=== PATIENT | male | born 1950 | race Caucasian/White ===

== ENCOUNTER 2021-01-13 20:50 | Inpatient (IN) | payer MEDICARE, SELFPAY ==
[2021-01-13 20:52] VITALS: BP 153/100; PULSE 78; RESP 20; TEMP 36.5; O2SAT 86; BMI 19.6
[2021-01-13 21:00] VITALS: O2SAT 94
--- NOTE | 2021-01-13 21:01 | EKG12_ITS ---
Test Reason : DYSRHYTHMIA Blood Pressure : / mmHG Vent. Rate : 080 BPM Atrial Rate : 080 BPM P-R Int : 116 ms QRS Dur : 080 ms QT Int : 376 ms P-R-T Axes : 054 062 048 degrees QTc Int : 433 ms Normal sinus rhythm Normal ECG Confirmed by RIYA GRAF, MARCELO ([id number]), video tape editor PATO LAMA ([id number]) on 01/16/2021 11:00:09 AM Referred By: ORLANDO Confirmed By:MARCELO RITTER MD
[2021-01-13 21:05] VITALS: O2SAT 99
[2021-01-13] MEDS: 0.9% Normal Saline 1,000 ML 999 ML IV (21:08)
--- NOTE | 2021-01-13 21:18 | ED.VIS.GEN ---
History of Present Illness Chief Complaint: Shortness of Breath Informant: Patient Onset: Days Context: Gradual Onset Timing: Continuous Narrative: Patient is a 70-year-old male with unclear past medical history presenting via EMS for worsening shortness of breath and weakness. Patient states he is visiting his son from [place]. He is helping his son recover from a back surgery. Patient states he has had increased weakness over the past week. He notes he has not been able to walk has been relying on a wheelchair for the past few days. He also states he has been having urinary incontinence we does not realize he is even pain and when he does try to urinate he cannot go. He thinks his kidneys are shutting down. Patient notes he has had some worsening shortness of breath and a mild nonproductive cough over the past 2 days. Any phlegm production. He states he has chronic back pain but is been worse. He also states he has had total reconstruction of his neck. He states because that he has residual left-sided deficits and weakness. Patient has any fever but states has been cold. He denies any GI symptoms. Denies any associated abdominal pain. Past Medical History - Allergies and Home Meds Allergies/Adverse Reactions: Allergies No Known Allergies Allergy (Verified 01/13/21 20:58) Primary Care Physician: NOT,DEFINED [NON-STAFF] - Past Medical History: None Surgical History: - - Neck surgery, back surgery Smoking Status: Current every day smoker Review of Systems General: Reports: Malaise. Denies: Chills, Fever, Sweats Eyes: Denies: Visual changes - bilaterally, Diplopia ENT: Denies: Rhinorrhea, Sore throat Cardiovascular: Denies: Chest pain, Palpitations Respiratory: Reports: Dyspnea, Cough. Denies: Dyspnea on exertion Gastrointestinal: Denies: Abdominal pain, Nausea, Vomiting, Diarrhea, Melena, Hematochezia Genitourinary: Reports: - - Urinary incontinence. Denies: Dysuria, Hematuria, Frequency Musculoskeletal: Reports: Back pain. Denies: Extremity Pain Skin: Denies: Rash, Wounds Neurological: Reports: Weakness - Generalized, Numbness - Lower extremities, diffuse and chronic. Denies: Headache Physical Exam Vital Signs/Narrative: Vital Signs Temp Pulse Resp BP Pulse Ox 01/13/21 21:05 99 01/13/21 21:00 94 01/13/21 20:52 97.7 F L 78 20 H 153/100 H 86 Inital Vital Signs reviewed: Yes General: Well nourished, Well developed, No Acute Distress Head: Normocephalic, Atraumatic Eyes: Perrl, EOMI ENT: Moist mucous membranes, No rhinorrhea Neck: Supple, Nontender Cardiovascular: Regular rate, Regular rhythm, No murmurs Respiratory: No distress, CTA bilaterally, Chest nontender Abdomen: Soft, Nontender, Nondistended, Normal bowel sounds. Negative for: Guarding, Rebound tenderness Rectal: Nontender, - - Normal rectal tone Back: Normal Inspection, - - Diffuse lumbar tenderness to palpation, difficult to discern any pinpoint area of pain. Negative for: CVA tenderness Extremities: Nontender, No edema Skin: Normal color, - - Pressure ulcers noted on the hips Neurological: Alert, Oriented x3, Cranial nerves II-XII grossly intact, Normal Sensation, Parasthesia - Lower extremities diffusely-states this is chronic, - - Decreased strength of the lower extremities however patient states that secondary to pain Psychological: Normal affect, Normal Mood Diagnostic/Tx/Re-eval Chest X-Ray - ED: 1 View, Read by ED Physician, Read by Radiologist, No Acute Disease Clinical Impression(s) from Imaging Studies Chest X-Ray 01/13/21 21:46 IMPRESSION: Left basilar atelectasis. Electronically Signed: Hilario Oliver DO at 22:07 EST Tel [phone], Service support , Abdomen/Pelvis CT 01/13/21 22:21 IMPRESSION: Diffuse wall thickening of the urinary bladder is suspected. Bilateral renal cysts. Nonobstructive left renal stone. Possible left renal complex cystic nodule. Correlate with ultrasound if needed. Mild dilatation of the infrarenal abdominal aorta. Electronically Signed: Hilario Oliver DO at 23:58 EST Tel [phone], Service support , Laboratory Data 01/13/21 01/13/21 01/13/21 21:10 21:10 21:10 WBC 8.3 RBC 4.48 L Hgb 13.0 Hct 39.1 L MCV 87.3 MCH 29.0 MCHC 33.2 RDW Std Deviation 45.2 H RDW Coeff of Bravo 14.2 Plt Count 279 MPV 10.5 Immature Gran % (Auto) 0.400 Neut % (Auto) 57.1 Lymph % (Auto) 25.1 [place] % (Auto) 12.6 H Eos % (Auto) 4.3 Baso % (Auto) 0.5 Absolute Neuts (auto) 4.8 Absolute Lymphs (auto) 2.09 Nucleated RBC % 0 PT INR APTT Sodium 134 L Potassium 4.2 Chloride 100 Carbon Dioxide 33.0 H Anion Gap 1 L BUN 18 Creatinine 0.96 Estim Creat Clear Calc 62.92 Est GFR (MDRD) Af Amer 101 Est GFR (MDRD) Non-Af 83 BUN/Creatinine Ratio 18.8 Glucose 253 H Lactic Acid 1.4 Calcium 8.5 Total Bilirubin 0.40 AST 36 ALT 41 Alkaline Phosphatase 128 H Total Creatine Kinase 81 Troponin I < 0.015 Total Protein 7.6 Albumin 2.7 L Globulin 4.9 H Albumin/Globulin Ratio 0.6 L Urine Color Urine Clarity Urine pH Ur Specific [place] Urine Protein Urine Glucose (UA) Urine Ketones Urine Occult Blood Urine Nitrite Urine Bilirubin Urine Urobilinogen Ur Leukocyte Esterase Urine RBC Urine WBC Ur Squamous Epith Cells Urine Bacteria Urine Mucus 01/13/21 01/13/21 21:28 21:30 WBC RBC Hgb Hct MCV MCH MCHC RDW Std Deviation RDW Coeff of Bravo Plt Count MPV Immature Gran % (Auto) Neut % (Auto) Lymph % (Auto) [place] % (Auto) Eos % (Auto) Baso % (Auto) Absolute Neuts (auto) Absolute Lymphs (auto) Nucleated RBC % PT 12.1 INR 0.9 APTT 28.2 Sodium Potassium Chloride Carbon Dioxide Anion Gap BUN Creatinine Estim Creat Clear Calc Est GFR (MDRD) Af Amer Est GFR (MDRD) Non-Af BUN/Creatinine Ratio Glucose Lactic Acid Calcium Total Bilirubin AST ALT Alkaline Phosphatase Total Creatine Kinase Troponin I Total Protein Albumin Globulin Albumin/Globulin Ratio Urine Color Yellow Urine Clarity Cloudy Urine pH 6.5 Ur Specific [place] 1.010 Urine Protein 30 H Urine Glucose (UA) 250 H Urine Ketones Negative Urine Occult Blood 25 H Urine Nitrite Negative Urine Bilirubin Negative Urine Urobilinogen 1 H Ur Leukocyte Esterase 500 H Urine RBC 0 SEEN Urine WBC >100 SEEN Ur Squamous Epith Cells 0 SEEN Urine Bacteria 0 SEEN Urine Mucus 0 SEEN - Rhythm Strip Rhythm Strip: Sinus Rhythm Rate: 80 Ectopy: None - EKG Initial EKG Interpretation: Sinus Rhythm, - - Sinus rhythm at a rate of 80 Normal axis Normal intervals Normal ST segments. Interpreted by emergency medicine physician - Medical Decision Making Evaluated for increased weakness, difficulty walking and urinary incontinence. In addition he feels that he has been short of breath. Patient symptoms really been progressing over the past 3 to 4 days. He does have some chronic neurologic symptoms especially of his lower extremities from prior surgeries. Bladder scan obtained as my concern is for acute urinary retention. Bladder scan initially read for 700 cc. Hua catheter is placed however patient has 400- 500 cc out initially. Urine is very turbid and purulent appearing. Patient is given fentanyl for pain control. Initially patient was hypoxic however I suspect hypoxia was more from vasoconstriction his fingers were very cold. Once he is warmed up his oxygen is now 100% on room air. Chest x-ray is clear. Patient is hemodynamically stable in the emergency room. Analysis is consistent with inflammation/UTI. Urine culture sent as well as blood cultures. Patient's lactate is normal. He is started on Rocephin for concern of UTI as a cause of his symptoms and weakness. Patient is given IV fluids in the emergency room. Cauda equina syndrome is considered in the differential however patient has good rectal tone. It seems most of his neurologic symptoms of his extremities are chronic. In addition I suspect his pain is more associated with his bladder infection patient does not appear to have true overflow incontinence as he does not seem to have an over distended bladder. CT of the abdomen with IV contrast is obtained given his pain and purulent urine for concern of a possible associated kidney stone or other acute pathology. Patient be admitted for further evaluation. CT shows mild dilation of the infrarenal abdominal aorta as well as diffusely thickened bladder wall. Kidneys appear normal kidney show possible complex left renal cystic nodule and a 3 mm nonobstructing left renal stone. I do not think either of these kidney findings are contributing to his presentation today. Patient is agreeable with plan of care. He is stable for the general medical floor at time of disposition. ED Disposition - Plan for ED Patient: Disposition: Acute Care Hospital [facility] Diagnosis: UTI (urinary tract infection), Generalized weakness, Difficulty in walking Referrals: NOT,DEFINED [NON-STAFF] -
[2021-01-13] MEDS: fentaNYL 100 MCG/2 ML Ampul 50 MCG IV ×2 (21:30→23:04)
[2021-01-13 21:35] LABS: Bacteria 0 SEEN /hpf (None Seen); Mucous, Urine 0 SEEN /hpf (<or=2+); Red Blood Cells-Urine 0 SEEN /hpf (0-5); Squamous Epithelial Cells - UA 0 SEEN /hpf (0-5)
[2021-01-13 21:41] LABS: ALB/GLOB Ratio 0.6 RATIO (0.9-2.4); AST(SGOT) 36 U/L (15-37); Absolute Lymphocyte Count 2.09 X10^3/uL (0.83-4.51); Absolute Neutrophil Count 4.8 X10^3/uL (2.0-7.7); Alanine Aminotransfer ALT/SGPT 41 U/L (16-61); Albumin, Serum 2.7 g/dL (3.2-5.0); Alkaline Phosphatase 128 U/L (45-117); Anion Gap 1 (5-15); BUN 18 mg/dL (7-18); BUN/Creat Ratio 18.8 RATIO (10-20); Basophil# 0.04 X10^3/uL; Basophil% 0.5 % (0-1); CPK Total, Creatine Kinase 81 U/L (39-308); Calcium,Total 8.5 mg/dL (8.5-10.1); Chloride 100 mmol/L (98-107); Creatinine, Serum 0.96 mg/dL (0.70-1.30); EST Glomerular Filtration Rate 83 mL/min (>60); Eosinophil# 0.36 X10^3/uL; Eosinophils% 4.3 % (0-5); Est Glom Filt Rate - Afr Amer 101 mL/min (>60); Estimated Creatinine Clearance 62.92 ml/min; Globulin 4.9 g/dL (2.2-4.2); Glucose 253 mg/dL (74-106); Hematocrit 39.1 % (40-54); Lymphocyte # 2.09 X10^3/ul (4.0); Lymphocyte % 25.1 % (19-41); Mean Corp Hgb Conc 33.2 g/dL (32-36); Mean Corpuscular Volume 87.3 fL (80-94); Mean Platelet Vol. 10.5 fl (6.2-12.0); Monocyte# 1.05 X10^3/uL; Monocyte% 12.6 % (0-10); NRBC Flagged by Analyzer 0 % (0-5); Neutrophil # 4.76 X10^3/uL (2.7-7.7); Neutrophil % 57.1 % (47-70); Platelet Count 279 K/mm3 (150-450); Potassium 4.2 mmol/L (3.5-5.1); Protein, Total 7.6 g/dL (6.4-8.2); RBC Distribution Width CV 14.2 % (11.6-14.6); RBC Distribution Width SD 45.2 fl (35.1-43.9); Red Blood Count 4.48 M/mm3 (4.6-6.2); Sodium Level 134 mmol/L (136-145); White Blood Count 8.3 K/mm3 (4.4-11.0)
--- NOTE | 2021-01-13 21:46 | RAD_ITS ---
STUDY: X-RAY CHEST REASON FOR EXAM: Male, 70 years old. urinary retention and incontinence, discharge. abd pain. -- increased weakness, SOB. TECHNIQUE: Frontal view COMPARISON: None. FINDINGS: The lungs are expanded. Left basilar atelectasis. Normal size heart. Normal mediastinum and murphy. Normal visualized pulmonary arteries. Normal visualized aortic arch and descending thoracic aorta. Degenerative changes of the thoracic spine. Surgical fusion of the lower cervical levels. Normal visualized ribs, clavicles, and shoulders. There is no demonstrated abnormality of the visualized soft tissue structures of the upper abdomen. RAD/Chest 1 View (Portable) IMPRESSION: Left basilar atelectasis. Electronically Signed: Hilario Oliver DO at 22:07 EST Tel [phone], Service support ,
[2021-01-13 21:48] LABS: Color, Urine Yellow (Yellow); Glucose, Dipstick 250 mg/dl (Normal); Ketone-Dipstick Negative (Negative); Leukocyte Esterase-Dipstick 500 /ul (Negative); Nitrite-Dipstick Negative (Negative); Occult Blood-Urine 25 /ul (Negative); Protein-Dipstick 30 mg/dl (Negative); Urine Bilirubin Dipstick Negative (Negative); Urine Clarity Cloudy (Clear); Urine Urobilinogen 1 mg/dl (Normal); Urine pH 6.5 (5.0 - 8.0)
[2021-01-13 21:53] LABS: White Blood Cells >100 SEEN /hpf (0-5)
[2021-01-13 22:03] LABS: International Normalized Ratio 0.9; Prothrombin Time (Protime)PT. 12.1 SECONDS (11.7-14.9)
[2021-01-13 22:04] LABS: Partial Thromboplast Time 28.2 Seconds (24.1-36.2)
[2021-01-13 22:16] LABS: Lactic Acid 1.4 mmol/L (0.4-1.9)
--- NOTE | 2021-01-13 22:21 | CT_ITS ---
STUDY: CT ABDOMEN AND PELVIS WITH CONTRAST REASON FOR EXAM: Male, 70 years old. URINARY RETENTION AND INCONTINENCE,LOW ABDOMEN AND BACK PAIN,WEAKNESS RADIATION DOSAGE (If Supplied By Facility): CTDIvol = ( 6.92 ) mGy, DLP = ( 394.44 ) mGycm TECHNIQUE: Transaxial images were obtained from the dome of the diaphragm to the symphysis pubis without oral contrast. IV 100mL Isovue-300 was administered. Sagittal and coronal images were reconstructed. Individualized dose optimization techniques were used for this CT. COMPARISON: None. FINDINGS: The visualized lung bases are unremarkable. The visualized portions of the heart are within normal limits. Normal liver. Normal gallbladder and extrahepatic biliary system. Normal spleen. Normal pancreas. Normal bilateral adrenal glands. Bilateral renal cysts. 3 mm nonobstructing left renal stone. Possible complex left renal 1.5 cm cystic nodule. Normal visualized stomach. Normal small intestine. Normal colon. The appendix is visualized and appears normal. Calcified abdominal aorta. Mild dilatation of the infrarenal abdominal aorta with a maximum diameter of 2.7 cm. Normal inferior vena cava. Normal retroperitoneum. GUERRA catheter in a decompressed urinary bladder with diffuse wall thickening. Cystitis cannot be excluded. Diffusely calcified prostate. Normal abdominal wall. Degenerative vertebral changes. CT/Abdomen/Pelvis W IV Cont ONLY IMPRESSION: Diffuse wall thickening of the urinary bladder is suspected. Bilateral renal cysts. Nonobstructive left renal stone. Possible left renal complex cystic nodule. Correlate with ultrasound if needed. Mild dilatation of the infrarenal abdominal aorta. Electronically Signed: Hilario Oliver DO at 23:58 EST Tel [phone], Service support ,
[2021-01-13 22:22] VITALS: BP 159/87; PULSE 82; RESP 17; TEMP 36.4; O2SAT 98
[2021-01-13] MEDS: Morphine 4 MG/ML Syringe IV (22:31)
[2021-01-13 22:33] VITALS: BP 129/77
[2021-01-13] MEDS: Ceftriaxone 1 GM/50 ML BAG IV (22:37)
[2021-01-13 23:54] VITALS: BP 127/67; PULSE 71; RESP 12; TEMP 36.3; O2SAT 100
[2021-01-14] VITALS (7 sets, daily range): BP systolic 114–142; BP diastolic 59–82; PULSE 76–90; RESP 18–22; TEMP 36.3–36.8; O2SAT 97–100; BMI 18.6; BMI 18.7
--- NOTE | 2021-01-14 00:29 | HP.PCM_ITS ---
Problem List (1) Difficulty in walking Status: Acute (2) Generalized weakness Status: Acute (3) UTI (urinary tract infection) Status: Acute History of Present Illness Date of Admission: 01/14/21 Chief Complaint: Dysuria The patient is a 70 year old M with a significant history of cervical myelopathy and right leg paresis who is visiting from [facility] presenting with dysuria x1 week. Patient came from [place] to help his son who have had surgery. Patient with his dysuria also reports incontinence of urine and penile discharge. He described his penile discharge as yellowish-green in color. Last time he had sexual intercourse was over 5 years ago. Last sexual intercourse was with his who 5 years ago. Further, patient reports nausea and vomiting. He also has weakness. Because of weakness he has been confined to a chair. He reports a temperature of about 100 Fahrenheit and chills. He has a chronic back pain which he thinks has worsened with his dysuria. Emergency department doctor reports normal rectal tone on physical examination. Reportedly urine showed gross sediments. Past Medical History Medical History: Medical History (Last Reviewed 01/14/21 @ 01:[address] Sunny Osuna MD) Cervical myelopathy G95.9 Allergies No Known Allergies Allergy (Verified 01/13/21 20:58) Home Medications: Ambulatory Orders Medication Instructions Recorded Aspirin [Aspirin, Baby] 81 mg PO DAILY@0800 01/13/21 Multivit-Mins/Iron/Folic/Lycop 1 ea PO DAILY 01/13/21 [Centrum Men's Tablet] Surgical History: - - Neck surgery, back surgery Smoking Status: Current every day smoker Tobacco Use: Cigarettes - *Family History Maternal History Items: - - Denies maternal medical history and states that old age runs in family. Paternal History Items: - - Denies paternal medical history and states that old age runs in family. Review of Systems Constitutional: Denies: Chills, Fever, Weight Change HEENT: Denies: Head Aches, Sinus Congestion, Sinus Drainage Cardiovascular: Denies: Chest Pain, Palpitations Respiratory: Reports: Shortness of Breath. Denies: Cough, Sputum production Gastrointestinal: Reports: Abdominal Pain, Nausea, Vomiting Genitourinary: Reports: Dysuria, Incontinence Musculoskeletal: Reports: Back Pain, Muscle pain. Denies: Joint Pain, Joint Tenderness Skin: Denies: Rash, Wounds Neurological: Denies: Numbness, Tingling, Focal weakness Psychiatric: Denies: Anxiety, Depression, Homicidal Ideations, Suicidal Ideations Hematologic/ Lymphatic: Denies: Easy Bruising, Easy Bleeding VTE Information - Inpt Only VTE Present on Admission: No VTE Mechan Device Prophylaxis: None VTE Pharm Prophylaxis ordered?: Yes Patient Problems: Active and Suspected Problems (Last Updated 01/14/21 @ 01:[address] Sunny Osuna MD) UTI (urinary tract infection) (Acute) Generalized weakness (Acute) Difficulty in walking (Acute) - Physical Exam Vitals/I&O's: Vital Signs Temp Pulse Resp BP Pulse Ox 97.4 F L 71 12 127/67 H 100 01/13/21 23:54 01/13/21 23:54 01/13/21 23:54 01/13/21 23:54 01/13/21 23:54 Oxygen Flow Rate (L/min) 2 Oxygen Delivery Method Room Air Weight: 60.4 kg Body Mass Index (BMI) 19.6 Intake and Output for Last 24 Hours 01/12/21 01/13/21 01/14/21 23:59 23:59 23:59 Intake Total 1050 / 1050 Balance 1050 / 1050 General: Alert, Oriented x3, Cooperative HEENT: Atraumatic, PERRLA, EOMI, Normocephalic Neck: Supple, No JVD, Negative Carotid Bruits Lungs: Clear to auscultation, Normal air movement Cardiovascular: Regular rate, Normal S1, Normal S2, No murmurs Abdomen: Bowel Sounds Present, Soft, Non Tender, - - Hua cath in place; urine is not clear. (placed at the ED) Extremities: No edema, Capillary Refill Less than 3 Seconds Skin: - - Erythema bilateral legs that he attributes to kumar. Erythema of left groin that he attributes to wheelchair use. Musculoskeletal: No Tenderness to Palpation of Joints or Extremities Neurological: Cranial nerves II-XII grossly intact, - - Restricted range of motion of bilateral lower extremity dietary to paralysis of right leg and muscle cramps. Psych/Mental Status: Normal Affect, Appropriate Microbiology Past 72 Hours 01/13/21 21:10 Mucosa - Nose SARS-CoV-2 Antigen (Rapid) - Final Laboratory Results 01/13/21 21:10: WBC 8.3, RBC 4.48 L, Hgb 13.0, Hct 39.1 L, MCV 87.3, MCH 29.0, MCHC 33.2, RDW Std Deviation 45.2 H, RDW Coeff of Bravo 14.2, Plt Count 279, MPV 10.5, Immature Gran % (Auto) 0.400, Neut % (Auto) 57.1, Lymph % (Auto) 25.1, [place] % (Auto) 12.6 H, Eos % (Auto) 4.3, Baso % (Auto) 0.5, Absolute Neuts (auto) 4.8, Absolute Lymphs (auto) 2.09, Nucleated RBC % 0 01/13/21 21:10: Sodium 134 L, Potassium 4.2, Chloride 100, Carbon Dioxide 33.0 H , Anion Gap 1 L, BUN 18, Creatinine 0.96, Estim Creat Clear Calc 62.92, Est GFR (MDRD) Af Amer 101, Est GFR (MDRD) Non-Af 83, BUN/Creatinine Ratio 18.8, Glucose 253 H, Calcium 8.5, Total Bilirubin 0.40, AST 36, ALT 41, Alkaline Phosphatase 128 H, Total Creatine Kinase 81, Troponin I < 0.015, Total Protein 7.6, Albumin 2.7 L, Globulin 4.9 H, Albumin/Globulin Ratio 0.6 L 01/13/21 21:10: Lactic Acid 1.4 01/13/21 21:28: Urine Color Yellow, Urine Clarity Cloudy, Urine pH 6.5, Ur Specific [place] 1.010, Urine Protein 30 H, Urine Glucose (UA) 250 H, Urine Ketones Negative, Urine Occult Blood 25 H, Urine Nitrite Negative, Urine Bilirubin Negative, Urine Urobilinogen 1 H, Ur Leukocyte Esterase 500 H, Urine RBC 0 SEEN, Urine WBC >100 SEEN, Ur Squamous Epith Cells 0 SEEN, Urine Bacteria 0 SEEN, Urine Mucus 0 SEEN 01/13/21 21:30: PT 12.1, INR 0.9, APTT 28.2 Assessment/Plan All Active Problems (Last Updated 01/14/21 @ 01:[address] Sunny Osuna MD) UTI (urinary tract infection) (Acute) Generalized weakness (Acute) Difficulty in walking (Acute) The patient is a 70 year old M with a significant history of cervical myelopathy and right leg paresis who is visiting from [facility] presenting with dysuria x1 week; penile discharge; nausea and vomiting; and with worsening back pain as well as weakness. Acute cystitis Abdomen and pelvis CT with diffuse wall thickening of the urinary bladder. Received ceftriaxone emergency department. Ceftriaxone continued. Antiemetics as needed Oxycodone prn pain. Bowel protocol in place. Generalized weakness/difficulty walking Treatment for UTI as above PT and OT to work with patient. Left basilar atelectasis Incentive spirometer ordered Moderate protein calorie malnutrition BMI of 19.7. Ensure Enlive ordered. Left renal complex cyst nodule Patient to follow-up longitudinally. DVT prophylaxis Subcutaneous Lovenox. Inpatient E&M: 50479 Init Hosp L3
--- NOTE | 2021-01-14 00:54 | ED.RN ---
attempted to call son for update on admission- did not answer.
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
[2021-01-14] MEDS: oxyCODONE 5 MG Tablet PO ×3 (02:33→17:47)
[2021-01-14 07:30] LABS: Absolute Lymphocyte Count 1.88 X10^3/uL (0.83-4.51); Absolute Neutrophil Count 3.9 X10^3/uL (2.0-7.7); Basophil# 0.03 X10^3/uL; Basophil% 0.4 % (0-1); Eosinophil# 0.28 X10^3/uL; Eosinophils% 4.1 % (0-5); Hematocrit 34.4 % (40-54); Hemoglobin 10.9 g/dL (13.0-16.5); Lymphocyte # 1.88 X10^3/ul (4.0); Lymphocyte % 27.2 % (19-41); Mean Corp Hgb Conc 31.7 g/dL (32-36); Mean Corpuscular Hgb 28.2 pg (27.0-32.0); Mean Corpuscular Volume 88.9 fL (80-94); Mean Platelet Vol. 10.3 fl (6.2-12.0); Monocyte# 0.84 X10^3/uL; Monocyte% 12.2 % (0-10); NRBC Flagged by Analyzer 0 % (0-5); Neutrophil # 3.85 X10^3/uL (2.7-7.7); Neutrophil % 55.8 % (47-70); Platelet Count 221 K/mm3 (150-450); RBC Distribution Width CV 14.3 % (11.6-14.6); RBC Distribution Width SD 46.1 fl (35.1-43.9); Red Blood Count 3.87 M/mm3 (4.6-6.2); White Blood Count 6.9 K/mm3 (4.4-11.0)
[2021-01-14 07:34] LABS: Anion Gap 3 (5-15); BUN 15 mg/dL (7-18); BUN/Creat Ratio 21.2 RATIO (10-20); Calcium,Total 8.2 mg/dL (8.5-10.1); Chloride 101 mmol/L (98-107); Creatinine, Serum 0.71 mg/dL (0.70-1.30); EST Glomerular Filtration Rate 118 mL/min (>60); Est Glom Filt Rate - Afr Amer 143 mL/min (>60); Glucose 278 mg/dL (74-106); Sodium Level 135 mmol/L (136-145)
[2021-01-14] MEDS: Aspirin 81 MG TAB.CHEW PO (08:16)
[2021-01-14] MEDS: Multivitamins,Ther W-Minerals Tablet 1 TABLET PO (08:16)
[2021-01-14] MEDS: 0.9% Normal Saline 1,000 ML 75 ML IV ×2 (08:50→21:34)
[2021-01-14] MEDS: Menthol/Lanolin/Calamine/Znox 113 GM Tube 1 APPLIC TOPICAL ×2 (10:07→21:38)
[2021-01-14] MEDS: Enoxaparin 40 MG/0.4 ML Syringe SC (10:08)
[2021-01-14] MEDS: Nystatin Powder 15gm Bottle 1 APPLIC TOPICAL ×2 (10:08→21:39)
[2021-01-14 10:20] LABS: Hemoglobin A1c 5.9 % (3.8-5.6)
[2021-01-14 11:35] LABS: Bedside Glucose 270 mg/dL (70-110)
[2021-01-14] MEDS: Insulin Lispro 100 UNIT/ML INSULN.PEN SC ×3 (11:37→23:56)
[2021-01-14] MEDS: Glucerna Shake 120 ML LIQUID PO ×3 (13:40→21:38)
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
--- NOTE | 2021-01-14 15:02 | NT.THERAPY_ITS ---
Nutrition Therapy Report - History Current diet / nutrition support order:: Regular; Ensure Enlive 120 ml 4x/day medpass. - Anthropometric Measurements Height:: 5 ft 9 in Weight:: 57.4 kg Body Mass Index (BMI):: 18.6 - Relevant Labs Relevant Labs:: RBC 3.87 M/mm3 (4.6-6.2) L 01/14/21 06:54 Hgb 10.9 g/dL (13.0-16.5) L 01/14/21 06:54 Hct 34.4 % (40-54) L 01/14/21 06:54 MCHC 31.7 g/dL (32-36) L 01/14/21 06:54 RDW Std Deviation 46.1 fl (35.1-43.9) H 01/14/21 06:54 [place] % (Auto) 12.2 % (0-10) H 01/14/21 06:54 Sodium 135 mmol/L (136-145) L 01/14/21 06:54 Carbon Dioxide 33.0 mmol/L (21.0-32.0) H 01/13/21 21:10 Anion Gap 3 (5-15) L 01/14/21 06:54 BUN/Creatinine Ratio 21.2 RATIO (10-20) H 01/14/21 06:54 Glucose 278 mg/dL (74-106) H 01/14/21 06:54 Hemoglobin A1c 5.9 % (3.8-5.6) H 01/14/21 06:54 Calcium 8.2 mg/dL (8.5-10.1) L 01/14/21 06:54 Alkaline Phosphatase 128 U/L (45-117) H 01/13/21 21:10 Albumin 2.7 g/dL (3.2-5.0) L 01/13/21 21:10 Globulin 4.9 g/dL (2.2-4.2) H 01/13/21 21:10 Albumin/Globulin Ratio 0.6 RATIO (0.9-2.4) L 01/13/21 21:10 - Assessment Food / Nutrition-Related History:: 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 Per COLBY Don pt w/ good intake at meals consuming >/=75% of meals & tolerating ONS- observed lunch tray pt consumed >75% of meal. Pt notes unintentional wt loss over the past 5 years since passing of ; states UBW 138#, reports weighed this 6 months ago-- noted wt loss 8% x 6 months (not significant for malnutrition). Notes drop in pant size from 32 waist to 28-30 waist over the past 6 mo. Reports experiencing constipation- typically resolves w/ coffee at home. BG elevated 270-278mg/dl- A1C 5.9%- no hx of DM; BG monitored every 6 hours, humalog on emar. Pt endentulous-does not wear dentures--reports no chew/swallowing difficulty. Pt agreeable to NFPE: severe temporal scooping/depression, moderate orbital bone depression/hollow look, moderate clavicle bone protrusion, mild dorsal hand interosseous muscle depression. Pt with one indicator of malnutrition at this time of moderate to severe muscle/fat wasting. - Nutrition Diagnosis Problem / Etiology / Signs & Symptoms (PES):: Inadequate protein-energy intake RT increased protein/calorie needs d/t wounds AEB bilateral hips pressure injuries. Evidence of Malnutrition Exists:: No - Nutrition Intervention Nutrition Prescription:: [id number] calories, 70-80g protein - Food / Nutrient Delivery Interventions Summary of nutrition intervention:: Rec pt consume 5 to 6 small meals at home for increased calories/protein- rec ONS Equate/Boost/Ensure/CIB- pt questions if ONS covered by insurance will refer to CM and/or SW to determine coverage. Pt notes increased weakness suspects d/t cystitis over the past couple weeks & trouble preparing self meals. Interested in Meals on Wheels. Nutrition support ordered as / adjusted to:: Will continue regular diet & provide fortified foods at pt meals. Will provide Glucerna shake 120 ml 4x/day medpass & El 1 pkt BID. Nutrition education provided?: Yes - MNT Monitoring Further MNT monitoring and evaluation required?: Yes MNT Follow-up in:: 3-5 days
[2021-01-14] MEDS: Tamsulosin HCl 0.4 MG Capsule PO (17:48)
[2021-01-14 17:56] LABS: Bedside Glucose 239 mg/dL (70-110)
[2021-01-14] MEDS: Ceftriaxone 1 GM/50 ML BAG IV (21:34)
[2021-01-14] MEDS: cycloBENZAPRine HCl 10 MG Tablet PO (21:38)
[2021-01-15] VITALS (9 sets, daily range): BP systolic 72–117; BP diastolic 40–64; PULSE 64–97; RESP 16–21; TEMP 36.3–36.7; O2SAT 96–100
[2021-01-15 00:06] LABS: Bedside Glucose 175 mg/dL (70-110)
[2021-01-15 06:01] LABS: Bedside Glucose 135 mg/dL (70-110)
[2021-01-15] MEDS: cycloBENZAPRine HCl 10 MG Tablet PO (06:20)
--- NOTE | 2021-01-15 08:54 | PN_ITS ---
Patient Problems: Active and Suspected Problems (Last Reviewed 01/14/21 @ 01:[address] Sunny Osuna MD) UTI (urinary tract infection) (Acute) Subjective: Chief complaint: Follow-up after admission for acute cystitis, prediabetes, hypoxia, physical debility and difficulty ambulating. Patient seen and examined. No acute events overnight. Patient has multiple complaints. He complained of lower abdominal pain but improved compared to yesterday. He is strange patient. He looks chronically ill patient. He denied smoking to me but he told the nurse that he has been smoking cigars. He mentioned that he never diagnosed with asthma or COPD. He is afebrile, blood pressure and heart rate are stable, pulse ox is 97% on 2 L. - Physical Exam Vitals/I&O's: Vital Signs Temp Pulse Resp BP Pulse Ox 97.4 F L 64 18 117/64 97 01/15/21 08:51 01/15/21 08:51 01/15/21 08:51 01/15/21 08:51 01/15/21 08:51 Oxygen Flow Rate (L/min) 2 Oxygen Delivery Method Nasal Cannula Weight: 126 lb 8.725 oz Body Mass Index (BMI) 18.6 Intake and Output for Last 24 Hours 01/13/21 01/14/21 01/15/21 23:59 23:59 23:59 Intake Total 1050 / 1050 1405 / 1505 300 / 300 Output Total 1500 / 2900 2775 / 2775 Balance 1050 / 1050 -95 / -1395 -2475 / -2475 General: Alert, Oriented x3, Cooperative, No apparent distress, - HEENT: Atraumatic, PERRLA, EOMI, Normocephalic Oral: Moist Mucosa, No Gingival or Mucosal Lesions/ Ulcerations Neck: Supple, No JVD, Negative Carotid Bruits, Trachea Midline, Thyroid Normal Size and Texture Lungs: Clear to auscultation, No rhonchi, No wheeze, No rales, Diminished Cardiovascular: Regular rate, Regular Rhythm, Normal S1, Normal S2, PMI Normal Abdomen: Bowel Sounds Present, Soft, Non Tender, Non-Distended, No Hepato- splenomegaly Extremities: No clubbing, No cyanosis, No edema Skin: No rashes, No breakdown Lymphatic: No Cervical, Supraclavicular, or Inguinal Adenopathy Neurological: Cranial nerves II-XII grossly intact, Motor Exam 5/5 strength throughout Psych/Mental Status: Anxious, Flat Affect Microbiology Past 72 Hours 01/13/21 21:28 Urine, Clean Catch Urine Culture - Preliminary GPC Poss Enterococcus sp 01/13/21 21:10 Mucosa - Nose SARS-CoV-2 Antigen (Rapid) - Final Laboratory Results 01/14/21 06:54: Hemoglobin A1c 5.9 H 01/14/21 11:28: POC Glucose 270 H 01/14/21 17:43: POC Glucose 239 H 01/14/21 23:55: POC Glucose 175 H 01/15/21 05:56: POC Glucose 135 H Clinical Impression(s) from Imaging Studies Chest X-Ray 01/13/21 21:46 IMPRESSION: Left basilar atelectasis. Electronically Signed: Hilario Oliver DO at 22:07 EST Tel [phone], Service support , Abdomen/Pelvis CT 01/13/21 22:21 IMPRESSION: Diffuse wall thickening of the urinary bladder is suspected. Bilateral renal cysts. Nonobstructive left renal stone. Possible left renal complex cystic nodule. Correlate with ultrasound if needed. Mild dilatation of the infrarenal abdominal aorta. Electronically Signed: Hilario Oliver DO at 23:58 EST Tel [phone], Service support , Current Medications Acetaminophen (Acetaminophen 325 Mg Tablet) 650 mg PO Q6H PRN PRN PRN Reason: Pain Score 1-10/Temp > 100.7 F Aspirin (Aspirin 81 Mg Tab.Chew) 81 mg PO DAILY@0800 [facility] Last Admin: 01/14/21 08:16 Dose: 81 mg Documented by: Calamine/Phenol (Menthol/Lanolin/Calamine/Znox 113 Gm Tube) 1 applic TOPICAL BID [facility]; Protocol Last Admin: 01/14/21 21:38 Dose: 1 applicatio Documented by: Cyclobenzaprine HCl (Cyclobenzaprine Hcl 10 Mg Tablet) 10 mg PO TID PRN PRN PRN Reason: Leg spasms Last Admin: 01/15/21 06:20 Dose: 10 mg Documented by: Enoxaparin Sodium (Enoxaparin 40 Mg/0.4 Ml Syringe) 40 mg SC DAILY [facility] Last Admin: 01/14/21 10:08 Dose: 40 mg Documented by: Sodium Chloride () 250 mls @ 15 mls/hr IV .[id number] PRN PRN Reason: Saline Flush Ceftriaxone Sodium (Rocephin) 1 gm in 50 mls @ 100 mls/hr IV Q24@2200 [facility] Last Infusion: 01/14/21 22:04 Dose: Infused Documented by: Sodium Chloride () 1,000 mls @ 75 mls/hr IV .[id number] [facility] Last Admin: 01/14/21 21:34 Dose: 75 mls/hr Documented by: Insulin Human Lispro (Insulin Lispro 100 Unit/Ml Insuln.Pen) 0 unit SC Q6 [facility]; Protocol Last Admin: 01/15/21 05:57 Dose: Not Given Documented by: Multivitamins/Minerals (Multivitamins,Ther W-Minerals Tablet) [facility] Last Admin: 01/14/21 08:16 Dose: 1 tablet Documented by: Nutritional Formula (Lactose Free) (Glucerna Shake 120 Ml Liquid) 120 ml PO 4X/DAY [facility] Last Admin: 01/14/21 21:38 Dose: 120 ml Documented by: Nystatin (Nystatin Powder 15gm Bottle) 1 applic TOPICAL BID [facility]; Protocol Last Admin: 01/14/21 21:39 Dose: 1 applicatio Documented by: Ondansetron HCl (Ondansetron 4 Mg/2 Ml Vial) 4 mg IV Q8H PRN PRN PRN Reason: NAUSEA/VOMITING Oxycodone HCl (Oxycodone 5 Mg Tablet) 5 mg PO Q4H PRN PRN PRN Reason: Pain Score 4-10/10 Last Admin: 01/14/21 17:47 Dose: 5 mg Documented by: Senna/Docusate Sodium (Senna/Docusate Sodium 1 Tablet) 2 tablet PO BID PRN PRN PRN Reason: Constipation Sodium Chloride (0.9% Saline Lock 10 Ml Syringe) 10 - 40 ml IV UD PRN PRN Reason: SALINE FLUSH Tamsulosin HCl (Tamsulosin Hcl 0.4 Mg Capsule) 0.4 mg PO DAILY@1730 [facility] Last Admin: 01/14/21 17:48 Dose: 0.4 mg Documented by: Medical Necessity - Tobacco Use Smoking Status: Current every day smoker Tobacco Use: Cigars Assessment/Plan All Active Problems (Last Reviewed 01/14/21 @ 01:[address] Sunny Osuna MD) Prediabetes (Acute) Physical debility (Acute) UTI (urinary tract infection) (Acute) This is a 70 years old male patient presented to the emergency room because of shortness of breath and weakness, found to have acute cystitis, admitted to the floor and he developed hypoxia and also found to have prediabetes. #1 acute cystitis/urinary retention: Patient is on IV Rocephin. Started on Flomax and he is on Hua catheter. Blood culture is pending. Urine culture revealed Enterococcus species, final is pending. COVID-19 was negative. CBC and BMP from today reviewed, was unremarkable apart from hyperglycemia. Plan: DC Hua catheter, continue same treatment, follow cultures, repeat CBC and BMP tomorrow morning. #2 prediabetes: Blood sugar has been up to 270s. Hemoglobin A1c is 5.9%. He has been on sliding scale and Accu-Cheks. Plan: Start Metformin 500 g p.o. twice daily. #3 suspected COPD/hypoxia: Patient denies smoking cigarettes but he does smoke cigars. Chest x-ray showed no acute findings apart from atelectasis. He has been on oxygen at 2 L. Plan: Albuterol every 6 hours, incentive spirometer, wean off oxygen as tolerated. #4 moderate protein calorie malnutrition: Nutrition consulted. #5 physical debility/functional decline: Patient is visiting his son from [place]. Plan for PT OT evaluation and treatment. #6 DVT prophylaxis: Subcu Lovenox. This note was generated with [employer] dictation software. It may contain incorrect words, spelling, and punctuation that were not noted in checking the note before signing. Inpatient E&M: 82791 Subs Hosp L2
[2021-01-15] MEDS: oxyCODONE 5 MG Tablet PO (08:59)
[2021-01-15] MEDS: Multivitamins,Ther W-Minerals Tablet 1 TABLET PO (09:00)
[2021-01-15] MEDS: Menthol/Lanolin/Calamine/Znox 113 GM Tube 1 APPLIC TOPICAL ×2 (09:00→22:22)
[2021-01-15] MEDS: Aspirin 81 MG TAB.CHEW PO (09:00)
[2021-01-15] MEDS: Nystatin Powder 15gm Bottle 1 APPLIC TOPICAL ×2 (09:00→22:22)
[2021-01-15] MEDS: Enoxaparin 40 MG/0.4 ML Syringe SC (09:00)
[2021-01-15] MEDS: Insulin Lispro 100 UNIT/ML INSULN.PEN SC ×2 (12:53→22:23)
[2021-01-15 13:00] LABS: Bedside Glucose 285 mg/dL (70-110)
[2021-01-15] MEDS: Albuterol 2.5 MG/3 ML VIAL.NEB. INHALATION ×2 (13:41→19:52)
[2021-01-15] MEDS: Glucerna Shake 120 ML LIQUID PO ×2 (17:21→22:22)
[2021-01-15] MEDS: Tamsulosin HCl 0.4 MG Capsule PO (17:21)
[2021-01-15] MEDS: metFORMIN HCl 500 MG Tablet PO (17:23)
[2021-01-15 17:25] LABS: Bedside Glucose 144 mg/dL (70-110)
[2021-01-15] MEDS: Ceftriaxone 1 GM/50 ML BAG IV (22:21)
[2021-01-15] MEDS: 0.9% Saline Lock 10 ML Syringe IV (22:23)
[2021-01-15 23:05] LABS: Bedside Glucose 212 mg/dL (70-110)
[2021-01-16 04:45] VITALS: BP 95/68; PULSE 90; RESP 18; TEMP 36.4; O2SAT 96
[2021-01-16 06:30] LABS: Absolute Lymphocyte Count 2.29 X10^3/uL (0.83-4.51); Absolute Neutrophil Count 4.8 X10^3/uL (2.0-7.7); Basophil# 0.07 X10^3/uL; Basophil% 0.9 % (0-1); Eosinophil# 0.25 X10^3/uL; Eosinophils% 3.1 % (0-5); Hematocrit 37.3 % (40-54); Hemoglobin 12.1 g/dL (13.0-16.5); Lymphocyte # 2.29 X10^3/ul (4.0); Mean Corp Hgb Conc 32.4 g/dL (32-36); Mean Corpuscular Hgb 28.9 pg (27.0-32.0); Mean Corpuscular Volume 89.2 fL (80-94); Mean Platelet Vol. 10.5 fl (6.2-12.0); Monocyte# 0.68 X10^3/uL; Monocyte% 8.3 % (0-10); NRBC Flagged by Analyzer 0 % (0-5); Neutrophil # 4.81 X10^3/uL (2.7-7.7); Neutrophil % 58.8 % (47-70); Platelet Count 207 K/mm3 (150-450); RBC Distribution Width CV 14.1 % (11.6-14.6); RBC Distribution Width SD 45.6 fl (35.1-43.9); Red Blood Count 4.18 M/mm3 (4.6-6.2); White Blood Count 8.2 K/mm3 (4.4-11.0)
[2021-01-16] MEDS: Insulin Lispro 100 UNIT/ML INSULN.PEN SC ×4 (06:40→21:30)
[2021-01-16 06:46] LABS: Bedside Glucose 158 mg/dL (70-110)
[2021-01-16 07:05] LABS: Anion Gap 5 (5-15); BUN 26 mg/dL (7-18); BUN/Creat Ratio 39.5 RATIO (10-20); Calcium,Total 8.7 mg/dL (8.5-10.1); Chloride 98 mmol/L (98-107); Creatinine, Serum 0.66 mg/dL (0.70-1.30); EST Glomerular Filtration Rate 128 mL/min (>60); Est Glom Filt Rate - Afr Amer 155 mL/min (>60); Glucose 161 mg/dL (74-106); Potassium 4.2 mmol/L (3.5-5.1); Sodium Level 134 mmol/L (136-145)
[2021-01-16] MEDS: Albuterol 2.5 MG/3 ML VIAL.NEB. INHALATION ×3 (07:05→19:27)
[2021-01-16] MEDS: Glucerna Shake 120 ML LIQUID PO ×4 (09:47→21:29)
[2021-01-16] MEDS: metFORMIN HCl 500 MG Tablet PO ×2 (09:47→17:35)
[2021-01-16] MEDS: Multivitamins,Ther W-Minerals Tablet 1 TABLET PO (09:47)
[2021-01-16] MEDS: Aspirin 81 MG TAB.CHEW PO (09:47)
[2021-01-16] MEDS: Menthol/Lanolin/Calamine/Znox 113 GM Tube 1 APPLIC TOPICAL ×2 (09:48→21:29)
[2021-01-16] MEDS: Nystatin Powder 15gm Bottle 1 APPLIC TOPICAL ×2 (09:48→21:29)
[2021-01-16] MEDS: Enoxaparin 40 MG/0.4 ML Syringe SC (09:48)
[2021-01-16] MEDS: oxyCODONE 5 MG Tablet PO ×2 (09:51→17:42)
[2021-01-16 10:00] VITALS: BP 95/57; PULSE 75; RESP 14; TEMP 36.7; O2SAT 98
--- NOTE | 2021-01-16 10:07 | NURSING ---
wound photo: left hip
--- NOTE | 2021-01-16 10:08 | NURSING ---
wound photo: right hip
--- NOTE | 2021-01-16 12:04 | PCM.PN.HOSP ---
Patient Problems: Active and Suspected Problems (Last Reviewed 01/14/21 @ 01:[address] Sunny Osuna MD) UTI (urinary tract infection) (Acute) Subjective: Patient seen and examined. Complaint of feeling generally weak and lethargic. He says he has a thick discharge coming from his urethral meatus. He denies any history of STDs and states he has not had any sexual activity for the past 5 years since his . Review of systems otherwise negative. He has remained hemodynamically stable. Vitals/I&O's: Vital Signs Temp Pulse Resp BP Pulse Ox 98.1 F 75 14 95/57 L 98 01/16/21 10:00 01/16/21 10:00 01/16/21 10:00 01/16/21 10:00 01/16/21 10:00 Oxygen Flow Rate (L/min) 2 Oxygen Delivery Method Nasal Cannula Weight: 126 lb 8.725 oz Body Mass Index (BMI) 18.6 Intake and Output for Last 24 Hours 01/14/21 01/15/21 01/16/21 23:59 23:59 23:59 Intake Total 1405 / 1505 2560 / 2860 400 / 400 Output Total 1500 / 2900 3625 / 3900 275 / 275 Balance -95 / -1395 -1065 / -1040 125 / 125 General: Alert, Oriented x3, Cooperative, - - restless HEENT: Atraumatic, PERRLA, EOMI, Normocephalic Oral: Dry Mucosa Neck: Supple, No JVD, Negative Carotid Bruits Lungs: Clear to auscultation, Normal air movement Cardiovascular: Regular rate, Regular Rhythm, Normal S1, Normal S2, No murmurs Abdomen: Bowel Sounds Present, Soft, Non Tender Extremities: No edema, Capillary Refill Less than 3 Seconds Skin: No rashes, No breakdown Musculoskeletal: No Tenderness to Palpation of Joints or Extremities Lymphatic: No Cervical, Supraclavicular, or Inguinal Adenopathy Neurological: Cranial nerves II-XII grossly intact, Neuro grossly intact, Motor Exam 5/5 strength throughout Psych/Mental Status: Agitated, Alert and oriented to time, place, person, mood and affect Microbiology Past 72 Hours 01/13/21 21:28 Urine, Clean Catch Urine Culture - Final Enterococcus faecalis 01/13/21 21:10 Blood Culture (Wb) - Right Forearm Blood Culture - Preliminary No growth in 48 hours. 01/13/21 21:30 Blood Culture (Wb) - Left Forearm Blood Culture - Preliminary No growth in 48 hours. 01/13/21 21:10 Mucosa - Nose SARS-CoV-2 Antigen (Rapid) - Final Laboratory Results 01/15/21 12:50: POC Glucose 285 H 01/15/21 17:20: POC Glucose 144 H 01/15/21 22:21: POC Glucose 212 H 01/16/21 05:15: WBC 8.2, RBC 4.18 L, Hgb 12.1 L, Hct 37.3 L, MCV 89.2, MCH 28.9, MCHC 32.4, RDW Std Deviation 45.6 H, RDW Coeff of Bravo 14.1, Plt Count 207, MPV 10.5, Immature Gran % (Auto) 0.900, Neut % (Auto) 58.8, Lymph % (Auto) 28.0, Knott % (Auto) 8.3, Eos % (Auto) 3.1, Baso % (Auto) 0.9, Absolute Neuts (auto) 4.8, Absolute Lymphs (auto) 2.29, Nucleated RBC % 0 01/16/21 05:15: Sodium 134 L, Potassium 4.2, Chloride 98, Carbon Dioxide 31.0, Anion Gap 5, BUN 26 H, Creatinine 0.66 L, Estim Creat Clear Calc 57.40, Est GFR (MDRD) Af Amer 155, Est GFR (MDRD) Non-Af 128, BUN/Creatinine Ratio 39.5 H, Glucose 161 H, Calcium 8.7 01/16/21 06:38: POC Glucose 158 H Diagnostic Data Chest X-Ray 01/13/21 21:46 IMPRESSION: Left basilar atelectasis. Electronically Signed: Hilario Oliver DO at 22:07 EST Tel [phone], Service support , Abdomen/Pelvis CT 01/13/21 22:21 IMPRESSION: Diffuse wall thickening of the urinary bladder is suspected. Bilateral renal cysts. Nonobstructive left renal stone. Possible left renal complex cystic nodule. Correlate with ultrasound if needed. Mild dilatation of the infrarenal abdominal aorta. Electronically Signed: Hilario Oliver DO at 23:58 EST Tel [phone], Service support , Current Medications Acetaminophen (Acetaminophen 325 Mg Tablet) 650 mg PO Q6H PRN PRN PRN Reason: Pain Score 1-10/Temp > 100.7 F Albuterol Sulfate (Albuterol 2.5 Mg/3 Ml Vial.Neb.) 2.5 mg INHALATION Q6H.RT [facility] Last Admin: 01/16/21 07:05 Dose: 2.5 mg Documented by: Aspirin (Aspirin 81 Mg Tab.Chew) 81 mg PO DAILY@0800 [facility] Last Admin: 01/16/21 09:47 Dose: 81 mg Documented by: Calamine/Phenol (Menthol/Lanolin/Calamine/Znox 113 Gm Tube) 1 applic TOPICAL BID [facility]; Protocol Last Admin: 01/16/21 09:48 Dose: 1 applicatio Documented by: Cyclobenzaprine HCl (Cyclobenzaprine Hcl 10 Mg Tablet) 10 mg PO TID PRN PRN PRN Reason: Leg spasms Last Admin: 01/15/21 06:20 Dose: 10 mg Documented by: Enoxaparin Sodium (Enoxaparin 40 Mg/0.4 Ml Syringe) 40 mg SC DAILY [facility] Last Admin: 01/16/21 09:48 Dose: 40 mg Documented by: Sodium Chloride () 250 mls @ 15 mls/hr IV .[id number] PRN PRN Reason: Saline Flush Ceftriaxone Sodium (Rocephin) 1 gm in 50 mls @ 100 mls/hr IV Q24@2200 [facility] Last Infusion: 01/15/21 22:51 Dose: Infused Documented by: Insulin Human Lispro (Insulin Lispro 100 Unit/Ml Insuln.Pen) 0 unit SC ACHS [facility]; Protocol Last Admin: 01/16/21 06:40 Dose: 1 unit Documented by: Metformin HCl (Metformin Hcl 500 Mg Tablet) [facility] Last Admin: 01/16/21 09:47 Dose: 500 mg Documented by: Multivitamins/Minerals (Multivitamins,Ther W-Minerals Tablet) 1 [facility] Last Admin: 01/16/21 09:47 Dose: 1 tablet Documented by: Nutritional Formula (Lactose Free) (Glucerna Shake 120 Ml Liquid) 120 ml PO 4X/DAY [facility] Last Admin: 01/16/21 09:47 Dose: 120 ml Documented by: Nystatin (Nystatin Powder 15gm Bottle) 1 applic TOPICAL BID [facility]; Protocol Last Admin: 01/16/21 09:48 Dose: 1 applicatio Documented by: Ondansetron HCl (Ondansetron 4 Mg/2 Ml Vial) 4 mg IV Q8H PRN PRN PRN Reason: NAUSEA/VOMITING Oxycodone HCl (Oxycodone 5 Mg Tablet) 5 mg PO Q4H PRN PRN PRN Reason: Pain Score 4-10/10 Last Admin: 01/16/21 09:51 Dose: 5 mg Documented by: Senna/Docusate Sodium (Senna/Docusate Sodium 1 Tablet) 2 tablet PO BID PRN PRN PRN Reason: Constipation Sodium Chloride (0.9% Saline Lock 10 Ml Syringe) 10 - 40 ml IV UD PRN PRN Reason: SALINE FLUSH Last Admin: 01/15/21 22:23 Dose: 10 ml Documented by: Tamsulosin HCl (Tamsulosin Hcl 0.4 Mg Capsule) 0.4 mg PO DAILY@1730 [facility] Last Admin: 01/15/21 17:21 Dose: 0.4 mg Documented by: STROKE Vital Signs/Narrative: Vital Signs Temp Pulse Resp BP Pulse Ox 01/16/21 10:00 98.1 F 75 14 95/57 L 98 Medical Necessity - Tobacco Use Smoking Status: Current every day smoker Tobacco Use: Cigars Assessment/Plan All Active Problems (Last Reviewed 01/14/21 @ 01:[address] Sunny Osuna MD) Prediabetes (Acute) Physical debility (Acute) UTI (urinary tract infection) (Acute) #Acute cystitis patient still complains of discharge from urethral meatus on IV rocephin blood cultures negative urine culture growing Enterococcus fecalis. will witch antibiotics to PO ciprofloxacin based on sensitivities # Impaired glucose tolerance A1c was 5.9 and blood sugars have been elevated. Started on Metformin 500 mg twice daily. #Probable COPD: Patient has a history of smoking cigars though he denies smoking cigarettes. Chest x-ray showed no acute findings. He has been on oxygen 2 L since admission. Breathing treatments with bronchodilators. Titrate oxygen to maintain saturation above 90%. to follow up with a risk control representative on outpatient basis once he goes back to [place] #Moderate protein calorie malnutrition: nutrition on board #Debility and functional decline: PT/OT on board. Fall precautions DVT prophylaxis: lovenox Inpatient E&M: 66903 Subs Hosp L2
[2021-01-16 12:45] LABS: Bedside Glucose 188 mg/dL (70-110)
[2021-01-16] MEDS: Ciprofloxacin 500 MG Tablet PO ×2 (12:47→21:31)
[2021-01-16] MEDS: Acetaminophen 325 MG Tablet 650 MG PO ×2 (12:50→21:33)
[2021-01-16] MEDS: cycloBENZAPRine HCl 10 MG Tablet PO ×2 (12:51→17:42)
[2021-01-16 13:07] VITALS: PULSE 76; RESP 16; O2SAT 97
--- NOTE | 2021-01-16 15:17 | CASEMGMT ---
RN DEVONTE updated by therapy that patient may benefit from SNF at discharge. RN CM in to discuss discharge plans and progress with therapy. Patient is agreeable to SNF at discharge. Patient was provided a list of SNF providers including quality and resource use data and consistent with the patient?s preferred geographic region, medical needs, and insurance network. Patient's first choice for preferred provided for SNF is TCU. RN CM requested that patient come up with second choice if TCU does not have bed available. Patient voiced understanding. RN CM updated LISHA Alicea regarding preference for TCU.
--- NOTE | 2021-01-16 15:25 | CASEMGMT ---
Social Work Note SW received referral for SNF. Pt's preference for SNF is [facility]. SW placed a call to [facility] with TCU and left message regarding bed availability. SW waiting for call back. Plan: SNF pending acceptance and pre-cert Thais Alicea MSW, CAR OILER
[2021-01-16 16:00] VITALS: BP 101/64; PULSE 86; RESP 16; TEMP 36.8; O2SAT 94
[2021-01-16] MEDS: Tamsulosin HCl 0.4 MG Capsule PO (17:35)
--- NOTE | 2021-01-16 18:26 | NURSING ---
PT DOES NOT KNOW SONS PHONE NUMBER. HE SAID THE NUMBER IN THE CHART IS THE ONE EVERYONE HAS BEEN CALLING. THIS NURSE RECHECKED THE NUMBER CALLED W/THE NUMBER IN THE CHART, SAME NUMBER
[2021-01-16 18:51] LABS: Bedside Glucose 165 mg/dL (70-110)
[2021-01-16 19:27] VITALS: PULSE 89; RESP 18; O2SAT 98
[2021-01-16 21:17] VITALS: BP 141/58; PULSE 79; RESP 18; TEMP 36.5; O2SAT 96
[2021-01-16 21:40] LABS: Bedside Glucose 208 mg/dL (70-110)
[2021-01-17] VITALS (7 sets, daily range): BP systolic 101–131; BP diastolic 58–65; PULSE 74–94; RESP 16–20; TEMP 36.6–37.1; O2SAT 95–98
[2021-01-17] MEDS: Insulin Lispro 100 UNIT/ML INSULN.PEN SC ×3 (06:46→18:27)
[2021-01-17] MEDS: Albuterol 2.5 MG/3 ML VIAL.NEB. INHALATION ×3 (07:05→19:42)
[2021-01-17] MEDS: metFORMIN HCl 500 MG Tablet PO ×2 (09:39→18:26)
[2021-01-17] MEDS: Ciprofloxacin 500 MG Tablet PO (09:39)
[2021-01-17] MEDS: Aspirin 81 MG TAB.CHEW PO (09:39)
[2021-01-17] MEDS: Multivitamins,Ther W-Minerals Tablet 1 TABLET PO (09:40)
[2021-01-17] MEDS: Menthol/Lanolin/Calamine/Znox 113 GM Tube 1 APPLIC TOPICAL (09:40)
[2021-01-17] MEDS: Gabapentin 100 MG Capsule PO ×3 (09:40→18:27)
[2021-01-17] MEDS: Enoxaparin 40 MG/0.4 ML Syringe SC (09:40)
[2021-01-17] MEDS: Nystatin Powder 15gm Bottle 1 APPLIC TOPICAL (09:41)
[2021-01-17] MEDS: oxyCODONE 5 MG Tablet PO ×2 (09:44→16:25)
[2021-01-17] MEDS: Acetaminophen 325 MG Tablet 650 MG PO ×2 (09:44→16:25)
--- NOTE | 2021-01-17 10:10 | CASEMGMT ---
Addendum entered by Thais Alicea 01/17/21 12:28: SW hasn't heard yet from [facility]. LISHA placed a call to Nadia at [facility] to inquire about acceptance. Nadia states she hasn't heard back yet from [facility], will call them again. LISHA updated Nadia that pt is medically ready once facility can accept and pre-cert has been obtained. SW waiting for call back from [facility]. Original Note: Social Work Note SW received message from [facility] with TCU stating TCU has no beds available. SW in to speak with pt. SW introduced self and role at [facility]. Pt is alert and orientated. SW updated pt that TCU has no beds available, pt will need to pick a different SNF. Pt states he prefers to stay in [place]. SW went over list with pt. Pt's preferred provider is [facility]. LISHA placed a call to Nadia at [facility] and provided referral. SW faxed referral. Plan: SNF pending acceptance and pre-cert Thais Alicea FULL STACK NET DEVELOPER, CRYPTOLOGIC SUPERVISOR
[2021-01-17 11:30] LABS: Bedside Glucose 161 mg/dL (70-110)
--- NOTE | 2021-01-17 11:38 | PN_ITS ---
Patient Problems: Active and Suspected Problems (Last Reviewed 01/14/21 @ 01:[address] Sunny Osuna MD) UTI (urinary tract infection) (Acute) Subjective: Patient seen and examined. He and of his chronic back and generalized pain. He states he is to take Neurontin 800 mg 3 times daily which he used to be given to him by his old PCP for his pain. Review of symptoms otherwise negative. Vitals/I&O's: Vital Signs Temp Pulse Resp BP Pulse Ox 98.0 F 80 18 131/65 H 95 01/17/21 09:52 01/17/21 09:52 01/17/21 09:52 01/17/21 09:52 01/17/21 09:52 Oxygen Flow Rate (L/min) 2 Oxygen Delivery Method Nasal Cannula Weight: 126 lb 8.725 oz Body Mass Index (BMI) 18.6 Intake and Output for Last 24 Hours 01/15/21 01/16/21 01/17/21 23:59 23:59 23:59 Intake Total 2560 / 2860 1340 / 1340 380 / 380 Output Total 3625 / 3900 395 / 395 Balance -1065 / -1040 945 / 945 380 / 380 General: Alert, Oriented x3, Cooperative, HEENT: Atraumatic, PERRLA, EOMI, Normocephalic Oral: Dry Mucosa Neck: Supple, No JVD, Negative Carotid Bruits Lungs: Clear to auscultation, Normal air movement Cardiovascular: Regular rate, Regular Rhythm, Normal S1, Normal S2, No murmurs Abdomen: Bowel Sounds Present, Soft, Non Tender Extremities: No edema, Capillary Refill Less than 3 Seconds Skin: No rashes, No breakdown Musculoskeletal: No Tenderness to Palpation of Joints or Extremities Lymphatic: No Cervical, Supraclavicular, or Inguinal Adenopathy Neurological: Cranial nerves II-XII grossly intact, Neuro grossly intact, Motor Exam 5/5 strength throughout Psych/Mental Status: Agitated, Alert and oriented to time, place, person, mood and affect Microbiology Past 72 Hours 01/13/21 21:28 Urine, Clean Catch Urine Culture - Final Enterococcus faecalis 01/13/21 21:10 Blood Culture (Wb) - Right Forearm Blood Culture - Preliminary No growth in 48 hours. 01/13/21 21:30 Blood Culture (Wb) - Left Forearm Blood Culture - Preliminary No growth in 48 hours. Laboratory Results 01/16/21 12:33: POC Glucose 188 H 01/16/21 17:33: POC Glucose 165 H 01/16/21 21:28: POC Glucose 208 H 01/17/21 06:45: POC Glucose 161 H Current Medications Acetaminophen (Acetaminophen 325 Mg Tablet) 650 mg PO Q6H PRN PRN PRN Reason: Pain Score 1-10/Temp > 100.7 F Last Admin: 01/17/21 09:44 Dose: 650 mg Documented by: Albuterol Sulfate (Albuterol 2.5 Mg/3 Ml Vial.Neb.) 2.5 mg INHALATION Q6H.RT [facility] Last Admin: 01/17/21 07:05 Dose: 2.5 mg Documented by: Aspirin (Aspirin 81 Mg Tab.Chew) 81 mg PO DAILY@0800 [facility] Last Admin: 01/17/21 09:39 Dose: 81 mg Documented by: Calamine/Phenol (Menthol/Lanolin/Calamine/Znox 113 Gm Tube) 1 applic TOPICAL BID [facility]; Protocol Last Admin: 01/17/21 09:40 Dose: 1 applicatio Documented by: Ciprofloxacin HCl (Ciprofloxacin 500 Mg Tablet) 500 mg PO BID [facility] Last Admin: 01/17/21 09:39 Dose: 500 mg Documented by: Enoxaparin Sodium (Enoxaparin 40 Mg/0.4 Ml Syringe) 40 mg SC DAILY [facility] Last Admin: 01/17/21 09:40 Dose: 40 mg Documented by: Gabapentin (Gabapentin 100 Mg Capsule) 100 mg PO TIDCM [facility] Last Admin: 01/17/21 09:40 Dose: 100 mg Documented by: Sodium Chloride () 250 mls @ 15 mls/hr IV .[id number] PRN PRN Reason: Saline Flush Insulin Human Lispro (Insulin Lispro 100 Unit/Ml Insuln.Pen) 0 unit SC [facility]; Protocol Last Admin: 01/17/21 06:46 Dose: 1 unit Documented by: Metformin HCl (Metformin Hcl 500 Mg Tablet) [facility] Last Admin: 01/17/21 09:39 Dose: 500 mg Documented by: Multivitamins/Minerals (Multivitamins,Ther W-Minerals Tablet) [facility] Last Admin: 01/17/21 09:40 Dose: 1 tablet Documented by: Nutritional Formula (Lactose Free) (Glucerna Shake 120 Ml Liquid) 120 ml PO 4X/DAY [facility] Last Admin: 01/16/21 21:29 Dose: 120 ml Documented by: Nystatin (Nystatin Powder 15gm Bottle) 1 applic TOPICAL BID [facility]; Protocol Last Admin: 01/17/21 09:41 Dose: 1 applicatio Documented by: Ondansetron HCl (Ondansetron 4 Mg/2 Ml Vial) 4 mg IV Q8H PRN PRN PRN Reason: NAUSEA/VOMITING Oxycodone HCl (Oxycodone 5 Mg Tablet) 5 mg PO Q4H PRN PRN PRN Reason: Pain Score 4-10/10 Last Admin: 01/17/21 09:44 Dose: 5 mg Documented by: Senna/Docusate Sodium (Senna/Docusate Sodium 1 Tablet) 2 tablet PO BID PRN PRN PRN Reason: Constipation Sodium Chloride (0.9% Saline Lock 10 Ml Syringe) 10 - 40 ml IV UD PRN PRN Reason: SALINE FLUSH Last Admin: 01/15/21 22:23 Dose: 10 ml Documented by: Tamsulosin HCl (Tamsulosin Hcl 0.4 Mg Capsule) 0.4 mg PO DAILY@1730 [facility] Last Admin: 01/16/21 17:35 Dose: 0.4 mg Documented by: STROKE Vital Signs/Narrative: Vital Signs Temp Pulse Resp BP Pulse Ox 01/17/21 09:52 98.0 F 80 18 131/65 H 95 Medical Necessity - Tobacco Use Smoking Status: Current every day smoker Tobacco Use: Cigars Assessment/Plan All Active Problems (Last Reviewed 01/14/21 @ 01:[address] Sunny Osuna MD) Prediabetes (Acute) Physical debility (Acute) UTI (urinary tract infection) (Acute) #Acute cystitis * blood cultures negative * urine culture growing Enterococcus fecalis. * now on PO ciprofloxacin based on sensitivities * # Impaired glucose tolerance * A1c was 5.9 and blood sugars have been elevated. Started on Metformin 500 mg twice daily. #Probable COPD: * Patient has a history of smoking cigars though he denies smoking cigarettes. * Chest x-ray showed no acute findings. He has been on oxygen 2 L since admission. * Breathing treatments with bronchodilators. * Titrate oxygen to maintain saturation above 90%. * to follow up with a patient services rep on outpatient basis once he goes back to [place] * #Moderate protein calorie malnutrition: nutrition on board #Debility and functional decline: PT/OT on board. Fall precautions DVT prophylaxis: lovenox Disposition: awaiting placement Inpatient E&M: 30812 [facility] Hosp L2
[2021-01-17 12:15] LABS: Bedside Glucose 229 mg/dL (70-110)
[2021-01-17] MEDS: Glucerna Shake 120 ML LIQUID PO ×2 (12:44→18:27)
--- NOTE | 2021-01-17 15:34 | CASEMGMT ---
Social Work Note LISHA received message from Nadia at [facility] stating they are still waiving prior authorizations for SNF and pt is able to admit to SNF that is in network with pt's insurance. Nadia states SNF would just need to submit for pre-cert within 24 hours of admission. LISHA placed a call to Nadia at [facility] and updated her on this information. [facility] is able to accept pt today. LISHA updated physician, physician states pt is medically ready for discharge today. SW to fax discharge paperwork once completed. Thais Alicea COMMUNICABLE DISEASE SPECIALIST, PROGRAMMER NUMERICAL CONTROL
--- NOTE | 2021-01-17 15:46 | PCM.TXEXTCAR ---
- Diet 01/14/21 01:47 Diet: Regular - General Food consistency:: Regular Liquid Consistency:: Regular/Thin Type of Dietary Supplement:: El Diet Comments: 1 pkt BID w/ L&D; Fortified foods at all pt meals. - Routine Orders/Code Status Enema Type: Fleetz Enema Frequency: Daily PRN Suppository Type: Dulcolax 10mg Suppository Frequency: Daily PRN O2 Frequency: PRN - Wound(s) bilat hips Wound Type: Pressure Injury rt hip Wound Type: Pressure Injury Dressing Change: Mepilex left hip Wound Type: Pressure Injury Dressing Change: Mepilex left elbow Wound Type: Abrasion - Therapies Weight Bearing: Weight bearing as tolerated Physical Therapy: Eval and Treat Occupational Therapy: Eval and Treat - Allergies/Procedures Done in Hospital Allergies/Adverse Reactions: Allergies No Known Allergies Allergy (Verified 01/13/21 20:58) Procedures: None - Type of Care/Length of Stay Estimated LOS: Convalescent Care Less Than 30 days Type of Care Needed: Skilled Rehab Potential: Fair Prognosis: Fair - Additional Orders/Day of Discharge Day of Discharge: 01/17/21 - Dietary and Speech Recommendations Dietitian Recommendations/Changes: Will continue regular diet & provide fortified foods at pt meals- will adjust diet order as needed if BG do not improve--carb-controlled diet as needed. Will provide Glucerna shake 120 ml 4x/day medpass & El 1 pkt BID for additional garett/pro if consumed. - Follow Up Care Primary Care Physician: NOT,DEFINED [NON-STAFF] -
--- NOTE | 2021-01-17 16:04 | PHA.DC.MR ---
Pharmacy Service has performed discharge medication reconciliation for this patient. The patient's discharge medication list was reviewed for discrepancies and discrepancies were resolved. Home Medications Aspirin [Aspirin, Baby] 81 mg PO DAILY@0800 01/13/21 Multivit-Mins/Iron/Folic/Lycop [Centrum Men's Tablet] 1 ea PO DAILY 01/13/21 Ciprofloxacin [Cipro] 500 mg PO BID #14 tab 01/17/21 Gabapentin [Neurontin] 100 mg PO TIDCM #90 cap 01/17/21 metFORMIN HCl [Glucophage] 500 mg PO BIDCM #60 tab 01/17/21
--- NOTE | 2021-01-17 17:14 | CASEMGMT ---
Addendum entered by Thais Alicea 01/17/21 17:52: SW also attempted to call pt's son Benny just to update on transportation time. No answer. SW left message, with no identifying information on voicemail, and informed Benny to call [facility] with any additional questions. Original Note: Social Work Note LISHA faxed completed discharge paperwork to [facility] including transfer to extended care facility, signed medication list, any scripts, COVID screening tool and convalescent [id number]. Original in SNF folder and copy on pt's chart. LISHA spoke with RN, pt can transport via cot. SW accessed trip assist and arranged transportation via cot for 8:00pm as this is the earliest physician's can transport pt. Transportation form completed and placed on SNF folder and copy on pt's chart. RN spoke with pt's son Benny and already updated Benny that pt will be discharged to [facility] today. RN and pt updated on transportation time. LISHA placed a call to Nadia at [facility] and updated her on transportation time. Plan: [facility] transporting pt via cot at 8:00pm Thais Alicea JAILKEEPER, SUPERVISOR [employer]OVING
[2021-01-17 17:46] LABS: Bedside Glucose 154 mg/dL (70-110)
[2021-01-17] MEDS: Tamsulosin HCl 0.4 MG Capsule PO (18:26)
--- NOTE | 2021-01-17 18:44 | NURSING ---
report called to karly
--- NOTE | 2021-01-17 20:53 | PCM.DC.SUM ---
Discharge Date and Diagnosis - Problem List Patient Problems: Active and Suspected Problems (Last Reviewed 01/14/21 @ 01:[address] Sunny Osuna MD) UTI (urinary tract infection) (Acute) Date of Admission: 01/14/21 Date of Discharge: 01/17/21 - Primary Discharge Diagnosis Acute Problems: Active Problems (Last Reviewed 01/14/21 @ 01:[address] Sunny Osuna MD) UTI (urinary tract infection) (Acute) debility Hospital Course and Treatment Consultations 01/14/21 02:03 Consult: Onc/Wound/merchandise buyer Routine Comment: Operations: None Procedures: None Summary of Care Provided: The patient is a 70 year old M with a past medical history significant for cervical myelopathy and right leg paralysis who was admitted with a complaint of dysuria for 1 week. Patient had, from [facility] to help her son who was having surgery. Patient also had urethral discharge which he described as yellowish-green. He said his last incidence of sexual intercourse was 5 years ago before his . He had a stent nausea and vomiting and weakness. He also has had fever and chills and chronic back pain. He was admitted and managed for UTI as urinalysis showed evidence of UTI. He was also managed for debility. Started on IV ceftriaxone. Urine culture grew Enterococcus faecalis which was sensitive to ciprofloxacin. Blood cultures were negative. Patient was subsequently transitioned to p.o. ciprofloxacin. A1c was 5.9 and this was checked on account of elevated glucose. He was therefore diagnosed with impaired glucose tolerance and started on Metformin 500 mg twice daily. Patient was noted to be quite emaciated with a BMI of 18 and was also managed for moderate protein calorie malnutrition with consult to nutrition. Physical therapy evaluated patient and deemed him as needing skilled therapy because of his debility. Patient remained stable and his symptoms improved. [facility]. He was discharged a prescription for p.o. ciprofloxacin for 5 days. He is follow-up with his primary care doctor in 1 to 2 weeks. Patient seen and examined prior to discharge. He complained of generalized pain and said he had previously been on gabapentin. Review of systems otherwise negative. Labs and vitals reviewed. Home medication reviewed and reconciled. Patient stated that his PCP put him on gabapentin 800 mg 3 times daily. I explained to patient that I was not comfortable with putting him on that high dose and will start him at 100 mg 3 times daily and he was agreeable. OARRS score was checked and no red flags were seen. O/E: Vital Signs Temp Pulse Resp BP Pulse Ox 98.7 F 94 18 129/65 H 97 01/17/21 21:17 01/17/21 21:17 01/17/21 21:17 01/17/21 21:17 01/17/21 21:17 [] General: Alert, Oriented x3, Cooperative HEENT: Atraumatic, PERRLA, EOMI, Normocephalic Oral: Dry Mucosa Neck: Supple, No JVD, Negative Carotid Bruits Lungs: Clear to auscultation, Normal air movement Cardiovascular: Regular rate, Regular Rhythm, Normal S1, Normal S2, No murmurs Abdomen: Bowel Sounds Present, Soft, Non Tender Extremities: No edema, Capillary Refill Less than 3 Seconds Skin: No rashes, No breakdown Musculoskeletal: No Tenderness to Palpation of Joints or Extremities Lymphatic: No Cervical, Supraclavicular, or Inguinal Adenopathy Neurological: Cranial nerves II-XII grossly intact, Neuro grossly intact, Motor Exam 5/5 strength throughout Psych/Mental Status: Agitated, Alert and oriented to time, place, person, mood and affect Plan is to DC to SNF. Patient Problems: Active and Suspected Problems (Last Reviewed 01/14/21 @ 01:[address] Sunny Osuna MD) UTI (urinary tract infection) (Acute) - Physical Exam Vitals/I&O's: Vital Signs Temp Pulse Resp BP Pulse Ox 97.9 F 86 16 101/59 L 97 01/17/21 15:26 01/17/21 19:43 01/17/21 19:43 01/17/21 15:26 01/17/21 15:26 Oxygen Flow Rate (L/min) 2 Oxygen Delivery Method Room Air Weight: 126 lb 8.725 oz Body Mass Index (BMI) 18.6 Intake and Output for Last 24 Hours 01/15/21 01/16/21 01/17/21 23:59 23:59 23:59 Intake Total 2560 / 2860 1340 / 1340 380 / 380 Output Total 3625 / 3900 395 / 395 Balance -1065 / -1040 945 / 945 380 / 380 Microbiology Past 72 Hours 01/13/21 21:28 Urine, Clean Catch Urine Culture - Final Enterococcus faecalis 01/13/21 21:10 Blood Culture (Wb) - Right Forearm Blood Culture - Preliminary No growth in 48 hours. 01/13/21 21:30 Blood Culture (Wb) - Left Forearm Blood Culture - Preliminary No growth in 48 hours. Laboratory Results 01/16/21 21:28: POC Glucose 208 H 01/17/21 06:45: POC Glucose 161 H 01/17/21 12:10: POC Glucose 229 H 01/17/21 17:42: POC Glucose 154 H Current Medications Acetaminophen (Acetaminophen 325 Mg Tablet) 650 mg PO Q6H PRN PRN PRN Reason: Pain Score 1-10/Temp > 100.7 F Last Admin: 01/17/21 16:25 Dose: 650 mg Documented by: Albuterol Sulfate (Albuterol 2.5 Mg/3 Ml Vial.Neb.) 2.5 mg INHALATION Q6H.RT [facility] Last Admin: 01/17/21 19:42 Dose: 2.5 mg Documented by: Aspirin (Aspirin 81 Mg Tab.Chew) 81 mg PO DAILY@0800 [facility] Last Admin: 01/17/21 09:39 Dose: 81 mg Documented by: Calamine/Phenol (Menthol/Lanolin/Calamine/Znox 113 Gm Tube) 1 applic TOPICAL BID [facility]; Protocol Last Admin: 01/17/21 09:40 Dose: 1 applicatio Documented by: Ciprofloxacin HCl (Ciprofloxacin 500 Mg Tablet) 500 mg PO BID [facility] Last Admin: 01/17/21 09:39 Dose: 500 mg Documented by: Enoxaparin Sodium (Enoxaparin 40 Mg/0.4 Ml Syringe) 40 mg SC DAILY [facility] Last Admin: 01/17/21 09:40 Dose: 40 mg Documented by: Gabapentin (Gabapentin 100 Mg Capsule) 100 mg PO TIDCM [facility] Last Admin: 01/17/21 18:27 Dose: 100 mg Documented by: Sodium Chloride () 250 mls @ 15 mls/hr IV .[id number] PRN PRN Reason: Saline Flush Insulin Human Lispro (Insulin Lispro 100 Unit/Ml Insuln.Pen) 0 unit SC [facility]; Protocol Last Admin: 01/17/21 18:27 Dose: 1 unit Documented by: Metformin HCl (Metformin Hcl 500 Mg Tablet) [facility] Last Admin: 01/17/21 18:26 Dose: 500 mg Documented by: Multivitamins/Minerals (Multivitamins,Ther W-Minerals Tablet) [facility] Last Admin: 01/17/21 09:40 Dose: 1 tablet Documented by: Nutritional Formula (Lactose Free) (Glucerna Shake 120 Ml Liquid) 120 ml PO 4X/DAY [facility] Last Admin: 01/17/21 18:27 Dose: 120 ml Documented by: Nystatin (Nystatin Powder 15gm Bottle) 1 applic TOPICAL BID [facility]; Protocol Last Admin: 01/17/21 09:41 Dose: 1 applicatio Documented by: Ondansetron HCl (Ondansetron 4 Mg/2 Ml Vial) 4 mg IV Q8H PRN PRN PRN Reason: NAUSEA/VOMITING Oxycodone HCl (Oxycodone 5 Mg Tablet) 5 mg PO Q4H PRN PRN PRN Reason: Pain Score 4-10/10 Last Admin: 01/17/21 16:25 Dose: 5 mg Documented by: Senna/Docusate Sodium (Senna/Docusate Sodium 1 Tablet) 2 tablet PO BID PRN PRN PRN Reason: Constipation Sodium Chloride (0.9% Saline Lock 10 Ml Syringe) 10 - 40 ml IV UD PRN PRN Reason: SALINE FLUSH Last Admin: 01/15/21 22:23 Dose: 10 ml Documented by: Tamsulosin HCl (Tamsulosin Hcl 0.4 Mg Capsule) 0.4 mg PO DAILY@1730 [facility] Last Admin: 01/17/21 18:26 Dose: 0.4 mg Documented by: Discharge Diet: Low fat/ Low Cholesterol Discharge Activity: Return to Normal Activity Weight Bearing Status: Weight bearing as tolerated Call your doctor if you observe: Fever of 101 or Higher, Shortness of breath, Uncontrolled pain Home Medications: Medications to take at Discharge Aspirin [Aspirin, Baby] 81 mg PO DAILY@0800 01/13/21 Multivit-Mins/Iron/Folic/Lycop [Centrum Men's Tablet] 1 ea PO DAILY 01/13/21 Ciprofloxacin [Cipro] 500 mg PO BID #14 tab 01/17/21 Gabapentin [Neurontin] 100 mg PO TIDCM #90 cap 01/17/21 metFORMIN HCl [Glucophage] 500 mg PO BIDCM #60 tab 01/17/21 Following Prescriptions Were Given to Patient: Ciprofloxacin [Cipro] 500 mg PO BID #14 tab Prescription Printed metFORMIN HCl [Glucophage] 500 mg PO BIDCM #60 tab Prescription Printed Gabapentin [Neurontin] 100 mg PO TIDCM #90 cap Prescription Printed Primary Care Physician: NOT,DEFINED [NON-STAFF] - Disposition: Detention facility Minutes spent on discharge:: 45 Patient Condition:: Fair Medical Necessity - Tobacco Use Smoking Status: Current every day smoker Tobacco Use: Cigars Meaningful Use Info Meaningful Use Diagnoses (Choose all that apply): None applicable Inpatient E&M: 62470 Disch Hosp
--- NOTE | 2021-01-19 20:34 | ED.RN ---
family called in requesting where patient was discharged too. family advised patient was discharged to [facility]
== END 2021-01-17 21:25 | DRG 690 ==
LOC: ED 01-14 00:45 → MS3 01-14 00:57
PROVIDERS: Hospitalist; Admitting Provider Hospitalist; Emergency Provider Emergency Medicine; Visit Provider Student in an Organized Health Care Education/Training Program
DX: N39.0 Urinary tract infection, site not specified (principal); E44.0 Moderate protein-calorie malnutrition; J98.11 Atelectasis; G95.9 Disease of spinal cord, unspecified; Z68.1 Body mass index [BMI] 19.9 or less, adult; B95.2 Enterococcus as the cause of diseases classified elsewhere; F17.210 Nicotine dependence, cigarettes, uncomplicated; F17.290 Nicotine dependence, other tobacco product, uncomplicated; R73.03 Prediabetes; R09.02 Hypoxemia; Z79.84 Long term (current) use of oral hypoglycemic drugs; Z79.899 Other long term (current) drug therapy; R73.02 Impaired glucose tolerance (oral); J44.9 Chronic obstructive pulmonary disease, unspecified
CPT/HCPCS: 36415; 51702; 71045; 74177; 80048; 80053; 81001; 82550; 82962; 83036; 83605; 84484; 85025; 85610; 85730; 87040; 87077; 87086; 87088; 87186; 87426; 93005; 94640; 94762; 97166; 97530; 97535; 97802; 99251; 99285; J7030; J7040; Q9967; A4216; G0463

== ENCOUNTER 2021-03-02 05:53 | Inpatient (IN) | payer MEDICARE, SELFPAY ==
[2021-01-14 15:06] VITALS: BMI 18.6
[2021-03-02] VITALS (11 sets, daily range): BP systolic 91–158; BP diastolic 58–89; PULSE 78–89; RESP 10–18; TEMP 35.6–36.6; O2SAT 88–100; BMI 21.5; BMI 19.9; BMI 18.6
--- NOTE | 2021-03-02 05:54 | RAD_ITS ---
STUDY: X-RAY CHEST REASON FOR EXAM: Male, 70 years old. Tachypnea TECHNIQUE: Single AP portable view of the chest. COMPARISON: 01/13/2021 FINDINGS: Left lower lung linear atelectasis versus scarring is noted. There is no demonstrated pleural abnormality. Normal size heart. Normal mediastinum and murphy. Normal visualized pulmonary arteries. There is atherosclerotic tortuosity of the aortic arch and descending thoracic aorta. Normal visualized thoracic spine. Normal visualized ribs, clavicles, and shoulders. There is no demonstrated abnormality of the visualized soft tissue structures of the upper abdomen. RAD/Chest 1 View (Portable) IMPRESSION: Left lower lobe atelectasis versus scarring with no distinct focal airspace disease. Electronically Signed: Everardo Gonzalez DO at 7:47 EDT , Service support ,
--- NOTE | 2021-03-02 05:54 | EKG12_ITS ---
Test Reason : STROKE TEAM Blood Pressure : / mmHG Vent. Rate : 086 BPM Atrial Rate : 086 BPM P-R Int : 108 ms QRS Dur : 080 ms QT Int : 368 ms P-R-T Axes : 033 007 038 degrees QTc Int : 440 ms Sinus rhythm with short CO ST & T wave abnormality, consider inferior ischemia Abnormal ECG Confirmed by RIYA GRAF, MARCELO ([id number]), publication editor MORENO MCKEON ([id number]) on 03/06/2021 2:09:27 PM Referred By: MOODY Confirmed By:MARCELO RITTER MD
--- NOTE | 2021-03-02 05:54 | CT_ITS ---
We are attempting to reach an attending provider to discuss findings. An addendum with communication details will be sent when the communication is complete. HISTORY: Neuro deficit, acute, stroke suspected Technique:CT Head Stroke Protocol W/O Contrast Injection. Sagittal and coronal 2-D reformats Number of Images including paperwork:258 Comparison: None available. Findings: Periventricular deep and subcortical white matter disease is present. Paranasal sinuses are clear but for some mucoperiosteal thickening within the ethmoid air cells.. The brain is atrophic. Calcific ASCVD involves intracranial arteries. No acute intracranial edema or hemorrhage. No acute abnormality of orbits. Middle ear cavities and mastoid air cells are well aerated. Skull is normal. CT/STROKE Brain/Head without Cont IMPRESSION: No acute intracranial abnormality. Chronic changes as above. ASPECT 10. Individualized dose optimization techniques were used for this CT. at 0608 Reported and signed by: Parth Richard MD Electronically Signed: Parth Richard MD at 6:07 EDT Tel , Service support ,
--- NOTE | 2021-03-02 05:56 | ED.VIS.STROK ---
History of Present Illness Chief Complaint: Neuro S/Sx Informant: Hospice Bereavement Coordinator Limited: Stupor Onset: Today - Last known well 0145, 4 hours prior to presentation Context: Sudden Onset Timing: Continuous Quality and Location: - - GCS 3 Onset: 0145 Current Severity: Severe Maximum Severity: Severe Worsened by: Unknown Relieved by: Unknown Associated Symptoms: - - Unable to obtain Narrative: Patient is an elderly male who lives with the son. He is on no meds per paramedics. They report history of A. fib. Patient arrived with a GCS of 3. He has disconjugate gaze. He does smell of urine. Blood pressure per paramedics is low. EKG that was transmitted prior to arrival reveals a sinus rhythm with a rate of 82. There is J-point elevation in lead V2 and V3. There is also artifact. No other history can be obtained. Once son arrived he informed me that his father has poor circulation to his lower extremity. He was recently treated for urinary tract infection with IV antibiotics. He did not complete the course of antibiotics. Son also states he has had strokes in the past. This would explain the bilateral Babinski sign. Prior similar symptoms: No Recent Illness/Hospitalization: No - Past Medical History (1) Physical debility Status: Acute (2) Prediabetes Status: Acute (3) COPD (chronic obstructive pulmonary disease) Status: Suspected Past Medical History - Allergies and Home Meds Allergies/Adverse Reactions: Allergies No Known Allergies Allergy (Verified 01/13/21 20:58) Primary Care Physician: Care Physician,No Primary [Primary Care Provider] - Prior records reviewed: Yes Surgical History: - - Neck surgery, back surgery Lives: With Family Smoking Status: Current every day smoker Alcohol: None Drugs: None - Family History Maternal Family History: Reports: - - Denies maternal medical history and states that old age runs in family. Paternal Family History: Reports: - - Denies paternal medical history and states that old age runs in family. Review of Systems ROS: Unable to Obtain STROKE Inital Vital Signs reviewed: Yes - NIHSS Initial 1a Level of Consciousness: 3 1b LOC Questions (Score 2 if aphasic/stupor): 2 1c LOC Commands (Only score 1st attempt): 2 4 Facial Palsy: 0 5 Motor Arm Right (UN = amputation/fusion): UN - No movement to noxious stimuli 5 Motor Arm Left: UN - After returning from radiology suite patient moved his left arm to noxious stimuli 6 Motor Leg Right: UN - Moved right leg to noxious stimuli 6 Motor Leg Left: UN - Moved left leg to noxious stimuli 7 Limb ataxia (Only + if out of proportion): UN 9 Best Language: 3 Total Score: 10 General: Well developed, Cachectic, Unkempt Head: Normocephalic, Atraumatic. Negative for: Trauma, Tenderness Eyes: Perrl - Pupils are pinpoint. He has disconjugate gaze.. Negative for: Pale conjunctiva, Scleral icterus ENT: No rhinorrhea Neck: Supple, Nontender, No lymphadenopathy, No JVD, - - Is midline. There is no carotid bruit. Cardiovascular: Regular rate, Regular rhythm, No murmurs, Normal S1, Normal S2 Respiratory: No distress, CTA bilaterally, Chest nontender, Diminished Abdomen: Soft, Nontender, Nondistended, Normal bowel sounds, No masses. Negative for: Hepatomegaly, Splenomegaly, Mass, Pulsatile mass Rectal: Deferred Extremities: Nontender, Edema - Pitting edema bilaterally. The right lower extremity and foot are cold. The left leg is cold. Capillary refill is delayed., - - There is biphasic flow DP and PT right and biphasic flow DP and monophasic flow PT left Skin: Cyanosis - Cyanosis of all toes right foot and cyanosis left great toe Neurological: Normal DTR, - - Bilateral Babinski sign.. Negative for: Alert, Oriented x3, Normal Gait Psychological: - - To determine Diagnostic/Tx/Re-eval Impressions Brain CT 03/02/21 05:54 IMPRESSION: No acute intracranial abnormality. Chronic changes as above. ASPECT 10. Individualized dose optimization techniques were used for this CT. at 0608 Reported and signed by: Parth Richard MD Electronically Signed: Parth Richard MD at 6:07 EDT Tel , Service support , ADDENDUM: 03/02/21 0617 IMPRESSION: No acute intracranial abnormality. Chronic changes as above. ASPECT 10. Individualized dose optimization techniques were used for this CT. at 0608 Reported and signed by: Parth Richard MD N.B. : The above information has been verbally conveyed by Parth Richard MD to Chinedu Rodriguez MD, , on 03/02/2021 06:10:53 (ET). Electronically Signed: Parth Richard MD at 6:07 EDT Tel , Service support , 03/02/21 05:54 Chest 1 View (Portable) [RAD] Stat STROKE Brain/Head without Cont [CT] Stat Laboratory Results 03/02/21 03/02/21 03/02/21 06:08 06:08 06:08 WBC 9.3 RBC 4.13 L Hgb 12.1 L Hct 37.0 L MCV 89.6 MCH 29.3 MCHC 32.7 RDW Std Deviation 45.6 H RDW Coeff of Bravo 13.9 Plt Count 224 MPV 10.3 Immature Gran % (Auto) 0.300 Neut % (Auto) 56.8 Lymph % (Auto) 29.7 [place] % (Auto) 9.9 Eos % (Auto) 3.0 Baso % (Auto) 0.3 Absolute Neuts (auto) 5.3 Absolute Lymphs (auto) 2.77 Nucleated RBC % 0 PT 12.3 INR 1.0 APTT 32.2 Sodium 136 Potassium 4.3 Chloride 99 Carbon Dioxide 35.0 H Anion Gap 2 L BUN 19 H Creatinine 0.61 L Estim Creat Clear Calc 63.10 Est GFR (MDRD) Af Amer 169 Est GFR (MDRD) Non-Af 139 BUN/Creatinine Ratio 31.1 H Glucose 117 H Lactic Acid Calcium 8.3 L Total Bilirubin 0.30 AST 24 ALT 21 Alkaline Phosphatase 113 Troponin I < 0.015 Total Protein 6.7 Albumin 2.7 L Globulin 4.0 Albumin/Globulin Ratio 0.7 L Urine Color Urine Clarity Urine pH Ur Specific [place] Urine Protein Urine Glucose (UA) Urine Ketones Urine Occult Blood Urine Nitrite Urine Bilirubin Urine Urobilinogen Ur Leukocyte Esterase Urine RBC Urine WBC Ur Squamous Epith Cells Urine Bacteria Urine Mucus 03/02/21 03/02/21 06:08 06:25 WBC RBC Hgb Hct MCV MCH MCHC RDW Std Deviation RDW Coeff of Bravo Plt Count MPV Immature Gran % (Auto) Neut % (Auto) Lymph % (Auto) [place] % (Auto) Eos % (Auto) Baso % (Auto) Absolute Neuts (auto) Absolute Lymphs (auto) Nucleated RBC % PT INR APTT Sodium Potassium Chloride Carbon Dioxide Anion Gap BUN Creatinine Estim Creat Clear Calc Est GFR (MDRD) Af Amer Est GFR (MDRD) Non-Af BUN/Creatinine Ratio Glucose Lactic Acid 1.2 Calcium Total Bilirubin AST ALT Alkaline Phosphatase Troponin I Total Protein Albumin Globulin Albumin/Globulin Ratio Urine Color Yellow Urine Clarity Sl. Cloudy Urine pH 7.0 Ur Specific [place] 1.010 Urine Protein 15 H Urine Glucose (UA) Normal Urine Ketones Negative Urine Occult Blood 50 H Urine Nitrite Negative Urine Bilirubin Negative Urine Urobilinogen 1 H Ur Leukocyte Esterase 100 H Urine RBC 10-25 SEEN Urine WBC 25-50 SEEN Ur Squamous Epith Cells 0 SEEN Urine Bacteria 2+ Urine Mucus 0 SEEN Cup indicates patient has a urinary tract infection. Change in mental status is due to infectious encephalopathy. Since he was recently treated with IV antibiotics less than 1 month ago he was treated with cefepime for hospital-acquired urinary tract infection. Chest X-Ray - ED: 1 View, Read by ED Physician - There is difference in penetration compared to x-ray obtained January 13, 2021. There is no significant interval change.. Cardiac size and silhouette are normal. The discoid atelectasis left lower lobe is more prominent. This film is rotated. - EKG Initial EKG Interpretation: Sinus Rhythm - Sinus rhythm ventricular rate 86. MS interval 108 ms. QRS duration 80 ms. QT duration 368 ms. [place] is normal. T waves are prominent especially in V3. This EKG is unchanged from January 13, 2021. The EKG is normal. There is artifact in the inferior leads. - Medical Decision Making Stroke Team Activated: Yes Reviewed Inclusion/Exclusion criteria: Yes IV Alteplase (t-PA) Administered: No - Patient is outside window and uncertain whether this represents a stroke or Goodman arrives with GCS initially of 3. His GCS is now 6. He is mouth breathing. There is no drooling. He is not hypoxic. He is not hypotensive. With smell of urine suspect infectious encephalopathy. There is evidence of trauma to the extremities. Will review CT for traumatic injury i.e. subdural, epidural, traumatic subarachnoid hemorrhage and intraparenchymal contusion. Patient CT of the head revealed no acute pathology. Son informed bedside nurse that changes were noted at 2100 on March 01. Son evaluated/check on him every 30 minutes. He did not call squad until 5:30 in the morning. ED Disposition - Plan for ED Patient: Disposition: Acute Care [facility] Diagnosis: Urinary tract infection, acute, Infectious encephalopathy Referrals: Care Physician,No Primary [Primary Care Provider] -
[2021-03-02 06:17] LABS: Absolute Lymphocyte Count 2.77 X10^3/uL (0.83-4.51); Absolute Neutrophil Count 5.3 X10^3/uL (2.0-7.7); Basophil# 0.03 X10^3/uL; Basophil% 0.3 % (0-1); Eosinophil# 0.28 X10^3/uL; Hemoglobin 12.1 g/dL (13.0-16.5); Lymphocyte # 2.77 X10^3/ul (4.0); Lymphocyte % 29.7 % (19-41); Mean Corp Hgb Conc 32.7 g/dL (32-36); Mean Corpuscular Hgb 29.3 pg (27.0-32.0); Mean Corpuscular Volume 89.6 fL (80-94); Mean Platelet Vol. 10.3 fl (6.2-12.0); Monocyte# 0.92 X10^3/uL; Monocyte% 9.9 % (0-10); NRBC Flagged by Analyzer 0 % (0-5); Neutrophil # 5.29 X10^3/uL (2.7-7.7); Neutrophil % 56.8 % (47-70); Platelet Count 224 K/mm3 (150-450); RBC Distribution Width CV 13.9 % (11.6-14.6); RBC Distribution Width SD 45.6 fl (35.1-43.9); Red Blood Count 4.13 M/mm3 (4.6-6.2); White Blood Count 9.3 K/mm3 (4.4-11.0)
[2021-03-02 06:26] LABS: Partial Thromboplast Time 32.2 Seconds (24.1-36.2); Prothrombin Time (Protime)PT. 12.3 SECONDS (11.7-14.9)
[2021-03-02 06:28] LABS: Color, Urine Yellow (Yellow); Glucose, Dipstick Normal (Normal); Ketone-Dipstick Negative (Negative); Leukocyte Esterase-Dipstick 100 /ul (Negative); Mucous, Urine 0 SEEN /hpf (<or=2+); Nitrite-Dipstick Negative (Negative); Occult Blood-Urine 50 /ul (Negative); Protein-Dipstick 15 mg/dl (Negative); Squamous Epithelial Cells - UA 0 SEEN /hpf (0-5); Urine Bilirubin Dipstick Negative (Negative); Urine Clarity Sl. Cloudy (Clear); Urine Urobilinogen 1 mg/dl (Normal)
[2021-03-02 06:34] LABS: Red Blood Cells-Urine 10-25 SEEN /hpf (0-5); White Blood Cells 25-50 SEEN /hpf (0-5)
[2021-03-02 06:36] LABS: Bacteria 2+ /hpf (None Seen)
[2021-03-02 06:38] LABS: ALB/GLOB Ratio 0.7 RATIO (0.9-2.4); AST(SGOT) 24 U/L (15-37); Alanine Aminotransfer ALT/SGPT 21 U/L (16-61); Albumin, Serum 2.7 g/dL (3.2-5.0); Alkaline Phosphatase 113 U/L (45-117); Anion Gap 2 (5-15); BUN 19 mg/dL (7-18); BUN/Creat Ratio 31.1 RATIO (10-20); Calcium,Total 8.3 mg/dL (8.5-10.1); Chloride 99 mmol/L (98-107); Creatinine, Serum 0.61 mg/dL (0.70-1.30); EST Glomerular Filtration Rate 139 mL/min (>60); Est Glom Filt Rate - Afr Amer 169 mL/min (>60); Glucose 117 mg/dL (74-106); Potassium 4.3 mmol/L (3.5-5.1); Protein, Total 6.7 g/dL (6.4-8.2); Sodium Level 136 mmol/L (136-145)
[2021-03-02 06:40] LABS: Lactic Acid 1.2 mmol/L (0.4-1.9)
--- NOTE | 2021-03-02 06:41 | ED.RN ---
FAMILY ARRIVES AND HISTORY OBTAINED OF EVENT, PATIENT LAST SEEN NORMAL AT 2100 PER SON FOUND FACE DOWN FROM A FALL NOT LONG AFTER WITH ALERTED MENTAL STATUS. SON CHECK ON PATIENT ON AND OFF THRU OUT THE NIGHT. SON THEN DECIDED TO CALL 911 AT [phone] THIS MORNING. PATIENT RECENTLY SIGNED OUT AMA FROM [facility] WHERE HE HAD A KIDNEY INFECTION PATIENT DID NOT FINISH ATX TREATMENT AT THIS TIME.
--- NOTE | 2021-03-02 06:47 | ED.RN ---
PATIENTS FAMILY AT THIS TIME ADVISED THEY WANT PATIENT TRANSFERRED TO ANOTHER HOSPITAL BECAUSE NURSING STAFF IS NOT TAKING CARE OF PATIENT. NURSE HAS NOT LEFT THE PATIENTS BESIDE AT THIS TIME SINCE ARRIVAL TO THE HOSPITAL. DR. GAONA IN THE ROOM TO TALK WITH THE PATIENT AT THIS TIME.
--- NOTE | 2021-03-02 06:56 | ED.RN ---
DISCUSSED WITH PATIENTS SON AT THIS TIME ADVANCED DIRECTIVES. SON WANTS EVERY THING DONE TO KEEP PATIENT ALIVE. DISCUSSED INTUBATED AND CPR SON WOULD LIKE EVERY THING DONE
--- NOTE | 2021-03-02 07:08 | ED.RN ---
PER DR GAONA [facility] CAN STOP PATIENT IS SEPSIS NOT STROKE
--- NOTE | 2021-03-02 07:13 | ED.RN ---
[facility] NEVER CALLED PATIENT WAS TOO UNRESPONSIVE TO DO NEURO EXAM UPON ARRIVAL
--- NOTE | 2021-03-02 07:20 | ED.RN ---
Bedside report with Florentin BOWMAN. Pt does awake. Son currently not at bedside. [facility]
--- NOTE | 2021-03-02 09:19 | NURSING ---
wound photo: left 2nd and 3rd toes
[2021-03-02] MEDS: 0.9% Normal Saline 1,000 ML 125 ML IV ×2 (09:20→17:02)
--- NOTE | 2021-03-02 09:21 | NURSING ---
wound photo: right hip
--- NOTE | 2021-03-02 09:23 | NURSING ---
wound photo: right ischium
[2021-03-02] MEDS: Heparin Injection (Vial) 5,000 UNIT/ML VIAL 5000 UNIT SC ×2 (09:40→22:03)
--- NOTE | 2021-03-02 10:16 | CASEMGMT ---
Addendum entered by Thais Alicea 03/02/21 14:24: SW walked past pt's room, pt's son not at [facility]. LISHA then received call from pt's son Benny. Benny asked if this worker reviewed pt's HCPOA documents yet. LISHA informed Benny that this worker would need to witness pt completing paperwork and witness pt sign paperwork in order for this worker to sign documents. LISHA informed Benny that as of this morning, pt was not with it enough per reports and this worker hasn't had the chance to return to pt's room to speak with pt. LISHA informed Benny that this worker can stop in pt's room either later today or tomorrow and discuss POA with pt. SW explained hierarchy of POA in the event pt doesn't have POA paperwork. Benny states pt's spouse is , Benny has two siblings but his sister has a traumatic brain injury and his other brother would want nothing to do with pt. LISHA spoke with RN, pt is more alert now and with it. SW in to speak with pt. SW introduced self and role at [facility]. Pt is alert and able to hold conversation with this worker. SW spoke with pt about HCPOA and explained HCPOA to pt. Pt states I am my own decision maker. SW reiterated that HCPOA is only need if pt becomes unable to make own decisions. Pt states that if he becomes unable to make his own decision, he would want his son Benny to make decisions for him. Pt confirms that he has two other children (three total). SW asked pt if he wanted to complete HCPOA paperwork and pt denied. SW will continue discussion with pt tomorrow. Original Note: Social Work Note SW updated that pt's son is requesting to speak to this worker. Pt is new admit today. SW walked past pt's room, pt's son is no longer here. LISHA spoke with RN, pt's son will likely be back tomorrow. SW will attempt to call pt's son later today as time allows or will follow up with pt's son tomorrow. Thais lAicea RETAIL SERVICE REPRESENTATIVE, TECHNICAL PRODUCER
--- NOTE | 2021-03-02 16:07 | HP.PCM_ITS ---
Problem List (1) Altered mental status Status: Acute Qualifiers: Altered mental status type: stupor Qualified Code(s): R40.1 - Stupor History of Present Illness Date of Admission: 03/02/21 Chief Complaint: Altered mental status The patient is a 70 year old M was seen in the emergency room at [facility] after being brought in at the direction of his son whom he lives with due to altered mental status. According to the son, he noticed that his father was not very alert last night approximately 11 PM, he went to sleep and then when he woke up this morning he rechecked on his dad to find him unresponsive. According to the patient's son, patient had checked himself out AGAINST MEDICAL ADVICE from a longterm where he was undergoing inpatient rehab services recently and is now living with his son. Work-up in the emergency room included a CBC which showed a normal white blood cell count, hemoglobin was 12.1, BUN was elevated at 19, creatinine was 0.61, glucose was 117. Patient's urinalysis showed a white blood cell count of 25-50 WBCs, RBCs were 10-25, and bacteria was +2. Brain CT showed white matter disease present, brain was atrophic, no acute intracranial edema or hemorrhage was noted. Review of systems was unable to be obtained from the patient due to extreme somnolence and lethargy. Patient did respond to painful stimulation. It was felt that the patient had metabolic encephalopathy secondary to UTI, the emergency room physician did not feel this was a stroke. Patient will be admitted to [place] [address], he was given IV antibiotics and will be administered IV fluids. Past Medical History Medical History: Medical History (Last Reviewed 01/14/21 @ 01:[address] Sunny Osuna MD) Cervical myelopathy G95.9 Allergies No Known Allergies Allergy (Verified 01/13/21 20:58) Home Medications: Ambulatory Orders Medication Instructions Recorded NK 03/02/21 Surgical History: - - Neck surgery, back surgery Lives: With Family Smoking Status: Current every day smoker Tobacco Use: Cigarettes Alcohol: None Drugs: None - *Family History Maternal History Items: - - Denies maternal medical history and states that old age runs in family. Paternal History Items: - - Denies paternal medical history and states that old age runs in family. Review of Systems Comment: Review of systems was unobtainable from the patient due to lethargy and encephalopathy VTE Information - Inpt Only VTE Present on Admission: No VTE Mechan Device Prophylaxis: None VTE Pharm Prophylaxis ordered?: Yes Patient Problems: Active and Suspected Problems (Last Reviewed 01/14/21 @ 01:[address] Sunny Osuna MD) Urinary tract infection, acute (Acute) Infectious encephalopathy (Acute) Altered mental status (Acute) Prediabetes (Acute) COPD (chronic obstructive pulmonary disease) (Suspected) Physical debility (Acute) - Physical Exam Vitals/I&O's: Vital Signs Temp Pulse Resp BP Pulse Ox 97.1 F L 78 16 151/86 H 100 03/02/21 14:17 03/02/21 14:17 03/02/21 14:17 03/02/21 14:17 03/02/21 14:17 Oxygen Flow Rate (L/min) 2 Oxygen Delivery Method Room Air Weight: 59 kg Body Mass Index (BMI) 18.6 Finger Stick Blood Glucose 128 Intake and Output for Last 24 Hours 02/28/21 03/01/21 03/02/21 23:59 23:59 23:59 Intake Total 600 / 600 Output Total 1850 / 1850 Balance -1250 / -1250 General: Well developed, Lethargic, - - Patient appears older than his stated age and appears cachectic HEENT: Atraumatic, PERRLA, Normocephalic Oral: Dry Mucosa Neck: Supple, No JVD, Negative Carotid Bruits, Trachea Midline, Thyroid Normal Size and Texture Lungs: Clear to auscultation, Normal air movement, No rhonchi, No wheeze, No rales Cardiovascular: Regular rate, Regular Rhythm, Normal S1, Normal S2, No murmurs, PMI Normal, No rub noted, No Gallop Abdomen: Bowel Sounds Present, Soft, Non Tender, Non-Distended Extremities: No clubbing, No cyanosis, No edema, Capillary Refill Less than 3 Seconds Skin: No rashes, No breakdown Neurological: Cranial nerves II-XII grossly intact, Neuro grossly intact Psych/Mental Status: - - Patient is lethargic and only responds to painful stimuli, he does not respond to verbal stimulation Laboratory Results 03/02/21 06:08: WBC 9.3, RBC 4.13 L, Hgb 12.1 L, Hct 37.0 L, MCV 89.6, MCH 29.3, MCHC 32.7, RDW Std Deviation 45.6 H, RDW Coeff of Bravo 13.9, Plt Count 224, MPV 10.3, Immature Gran % (Auto) 0.300, Neut % (Auto) 56.8, Lymph % (Auto) 29.7, Collier % (Auto) 9.9, Eos % (Auto) 3.0, Baso % (Auto) 0.3, Absolute Neuts (auto) 5.3, Absolute Lymphs (auto) 2.77, Nucleated RBC % 0 03/02/21 06:08: PT 12.3, INR 1.0, APTT 32.2 03/02/21 06:08: Sodium 136, Potassium 4.3, Chloride 99, Carbon Dioxide 35.0 H, Anion Gap 2 L, BUN 19 H, Creatinine 0.61 L, Estim Creat Clear Calc 63.10, Est GFR (MDRD) Af Amer 169, Est GFR (MDRD) Non-Af 139, BUN/Creatinine Ratio 31.1 H, Glucose 117 H, Calcium 8.3 L, Total Bilirubin 0.30, AST 24, ALT 21, Alkaline Phosphatase 113, Troponin I < 0.015, Total Protein 6.7, Albumin 2.7 L, Globulin 4.0, Albumin/Globulin Ratio 0.7 L 03/02/21 06:08: Lactic Acid 1.2 03/02/21 06:25: Urine Color Yellow, Urine Clarity Sl. Cloudy, Urine pH 7.0, Ur Specific [place] 1.010, Urine Protein 15 H, Urine Glucose (UA) Normal, Urine Ketones Negative, Urine Occult Blood 50 H, Urine Nitrite Negative, Urine Bilirubin Negative, Urine Urobilinogen 1 H, Ur Leukocyte Esterase 100 H, Urine RBC 10-25 SEEN, Urine WBC 25-50 SEEN, Ur Squamous Epith Cells 0 SEEN, Urine Bacteria 2+, Urine Mucus 0 SEEN Current Medications Heparin Sodium (Porcine) (Heparin Injection (Vial) 5,000 Unit/Ml Vial) 5,000 unit SC Q12 [facility] Last Admin: 03/02/21 09:40 Dose: 5,000 unit Documented by: Sodium Chloride () 1,000 mls @ 125 mls/hr IV .Q8H [facility] Last Admin: 03/02/21 09:20 Dose: 125 mls/hr Documented by: Piperacillin Sod/Tazobactam (Sod 3.375 gm/ Sodium Chloride) 50 mls @ 12.5 mls/hr IV Q8 [facility] Last Admin: 03/02/21 14:19 Dose: 12.5 mls/hr Documented by: Methocarbamol (Methocarbamol 500 Mg Tablet) 1,000 mg PO Q6H PRN PRN Reason: MUSCLE SPASM Sodium Chloride (0.9% Saline Lock 10 Ml Syringe) 10 - 40 ml IV UD PRN PRN Reason: SALINE FLUSH Assessment/Plan All Active Problems (Last Reviewed 01/14/21 @ 01:[address] Sunny Osuna MD) Urinary tract infection, acute (Acute) Infectious encephalopathy (Acute) Altered mental status (Acute) Prediabetes (Acute) Physical debility (Acute) UTI (urinary tract infection) (Acute) #1 acute encephalopathy-etiology unclear-possibly secondary to acute UTI, patient will be [facility] to [facility], IV fluids will be administered, supportive care will be given, patient will be reevaluated tomorrow #2 acute urinary tract infection-patient was placed on Zosyn for UTI, during his last hospital stay in December 2020, he had Enterococcus in the urine. #3 chronic obstructive pulmonary disease #4 severe protein and caloric malnutrition-nutritional services will see patient #5 degenerative disc disease of cervical spine I contacted the nursing facility at which the patient briefly underwent inpatient rehab services (from 01/17/2021 to 01/24/2021) and they stated that the p atient had very poor ADLs while at the facility and finally requested to be discharged to home because he was angry about not being able to smoke in his room. I will attempt to contact the patient's son to verify what his activity level is at home. Inpatient E&M: [id number] Init Hosp L3
--- NOTE | 2021-03-02 16:36 | CHAPLAIN ---
Type of Pastoral Visit ___ Initial Visit ___ Follow-up Visit ___ On-call Visit ___ General Patient Visit ___ Spiritual Assessment ___ Family Conference ___ Bereavement ___ Rapid Response ___ Code Blue ___ Other (describe below) Pastoral Care Referral From ___ Patient ___ Family ___ Nurse ___ Physician ___ Boat Laborer ___ Pasta Maker ___ Other (describe below) Sacrament/Intervention ___ Active listening ___ Anointing ___ Latter-Day ___ Bereavement ___ Communion ___ Imain exploration ___ ___ Life review ___ Prayer ___ Reconciliation ___ Sacrament of Sick ___ Supportive presence ___ Wedding ___ Other (describe below) Pastoral Comments patient was sleeping and did not awaken at entrance into room; left a calling card
[2021-03-02] MEDS: Methocarbamol 500 MG Tablet 1000 MG PO ×2 (17:00→23:08)
[2021-03-02] MEDS: Acetaminophen 325 MG Tablet 650 MG PO (23:37)
[2021-03-03] MEDS: 0.9% Normal Saline 1,000 ML 125 ML IV ×2 (00:46→08:43)
[2021-03-03 03:04] VITALS: BP 135/82; PULSE 86; RESP 18; TEMP 37.1; O2SAT 97
[2021-03-03] MEDS: Acetaminophen 325 MG Tablet 650 MG PO ×2 (05:47→20:00)
[2021-03-03] MEDS: Methocarbamol 500 MG Tablet 1000 MG PO ×3 (05:47→19:57)
[2021-03-03 07:31] VITALS: O2SAT 98
[2021-03-03 07:35] VITALS: O2SAT 87
[2021-03-03 07:44] VITALS: BP 123/71; PULSE 64; RESP 24; TEMP 36.6; O2SAT 99
[2021-03-03] MEDS: Heparin Injection (Vial) 5,000 UNIT/ML VIAL 5000 UNIT SC ×2 (08:44→22:02)
[2021-03-03] MEDS: traMADol 50 MG Tablet 100 MG PO ×2 (09:24→16:25)
[2021-03-03] MEDS: Ketorolac 30 MG/ML Syringe IV ×2 (11:21→17:24)
--- NOTE | 2021-03-03 11:45 | RAD_ITS ---
STUDY: X-RAY - LUMBAR SPINE REASON FOR EXAM: Male, 70 years old. pain TECHNIQUE: 3 view(s) of the lumbar spine were obtained. COMPARISON: CT abdomen and pelvis 01/13/2021 FINDINGS: Normal lumbar lordosis. There is a dextroscoliosis of the lumbar spine. Grade 1 anterolisthesis of L4 on L5. Normal vertebral bodies and endplates. There is multi-level degenerative disc disease with multi-level disc space narrowing. The bones are osteopenic. The soft tissue structures are unremarkable. RAD/Lumbar Spine 2 or 3 Views IMPRESSION: No acute fracture. Multilevel degenerative disc disease is most prominent at L4-L5. Electronically Signed: Luh Marley MD at 13:20 EDT Tel , Service support ,
--- NOTE | 2021-03-03 11:52 | CASEMGMT ---
Addendum entered by Thais Alicea 03/03/21 12:34: SW back in to speak with pt. Pt is alert and orientated x3. Pt asked this worker if this worker had spoken to his son Benny regarding POA. SW informed pt that this worker did speak with Benny yesterday as Benny had requested pt complete HCPOA documents. Pt states he doesn't want to complete them at this time as he needs his glasses to see. Pt states if his son Benny arrives to [facility] he would feel comfortable completing documents when he arrives to [facility]. SW informed pt that if his son arrives to [facility] and this worker has the time, this worker could stop back in for POA paperwork. Pt states understanding. SW provided pt with advanced directives documents. SW then asked pt about discharge plans. Pt states he lives with his son in a two story home. Pt states he has first floor set up. Pt states he is able to ambulate when his pain is controlled. Pt states at this time, he is having some pain. Pt states he currently doesn't have a PCP as his PCP retired. SW provided pt with PCP list. Pt confirms that he was at [facility] and was there for a few weeks. Pt states he has a wheelchair at home. Pt states at this time he prefers to return home with his son. Pt agreeable to [facility]. Pt denied any Substance Abuse Hx and denied any Mental Health Hx. Pt does state his son has OCD. SW updated physician. Pt will likely discharge home tomorrow. LISHA did call Meredith at [facility] and made an [facility] report due to pt arriving to [facility] smelling like Urine and per H+P According to the son, he noticed that his father was not very alert last night approximately 11 PM, he went to sleep and then when he woke up this morning he rechecked on his dad to find him unresponsive. Pt also recently left [facility]. LISHA updated RN CM. Plan: Home Original Note: Social Work Note SW attempted to meet with pt to continue discussion of POA, pt currently off floor. SW will follow up with pt as time allows. Thais Alicea SHINE WORKER, PROFESSOR OF NURSING
--- NOTE | 2021-03-03 13:55 | CASEMGMT ---
Addendum entered by Erum Lam 03/03/21 15:10: PT/OT evals have been completed. Pt requiring assist of 2 [address] SN[address] recommended. Dr Roberto made aware. Dr Roberto states he did try to contact pt's son, Benny, but he did not answer the phone. Original Note: COLBY WHITNEY NOTE: COLBY WHITNEY to room to talk with pt--introduced self and role at [facility]. Pt resting in bed in no distress at this time. Pt is A/O at this time and answers all questions appropriately. Care providers, pharmacy, and demographics verified/updated at this time. PCP: Pt states his PCP retired and he does not have a PCP. He states he would like to get established with a PCP and would be interested in going to the PCP that his son goes to, but he does not remember who his son goes to. He states would like COLBY WHITNEY to contact his son to inquire who he sees. Preferred pharmacy: [facility] Insurance: [facility] Living arrangements: Pt lives w/his son. Pt states he is able to bath/dress himself and son buys groceries, cooks meals, and manages most home tasks. Transportation: Son DME: Pt states he uses a plastic chair as a shower chair and would like a shower chair. He was made aware his insurance does not cover for a shower chair. Pt states he would also like a BSC, a walker, and a W/C. HHC/SNF: Pt was just recently @ [facility], but left AMA. Pt states he is interested in HHC. He states he would like someone to help with cooking and housekeeping. Pt made aware insurance does not cover for an aide to provide these services, but, if he has HHC for a skilled service such as SN or PT, that an aide could come to assist with bathing/dressing. Pt states does not need any assistance w/bathing/dressing, but that he would like SN and therapy. Explained to pt that he would need to get established with a PCP to receive HHC. He was made aware, once he gets established with a PCP, they can help with setting up HHC at that time. He voices understanding. Call placed to pt's son to inquire about what PCP he goes to, as his father would like to get established with the same PCP. Also, COLBY WHITNEY wanted to discuss that pt is interested in HHC and any DME needs. Son stated, Well he needs to finish his treatment there @ the hospital before he comes home. COLBY WHITNEY inquired what treatment he was referring to. He stated his antibiotics. COLBY WHITNEY explained that he has been receiving IV atb's but anticipate he will discharge home on PO atb's once the doctor determines he is medically ready. Son inquired when that would be. COLBY WHITNEY informed pt that Dr Roberto stated he anticipates he will be medically ready to discharge tomorrow. Son immediately began swearing and yelling at this RN CM, stating, I'm f'in pissed. He's in no proper shape to be discharged. What are you going to do, discharge him so he can come home and ? I'm the one with all the stress. I can't take care of him at home. Son made aware that COLBY WHITNEY can have the doctor call him if he would like to discuss with him his concerns. Son stated he would like to talk to the doctor and continued to yell/swear at COLBY WHITNEY and stated, What do you mean by f'in concerns, lady. This is more than concerns. COLBY WHITNEY informed him the doctor would be made aware he would like to talk with him. Dr Roberto made aware of above conversation with pt and son and that son, Benny, would like to talk with him. COLBY WHITNEY unable to discuss any discharge planning needs w/son, such as PCP, HHC, or DME, as son was belligerent and verbally aggressive during phone conversation. D/C plan: TBD. PT/OT evals pending. If pt goes home @ discharge, follow for DME needs. Windy SLOAN RN, CM
[2021-03-03 14:18] VITALS: BP 160/93; PULSE 94; RESP 16; TEMP 36.3; O2SAT 93
--- NOTE | 2021-03-03 15:11 | CASEMGMT ---
Social Work Note PT/OT recommended SNF as pt was two assist. SW in to speak with pt. SW discussed SNF with pt. Pt agreeable to reviewing list. Patient was provided a list of SNF providers including quality and resource use data and consistent with the patient?s preferred geographic region, medical needs, and insurance network. Pt states will I get therapy everyday, even if I go back to where I was at. SW informed pt that he will get PT/OT daily at SNF. Pt agreeable, states he would like to review list, unable to give choices for SNF at this time. Pt asked to think about it. SW informed pt that he can think about SNF tonight and then SW can follow up with pt tomorrow. Pt states understanding. SW updated RN CM. Physician also updated. Plan: SNF, pt reviewing list. SW to follow up with pt tomorrow. Thais Alicea DIETETIC TECHNICIAN REGISTERED, ANALYTICAL STATISTICIAN
[2021-03-03] MEDS: 0.9% Saline Lock 10 ML Syringe IV ×2 (17:25→22:02)
--- NOTE | 2021-03-03 17:33 | PN_ITS ---
Patient Problems: Active and Suspected Problems (Last Reviewed 01/14/21 @ 01:[address] Sunny Osuna MD) Urinary tract infection, acute (Acute) Infectious encephalopathy (Acute) Altered mental status (Acute) Prediabetes (Acute) COPD (chronic obstructive pulmonary disease) (Suspected) Physical debility (Acute) Subjective: Patient was seen and examined today, he is alert today, he is oriented and appropriate. He states that he had not slept for several days prior to coming into the hospital, he complained of lower back pain. I wrote for some Toradol IV for him and a muscle relaxant. X-rays were obtained of the lumbar spine which showed degenerative joint changes of the lumbar spine. Physical therapy work with the patient today and recommended brief inpatient skilled therapy, patient was given a list of facilities to choose from. Patient's son was belligerent on the phone to nursing staff according to the rfid manager that he talked with today, evidently also the patient's son was belligerent on the phone with the drill press operator for metal and the police were notified. I tried to call the son yesterday and today and it only went to voicemail. - Physical Exam Vitals/I&O's: Vital Signs Temp Pulse Resp BP Pulse Ox 97.3 F L 94 16 160/93 H 93 03/03/21 14:18 03/03/21 14:18 03/03/21 14:18 03/03/21 14:18 03/03/21 14:18 Oxygen Flow Rate (L/min) 2 Oxygen Delivery Method Room Air Weight: 59 kg Body Mass Index (BMI) 18.6 Finger Stick Blood Glucose 128 Intake and Output for Last 24 Hours 03/01/21 03/02/21 03/03/21 23:59 23:59 23:59 Intake Total 1650 / 1890 3527.92 / 3527.92 Output Total 2750 / 3550 3800 / 3800 Balance -1100 / -1660 -272.08 / -272.08 General: Alert, Oriented x3, Cooperative, No apparent distress, Well developed HEENT: Atraumatic, PERRLA, EOMI, Normocephalic Oral: Moist Mucosa Neck: Supple, No JVD, Trachea Midline, Thyroid Normal Size and Texture Lungs: Clear to auscultation, Normal air movement, No rhonchi, No wheeze, No rales Cardiovascular: Regular rate, Regular Rhythm, Normal S1, Normal S2, No murmurs, PMI Normal, No rub noted, No Gallop Abdomen: Bowel Sounds Present, Soft, Non Tender, Non-Distended Extremities: No clubbing, No cyanosis, No edema, Capillary Refill Less than 3 Seconds Skin: No rashes, No breakdown Musculoskeletal: No Tenderness to Palpation of Joints or Extremities Neurological: Cranial nerves II-XII grossly intact, Neuro grossly intact, Sensory exam intact to light touch and pain Psych/Mental Status: Normal Affect, Appropriate, Alert and oriented to time, place, person, mood and affect Microbiology Past 72 Hours 03/02/21 06:25 Urine, Catheterized Urine Culture - Preliminary GPC Poss Enterococcus sp Current Medications Acetaminophen (Acetaminophen 325 Mg Tablet) 650 mg PO Q6H PRN PRN PRN Reason: Pain 1-10 or Fever Last Admin: 03/03/21 05:47 Dose: 650 mg Documented by: Amoxicillin/Clavulanate Potassium (Amox/Clavulanate 875 Mg Tablet) 875 mg PO BID [facility] Heparin Sodium (Porcine) (Heparin Injection (Vial) 5,000 Unit/Ml Vial) 5,000 unit SC Q12 [facility] Last Admin: 03/03/21 08:44 Dose: 5,000 unit Documented by: Ketorolac Tromethamine (Ketorolac 30 Mg/Ml Syringe) 30 mg IV Q6H PRN PRN PRN Reason: Pain 1-10 or Fever Stop: 03/08/21 11:13 Last Admin: 03/03/21 11:21 Dose: 30 mg Documented by: Methocarbamol (Methocarbamol 500 Mg Tablet) 1,000 mg PO Q6H PRN PRN Reason: MUSCLE SPASM Last Admin: 03/03/21 10:52 Dose: 1,000 mg Documented by: Sodium Chloride (0.9% Saline Lock 10 Ml Syringe) 10 - 40 ml IV UD PRN PRN Reason: SALINE FLUSH Tramadol HCl (Tramadol 50 Mg Tablet) 100 mg PO Q6H PRN PRN PRN Reason: Pain Score 1-10 Last Admin: 03/03/21 16:25 Dose: 100 mg Documented by: Medical Necessity - Tobacco Use Smoking Status: Current every day smoker Tobacco Use: Cigarettes Assessment/Plan All Active Problems (Last Reviewed 01/14/21 @ 01:[address] Sunny Osuna MD) Urinary tract infection, acute (Acute) Infectious encephalopathy (Acute) Altered mental status (Acute) Prediabetes (Acute) Physical debility (Acute) UTI (urinary tract infection) (Acute) #1 acute encephalopathy-etiology unclear-this appears to have cleared at this time #2 acute urinary tract infection-I changed the patient to Augmentin, Enterococcus is growing in the urine but there are low numbers. #3 chronic obstructive pulmonary disease #4 severe protein and caloric malnutrition-nutritional services are seeing patient #5 degenerative disc disease of cervical spine #6 acute debility-patient will need short-term inpatient halfway services. At this time, since the patient is alert and oriented x3, I have no plans to talk with the patient's son who according to many sources is argumentative and belligerent. Patient told me today that his son is on disability due to severe OCD. Inpatient E&M: [id number] Subs Hosp L2
[2021-03-03 20:09] VITALS: BP 149/83; PULSE 83; RESP 16; TEMP 37.1; O2SAT 97
[2021-03-03] MEDS: Amox/Clavulanate 875 MG Tablet PO (22:02)
[2021-03-04] VITALS (7 sets, daily range): BP systolic 113–155; BP diastolic 72–94; PULSE 70–91; RESP 16–18; TEMP 36.2–36.9; O2SAT 91–96
[2021-03-04] MEDS: Ketorolac 30 MG/ML Syringe IV ×3 (00:43→15:02)
[2021-03-04] MEDS: 0.9% Saline Lock 10 ML Syringe IV ×3 (00:43→15:03)
[2021-03-04] MEDS: Methocarbamol 500 MG Tablet 1000 MG PO ×2 (01:50→09:56)
[2021-03-04] MEDS: traMADol 50 MG Tablet 100 MG PO ×3 (06:08→18:23)
[2021-03-04] MEDS: Amox/Clavulanate 875 MG Tablet PO ×2 (09:38→21:57)
[2021-03-04] MEDS: Heparin Injection (Vial) 5,000 UNIT/ML VIAL 5000 UNIT SC ×2 (09:38→21:57)
--- NOTE | 2021-03-04 11:18 | CASEMGMT ---
SW spoke w/pt in regard to penitentiary choices. Pt states is in so much pain, did not sleep all night. He wonders about when he is due for the next pain injection. SW explained to pt will ask the nurse to come see him. SW also asked if he's had the chance to look at the list of nursing homes given to him yesterday, and if he's made a choice. Pt states he is in too much pain and has not looked at it. SW asked pt to look at the list and SW will be in Saturday morning. Pt states understanding. SW will continue to follow. MURALI Calderon
[2021-03-04] MEDS: Gabapentin 400 MG Capsule PO ×2 (12:22→20:08)
--- NOTE | 2021-03-04 16:50 | PN_ITS ---
Patient Problems: Active and Suspected Problems (Last Reviewed 01/14/21 @ 01:[address] Sunny Osuna MD) Urinary tract infection, acute (Acute) Infectious encephalopathy (Acute) Altered mental status (Acute) Prediabetes (Acute) COPD (chronic obstructive pulmonary disease) (Suspected) Physical debility (Acute) Subjective: Patient was seen and examined today, he continues to complain of lower back discomfort radiating into his right leg. Patient's lumbar spine x-ray yesterday showed no sign of a compression fracture, it was noted that he had degenerative disc disease of his lumbar spine. I have decided to add Neurontin to the patient's medication for back discomfort, he is yet to pick out an extended care facility regarding short-term rehab services. According to nursing, patient's son talked with nursing yesterday and stated that she he was unable to take care of the patient at home. - Physical Exam Vitals/I&O's: Vital Signs Temp Pulse Resp BP Pulse Ox 97.8 F 70 16 155/82 H 94 03/04/21 14:56 03/04/21 14:57 03/04/21 14:56 03/04/21 14:56 03/04/21 14:56 Oxygen Flow Rate (L/min) 2 Oxygen Delivery Method Room Air Weight: 59 kg Body Mass Index (BMI) 18.6 Finger Stick Blood Glucose 128 Intake and Output for Last 24 Hours 03/02/21 03/03/21 03/04/21 23:59 23:59 23:59 Intake Total 1650 / 1890 4177.92 / 4177.92 Output Total 2750 / 3550 4700 / 5800 2800 / 2800 Balance -1100 / -1660 -522.08 / -1622.08 -2800 / -2800 General: Alert, Oriented x3, Cooperative, No apparent distress, - - Patient appears cachectic and unwell, he appears older than his stated age HEENT: Atraumatic, PERRLA, EOMI, Normocephalic Oral: Moist Mucosa Neck: Supple, No JVD, Negative Carotid Bruits, Trachea Midline, Thyroid Normal Size and Texture Lungs: Clear to auscultation, Normal air movement, No rhonchi, No wheeze Cardiovascular: Regular rate, Regular Rhythm, Normal S1, Normal S2, No murmurs, PMI Normal, No rub noted, No Gallop Abdomen: Bowel Sounds Present, Soft, Non Tender, Non-Distended Extremities: No clubbing, No cyanosis, No edema, Capillary Refill Less than 3 Seconds Skin: No rashes, No breakdown Musculoskeletal: No Tenderness to Palpation of Joints or Extremities Neurological: Cranial nerves II-XII grossly intact, Neuro grossly intact Psych/Mental Status: Normal Affect, Appropriate, Alert and oriented to time, place, person, mood and affect Microbiology Past 72 Hours 03/02/21 06:25 Urine, Catheterized Urine Culture - Final Enterococcus faecalis 03/02/21 06:10 Blood Culture (Wb) - Anticubital Right Blood Culture - Preliminary No growth in 48 hours. 03/02/21 06:08 Blood Culture (Wb) - Anticubital Left Blood Culture - Preliminary No growth in 48 hours. Current Medications Acetaminophen (Acetaminophen 325 Mg Tablet) 650 mg PO Q6H PRN PRN PRN Reason: Pain 1-10 or Fever Last Admin: 03/03/21 20:00 Dose: 650 mg Documented by: Amoxicillin/Clavulanate Potassium (Amox/Clavulanate 875 Mg Tablet) 875 mg PO BID [facility] Last Admin: 03/04/21 09:38 Dose: 875 mg Documented by: Gabapentin (Gabapentin 400 Mg Capsule) 400 mg PO Q6H PRN PRN PRN Reason: Pain Score 1-10 Last Admin: 03/04/21 12:22 Dose: 400 mg Documented by: Heparin Sodium (Porcine) (Heparin Injection (Vial) 5,000 Unit/Ml Vial) 5,000 unit SC Q12 [facility] Last Admin: 03/04/21 09:38 Dose: 5,000 unit Documented by: Ketorolac Tromethamine (Ketorolac 30 Mg/Ml Syringe) 30 mg IV Q6H PRN PRN PRN Reason: Pain 1-10 or Fever Stop: 03/08/21 11:13 Last Admin: 03/04/21 15:02 Dose: 30 mg Documented by: Methocarbamol (Methocarbamol 500 Mg Tablet) 1,000 mg PO Q6H PRN PRN Reason: MUSCLE SPASM Last Admin: 03/04/21 09:56 Dose: 1,000 mg Documented by: Sodium Chloride (0.9% Saline Lock 10 Ml Syringe) 10 - 40 ml IV UD PRN PRN Reason: SALINE FLUSH Last Admin: 03/04/21 15:03 Dose: 10 ml Documented by: Tramadol HCl (Tramadol 50 Mg Tablet) 100 mg PO Q6H PRN PRN PRN Reason: Pain Score 1-10 Last Admin: 03/04/21 12:22 Dose: 100 mg Documented by: Medical Necessity - Tobacco Use Smoking Status: Current every day smoker Tobacco Use: Cigarettes Assessment/Plan All Active Problems (Last Reviewed 01/14/21 @ 01:[address] Sunny Osuna MD) Urinary tract infection, acute (Acute) Infectious encephalopathy (Acute) Altered mental status (Acute) Prediabetes (Acute) Physical debility (Acute) UTI (urinary tract infection) (Acute) #1 acute encephalopathy-etiology unclear-this appears to have cleared at this time, continue PT and OT #2 acute urinary tract infection-patient is on Augmentin, Enterococcus is growing in the urine but there are low numbers of bacteria #3 chronic obstructive pulmonary disease #4 severe protein and caloric malnutrition-nutritional services are seeing patient #5 degenerative disc disease of cervical spine #6 acute debility-patient will need short-term inpatient detention ser vices. #7 lower back and right leg pain, possibly secondary to spinal stenosis with DJD, I will continue patient's medications and add Neurontin for pain management. Inpatient E&M: 39175 Subs Hosp L2
[2021-03-05] VITALS (8 sets, daily range): BP systolic 119–161; BP diastolic 62–95; PULSE 78–92; RESP 16–20; TEMP 36.3–36.9; O2SAT 89–99
[2021-03-05] MEDS: Ketorolac 30 MG/ML Syringe IV ×2 (04:06→13:42)
[2021-03-05] MEDS: 0.9% Saline Lock 10 ML Syringe IV ×2 (04:06→13:43)
[2021-03-05] MEDS: Heparin Injection (Vial) 5,000 UNIT/ML VIAL 5000 UNIT SC ×2 (08:58→21:15)
[2021-03-05] MEDS: Methocarbamol 500 MG Tablet 1000 MG PO ×2 (08:59→15:59)
[2021-03-05] MEDS: Amox/Clavulanate 875 MG Tablet PO ×2 (08:59→21:14)
[2021-03-05] MEDS: Acetaminophen 325 MG Tablet 650 MG PO (08:59)
[2021-03-05] MEDS: traMADol 50 MG Tablet 100 MG PO (10:58)
[2021-03-05] MEDS: Gabapentin 400 MG Capsule PO (10:58)
--- NOTE | 2021-03-05 15:54 | PCM.PROGNOTE ---
Patient Problems: Active and Suspected Problems (Last Reviewed 01/14/21 @ 01:[address] Sunny Osuna MD) Urinary tract infection, acute (Acute) Infectious encephalopathy (Acute) Altered mental status (Acute) Prediabetes (Acute) COPD (chronic obstructive pulmonary disease) (Suspected) Physical debility (Acute) Subjective: Patient was seen and examined today, I asked him to look at his list of possible prison facility so we could ask for approval from one of the facilities he says he has not done it yet and I urged him to do it this afternoon and talk to social service assistant tomorrow. Patient did not request an increase in pain medication today, he is laying in bed quietly. Objective: General: Alert, Oriented x3, Cooperative, No apparent distress, - - Patient appears cachectic and unwell, he appears older than his stated age HEENT: Atraumatic, PERRLA, EOMI, Normocephalic Oral: Moist Mucosa Neck: Supple, No JVD, Negative Carotid Bruits, Trachea Midline, Thyroid Normal Size and Texture Lungs: Clear to auscultation, Normal air movement, No rhonchi, No wheeze Cardiovascular: Regular rate, Regular Rhythm, Normal S1, Normal S2, No murmurs, PMI Normal, No rub noted, No Gallop Abdomen: Bowel Sounds Present, Soft, Non Tender, Non-Distended Extremities: No clubbing, No cyanosis, No edema, Capillary Refill Less than 3 Seconds Skin: No rashes, No breakdown Musculoskeletal: No Tenderness to Palpation of Joints or Extremities Neurological: Cranial nerves II-XII grossly intact, Neuro grossly intact Psych/Mental Status: Normal Affect, Appropriate, Alert and oriented to time, place, person, mood and affect - Physical Exam Vitals/I&O's: Vital Signs Temp Pulse Resp BP Pulse Ox 97.6 F L 80 20 H 119/64 98 03/05/21 13:38 03/05/21 15:12 03/05/21 13:38 03/05/21 13:38 03/05/21 13:38 Oxygen Flow Rate (L/min) 1 Oxygen Delivery Method Nasal Cannula Weight: 59 kg Body Mass Index (BMI) 18.6 Finger Stick Blood Glucose 128 Intake and Output for Last 24 Hours 03/03/21 03/04/21 03/05/21 23:59 23:59 23:59 Intake Total 4177.92 / 4177.92 Output Total 4700 / 5800 3200 / 3525 975 / 975 Balance -522.08 / -1622.08 -3200 / -3525 -975 / -975 Microbiology Past 72 Hours 03/02/21 06:25 Urine, Catheterized Urine Culture - Final Enterococcus faecalis 03/02/21 06:10 Blood Culture (Wb) - Anticubital Right Blood Culture - Preliminary No growth in 48 hours. 03/02/21 06:08 Blood Culture (Wb) - Anticubital Left Blood Culture - Preliminary No growth in 48 hours. Current Medications Acetaminophen (Acetaminophen 325 Mg Tablet) 650 mg PO Q6H PRN PRN PRN Reason: Pain 1-10 or Fever Last Admin: 03/05/21 08:59 Dose: 650 mg Documented by: Amoxicillin/Clavulanate Potassium (Amox/Clavulanate 875 Mg Tablet) 875 mg PO BID [facility] Last Admin: 03/05/21 08:59 Dose: 875 mg Documented by: Gabapentin (Gabapentin 400 Mg Capsule) 400 mg PO Q6H PRN PRN PRN Reason: Pain Score 1-10 Last Admin: 03/05/21 10:58 Dose: 400 mg Documented by: Heparin Sodium (Porcine) (Heparin Injection (Vial) 5,000 Unit/Ml Vial) 5,000 unit SC Q12 [facility] Last Admin: 03/05/21 08:58 Dose: 5,000 unit Documented by: Ketorolac Tromethamine (Ketorolac 30 Mg/Ml Syringe) 30 mg IV Q6H PRN PRN PRN Reason: Pain 1-10 or Fever Stop: 03/08/21 11:13 Last Admin: 03/05/21 13:42 Dose: 30 mg Documented by: Methocarbamol (Methocarbamol 500 Mg Tablet) 1,000 mg PO Q6H PRN PRN Reason: MUSCLE SPASM Last Admin: 03/05/21 08:59 Dose: 1,000 mg Documented by: Sodium Chloride (0.9% Saline Lock 10 Ml Syringe) 10 - 40 ml IV UD PRN PRN Reason: SALINE FLUSH Last Admin: 03/05/21 13:43 Dose: 10 ml Documented by: Tramadol HCl (Tramadol 50 Mg Tablet) 100 mg PO Q6H PRN PRN PRN Reason: Pain Score 1-10 Last Admin: 03/05/21 10:58 Dose: 100 mg Documented by: Medical Necessity - Tobacco Use Smoking Status: Current every day smoker Tobacco Use: Cigarettes Assessment/Plan All Active Problems (Last Reviewed 01/14/21 @ 01:[address] Sunny Osuna MD) Urinary tract infection, acute (Acute) Infectious encephalopathy (Acute) Altered mental status (Acute) Prediabetes (Acute) Physical debility (Acute) UTI (urinary tract infection) (Acute) #1 acute encephalopathy-etiology unclear-this appears to have cleared at this time, continue PT and OT, patient appears to have a degree of chronic debility, will need at least temporary placement in a prison facility. #2 acute urinary tract infection-patient is on Augmentin, Enterococcus is growing in the urine but there are low numbers of the bacteria #3 chronic obstructive pulmonary disease #4 severe protein and caloric malnutrition-nutritional services are seeing patient #5 degenerative disc disease of cervical spine #6 acute debility-patient will need short-term inpatient prison services. 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 Inpatient E&M: 01034 Subs Hosp L2
[2021-03-06 02:52] VITALS: BP 86/58; PULSE 88; RESP 18; TEMP 36.7; O2SAT 93
[2021-03-06 03:48] VITALS: BP 138/83; PULSE 76; RESP 18; TEMP 37.1; O2SAT 93
[2021-03-06] MEDS: Ketorolac 30 MG/ML Syringe IV ×2 (03:55→21:45)
[2021-03-06] MEDS: 0.9% Saline Lock 10 ML Syringe IV (03:55)
[2021-03-06] MEDS: Methocarbamol 750 MG Tablet PO ×2 (06:35→21:40)
[2021-03-06 07:01] VITALS: O2SAT 96
[2021-03-06 09:32] VITALS: BP 92/56; PULSE 80; RESP 16; TEMP 37.2; O2SAT 93
[2021-03-06] MEDS: Gabapentin 400 MG Capsule PO (09:59)
[2021-03-06] MEDS: Amox/Clavulanate 875 MG Tablet PO ×2 (09:59→21:41)
[2021-03-06] MEDS: Heparin Injection (Vial) 5,000 UNIT/ML VIAL 5000 UNIT SC ×2 (09:59→21:41)
--- NOTE | 2021-03-06 11:20 | CASEMGMT ---
Addendum entered by Thais Alicea 03/06/21 11:59: SW faxed referral to [facility]. SW placed a call to [facility] and left message regarding referral. Addendum entered by Thais Alicea 03/06/21 11:33: SW received call from Ofelia with TCU, TCU will review referral. Ofelia wants this worker to go ahead and submit for initial approval with [facility] and she will run referral past TCU physician. SW also placed a call to Nadia at [facility], at this time [facility] lost contract with [facility], are not in network with [facility]. SW to fax referral to [facility]. Original Note: Social Work Note SW updated that pt mentioned going to [facility]. SW reviewed [facility] Website, [facility] didn't come up as available SNF. SW in to speak with pt. Pt states he hasn't had a chance to review list. SW explained that medically pt is ready for discharge, pt needs to decide SNF as insurance will not pay for pt to remain at [facility] if there is no medical reason to keep pt. Pt then mentioned that his son needs to bring in his personal items. SW informed pt that RN had mentioned calling pt's son regarding personal items so this worker will check with RN. Pt states his son was not at [facility] at all over the weekend. SW again brought up SNF and how pt needs to make a decision. SW asked pt about COVID vaccination. Pt states he hasn't received vaccinations. SW explained that regardless of SNF, pt will need to be in isolation for 14 days since he hasn't had COVID vaccination, so pt will not be allowed to smoke for 14 days regardless of the SNF he chooses. SW updated pt that [facility] was not on SNF list that was provided to pt that accept pt's insurance. SW explained that there are two SNF in [place] ([facility] TCU and [facility]) and then additional SNF in [place]. Pt states he would like to stay in [place]. Pt gave this worker permission to try [facility] TCU first and then [facility]. SW placed a call to referral line and provided referral for [facility] TCU. SW waiting for call back. Plan: SNF pending acceptance and pre-cert Thais Alicea PATROL COMMANDER, INNER LAYER SCRUBBER TENDER
--- NOTE | 2021-03-06 11:38 | NURSING ---
attempted to contact son for 2nd time this morning with no success.
--- NOTE | 2021-03-06 12:43 | CASEMGMT ---
Pt screened using [facility] Palliative Care Tool. Pt did not meet criteria.
--- NOTE | 2021-03-06 12:56 | PCM.PN.HOSP ---
Patient Problems: Active and Suspected Problems (Last Reviewed 01/14/21 @ 01:[address] Sunny Osuna MD) Urinary tract infection, acute (Acute) Infectious encephalopathy (Acute) Altered mental status (Acute) Prediabetes (Acute) COPD (chronic obstructive pulmonary disease) (Suspected) Physical debility (Acute) Subjective: States he still does not feel great. Is perseverating on the fact that his son has not brought his personal items and yet including his dentures, glasses, and close. The patient cannot state specifically how he is not feeling well. He is also not yet decided on a facility. Vitals/I&O's: Vital Signs Temp Pulse Resp BP Pulse Ox 98.9 F 80 16 92/56 L 93 03/06/21 09:32 03/06/21 09:32 03/06/21 09:32 03/06/21 09:32 03/06/21 09:32 Oxygen Flow Rate (L/min) 1 Oxygen Delivery Method Room Air Weight: 59 kg Body Mass Index (BMI) 18.6 Finger Stick Blood Glucose 128 Intake and Output for Last 24 Hours 03/04/21 03/05/21 03/06/21 23:59 23:59 23:59 Intake Total 200 / 200 300 / 300 Output Total 3200 / 3525 975 / 975 100 / 100 Balance -3200 / -3525 -775 / -775 200 / 200 General: Alert, Oriented x3, Cooperative, - - Thin, disheveled older white male, appears older than stated age, sitting up in a chair at bedside, nursing is in the room, patient appears nontoxic HEENT: Atraumatic, Normocephalic Oral: Moist Mucosa Neck: Supple, Trachea Midline Lungs: No rhonchi, No wheeze, No rales, Diminished Cardiovascular: Regular rate, Regular Rhythm, Normal S1, Normal S2, No murmurs, No Ectopic Activity, No rub noted, No Gallop Abdomen: Bowel Sounds Present, Soft, Non Tender, Non-Distended Extremities: No clubbing, No cyanosis, No edema, Capillary Refill Less than 3 Seconds, Peripheral Pulses Normal Musculoskeletal: Cachexia, Muscle Wasting Psych/Mental Status: Flat Affect, - - Tangential thought process Microbiology Past 72 Hours 03/02/21 06:25 Urine, Catheterized Urine Culture - Final Enterococcus faecalis 03/02/21 06:10 Blood Culture (Wb) - Anticubital Right Blood Culture - Preliminary No growth in 48 hours. 03/02/21 06:08 Blood Culture (Wb) - Anticubital Left Blood Culture - Preliminary No growth in 48 hours. Current Medications Acetaminophen (Acetaminophen 325 Mg Tablet) 650 mg PO Q6H PRN PRN PRN Reason: Pain 1-10 or Fever Last Admin: 03/05/21 08:59 Dose: 650 mg Documented by: Amoxicillin/Clavulanate Potassium (Amox/Clavulanate 875 Mg Tablet) 875 mg PO BID [facility] Last Admin: 03/06/21 09:59 Dose: 875 mg Documented by: Gabapentin (Gabapentin 400 Mg Capsule) 400 mg PO Q6H PRN PRN PRN Reason: Pain Score 1-10 Last Admin: 03/06/21 09:59 Dose: 400 mg Documented by: Heparin Sodium (Porcine) (Heparin Injection (Vial) 5,000 Unit/Ml Vial) 5,000 unit SC Q12 [facility] Last Admin: 03/06/21 09:59 Dose: 5,000 unit Documented by: Ketorolac Tromethamine (Ketorolac 30 Mg/Ml Syringe) 30 mg IV Q6H PRN PRN PRN Reason: Pain 1-10 or Fever Stop: 03/08/21 11:13 Last Admin: 03/06/21 03:55 Dose: 30 mg Documented by: Methocarbamol (Methocarbamol 750 Mg Tablet) 750 mg PO Q6H PRN PRN Reason: MUSCLE SPASM Last Admin: 03/06/21 06:35 Dose: 750 mg Documented by: Sodium Chloride (0.9% Saline Lock 10 Ml Syringe) 10 - 40 ml IV UD PRN PRN Reason: SALINE FLUSH Last Admin: 03/06/21 03:55 Dose: 10 ml Documented by: Tramadol HCl (Tramadol 50 Mg Tablet) 100 mg PO Q6H PRN PRN PRN Reason: Pain Score 1-10 Last Admin: 03/05/21 10:58 Dose: 100 mg Documented by: STROKE Vital Signs/Narrative: Vital Signs Temp Pulse Resp BP Pulse Ox 03/06/21 09:32 98.9 F 80 16 92/56 L 93 Medical Necessity - Tobacco Use Smoking Status: Current every day smoker Tobacco Use: Cigarettes Assessment/Plan All Active Problems (Last Reviewed 01/14/21 @ 01:[address] Sunny Osuna MD) Urinary tract infection, acute (Acute) Infectious encephalopathy (Acute) Altered mental status (Acute) Prediabetes (Acute) Physical debility (Acute) UTI (urinary tract infection) (Acute) Acute complicated UTI secondary to Enterococcus -Patient is on Augmentin day 3 of 10 -Cultures are negative at 48 hours Metabolic encephalopathy -Resolved -Unclear the exact etiology is this was likely not related to his UTI given the fact that the severity of his infection was not that great Severe debility -Continue PT/OT -custodial at discharge -Patient is currently deciding which facility -Patient has signed out AGAINST MEDICAL ADVICE from nursing facilities in the past with the most recently being last week Severe malnutrition -Continue liberal diet and supplements Degenerative disc disease/chronic pain -Continue current medications (gabapentin as needed, Ultram as needed, methocarbamol as needed) -Discontinue Toradol -Overall stable Mild anemia -Repeat CBC in a.m. Chronic hypercapnic respiratory failure/COPD -Patient with markedly elevated CO2 on admission and this appears to be baseline -Oxygen saturation is 93% on room air -Continue aerosols as needed Tobacco abuse -Patient is an ongoing smoker -Wants to go to a facility where he can continue to smoke -Recommend cessation DVT prophylaxis -Continue heparin subcu 5000 units twice daily Inpatient E&M: 68629 Subs Hosp L2
[2021-03-06 14:08] VITALS: BP 97/61; PULSE 78; RESP 16; TEMP 36.8; O2SAT 96
--- NOTE | 2021-03-06 14:16 | CHAPLAIN ---
Type of Pastoral Visit _x__ Initial Visit ___ Follow-up Visit ___ On-call Visit ___ General Patient Visit ___ Spiritual Assessment ___ Family Conference ___ Bereavement ___ Rapid Response ___ Code Blue ___ Other (describe below) Pastoral Care Referral From _x__ Patient ___ Family ___ Nurse ___ Physician ___ Head Of Stock ___ Lease Administration Supervisor ___ Other (describe below) Sacrament/Intervention _x__ Active listening ___ Anointing ___ Scientology ___ Bereavement ___ Communion ___ Imani exploration ___ _x__ Life review ___ Prayer ___ Reconciliation ___ Sacrament of Sick _x__ Supportive presence ___ Wedding ___ Other (describe below) Pastoral Comments patient sitting up in chair and stating that he has been in pain and has trouble walking; pt states that he came to live with son who needed his help but now it is in reverse; pt has little support and another son lives in [place] and is too busy; pt wants he personal belongings brought to him from home and wants son to be called although son doesn't answer the phone and his voicemail is full; pt wants corpsman to call his son; call to son made but there was no answer and voicemail is full; returned to room to notify pt that son was not available; notified CM of requests by pt;
--- NOTE | 2021-03-06 14:24 | NURSING ---
Dressings to the right hip and the right ischium due to be changed today. patient has refused to get back into bed so far. dressings can be changed later today. Pt has been shifting weight in the chair. will continue to monitor.
--- NOTE | 2021-03-06 14:53 | CASEMGMT ---
Addendum entered by Thais Alicea 03/06/21 16:06: LISHA updated pt on acceptance to TCU pending pre-cert. LISHA received message from Ofelia with TCU asking if pt is medically ready for discharge today if pre-cert is obtained. LISHA placed a call back to [facility] and left message that pt is medically ready for discharge today if pre-cert is obtained. Pt will also need COVID test - direct marketing coordinator updated. LISHA placed Green sheet on chart in the event pre-cert is obtained. PT CANNOT DISCHARGE TO TCU UNTIL PRE-CERT IS OBTAINED. TCU to call with pre-cert if it is obtained. Plan: TCU pending pre-cert Original Note: Social Work Note SW received message from Ofelia with TCU stating TCU is able to accept pt pending pre-cert. LISHA then received message from Nadia at [facility] stating she agrees to SNF level of care for pt. LISHA placed a call to [facility] with TCU and updated her that [facility] has given the approval for pre-cert to be submitted. Plan: TCU pending pre-cert Thais Alicea CRUSHER LOADER EQUIPMENT OPERATOR, RADIOLOGY SUPERVISOR
[2021-03-06 20:15] VITALS: BP 93/62; PULSE 84; RESP 18; TEMP 36.9; O2SAT 95
[2021-03-06] MEDS: MELATONIN 3 MG TABLET PO (21:41)
[2021-03-07 03:00] VITALS: BP 128/80; PULSE 79; RESP 18; TEMP 37.1; O2SAT 95
[2021-03-07] MEDS: Ketorolac 30 MG/ML Syringe IV (04:52)
[2021-03-07] MEDS: 0.9% Saline Lock 10 ML Syringe IV (04:53)
[2021-03-07 06:09] LABS: Absolute Lymphocyte Count 2.93 X10^3/uL (0.83-4.51); Absolute Neutrophil Count 3.6 X10^3/uL (2.0-7.7); Basophil# 0.03 X10^3/uL; Basophil% 0.4 % (0-1); Eosinophil# 0.28 X10^3/uL; Eosinophils% 3.7 % (0-5); Hemoglobin 14.1 g/dL (13.0-16.5); Lymphocyte # 2.93 X10^3/ul (4.0); Lymphocyte % 38.5 % (19-41); Mean Corpuscular Hgb 28.1 pg (27.0-32.0); Mean Corpuscular Volume 87.6 fL (80-94); Mean Platelet Vol. 10.3 fl (6.2-12.0); Monocyte# 0.76 X10^3/uL; NRBC Flagged by Analyzer 0 % (0-5); Neutrophil % 47.1 % (47-70); Platelet Count 269 K/mm3 (150-450); RBC Distribution Width CV 13.7 % (11.6-14.6); RBC Distribution Width SD 43.9 fl (35.1-43.9); Red Blood Count 5.02 M/mm3 (4.6-6.2); White Blood Count 7.6 K/mm3 (4.4-11.0)
[2021-03-07 06:29] LABS: Anion Gap 2 (5-15); BUN 28 mg/dL (7-18); BUN/Creat Ratio 43.8 RATIO (10-20); Calcium,Total 8.8 mg/dL (8.5-10.1); Chloride 100 mmol/L (98-107); Creatinine, Serum 0.64 mg/dL (0.70-1.30); EST Glomerular Filtration Rate 132 mL/min (>60); Est Glom Filt Rate - Afr Amer 160 mL/min (>60); Glucose 133 mg/dL (74-106); Potassium 4.2 mmol/L (3.5-5.1); Sodium Level 135 mmol/L (136-145)
[2021-03-07 07:10] VITALS: O2SAT 93
[2021-03-07 08:20] VITALS: BP 105/69; PULSE 81; RESP 16; TEMP 36.7; O2SAT 94
--- NOTE | 2021-03-07 08:58 | CASEMGMT ---
Addendum entered by Thais Alicea 03/07/21 11:53: SW in to speak with pt. SW updated pt that pt has been approved for TCU and pt will discharge to TCU today. SW informed pt that this worker will call his son to update and pt gave this worker permission to call his son, states he needs clothes. SW attempted to call pt's son Benny, no answer, voicemail is full, SW unable to leave message. Plan: TCU today Thais FLOR, TONYA Original Note: Social Work Note SW received message from Ofelia with TCU stating pt was approved, can admit to TCU today. Plan: TCU today Thais FLOR, HOSPITAL WARD CLERK
[2021-03-07] MEDS: Heparin Injection (Vial) 5,000 UNIT/ML VIAL 5000 UNIT SC (09:26)
[2021-03-07] MEDS: Amox/Clavulanate 875 MG Tablet PO (09:26)
--- NOTE | 2021-03-07 09:41 | NURSING ---
Dressings to the right hip and ischium were changed by medical coding auditor RN last pm. pt is currently sitting up in the chair eating breakfast. pt denies further needs at this time.
--- NOTE | 2021-03-07 10:08 | TREXTCAR_ITS ---
- Diet 03/05/21 10:30 Diet: Regular - General Food consistency:: Easy to Chew Liquid Consistency:: Regular/Thin Type of Dietary Supplement:: Ensure Enlive Is pt able to select menu?: No Diet Comments: Distant supervision, frequent oral care; 8 oz ensure enlive w/ meals tid - Routine Orders/Code Status Suppository Type: Dulcolax 10mg Suppository Frequency: Daily PRN Keep PO Greater than or Equal to (%): 92 Routine Lab Work: CBC - In 1 week, BMP - In 1 week Code Status: Full Code - Wound(s) right ischium Wound Type: Pressure Injury Dressing Change: Mepilex right hip Wound Type: Pressure Injury Dressing Change: Mepilex left 2nd & 3rd toes Wound Type: Abrasion right 2nd and 3rd fingers Wound Type: Burn - Therapies Weight Bearing: Full weight bearing Physical Therapy: Eval and Treat Occupational Therapy: Eval and Treat - Allergies/Procedures Done in Hospital Allergies/Adverse Reactions: Allergies No Known Allergies Allergy (Verified 01/13/21 20:58) Procedures: - - CT head, chest x-ray, lumbar spine x-rays - Type of Care/Length of Stay Estimated LOS: Convalescent Care Less Than 30 days Type of Care Needed: Skilled Rehab Potential: Fair Prognosis: Fair - Additional Orders/Day of Discharge Day of Discharge: 03/07/21 - Dietary and Speech Recommendations Dietitian Recommendations/Changes: Continue regular diet- consistency/textures per DIRECTIONAL BORE OPERATOR. Provide 8 oz ensure enlive w/ meals, per pt preference, for increased nutrition if consumed. - Follow Up Care Primary Care Physician: Jazz Fuchs [NON-STAFF] - Care Physician,No Primary [Primary Care Provider] - Please follow up with your Primary Care Physician in: 1-2 weeks after d/c from TCU
--- NOTE | 2021-03-07 10:12 | DS.PCM_ITS ---
Discharge Date and Diagnosis - Problem List Patient Problems: Active and Suspected Problems (Last Reviewed 01/14/21 @ 01:[address] Sunny Osuna MD) Urinary tract infection, acute (Acute) Infectious encephalopathy (Acute) Altered mental status (Acute) Prediabetes (Acute) COPD (chronic obstructive pulmonary disease) (Suspected) Physical debility (Acute) Date of Admission: 03/02/21 Date of Discharge: 03/07/21 - Primary Discharge Diagnosis Acute Problems: Active Problems (Last Reviewed 01/14/21 @ 01:[address] Sunny Osuna MD) Urinary tract infection, acute (Acute) Infectious encephalopathy (Acute) Altered mental status (Acute) Prediabetes (Acute) Physical debility (Acute) Suspected Problems: Suspected Problems (Last Reviewed 01/14/21 @ 01:[address] Sunny Osuna MD) COPD (chronic obstructive pulmonary disease) (Suspected) Hospital Course and Treatment Imaging Results: ADDENDUM by Dr. Parth Richard MD on 03/02/21 at 0607 HISTORY: Neuro deficit, acute, stroke suspected Technique:CT Head Stroke Protocol W/O Contrast Injection. Sagittal and coronal 2-D reformats Number of Images including paperwork:258 Comparison: None available. Findings: Periventricular deep and subcortical white matter disease is present. Paranasal sinuses are clear but for some mucoperiosteal thickening within the ethmoid air cells.. The brain is atrophic. Calcific ASCVD involves intracranial arteries. No acute intracranial edema or hemorrhage. No acute abnormality of orbits. Middle ear cavities and mastoid air cells are well aerated. Skull is normal. 03/02/21 0607 Date cc: No Primary Care Physician; Dr. Chinedu Rodriguez MD ~* Signed ADDENDUM by Dr. Parth Richard MD on 03/02/[address]/STROKE Brain/Head without Cont IMPRESSION: No acute intracranial abnormality. Chronic changes as above. ASPECT 10. Individualized dose optimization techniques were used for this CT. at 0608 Reported and signed by: Parth Richard MD N.B. : The above information has been verbally conveyed by Parth Richard MD to Chinedu Rodriguez MD, MD, on 03/02/2021 06:10:53 (ET). Electronically Signed: Parth Richard MD at 6:07 EDT Tel , Service support , 03/02/21 06 Date cc: No Primary Care Physician; Dr. Chinedu Rodriguez MD ~* Signed We are attempting to reach an attending provider to discuss findings. An addendum with communication details will be sent when the communication is complete. HISTORY: Neuro deficit, acute, stroke suspected Technique:CT Head Stroke Protocol W/O Contrast Injection. Sagittal and coronal 2-D reformats Number of Images including paperwork:258 Comparison: None available. Findings: Periventricular deep and subcortical white matter disease is present. Paranasal sinuses are clear but for some mucoperiosteal thickening within the ethmoid air cells.. The brain is atrophic. Calcific ASCVD involves intracranial arteries. No acute intracranial edema or hemorrhage. No acute abnormality of orbits. Middle ear cavities and mastoid air cells are well aerated. Skull is normal. CT/STROKE Brain/Head without Cont IMPRESSION: No acute intracranial abnormality. Chronic changes as above. ASPECT 10. Individualized dose optimization techniques were used for this CT. STUDY: X-RAY CHEST REASON FOR EXAM: Male, 70 years old. Tachypnea TECHNIQUE: Single AP portable view of the chest. COMPARISON: 01/13/2021 FINDINGS: Left lower lung linear atelectasis versus scarring is noted. There is no demonstrated pleural abnormality. Normal size heart. Normal mediastinum and murphy. Normal visualized pulmonary arteries. There is atherosclerotic tortuosity of the aortic arch and descending thoracic aorta. Normal visualized thoracic spine. Normal visualized ribs, clavicles, and shoulders. There is no demonstrated abnormality of the visualized soft tissue structures of the upper abdomen. RAD/Chest 1 View (Portable) IMPRESSION: Left lower lobe atelectasis versus scarring with no distinct focal airspace disease. STUDY: X-RAY - LUMBAR SPINE REASON FOR EXAM: Male, 70 years old. pain TECHNIQUE: 3 view(s) of the lumbar spine were obtained. COMPARISON: CT abdomen and pelvis 01/13/2021 FINDINGS: Normal lumbar lordosis. There is a dextroscoliosis of the lumbar spine. Grade 1 anterolisthesis of L4 on L5. Normal vertebral bodies and endplates. There is multi-level degenerative disc disease with multi-level disc space narrowing. The bones are osteopenic. The soft tissue structures are unremarkable. RAD/Lumbar Spine 2 or 3 Views IMPRESSION: No acute fracture. Multilevel degenerative disc disease is most prominent at L4-L5. Operations: None Procedures: None Summary of Care Provided: Mr. Gusman is a 70 year old WM the past medical history of anemia, chronic hypercapnic respiratory failure, COPD, ongoing tobacco abuse and debility who presented to the emergency department at [facility] on 03/02/2021 for altered mental status. He was brought into the hospital by his son with whom he lives due to altered mental status. According to the son he noticed that his father was not very alert the evening prior to admission and when he awoke this morning he found his father to be unresponsive. According to the son on admission the patient had checked himself out of a nursing facility ([place]) AGAINST MEDICAL ADVICE where he had been undergoing inpatient rehab services. His vital signs in the emergency department were unremarkable. His work-up in the ED showed a fairly unremarkable CBC and BMP. His urinalysis was suspicious for infection and he was started on antibiotics and given IV fluids. His urine cultures grew out Enterococcus and he was which to Augmentin of which she will complete 10 days for complicated UTI. For his chronic low back pain x- rays were done and showed multilevel degenerative disc disease that was most prominent at L4-L5. He was treated with as needed gabapentin, Ultram, and methocarbamol. He was also given Toradol but this was discontinued with his age and increased risk of GI bleeding with an NSAIDs. He was noted to have mild anemia on admission but this had resolved by discharge. His oxygen saturation remained stable on room air. We discussed his ongoing tobacco abuse with the patient is not interested in quitting at this time. He continued to show signs of fairly severe debility and worked with physical therapy and Occupational Therapy and they recommended further inpatient rehab. He was agreeable to admission to TCU and was discharged to the transitional care unit on 03/07/2021 in stable condition. He does not currently have an established primary care physician and have asked him to follow-up with the [facility] 1-2 weeks after d/c from TCU. Discharge diagnoses Acute complicated urinary tract infection secondary to Enterococcus Metabolic encephalopathy-resolved Severe debility Severe protein calorie malnutrition Degenerative disc disease-lumbar spine Chronic pain Mild chronic anemia Chronic hypercapnic respiratory failure COPD Tobacco abuse Discharge time greater than 35 minutes Patient Problems: Active and Suspected Problems (Last Reviewed 01/14/21 @ 01:[address] Sunny Osuna MD) Urinary tract infection, acute (Acute) Infectious encephalopathy (Acute) Altered mental status (Acute) Prediabetes (Acute) COPD (chronic obstructive pulmonary disease) (Suspected) Physical debility (Acute) Subjective: Patient states he feels horrible. When I asked him how he is feeling horrible he states he is just really fatigued and has no specific complaints other than his ongoing back pain which is chronic. He continues to perseverate on his son bring in his close in his wallet. - Physical Exam Vitals/I&O's: Vital Signs Temp Pulse Resp BP Pulse Ox 98.0 F 81 16 105/69 94 03/07/21 08:20 03/07/21 08:20 03/07/21 08:20 03/07/21 08:20 03/07/21 08:20 Oxygen Flow Rate (L/min) 1 Oxygen Delivery Method Room Air Weight: 59 kg Body Mass Index (BMI) 18.6 Finger Stick Blood Glucose 128 Intake and Output for Last 24 Hours 03/05/21 03/06/21 03/07/21 23:59 23:59 23:59 Intake Total 200 / 200 300 / 300 Output Total 975 / 975 100 / 100 Balance -775 / -775 200 / 200 General: Alert, Oriented x3, Cooperative, No apparent distress, Well developed, Well nourished, - - Thin cachectic white male who appears much older than stated age, lying in bed in right side-lying sleeping but awakens easily for exam HEENT: Atraumatic, PERRLA, EOMI, Normocephalic, EAC Clear Oral: Moist Mucosa, No Gingival or Mucosal Lesions/ Ulcerations, - - Edentulous, no thrush, Mallampati 1 Neck: Supple, Trachea Midline, Thyroid Normal Size and Texture Lungs: Clear to auscultation, No rhonchi, No wheeze, No rales, Diminished - Diffusely Cardiovascular: Regular rate, Regular Rhythm, Normal S1, Normal S2, No murmurs, No Ectopic Activity, No rub noted, No Gallop Abdomen: Bowel Sounds Present, Soft, Non Tender, Non-Distended, No hernias noted Extremities: No clubbing, No cyanosis, No edema, Capillary Refill Less than 3 Seconds, Peripheral Pulses Normal Skin: No rashes, No breakdown Musculoskeletal: No Tenderness to Palpation of Joints or Extremities, Arthritic Changes, Cachexia, Muscle Wasting Lymphatic: No Cervical, Supraclavicular, or Inguinal Adenopathy Neurological: Cranial nerves II-XII grossly intact, Neuro grossly intact, Muscle tone normal, Coordination normal Psych/Mental Status: Appropriate, Flat Affect Microbiology Past 72 Hours 03/02/21 06:08 Blood Culture (Wb) - Anticubital Left Blood Culture - Final No growth in 5 days. 03/02/21 06:10 Blood Culture (Wb) - Anticubital Right Blood Culture - Final No growth in 5 days. 03/06/21 18:20 Mucosa - Nose SARS-CoV-2 Antigen (Rapid) - Final 03/02/21 06:25 Urine, Catheterized Urine Culture - Final Enterococcus faecalis Laboratory Results 03/07/21 05:36: WBC 7.6, RBC 5.02, Hgb 14.1, Hct 44.0, MCV 87.6, MCH 28.1, MCHC 32.0, RDW Std Deviation 43.9, RDW Coeff of Bravo 13.7, Plt Count 269, MPV 10.3, Immature Gran % (Auto) 0.300, Neut % (Auto) 47.1, Lymph % (Auto) 38.5, Calloway % (Auto) 10.0, Eos % (Auto) 3.7, Baso % (Auto) 0.4, Absolute Neuts (auto) 3.6, Absolute Lymphs (auto) 2.93, Nucleated RBC % 0 03/07/21 05:36: Sodium 135 L, Potassium 4.2, Chloride 100, Carbon Dioxide 33.0 H , Anion Gap 2 L, BUN 28 H, Creatinine 0.64 L, Estim Creat Clear Calc 59.00, Est GFR (MDRD) Af Amer 160, Est GFR (MDRD) Non-Af 132, BUN/Creatinine Ratio 43.8 H, Glucose 133 H, Calcium 8.8 Current Medications Acetaminophen (Acetaminophen 325 Mg Tablet) 650 mg PO Q6H PRN PRN PRN Reason: Pain 1-10 or Fever Last Admin: 03/05/21 08:59 Dose: 650 mg Documented by: Amoxicillin/Clavulanate Potassium (Amox/Clavulanate 875 Mg Tablet) 875 mg PO BID HODA Last Admin: 03/07/21 09:26 Dose: 875 mg Documented by: Gabapentin (Gabapentin 400 Mg Capsule) 400 mg PO Q6H PRN PRN PRN Reason: Pain Score 1-10 Last Admin: 03/06/21 09:59 Dose: 400 mg Documented by: Heparin Sodium (Porcine) (Heparin Injection (Vial) 5,000 Unit/Ml Vial) 5,000 unit SC Q12 HODA Last Admin: 03/07/21 09:26 Dose: 5,000 unit Documented by: Ketorolac Tromethamine (Ketorolac 30 Mg/Ml Syringe) 30 mg IV Q6H PRN PRN PRN Reason: Pain 1-10 or Fever Stop: 03/08/21 11:13 Last Admin: 03/07/21 04:52 Dose: 30 mg Documented by: Melatonin (Melatonin 3 Mg Tablet) 3 mg PO QHS HODA Last Admin: 03/06/21 21:41 Dose: 3 mg Documented by: Methocarbamol (Methocarbamol 750 Mg Tablet) 750 mg PO Q6H PRN PRN Reason: MUSCLE SPASM Last Admin: 03/06/21 21:40 Dose: 750 mg Documented by: Sodium Chloride (0.9% Saline Lock 10 Ml Syringe) 10 - 40 ml IV UD PRN PRN Reason: SALINE FLUSH Last Admin: 03/07/21 04:53 Dose: 10 ml Documented by: Tramadol HCl (Tramadol 50 Mg Tablet) 100 mg PO Q6H PRN PRN PRN Reason: Pain Score 1-10 Last Admin: 03/05/21 10:58 Dose: 100 mg Documented by: Home Medications: Medications to take at Discharge Acetaminophen [Tylenol Tablet] 650 mg PO Q6H PRN PRN tablet 03/06/21 Amox/Clavulanate Tablet [Augmentin Tablet] 875 mg PO BID 7 Days tablet 03/06/21 Gabapentin [Neurontin] 400 mg PO Q6H PRN PRN capsule 03/06/21 Heparin Injection (Vial) [Heparin Na] 5,000 unit SC Q12 vial 03/06/21 Methocarbamol 750 mg PO Q6H PRN tablet 03/06/21 traMADol [Ultram] 100 mg PO Q6H PRN PRN tablet 03/06/21 Primary Care Physician: [facility] [NON-STAFF] - Care Physician,No Primary [Primary Care Provider] - Please follow up with your Primary Care Physician in: 1-2 weeks after d/c from TCU Medical Necessity - Tobacco Use Smoking Status: Current every day smoker Tobacco Use: Cigarettes Meaningful Use Info Meaningful Use Diagnoses (Choose all that apply): None applicable Inpatient E&M: 12791 [facility]
== END 2021-03-07 13:14 | disposition skilled nursing facility (03) | DRG 689 ==
LOC: ED 07:14 → MS3 07:50
PROVIDERS: Admitting Provider Internal Medicine; Emergency Provider Emergency Medicine; Visit Provider Internal Medicine
DX: N39.0 Urinary tract infection, site not specified (principal); E43 Unspecified severe protein-calorie malnutrition; G93.41 Metabolic encephalopathy; J96.12 Chronic respiratory failure with hypercapnia; B95.2 Enterococcus as the cause of diseases classified elsewhere; J44.9 Chronic obstructive pulmonary disease, unspecified; M50.30 Other cervical disc degeneration, unspecified cervical region; F17.210 Nicotine dependence, cigarettes, uncomplicated; D64.9 Anemia, unspecified; M51.36 Other intervertebral disc degeneration, lumbar region; G89.29 Other chronic pain; R53.81 Other malaise; R73.03 Prediabetes
CPT/HCPCS: 51702; 70450; 71045; 72100; 80048; 80053; 81001; 83605; 84484; 85025; 85610; 85730; 87040; 87077; 87086; 87088; 87186; 87426; 92526; 92610; 93005; 97110; 97162; 97166; 97530; 97535; 99285; 99406; J7030; A4216

== ENCOUNTER 2021-03-07 13:20 | Inpatient (IN) | payer MEDICARE, SELFPAY ==
[2021-03-02 08:49] VITALS: BMI 18.6
[2021-03-07 13:35] VITALS: BP 174/86; PULSE 87; RESP 18; TEMP 36.9; O2SAT 96
[2021-03-07 15:04] VITALS: BMI 19.2
[2021-03-07 15:09] VITALS: BMI 19.2
[2021-03-07] MEDS: traMADol 50 MG Tablet 100 MG PO (15:16)
--- NOTE | 2021-03-07 16:20 | NURSING ---
THIS NURSE TRIED CALLING PT SON. CELL PHONE SAID MAILBOX WAS FULL COULD NOT LEAVE MESSAGE.
[2021-03-07] MEDS: Amox/Clavulanate 875 MG Tablet PO (18:15)
[2021-03-07] MEDS: Heparin Injection (Vial) 5,000 UNIT/ML VIAL 5000 UNIT SC (18:23)
[2021-03-07] MEDS: Gabapentin 400 MG Capsule PO (20:18)
[2021-03-07 21:55] LABS: Bedside Glucose 135 mg/dL (70-110)
[2021-03-08 05:00] VITALS: BP 112/69; PULSE 85; RESP 16; TEMP 36.7; O2SAT 99
[2021-03-08] MEDS: Heparin Injection (Vial) 5,000 UNIT/ML VIAL 5000 UNIT SC ×2 (05:11→17:24)
[2021-03-08 05:20] LABS: Absolute Lymphocyte Count 2.69 X10^3/uL (0.83-4.51); Absolute Neutrophil Count 3.2 X10^3/uL (2.0-7.7); Basophil# 0.03 X10^3/uL; Basophil% 0.4 % (0-1); Eosinophils% 4.3 % (0-5); Hematocrit 42.4 % (40-54); Hemoglobin 13.7 g/dL (13.0-16.5); Lymphocyte # 2.69 X10^3/ul (4.0); Lymphocyte % 38.7 % (19-41); Mean Corp Hgb Conc 32.3 g/dL (32-36); Mean Corpuscular Hgb 28.8 pg (27.0-32.0); Mean Corpuscular Volume 89.1 fL (80-94); Mean Platelet Vol. 9.9 fl (6.2-12.0); Monocyte# 0.75 X10^3/uL; Monocyte% 10.8 % (0-10); NRBC Flagged by Analyzer 0 % (0-5); Neutrophil # 3.17 X10^3/uL (2.7-7.7); Neutrophil % 45.7 % (47-70); Platelet Count 238 K/mm3 (150-450); RBC Distribution Width CV 13.9 % (11.6-14.6); RBC Distribution Width SD 45.1 fl (35.1-43.9); Red Blood Count 4.76 M/mm3 (4.6-6.2)
[2021-03-08 05:34] LABS: Anion Gap 1 (5-15); BUN 24 mg/dL (7-18); BUN/Creat Ratio 40.6 RATIO (10-20); Calcium,Total 8.8 mg/dL (8.5-10.1); Chloride 98 mmol/L (98-107); Creatinine, Serum 0.59 mg/dL (0.70-1.30); EST Glomerular Filtration Rate 145 mL/min (>60); Est Glom Filt Rate - Afr Amer 175 mL/min (>60); Glucose 137 mg/dL (74-106); Potassium 4.3 mmol/L (3.5-5.1); Sodium Level 134 mmol/L (136-145)
[2021-03-08 06:21] LABS: Bedside Glucose 131 mg/dL (70-110)
[2021-03-08] MEDS: metFORMIN HCl 500 MG Tablet PO ×2 (08:08→17:23)
[2021-03-08] MEDS: Amox/Clavulanate 875 MG Tablet PO ×2 (08:08→17:23)
[2021-03-08] MEDS: traMADol 50 MG Tablet 100 MG PO (09:13)
[2021-03-08] MEDS: Tuberculin,Purif.prot.deriv. 50 TU/ML Vial 5 ML ID (10:16)
[2021-03-08 10:35] LABS: Bedside Glucose 137 mg/dL (70-110)
--- NOTE | 2021-03-08 11:39 | NURSING ---
wound photo: right hip
--- NOTE | 2021-03-08 11:40 | NURSING ---
wound photo: right ischium
--- NOTE | 2021-03-08 11:41 | NURSING ---
wound photo: left hip
[2021-03-08 14:01] VITALS: BP 120/76; PULSE 80; RESP 14; TEMP 36.4; O2SAT 94
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
--- NOTE | 2021-03-08 14:54 | CASEMGMT ---
Social Work SW met with pt and discussed end of life wishes. SW assisted pt in completing MOLST form. Pt would want to be Full Code with intubation and trial feeding tube if needed. Nursing and physician updated on pt wishes and MOLST form placed on chart. TONYA Kevin
[2021-03-08 16:41] LABS: Bedside Glucose 109 mg/dL (70-110)
[2021-03-08] MEDS: oxyCODONE 5 MG Tablet 10 MG PO (18:25)
[2021-03-08] MEDS: Tamsulosin HCl 0.4 MG Capsule PO (18:26)
[2021-03-08] MEDS: predniSONE 20 MG Tablet 60 MG PO (18:31)
[2021-03-08] MEDS: Methocarbamol 750 MG Tablet PO (20:42)
[2021-03-08] MEDS: Gabapentin 600 MG Tablet PO (20:42)
[2021-03-08 21:46] LABS: Bedside Glucose 236 mg/dL (70-110)
--- NOTE | 2021-03-08 22:01 | NURSING ---
Went into patient's room to administer insulin. Patient asked can I just have a pill? Educated patient on the need for insulin and with his blood sugar high we needed to do the insulin. Patient refused. You're not going to keep sticking me with that stuff. RN aware.
[2021-03-09] MEDS: oxyCODONE 5 MG Tablet 10 MG PO ×3 (00:32→22:28)
[2021-03-09 05:00] VITALS: BP 153/76; PULSE 92; RESP 16; TEMP 36.4; O2SAT 98
[2021-03-09] MEDS: Methocarbamol 750 MG Tablet PO ×3 (05:28→22:29)
[2021-03-09] MEDS: Heparin Injection (Vial) 5,000 UNIT/ML VIAL 5000 UNIT SC ×2 (05:30→17:56)
[2021-03-09 06:36] LABS: Bedside Glucose 162 mg/dL (70-110)
--- NOTE | 2021-03-09 06:48 | NURSING ---
[address] per order. 10 mL saline inserted into balloon. Patient tolerated well.
[2021-03-09] MEDS: metFORMIN HCl 500 MG Tablet PO ×2 (08:44→17:49)
[2021-03-09] MEDS: Amox/Clavulanate 875 MG Tablet PO ×2 (08:44→17:49)
[2021-03-09] MEDS: Gabapentin 400 MG Capsule PO ×2 (08:45→17:56)
[2021-03-09] MEDS: predniSONE 20 MG Tablet 60 MG PO (08:46)
[2021-03-09 11:06] LABS: Bedside Glucose 192 mg/dL (70-110)
--- NOTE | 2021-03-09 11:47 | CASEMGMT ---
Social Work Spoke with pt about participating in therapy. Explained insurance coverage. Pt expressed this is like a revolving door. I just need a few hours to myself in the morning. Validated feelings and requested. Offered for therapy to work with patient primarily in the afternoon. Pt agreeable and appreciative. Inquired about POA paperwork. Pt denied having any completed. Offered to assist in completing. Pt denied and stated he does not want anyone to have POA. Removed the invalid POA paperwork from pt's chart and updated IDT. SW to continue to follow. Diane Garrett, MATCHING MACHINE OPERATOR OPERATIONS PROFESSIONAL
[2021-03-09 14:28] VITALS: BP 144/65; PULSE 95; RESP 17; TEMP 36.8; O2SAT 94
--- NOTE | 2021-03-09 15:59 | PHA.CONS_ITS ---
Progress Note - Pharmacy Subjective: TCU Admission Objective: Allergies No Known Allergies Allergy (Verified 01/13/21 20:58) Current Medications Generic Name Dose Route Start Last Admin Trade Name Freq PRN Reason Stop Dose Admin Acetaminophen 650 mg 03/07/21 13:37 Acetaminophen 325 Mg Tablet PO Q6H PRN PRN Pain 1-10 or Fever Amoxicillin/Clavulanate Potassium 875 mg 03/07/21 17:00 03/09/21 08:44 Amox/Clavulanate 875 Mg Tablet PO 03/13/21 23:59 875 mg BIDCM [facility] Administration Gabapentin 400 mg 03/09/21 08:00 03/09/21 08:45 Gabapentin 400 Mg Capsule PO 400 mg BIDCM [facility] Administration Gabapentin 600 mg 03/08/21 21:00 03/08/21 20:42 Gabapentin 600 Mg Tablet PO 600 mg 2100 [facility] Administration Heparin Sodium (Porcine) 5,000 unit 03/07/21 18:00 03/09/21 05:30 Heparin Injection (Vial) 5,000 Unit/Ml Vial SC 5,000 unit Q12 [facility] Administration Insulin Human Lispro 0 unit 03/08/21 22:00 03/09/21 11:14 Insulin Lispro 100 Unit/Ml Insuln.Pen SC Not Given ACHS [facility] Protocol Metformin HCl 500 mg 03/08/21 08:00 03/09/21 08:44 Metformin Hcl 500 Mg [facility] Administration Methocarbamol 750 mg 03/08/21 22:00 03/09/21 13:22 Methocarbamol 750 Mg Tablet PO 750 mg Q8 [facility] Administration Oxycodone HCl 10 mg 03/08/21 18:05 03/09/21 13:25 Oxycodone 5 Mg Tablet PO 10 mg Q6H PRN PRN Administration Pain Score 6-10 Prednisone 60 mg 03/09/21 08:00 03/09/21 08:46 Prednisone 20 Mg Tablet PO 60 mg DAILY@0800 [facility] Administration Sodium Chloride 10 - 40 ml 03/07/21 15:12 0.9% Saline Lock 10 Ml Syringe IV UD PRN SALINE FLUSH Tamsulosin HCl 0.4 mg 03/08/21 18:00 03/08/21 18:26 Tamsulosin Hcl 0.4 Mg Capsule PO 0.4 mg DAILY@1730 [facility] Administration Tuberculin PPD 5 tu 03/15/21 10:00 Tuberculin,Purif.Prot.Deriv. 50 Tu/Ml Vial ID 03/15/21 10:01 X1 ONE Problem List (Last Reviewed 01/14/21 @ 01:[address] Sunny Osuna MD) Urinary tract infection, acute (Acute) Tobacco dependence in remission (Chronic) Unexplained weight loss (Acute) Decubitus ulcers (Acute) Myelopathy (Acute) Cervical spinal cord compression (Suspected) Low back pain (Chronic) Urine retention (Acute) Prediabetes (Acute) COPD (chronic obstructive pulmonary disease) (Suspected) Physical debility (Acute) Vital Signs Temp Pulse Resp BP Pulse Ox 98.3 F 95 17 144/65 H 94 03/09/21 14:28 03/09/21 14:28 03/09/21 14:28 03/09/21 14:28 03/09/21 14:28 Oxygen Delivery Method Room Air Weight: 59 kg Body Mass Index (BMI) 19.2 Finger Stick Blood Glucose 128 Sodium 134 mmol/L (136-145) L 03/08/21 05:15 Potassium 4.3 mmol/L (3.5-5.1) 03/08/21 05:15 Chloride 98 mmol/L (98-107) 03/08/21 05:15 Carbon Dioxide 35.0 mmol/L (21.0-32.0) H 03/08/21 05:15 Anion Gap 1 (5-15) L 03/08/21 05:15 BUN 24 mg/dL (7-18) H 03/08/21 05:15 Creatinine 0.59 mg/dL (0.70-1.30) L 03/08/21 05:15 Est GFR (MDRD) Af Amer 175 mL/min (>60) 03/08/21 05:15 Est GFR (MDRD) Non-Af 145 mL/min (>60) 03/08/21 05:15 BUN/Creatinine Ratio 40.6 RATIO (10-20) H 03/08/21 05:15 Glucose 137 mg/dL (74-106) H 03/08/21 05:15 Assessment/Plan: 1. Pain: acetaminophen 650mg PO Q6H PRN pain 1-10 and oxycodone 10mg PO Q6H PRN pain 6-10. Please continue to monitor for S/S of pain, PRN usage, constipation and respiratory depression. 2. DVT prophylaxis: heparin 5000units SC Q12H. Please continue to monitor for S/S of bleeding/DVT, hemoglobin (last 13.7g/dL) and platelets (last 238,000). 3. Enterococcus UTI: amoxicillin/clavulanate 875mg PO BIDCM thru 03/13/21. Please continue to monitor renal function, S/S of infection, and diarrhea. 4. Multilevel degenerative disc disease: prednisone 60mg PO DAILYCM, methocarbamol 750mg PO Q8, gabapentin 400mg PO BIDCM and 600mg PO @ 2100. Please continue to monitor glucose (last 192mg/dL), bloody stool, S/S of infection, agitation, renal function, and confusion. 5. Prediabetes/glucose intolerance/steroid use: metformin 500mg PO BIDCM and insulin lispro sliding scale SC ACHS. Please continue to monitor glucose (last 192mg/dL), hemoglobin A1c (last 5.9%), renal function, and S/S of hypoglycemia. 6. Urinary retention: tamsulosin 0.4mg PO DAILY@1730. Please continue to monitor for hypotension and improved bladder emptying. Psychotropic Medications: None Unnecessary Medications: None Bowel Regimen: None Date of Note:: 03/09/21 - Provider Comments Provider responsibility: Provider responsible to enter orders to implement recommendations
[2021-03-09 16:30] LABS: Bedside Glucose 209 mg/dL (70-110)
--- NOTE | 2021-03-09 17:00 | CHAPLAIN ---
Type of Pastoral Visit ___ Initial Visit _x__ Follow-up Visit ___ On-call Visit ___ General Patient Visit ___ Spiritual Assessment ___ Family Conference ___ Bereavement ___ Rapid Response ___ Code Blue ___ Other (describe below) Pastoral Care Referral From _x__ Patient ___ Family ___ Nurse ___ Physician ___ Lidar Scientist ___ Cook Italian Style Food ___ Other (describe below) Sacrament/Intervention _x__ Active listening ___ Anointing ___ Shinto ___ Bereavement ___ Communion _x__ Imani exploration ___ ___ Life review _x__ Prayer ___ Reconciliation ___ Sacrament of Sick _x__ Supportive presence ___ Wedding ___ Other (describe below) Pastoral Comments patient is only wearing diapers and a hospital sheet; knew from previous conversation that pt was waiting for son to bring him clothes and belongings; when asked if son has brought items pt states he has his own troubles; offered to give pt some clothes and he is agreeable; pt was given socks, underwear, and a shirt from extra supplies from correctional supervising cook office; gave time and presence to listen to patient
[2021-03-09] MEDS: Tamsulosin HCl 0.4 MG Capsule PO (17:50)
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
[2021-03-09 21:45] LABS: Bedside Glucose 199 mg/dL (70-110)
[2021-03-09] MEDS: Gabapentin 600 MG Tablet PO (22:30)
--- NOTE | 2021-03-10 01:06 | NURSING ---
pt blood sugar at HS was 199, pt still refused HS Humalog. education provided on importance of taking insulin, pt still refuses. RN notified.
[2021-03-10 05:00] VITALS: BP 127/72; PULSE 83; RESP 18; TEMP 36.6
[2021-03-10] MEDS: Methocarbamol 750 MG Tablet PO ×3 (06:19→23:10)
[2021-03-10] MEDS: Heparin Injection (Vial) 5,000 UNIT/ML VIAL 5000 UNIT SC ×2 (06:20→17:22)
[2021-03-10] MEDS: oxyCODONE 5 MG Tablet 10 MG PO ×3 (06:28→23:13)
[2021-03-10 07:00] LABS: Bedside Glucose 91 mg/dL (70-110)
[2021-03-10] MEDS: Amox/Clavulanate 875 MG Tablet PO ×2 (08:19→17:16)
[2021-03-10] MEDS: predniSONE 20 MG Tablet 60 MG PO (08:20)
[2021-03-10] MEDS: Gabapentin 400 MG Capsule PO ×2 (08:22→17:21)
[2021-03-10] MEDS: metFORMIN HCl 500 MG Tablet PO ×2 (09:12→17:16)
[2021-03-10 11:01] LABS: Bedside Glucose 143 mg/dL (70-110)
[2021-03-10 14:18] VITALS: BP 128/75; PULSE 68; RESP 15; TEMP 36.6; O2SAT 96
[2021-03-10 16:55] LABS: Bedside Glucose 238 mg/dL (70-110)
--- NOTE | 2021-03-10 17:03 | PCA ---
Confirmed with patient his date of 11/27/1951. Family brought in drivers license and i made a copy. Spoke with Jaja in central registration and also sent a copy of patients drivers license down to her so she could update the date of 11/27/1951 into the computer system. Nursing updated
[2021-03-10] MEDS: Tamsulosin HCl 0.4 MG Capsule PO (17:17)
[2021-03-10] MEDS: Insulin Lispro 100 UNIT/ML INSULN.PEN SC ×2 (17:23→23:10)
--- NOTE | 2021-03-10 18:08 | PCA ---
Addendum entered by Raquel Neal 03/15/21 09:47: Called [facility] Today 03/15/21 9:45am to check status of prior auth for MRI. Currently still under review. RN/[employer]BER updated Addendum entered by Raquel Neal 03/12/21 10:13: Called Joyce Saturday03/12/21 10am to check status of Prior Auth for MRI. Currently under review. RN/[employer] MEMBER updated Original Note: faxed requested clinical information to [facility] for an prior auth of an MRI. Case # [id number] . Fax went thru successful. Nursing updated
--- NOTE | 2021-03-10 19:15 | PCM.PN.BLA ---
Progress Note Continues to complain of severe 8-10/10 pain. He also continues to complain of paresthesias in his fingertips. MRI of the cervical spine was ordered on 03/08/2021 and we still have not received prior authorization from [facility] [place]. Pupils are contracted due to the Oxycodone......he is taking 3 a day. He feels spacey. I told me we are not dragging our feet but the insurance company has not given prior authorization to get the MRI He has radicular pain in the UE's and the LE's and paresthesias in both hands and both feet. He has muscle atrophy. Will increase the Gabapentin Continue the Prednisone 60 mg daily for 2 more days and then taper Continue the Oxycodone and the Methocarbamol PSA was WNL Await the insurance company to make a determination on the MRI I suspect he has cervical canal stenosis as the etiology of the radiculopathy and myelopathy of the extremities. He will also need a W/U for the etiology of the unexplained wt loss after we get pain controlled. Can be done as an OP. Inpatient E&M: 10655 Subs Hosp L1
[2021-03-10 21:41] LABS: Bedside Glucose 192 mg/dL (70-110)
[2021-03-11 05:00] VITALS: BP 117/73; PULSE 87; RESP 18; TEMP 36.2; O2SAT 93
[2021-03-11] MEDS: Heparin Injection (Vial) 5,000 UNIT/ML VIAL 5000 UNIT SC ×2 (05:08→17:56)
[2021-03-11] MEDS: Methocarbamol 750 MG Tablet PO ×3 (05:08→21:57)
[2021-03-11 06:40] LABS: Bedside Glucose 123 mg/dL (70-110)
[2021-03-11] MEDS: predniSONE 20 MG Tablet 60 MG PO (08:18)
[2021-03-11] MEDS: Amox/Clavulanate 875 MG Tablet PO ×2 (08:19→17:50)
[2021-03-11] MEDS: metFORMIN HCl 500 MG Tablet PO ×2 (08:19→17:51)
[2021-03-11] MEDS: Gabapentin 600 MG Tablet PO ×3 (08:19→17:51)
[2021-03-11] MEDS: oxyCODONE 5 MG Tablet 10 MG PO (08:21)
--- NOTE | 2021-03-11 08:24 | NURSING ---
PT IN BAD MOOD. GIVING PT HIS MORNING MEDS AND PT STATED I COULD JUST THROW THESE PILLS UP AGAINST THE WALL AND I THINK YOU NEED TO GET OUT OF HERE CAUSE WENDIE HAVING A MOMENT. RN AWARE
[2021-03-11 11:16] LABS: Bedside Glucose 164 mg/dL (70-110)
--- NOTE | 2021-03-11 13:50 | NURSING ---
PT VERY AGITATED AND STATING HE HAS PAIN. THIS NURSE EXPLAINED TO PT HE STILL HAS TYLENOL AVAILABLE AND NOT DO FOR OXY YET. PT STATED HE DONT WANT THE TYLENOL AND IT DONT HELP,YOU TELL THAT DOCTOR I WANT MORE PAIN MEDS. REPORTED TO COLBY AGRAWAL
[2021-03-11 15:50] VITALS: BP 96/66; PULSE 84; RESP 20; TEMP 37.3; O2SAT 94
[2021-03-11] MEDS: oxyCODONE 5 MG Tablet 20 MG PO ×2 (16:07→21:56)
[2021-03-11 17:00] LABS: Bedside Glucose 185 mg/dL (70-110)
[2021-03-11] MEDS: Tamsulosin HCl 0.4 MG Capsule PO (17:51)
[2021-03-11] MEDS: Senna/Docusate Sodium 1 Tablet 2 TABLET PO (17:52)
--- NOTE | 2021-03-11 18:06 | NURSING ---
CALLED PT SON,NO ANSWER,LEFT MESSAGE.
[2021-03-11 22:40] LABS: Bedside Glucose 189 mg/dL (70-110)
--- NOTE | 2021-03-11 23:42 | PCA ---
This TECHNOLOGY COACH asked if pt wanted to wash up, change gown or brush teeth for the evening, pt declined stating he already did earlier today. em
[2021-03-12] MEDS: oxyCODONE 5 MG Tablet 20 MG PO ×4 (02:12→20:15)
[2021-03-12 05:00] VITALS: BP 152/57; PULSE 83; RESP 18; TEMP 36.6
[2021-03-12] MEDS: Heparin Injection (Vial) 5,000 UNIT/ML VIAL 5000 UNIT SC ×2 (06:27→17:37)
[2021-03-12] MEDS: Senna/Docusate Sodium 1 Tablet 2 TABLET PO ×2 (06:27→17:27)
[2021-03-12] MEDS: Polyethylene Glycol 3350 17 GM PACKET PO (06:27)
[2021-03-12] MEDS: Methocarbamol 750 MG Tablet PO ×3 (06:27→20:17)
[2021-03-12 06:46] LABS: Bedside Glucose 122 mg/dL (70-110)
[2021-03-12] MEDS: predniSONE 20 MG Tablet 40 MG PO (08:04)
[2021-03-12] MEDS: Amox/Clavulanate 875 MG Tablet PO ×2 (08:04→17:26)
[2021-03-12] MEDS: metFORMIN HCl 500 MG Tablet PO ×2 (08:04→17:26)
[2021-03-12] MEDS: Gabapentin 600 MG Tablet PO ×3 (08:05→17:27)
--- NOTE | 2021-03-12 09:08 | NURSING ---
pt requesting ensure between meals. he gets Ensure with meals as well.
[2021-03-12 09:40] VITALS: PULSE 88; RESP 18; O2SAT 93
--- NOTE | 2021-03-12 10:33 | NURSING ---
THIS NURSE SET PT UP FOR MOUTH CARE,WASHED FACE AND HANDS,BOTTOM WASHED AND ATTENDS CHANGED. PT REFUSED TO CHANGE PJ BOTTOMS. LOTION GIVEN TO PT PER HIS REQUEST. PT SEEMS SHORT OF BREATH,OXYGEN 90% RA. PT ASKED FOR SOME OXYGEN. APPLIED 1L, PT OXYGEN NOW 92% FAN IN ROOM AND HEAT TURNED DOWN.PT STATED HE FELT BETTER AND ASKED FOR SOME HOT TEA,WAS GIVEN. WILL CONTINUE TO MONITOR. REPORTED TO RN
[2021-03-12 11:16] LABS: Bedside Glucose 157 mg/dL (70-110)
[2021-03-12 15:38] VITALS: BP 120/71; PULSE 87; RESP 16; TEMP 36.2; O2SAT 95
[2021-03-12 16:40] LABS: Bedside Glucose 231 mg/dL (70-110)
[2021-03-12] MEDS: Insulin Lispro 100 UNIT/ML INSULN.PEN SC ×2 (17:24→22:34)
[2021-03-12] MEDS: Tamsulosin HCl 0.4 MG Capsule PO (17:26)
[2021-03-12 21:20] LABS: Bedside Glucose 235 mg/dL (70-110)
--- NOTE | 2021-03-12 23:14 | PCA ---
This OPERATIONS PROFESSIONAL asked pt on on 2 separate times if he wanted to wash up, change gown or brush his teeth, pt declined both times stating he did not want to. em
[2021-03-13] MEDS: oxyCODONE 5 MG Tablet 20 MG PO ×3 (03:10→17:25)
[2021-03-13 05:00] VITALS: BP 116/56; PULSE 85; RESP 18; TEMP 36.6; O2SAT 90
[2021-03-13 06:21] LABS: Bedside Glucose 124 mg/dL (70-110)
[2021-03-13] MEDS: Methocarbamol 750 MG Tablet PO ×3 (06:30→20:49)
[2021-03-13] MEDS: Heparin Injection (Vial) 5,000 UNIT/ML VIAL 5000 UNIT SC ×2 (06:30→17:18)
[2021-03-13] MEDS: Senna/Docusate Sodium 1 Tablet 2 TABLET PO ×2 (06:30→17:19)
[2021-03-13] MEDS: Polyethylene Glycol 3350 17 GM PACKET PO (06:30)
[2021-03-13] MEDS: Amox/Clavulanate 875 MG Tablet PO ×2 (08:01→17:17)
[2021-03-13] MEDS: Gabapentin 600 MG Tablet PO ×3 (08:01→17:18)
[2021-03-13] MEDS: predniSONE 20 MG Tablet 40 MG PO (08:02)
[2021-03-13] MEDS: metFORMIN HCl 500 MG Tablet PO ×2 (08:02→17:18)
--- NOTE | 2021-03-13 09:31 | NURSING ---
Radha called to check status of prior auth for MRI, still under review at this time
[2021-03-13 10:50] LABS: Bedside Glucose 166 mg/dL (70-110)
[2021-03-13] MEDS: Insulin Lispro 100 UNIT/ML INSULN.PEN SC ×3 (11:03→22:09)
--- NOTE | 2021-03-13 11:58 | NURSING ---
Pt's son Benny Guajardo called in with his also on the line and spoke with this nurse asking for an update on pt. This nurse began to update son on precert for MRI being obtained d/t pain, son cut this nurse off and said I don't give a shit about that how about you tell me about the infection, you know the whole reason he is there. This nurse complied and began speaking about the ATB the patient was on to treat his UTI. Son began asking questions if pt was going to , and if we even fixed anything, this nurse again explained how the ATB is used to treat his UTI. Son asked this nurse if pt is going to continue to piss and shit all over my house because he can't control his bowel and bladder. This nurse explained that pt has a tay catheter at this time d/t urinary retention which could have also contributed to his development of his UTI. Son and his continued to simultaneously shout questions and use profanity towards this nurse expressing how they want to come in today to see pt and was told that they could come in and see him even if he is under quarantine, this nurse educated on current guidelines in place regarding visits, son requested to talk to pt, son was transferred to pt's room.
[2021-03-13 13:58] VITALS: BP 114/72; PULSE 69; RESP 18; TEMP 36.1; O2SAT 96
--- NOTE | 2021-03-13 14:38 | NURSING ---
wound photo: right hip/ischium
--- NOTE | 2021-03-13 14:39 | NURSING ---
wound photo: left hip
[2021-03-13] MEDS: Tamsulosin HCl 0.4 MG Capsule PO (17:18)
[2021-03-13 18:01] LABS: Bedside Glucose 160 mg/dL (70-110)
--- NOTE | 2021-03-13 20:51 | NURSING ---
Patient upset and yelling You need to call the doctor NOW, I have blood coming out of my tube. Explained to patient I was told in report that his catheter was possibly pulled when he was up using restroom and that could cause the hematuria. There was no need to call the doctor after hours. Patient starts yelling again, well if you had blood coming out of you, you would call your doctor right away! Patient advised that I would monitor it and update Dr. Corona in the morning.
[2021-03-13 22:00] LABS: Bedside Glucose 199 mg/dL (70-110)
[2021-03-14] MEDS: oxyCODONE 5 MG Tablet 20 MG PO ×4 (01:21→20:33)
[2021-03-14 05:00] VITALS: BP 116/69; PULSE 83; RESP 16; TEMP 36.9; O2SAT 92
[2021-03-14] MEDS: Methocarbamol 750 MG Tablet PO ×3 (05:40→20:35)
[2021-03-14] MEDS: Polyethylene Glycol 3350 17 GM PACKET PO (05:40)
[2021-03-14] MEDS: Senna/Docusate Sodium 1 Tablet 2 TABLET PO ×2 (05:41→17:26)
--- NOTE | 2021-03-14 05:46 | NURSING ---
Patient refused heparin. Patient states, My stomach hurts and is bruised up. Told patient I could give it to him in his thigh. Patient refused. RN aware. Will update Dr. Corona.
[2021-03-14 06:16] LABS: Bedside Glucose 137 mg/dL (70-110)
[2021-03-14] MEDS: Gabapentin 600 MG Tablet PO ×3 (08:10→17:23)
[2021-03-14] MEDS: predniSONE 20 MG Tablet 40 MG PO (08:11)
[2021-03-14] MEDS: metFORMIN HCl 500 MG Tablet PO ×2 (08:11→17:26)
[2021-03-14 10:00] VITALS: PULSE 72; RESP 20; O2SAT 96
[2021-03-14] MEDS: Acetaminophen 325 MG Tablet 650 MG PO (10:04)
[2021-03-14 11:11] LABS: Bedside Glucose 186 mg/dL (70-110)
[2021-03-14 13:24] VITALS: BP 121/79; PULSE 77; RESP 20; TEMP 35.8; O2SAT 96
[2021-03-14 16:16] LABS: Bedside Glucose 254 mg/dL (70-110)
[2021-03-14] MEDS: Insulin Lispro 100 UNIT/ML INSULN.PEN SC (17:23)
[2021-03-14] MEDS: Tamsulosin HCl 0.4 MG Capsule PO (17:26)
[2021-03-14 21:41] LABS: Bedside Glucose 150 mg/dL (70-110)
[2021-03-15] MEDS: oxyCODONE 5 MG Tablet 20 MG PO ×5 (00:38→21:45)
[2021-03-15 05:00] VITALS: BP 117/65; PULSE 76; RESP 18; TEMP 36.2; O2SAT 91
[2021-03-15] MEDS: Methocarbamol 750 MG Tablet PO ×3 (05:59→21:39)
[2021-03-15 06:03] LABS: Absolute Neutrophil Count 7.4 X10^3/uL (2.0-7.7); Basophil# 0.05 X10^3/uL; Basophil% 0.4 % (0-1); Eosinophil# 0.32 X10^3/uL; Eosinophils% 2.4 % (0-5); Hematocrit 41.4 % (40-54); Hemoglobin 13.4 g/dL (13.0-16.5); Lymphocyte % 30.5 % (19-41); Mean Corp Hgb Conc 32.4 g/dL (32-36); Mean Corpuscular Hgb 29.6 pg (27.0-32.0); Mean Corpuscular Volume 91.4 fL (80-94); Monocyte# 1.19 X10^3/uL; Monocyte% 9.1 % (0-10); NRBC Flagged by Analyzer 0 % (0-5); Neutrophil # 7.41 X10^3/uL (2.7-7.7); Neutrophil % 56.5 % (47-70); Platelet Count 258 K/mm3 (150-450); RBC Distribution Width CV 13.9 % (11.6-14.6); RBC Distribution Width SD 46.5 fl (35.1-43.9); Red Blood Count 4.53 M/mm3 (4.6-6.2); White Blood Count 13.1 K/mm3 (4.4-11.0)
[2021-03-15 06:31] LABS: Anion Gap 2 (5-15); BUN 28 mg/dL (7-18); Calcium,Total 8.8 mg/dL (8.5-10.1); Chloride 94 mmol/L (98-107); Creatinine, Serum 0.62 mg/dL (0.70-1.30); EST Glomerular Filtration Rate 137 mL/min (>60); Est Glom Filt Rate - Afr Amer 166 mL/min (>60); Estimated Creatinine Clearance 59.97 ml/min; Glucose 95 mg/dL (74-106); Potassium 4.5 mmol/L (3.5-5.1); Sodium Level 133 mmol/L (136-145)
[2021-03-15 06:31] LABS: Bedside Glucose 103 mg/dL (70-110)
[2021-03-15] MEDS: Gabapentin 600 MG Tablet PO ×3 (07:50→17:15)
[2021-03-15] MEDS: metFORMIN HCl 500 MG Tablet PO ×2 (07:50→17:15)
[2021-03-15] MEDS: predniSONE 20 MG Tablet PO (07:51)
[2021-03-15 10:56] LABS: Bedside Glucose 221 mg/dL (70-110)
[2021-03-15] MEDS: Insulin Lispro 100 UNIT/ML INSULN.PEN SC ×3 (11:01→21:38)
[2021-03-15] MEDS: Tuberculin,Purif.prot.deriv. 50 TU/ML Vial 5 ML ID (11:12)
--- NOTE | 2021-03-15 12:25 | CASEMGMT ---
Social Work IDT met with patient for care plan meeting. Attempted to call son twice but no answer. Voicemail left. Discussed patient's progress in therapy and nursing. Pt is impulsive at times, therapy practicing bed mobility, and pt has new cath. Pt is out isolation 03/21. Explained visitation. Pt having limiting pain and has new O2 1L as needed. Explained [facility] insurance with [employer] 03/20 and continued stay is not guaranteed. Recommending supervision at DC. Pt stated his son is in a w/c but nephew can supervise. Encouraged to contact nephew to ensure assistance at DC. Pt agreeable. SW to continue to follow to assist with DC plans. Diane Garrett, SERVICE CENTER COORDINATOR MARINE METEOROLOGIST
[2021-03-15 14:53] VITALS: BP 103/52; PULSE 82; RESP 22; TEMP 35.6; O2SAT 95
[2021-03-15 16:36] LABS: Bedside Glucose 253 mg/dL (70-110)
[2021-03-15] MEDS: Senna/Docusate Sodium 1 Tablet 2 TABLET PO (17:15)
[2021-03-15] MEDS: Tamsulosin HCl 0.4 MG Capsule PO (17:15)
[2021-03-15 21:30] LABS: Bedside Glucose 360 mg/dL (70-110)
[2021-03-15 22:34] VITALS: O2SAT 93
[2021-03-16] MEDS: Senna/Docusate Sodium 1 Tablet 2 TABLET PO (04:57)
[2021-03-16] MEDS: oxyCODONE 5 MG Tablet 20 MG PO ×4 (04:57→22:34)
[2021-03-16] MEDS: Methocarbamol 750 MG Tablet PO ×3 (04:57→21:42)
[2021-03-16 05:00] VITALS: BP 126/74; PULSE 86; RESP 18; TEMP 36.8; O2SAT 93
[2021-03-16 06:03] LABS: Absolute Lymphocyte Count 3.58 X10^3/uL (0.83-4.51); Absolute Neutrophil Count 8.3 X10^3/uL (2.0-7.7); Basophil# 0.03 X10^3/uL; Basophil% 0.2 % (0-1); Eosinophil# 0.36 X10^3/uL; Eosinophils% 2.6 % (0-5); Hematocrit 42.7 % (40-54); Hemoglobin 13.2 g/dL (13.0-16.5); Lymphocyte # 3.58 X10^3/ul (0.83-4.51); Lymphocyte % 26.1 % (19-41); Mean Corp Hgb Conc 30.9 g/dL (32-36); Mean Corpuscular Hgb 28.8 pg (27.0-32.0); Mean Corpuscular Volume 93.2 fL (80-94); Mean Platelet Vol. 11.4 fl (6.2-12.0); Monocyte# 1.31 X10^3/uL; Monocyte% 9.5 % (0-10); NRBC Flagged by Analyzer 0 % (0-5); Neutrophil # 8.34 X10^3/uL (2.7-7.7); Neutrophil % 60.9 % (47-70); Platelet Count 249 K/mm3 (150-450); RBC Distribution Width CV 14.2 % (11.6-14.6); RBC Distribution Width SD 48.6 fl (35.1-43.9); Red Blood Count 4.58 M/mm3 (4.6-6.2); White Blood Count 13.7 K/mm3 (4.4-11.0)
[2021-03-16 06:29] LABS: Anion Gap 1 (5-15); BUN 25 mg/dL (7-18); BUN/Creat Ratio 37.4 RATIO (10-20); Calcium,Total 8.7 mg/dL (8.5-10.1); Chloride 91 mmol/L (98-107); Creatinine, Serum 0.67 mg/dL (0.70-1.30); EST Glomerular Filtration Rate 126 mL/min (>60); Est Glom Filt Rate - Afr Amer 153 mL/min (>60); Estimated Creatinine Clearance 59.97 ml/min; Glucose 107 mg/dL (74-106); Potassium 4.2 mmol/L (3.5-5.1); Sodium Level 132 mmol/L (136-145)
[2021-03-16 06:30] LABS: Bedside Glucose 184 mg/dL (70-110)
[2021-03-16] MEDS: metFORMIN HCl 500 MG Tablet PO ×2 (08:09→17:38)
[2021-03-16] MEDS: predniSONE 20 MG Tablet PO (08:09)
[2021-03-16] MEDS: Insulin Lispro 100 UNIT/ML INSULN.PEN SC ×3 (08:09→17:38)
[2021-03-16] MEDS: Gabapentin 600 MG Tablet PO ×3 (08:09→17:40)
[2021-03-16 11:16] LABS: Bedside Glucose 191 mg/dL (70-110)
[2021-03-16 13:23] VITALS: BP 147/95; PULSE 86; RESP 16; TEMP 36.5; O2SAT 94
--- NOTE | 2021-03-16 13:25 | NURSING ---
Contacted insurance spoke with Kathleen Antonio, insurance stated they need more detailed information. Requested that they fax the list of information they are requesting.
--- NOTE | 2021-03-16 13:50 | NURSING ---
Received approval from insurance for MRI. Auth # [id number]
[2021-03-16 16:10] LABS: Bedside Glucose 212 mg/dL (70-110)
[2021-03-16] MEDS: Tamsulosin HCl 0.4 MG Capsule PO (17:39)
[2021-03-16 20:04] VITALS: PULSE 82; O2SAT 91
[2021-03-16 22:06] LABS: Bedside Glucose 119 mg/dL (70-110)
[2021-03-17 05:00] VITALS: BP 137/64; PULSE 87; RESP 16; TEMP 36.2; O2SAT 92
[2021-03-17 05:41] LABS: Absolute Lymphocyte Count 3.09 X10^3/uL (0.83-4.51); Absolute Neutrophil Count 8.8 X10^3/uL (2.0-7.7); Basophil# 0.04 X10^3/uL; Basophil% 0.3 % (0-1); Eosinophil# 0.33 X10^3/uL; Eosinophils% 2.4 % (0-5); Hematocrit 41.3 % (40-54); Hemoglobin 13.3 g/dL (13.0-16.5); Lymphocyte # 3.09 X10^3/ul (0.83-4.51); Lymphocyte % 22.3 % (19-41); Mean Corp Hgb Conc 32.2 g/dL (32-36); Mean Corpuscular Hgb 29.6 pg (27.0-32.0); Mean Corpuscular Volume 91.8 fL (80-94); Mean Platelet Vol. 11.1 fl (6.2-12.0); Monocyte# 1.53 X10^3/uL; Monocyte% 11.1 % (0-10); NRBC Flagged by Analyzer 0 % (0-5); Neutrophil # 8.75 X10^3/uL (2.7-7.7); Neutrophil % 63.2 % (47-70); POSITIVE DIFFERENTIAL YES; Platelet Count 238 K/mm3 (150-450); RBC Distribution Width SD 47.4 fl (35.1-43.9); White Blood Count 13.8 K/mm3 (4.4-11.0)
[2021-03-17 05:42] LABS: Differential Indicated SCAN CRITERIA MET
[2021-03-17 05:58] LABS: Anion Gap 2 (5-15); BUN 24 mg/dL (7-18); BUN/Creat Ratio 45.2 RATIO (10-20); Calcium,Total 8.7 mg/dL (8.5-10.1); Chloride 93 mmol/L (98-107); Creatinine, Serum 0.53 mg/dL (0.70-1.30); EST Glomerular Filtration Rate 164 mL/min (>60); Est Glom Filt Rate - Afr Amer 199 mL/min (>60); Estimated Creatinine Clearance 59.97 ml/min; Glucose 112 mg/dL (74-106); Potassium 4.1 mmol/L (3.5-5.1); Sodium Level 132 mmol/L (136-145)
[2021-03-17] MEDS: Methocarbamol 750 MG Tablet PO ×3 (06:12→20:44)
[2021-03-17] MEDS: oxyCODONE 5 MG Tablet 20 MG PO ×4 (06:16→22:29)
[2021-03-17 06:21] LABS: Bedside Glucose 114 mg/dL (70-110)
[2021-03-17] MEDS: metFORMIN HCl 500 MG Tablet PO ×2 (08:44→18:04)
[2021-03-17] MEDS: Gabapentin 600 MG Tablet PO ×3 (08:44→18:03)
[2021-03-17] MEDS: predniSONE 20 MG Tablet PO (08:46)
[2021-03-17 10:50] VITALS: PULSE 71; RESP 18; O2SAT 94
--- NOTE | 2021-03-17 11:07 | NURSING ---
Addendum entered by Ca Van 03/17/21 15:22: NEGATIVE FOR DVT PER TRIPE WASHER. Addendum entered by Ca Van 03/17/21 14:49: dr matta updated, new order for medrol dose ashlee and doppler RT LE. Original Note: PT COMPLAINING OF RIGHT HIP PAIN WITH PAIN BEHIND CALF AND FOOT ALSO HURTING,RED AND SWOLLEN. RN AWARE,NOTE LEFT FOR .PRN PAIN MEDS GIVEN.
[2021-03-17 11:30] LABS: Bedside Glucose 129 mg/dL (70-110)
--- NOTE | 2021-03-17 12:12 | NURSING ---
pt will have cervical spine MRI at 1500 today. pt states he will not need anything for anxiety related to enclosed machine. Declined medication. MRI updated and faxed questionairre.
[2021-03-17 12:43] LABS: Pathologist Review Reviewed
--- NOTE | 2021-03-17 14:49 | NURSING ---
pt went down to MRI but was unable to lay flat. so back to floor resting in bed.
[2021-03-17 16:21] LABS: Bedside Glucose 189 mg/dL (70-110)
[2021-03-17] MEDS: MethylPREDNISolone DosePak 4 MG BOX PO ×2 (18:03→20:44)
[2021-03-17] MEDS: Tamsulosin HCl 0.4 MG Capsule PO (18:04)
[2021-03-17] MEDS: Senna/Docusate Sodium 1 Tablet 2 TABLET PO (18:05)
[2021-03-17 21:35] LABS: Bedside Glucose 216 mg/dL (70-110)
[2021-03-17] MEDS: Insulin Lispro 100 UNIT/ML INSULN.PEN SC (22:33)
--- NOTE | 2021-03-18 00:50 | NURSING ---
Hua tubing kept coming apart, this nurse in to remove and replace with new catheter. Pt c/o of pain and would like to try voiding without it. Will start voiding trials with bladder scans, and let pt attempt to void into urinal. RN aware.
[2021-03-18] MEDS: oxyCODONE 5 MG Tablet 20 MG PO ×2 (03:23→09:35)
[2021-03-18] MEDS: Methocarbamol 750 MG Tablet PO ×3 (04:23→20:34)
[2021-03-18 06:16] LABS: Bedside Glucose 205 mg/dL (70-110)
[2021-03-18 08:22] LABS: Absolute Lymphocyte Count 2.84 X10^3/uL (0.83-4.51); Absolute Neutrophil Count 8.4 X10^3/uL (2.0-7.7); Basophil# 0.03 X10^3/uL; Basophil% 0.2 % (0-1); Eosinophil# 0.03 X10^3/uL; Eosinophils% 0.2 % (0-5); Hematocrit 41.7 % (40-54); Hemoglobin 13.3 g/dL (13.0-16.5); Lymphocyte # 2.84 X10^3/ul (0.83-4.51); Lymphocyte % 22.8 % (19-41); Mean Corp Hgb Conc 31.9 g/dL (32-36); Mean Corpuscular Hgb 29.2 pg (27.0-32.0); Mean Corpuscular Volume 91.4 fL (80-94); Mean Platelet Vol. 11.3 fl (6.2-12.0); Monocyte# 1.13 X10^3/uL; Monocyte% 9.1 % (0-10); NRBC Flagged by Analyzer 0 % (0-5); Neutrophil # 8.35 X10^3/uL (2.7-7.7); Platelet Count 261 K/mm3 (150-450); RBC Distribution Width CV 13.8 % (11.6-14.6); RBC Distribution Width SD 46.3 fl (35.1-43.9); Red Blood Count 4.56 M/mm3 (4.6-6.2); White Blood Count 12.5 K/mm3 (4.4-11.0)
[2021-03-18 08:43] LABS: Anion Gap 4 (5-15); BUN 24 mg/dL (7-18); BUN/Creat Ratio 44.6 RATIO (10-20); Calcium,Total 9.1 mg/dL (8.5-10.1); Chloride 94 mmol/L (98-107); Creatinine, Serum 0.54 mg/dL (0.70-1.30); EST Glomerular Filtration Rate 162 mL/min (>60); Est Glom Filt Rate - Afr Amer 196 mL/min (>60); Estimated Creatinine Clearance 59.97 ml/min; Glucose 136 mg/dL (74-106); Potassium 4.5 mmol/L (3.5-5.1); Sodium Level 131 mmol/L (136-145)
[2021-03-18] MEDS: MethylPREDNISolone DosePak 4 MG BOX PO ×4 (09:33→20:34)
[2021-03-18] MEDS: metFORMIN HCl 500 MG Tablet PO ×2 (09:33→17:48)
[2021-03-18] MEDS: Gabapentin 600 MG Tablet PO ×3 (09:34→17:48)
[2021-03-18 10:51] LABS: Bedside Glucose 121 mg/dL (70-110)
[2021-03-18 14:02] VITALS: BP 144/79; PULSE 91; RESP 18; TEMP 36.6; O2SAT 95
[2021-03-18 15:01] LABS: Mucous, Urine 0 SEEN /hpf (<or=2+); Squamous Epithelial Cells - UA 0 SEEN /hpf (0-5)
[2021-03-18 15:21] LABS: Color, Urine Yellow (Yellow); Glucose, Dipstick Normal (Normal); Ketone-Dipstick Negative (Negative); Leukocyte Esterase-Dipstick 500 /ul (Negative); Nitrite-Dipstick Positive (Negative); Occult Blood-Urine 25 /ul (Negative); Protein-Dipstick Negative (Negative); Urine Bilirubin Dipstick Negative (Negative); Urine Clarity Cloudy (Clear); Urine Urobilinogen Normal (Normal)
[2021-03-18 15:30] LABS: Bacteria 4+ /hpf (None Seen); Red Blood Cells-Urine 0-5 SEEN /hpf (0-5); White Blood Cells 25-50 SEEN /hpf (0-5)
--- NOTE | 2021-03-18 15:44 | NURSING ---
Urine foul smelliing, cloudy and pt excessively tired it was reported that tay catheter became disconnected multiple times. This nurse suspects UTI reported to RN, N.O. from Dr. Corona for u/a C&S
[2021-03-18 16:46] LABS: Bedside Glucose 160 mg/dL (70-110)
[2021-03-18] MEDS: Ciprofloxacin 500 MG Tablet PO (17:47)
[2021-03-18] MEDS: Senna/Docusate Sodium 1 Tablet 2 TABLET PO (17:49)
[2021-03-18] MEDS: Tamsulosin HCl 0.4 MG Capsule PO (17:49)
[2021-03-18 22:36] LABS: Bedside Glucose 160 mg/dL (70-110)
[2021-03-19 05:00] VITALS: BP 118/70; PULSE 80; RESP 16; TEMP 36.3; O2SAT 95
[2021-03-19] MEDS: oxyCODONE 5 MG Tablet 20 MG PO ×3 (05:25→20:22)
[2021-03-19] MEDS: Senna/Docusate Sodium 1 Tablet 2 TABLET PO ×2 (05:26→17:03)
[2021-03-19] MEDS: Methocarbamol 750 MG Tablet PO ×3 (05:26→20:22)
[2021-03-19] MEDS: Ciprofloxacin 500 MG Tablet PO ×2 (05:26→17:03)
[2021-03-19 06:00] LABS: Absolute Lymphocyte Count 3.67 X10^3/uL (0.83-4.51); Absolute Neutrophil Count 8.6 X10^3/uL (2.0-7.7); Basophil# 0.05 X10^3/uL; Basophil% 0.4 % (0-1); Eosinophil# 0.05 X10^3/uL; Eosinophils% 0.4 % (0-5); Hematocrit 48.4 % (40-54); Lymphocyte # 3.67 X10^3/ul (0.83-4.51); Lymphocyte % 27.2 % (19-41); Mean Corpuscular Hgb 29.1 pg (27.0-32.0); Mean Platelet Vol. 10.8 fl (6.2-12.0); Monocyte# 1.04 X10^3/uL; Monocyte% 7.7 % (0-10); NRBC Flagged by Analyzer 0 % (0-5); Neutrophil # 8.57 X10^3/uL (2.7-7.7); Neutrophil % 63.6 % (47-70); Platelet Count 289 K/mm3 (150-450); RBC Distribution Width CV 13.7 % (11.6-14.6); RBC Distribution Width SD 47.6 fl (35.1-43.9); Red Blood Count 5.15 M/mm3 (4.6-6.2); White Blood Count 13.5 K/mm3 (4.4-11.0)
[2021-03-19 06:21] LABS: Bedside Glucose 208 mg/dL (70-110)
[2021-03-19 06:26] LABS: Anion Gap 4 (5-15); BUN 23 mg/dL (7-18); BUN/Creat Ratio 30.6 RATIO (10-20); Calcium,Total 9.3 mg/dL (8.5-10.1); Chloride 94 mmol/L (98-107); Creatinine, Serum 0.75 mg/dL (0.70-1.30); EST Glomerular Filtration Rate 110 mL/min (>60); Est Glom Filt Rate - Afr Amer 133 mL/min (>60); Estimated Creatinine Clearance 59.15 ml/min; Glucose 137 mg/dL (74-106); Potassium 4.6 mmol/L (3.5-5.1); Sodium Level 135 mmol/L (136-145)
[2021-03-19] MEDS: Insulin Lispro 100 UNIT/ML INSULN.PEN SC ×3 (07:55→21:48)
[2021-03-19] MEDS: Gabapentin 600 MG Tablet PO ×3 (07:57→17:01)
[2021-03-19] MEDS: MethylPREDNISolone DosePak 4 MG BOX PO ×4 (07:58→20:21)
[2021-03-19] MEDS: metFORMIN HCl 500 MG Tablet PO ×2 (07:58→17:02)
[2021-03-19 10:46] LABS: Bedside Glucose 140 mg/dL (70-110)
[2021-03-19 14:24] VITALS: BP 88/56; PULSE 81; RESP 20; TEMP 36.8; O2SAT 95
[2021-03-19 16:51] LABS: Bedside Glucose 170 mg/dL (70-110)
[2021-03-19] MEDS: Tamsulosin HCl 0.4 MG Capsule PO (17:01)
[2021-03-19 21:31] LABS: Bedside Glucose 217 mg/dL (70-110)
--- NOTE | 2021-03-19 23:14 | PCA ---
this field contact technician want in to ask if pt wanted to get washed up and change he's dirty clothes for bed and he refused, reported to nurse
[2021-03-19] MEDS: Acetaminophen 325 MG Tablet 650 MG PO (23:40)
[2021-03-20 03:15] VITALS: BP 126/99; PULSE 96; RESP 16; TEMP 37.6; O2SAT 93
[2021-03-20] MEDS: Ciprofloxacin 500 MG Tablet PO (05:47)
[2021-03-20] MEDS: Methocarbamol 750 MG Tablet PO ×3 (05:47→20:37)
[2021-03-20] MEDS: oxyCODONE 5 MG Tablet 20 MG PO ×4 (05:47→21:51)
[2021-03-20] MEDS: Senna/Docusate Sodium 1 Tablet 2 TABLET PO ×2 (05:47→17:40)
[2021-03-20 06:36] LABS: Bedside Glucose 131 mg/dL (70-110)
[2021-03-20] MEDS: Gabapentin 600 MG Tablet PO ×3 (07:53→17:40)
[2021-03-20] MEDS: metFORMIN HCl 500 MG Tablet PO ×2 (07:53→17:39)
[2021-03-20] MEDS: MethylPREDNISolone DosePak 4 MG BOX PO ×3 (07:53→20:36)
--- NOTE | 2021-03-20 10:22 | MDS.RN ---
Information for the mds was obtained from review of the clinical record, interview of resident, staff, and direct observation of resident's care.
[2021-03-20 11:16] LABS: Bedside Glucose 135 mg/dL (70-110)
[2021-03-20] MEDS: LORazepam 2 MG/ML Syringe IV (11:31)
--- NOTE | 2021-03-20 11:41 | NURSING ---
new order for Ativan 2mg x1 in IV given by RN to help pt get threw MRI. IV in right forearm.
[2021-03-20] MEDS: 0.9% Saline Lock 10 ML Syringe IV ×3 (11:44→16:57)
[2021-03-20 15:01] VITALS: BP 149/74; PULSE 95; RESP 16; TEMP 36.2; O2SAT 92
--- NOTE | 2021-03-20 15:18 | NURSING ---
wound photo: left hip
--- NOTE | 2021-03-20 15:19 | NURSING ---
wound photo: right hip
--- NOTE | 2021-03-20 15:20 | NURSING ---
wound photo: right ischium
[2021-03-20] MEDS: Insulin Lispro 100 UNIT/ML INSULN.PEN SC ×2 (17:38→21:07)
[2021-03-20] MEDS: Tamsulosin HCl 0.4 MG Capsule PO (17:39)
[2021-03-20 21:21] LABS: Bedside Glucose 178 mg/dL (70-110)
[2021-03-21] MEDS: oxyCODONE 5 MG Tablet 20 MG PO ×3 (02:15→11:25)
[2021-03-21] MEDS: Senna/Docusate Sodium 1 Tablet 2 TABLET PO (06:00)
[2021-03-21] MEDS: Methocarbamol 750 MG Tablet PO (06:00)
[2021-03-21 06:41] LABS: Bedside Glucose 197 mg/dL (70-110)
[2021-03-21] MEDS: metFORMIN HCl 500 MG Tablet PO (08:00)
[2021-03-21] MEDS: MethylPREDNISolone DosePak 4 MG BOX PO (08:00)
--- NOTE | 2021-03-21 08:44 | NURSING ---
pt placed on contact isolation precautions for ESBL and Ecoli in urine.
[2021-03-21] MEDS: 0.9% Saline Lock 10 ML Syringe IV (08:45)
--- NOTE | 2021-03-21 09:01 | NURSING ---
Addendum entered by Ca Van 03/21/21 12:36: dr matta notified of pt not being able to use arms to feed self, pt noted to be using accesory muscles to breath. sat 99% on 1 liter NC. new order to send pt to ER for evaluation. pt did have MRI yesterday showing severe cervical spinal stenosis w/radiculopathy. Original Note: PT COMPLAINING OF PAIN AND NOT BEING ABLE TO MOVE HANDS,ARMS AND LEGS AND NOT BEING ABLE TO INSPECTOR BALANCE WHEEL MOTION THINGS WITH HIS HANDS. THIS NURSE ASSESSED PT AND PT DOES HAVE SOME MOVEMENT OF LEGS AND ARMS. REPORTED TO RN.
[2021-03-21 09:05] LABS: Bedside Glucose 212 mg/dL (70-110)
[2021-03-21 09:35] VITALS: BP 89/58; PULSE 72; RESP 20; O2SAT 98
[2021-03-21 10:50] LABS: Bedside Glucose 233 mg/dL (70-110)
[2021-03-21] MEDS: Insulin Lispro 100 UNIT/ML INSULN.PEN SC (11:09)
[2021-03-21 11:15] VITALS: PULSE 74; RESP 20; O2SAT 96
[2021-03-21] MEDS: Gabapentin 600 MG Tablet PO (11:16)
[2021-03-21 12:35] VITALS: BP 122/76; PULSE 68; RESP 18; TEMP 36.5; O2SAT 99
--- NOTE | 2021-03-21 12:38 | NURSING ---
report called to ramya Magaña in ER
--- NOTE | 2021-03-21 12:50 | NURSING ---
TRIED CALLING PT SON TO LET HIM KNOW PT IS IN ER. MASSAGE STATED NUMBER WAS TEMPORARY UNAVAILABLE.RN AND AUDIO PRODUCTION INSTRUCTOR AWARE.
--- NOTE | 2021-03-21 15:21 | NURSING ---
dr Benitez called regarding consult order. feels pt should not be getting therapy d/t MRI results. updated that pt was unable to use upper arms to feed self today. pt worsened from yesterday after having MRI scan. Dr Benitez feels pt needs to be transferred to another hospital. He is notifying ER to update them on pt situation
--- NOTE | 2021-03-21 17:49 | DS.PCM_ITS ---
Providers Date of Admission: 03/07/21 Primary Care Physician: Brittany Primary Care Phys Consultations 03/07/21 13:43 Consult: Onc/Wound/parts counterman Routine Comment: Reason for Consult:: wound to Rt ischium and Rt hip 03/20/21 17:35 Physician Consult Routine Consulting Provider: Nagi Benitez Consulted Physician Type:: Other * Specify below * Reason for Consult: Severe cervical spinal stenosis with radiculopathy. 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 Code(s): F17.201 - Nicotine dependence, unspecified, in remission (2) Unexplained weight loss: Status: Acute Code(s): R63.4 - Abnormal weight loss (3) Decubitus ulcers: Status: Acute Code(s): L89.90 - Pressure ulcer of unspecified site, unspecified stage Qualifiers: Pressure injury stage: stage 2 (4) Myelopathy: Status: Acute Code(s): G95.9 - Disease of spinal cord, unspecified (5) Urinary tract infection, acute: Status: Acute Code(s): N39.0 - Urinary tract infection, site not specified (6) Infectious encephalopathy: Status: Resolved Code(s): G93.49 - Other encephalopathy; B99.9 - Unspecified infectious disease (7) Altered mental status: Status: Resolved Code(s): R41.82 - Altered mental status, unspecified Qualifiers: Altered mental status type: stupor Qualified Code(s): R40.1 - Stupor (8) Prediabetes: Status: Acute Code(s): R73.03 - Prediabetes (9) COPD (chronic obstructive pulmonary disease): Status: Suspected Code(s): J44.9 - Chronic obstructive pulmonary disease, unspecified (10) Physical debility: Status: Acute Code(s): R53.81 - Other malaise (11) Cervical spinal cord compression: Status: Suspected Code(s): G95.20 - Unspecified cord compression (12) Low back pain: Status: Chronic Code(s): M54.5 - Low back pain (13) Urine retention: Status: Acute Code(s): R33.9 - Retention of urine, unspecified Medications at Discharge Home Medications acetaminophen [Tylenol] 650 mg PO Q6H PRN PRN 03/21/21 food supplemt, lactose-reduced [Ensure] 120 ea PO TID@0600,1400,2200 03/21/21 gabapentin [Neurontin] 600 mg PO TIDCM 03/21/21 insulin lispro See Protocol SUBCUT TID 03/21/21 meropenem 1 g IV Q8H 03/21/21 metformin 500 mg PO BID 03/21/21 methocarbamol 750 mg PO Q8H 03/21/21 methylprednisolone See Taper PO DAILY 03/21/21 oxycodone 20 mg PO Q4H PRN 03/21/21 polyethylene glycol 3350 [Miralax] 17 g PO DAILY 03/21/21 sennosides-docusate sodium [Senna-S] 2 tab PO BID 03/21/21 sodium chloride 0.9 % (flush) 10 - 40 ml IV PRN PRN 03/21/21 tamsulosin 0.4 mg PO DAILY@1730 03/21/21 Hospital Course Operations None Procedures None Summary of Care Provided Minutes Spent on Discharge: 30 Hospital Course: 69 year old male with below past medical history hospitalized for encephalopathy, admitted to TCU with debility. Resident had progressive weakness of bilateral upper and lower extremities, MRI cervical spine shows severe cervical spinal stenosis, myelopathy, myelomalacia, cord compression. 03/21/2021 Resident had worsening weakness, shortness of breath, unable to use his arms to feed himself. Discharge to [facility] Emergency Department for evaluation. ABG / Lab / Microbiology Data Result Diagrams: 03/19/21 05:46 03/19/21 05:46 Laboratory: Laboratory Results - last 24 hr 03/20/21 03/20/21 03/21/21 16:04 21:02 06:12 POC Glucose 212 H 178 H 197 H 03/21/21 10:33 POC Glucose 233 H Microbiology: Microbiology 03/18/21 14:30 Urine Culture - Final Urine Catheter - Catheter Escherichia coli Microbiology 03/18/21 14:30 Urine Catheter - Catheter Urine Culture - Final Escherichia coli 03/09/21 11:15 Nasal Secretion SARS-CoV-2 Antigen (Rapid) - Final D/C Instructions Discharge Diet: No restrictions Discharge Activity: Return to Normal Activity Weight Bearing Status: Weight bearing as tolerated Call your doctor if you observe: Fever of 101 or Higher, Inability to urinate, Shortness of breath, Chest pain and Uncontrolled pain Additional Instructions: Discharge to [facility] Emergency Department for evaluation, admission to hospital. When: 1 week. Meaningful Use Info Meaningful Use Diagnoses (Choose all that apply): None applicable Discharge Plan Admission Admit Date/Time: 03/07/21 13:20 Attending Provider: Ca Rogers Primary Care Provider: Care Physician,No Primary Consulting Providers: Nagi Benitez Discharge Orders/Prescriptions Prescriptions: No Action metformin 500 mg Tablet 500 mg PO BID RF: 0 insulin lispro 100 unit/mL Insulin Pen See Protocol unit SUBCUT TID RF: 0 sodium chloride 0.9 % (flush) Syringe 10 - 40 ml IV PRN PRN (Reason: FLUSH) RF: 0 methocarbamol 750 MG tablet 750 mg PO Q8H RF: 0 gabapentin [Neurontin] 600 mg Tablet 600 mg PO TIDCM RF: 0 methylprednisolone 4 mg Tablet See Taper mg PO DAILY RF: 0 polyethylene glycol 3350 [Miralax] 17 gram Powder In Packet 17 g PO DAILY RF: 0 sennosides-docusate sodium [Senna-S] 8.6-50 mg Tablet 2 tab PO BID RF: 0 tamsulosin 0.4 mg Capsule 0.4 mg PO DAILY@1730 RF: 0 meropenem 1 gram Recon Soln 1 g IV Q8H RF: 0 Ensure Liquid 120 ea PO TID@0600,1400,2200 RF: 0 oxycodone 20 mg Tablet 20 mg PO Q4H PRN (Reason: PAIN SCORE 6-10) RF: 0 acetaminophen [Tylenol] 325 MG tablet 650 mg PO Q6H PRN PRN (Reason: Pain 1-10 Or Fever) RF: 0 Referrals: Care Physician,No Primary [Primary Care Provider] - Disposition Patient Disposition: Acute Care Hospital
== END 2021-03-21 18:00 | disposition short-term general hospital (02) | DRG 73 ==
PROVIDERS: Family Medicine Geriatric Medicine; Admitting Provider Internal Medicine; Visit Provider Internal Medicine
DX: M54.12 Radiculopathy, cervical region (principal); E43 Unspecified severe protein-calorie malnutrition; Z68.1 Body mass index [BMI] 19.9 or less, adult; G95.29 Other cord compression; M48.02 Spinal stenosis, cervical region; R73.03 Prediabetes; Z87.891 Personal history of nicotine dependence; L89.221 Pressure ulcer of left hip, stage 1; L89.212 Pressure ulcer of right hip, stage 2; Z87.440 Personal history of urinary (tract) infections; J44.9 Chronic obstructive pulmonary disease, unspecified; Z79.899 Other long term (current) drug therapy; G89.29 Other chronic pain; N20.0 Calculus of kidney
CPT/HCPCS: 36415; 80048; 81001; 82962; 84153; 85025; 87077; 87086; 87088; 87186; 87426; 92523; 92610; 97110; 97162; 97166; 97530; 97535; 97802; J2185; A4216; G0103

== ENCOUNTER → 2021-03-17 09:35 | Outpatient (CLI) | payer MEDICARE, SELFPAY ==
[2021-03-07 15:04] VITALS: BMI 19.2
--- NOTE | 2021-03-17 14:51 | VDLE_ITS ---
Reason For Study: Right leg pain RIGHT GSV is normal. CFV is compressible, spontaneous, phasic, competent and demonstrates normal augmentation. FV is compressible, spontaneous, phasic, competent and demonstrates normal augmentation. POP V is compressible, spontaneous, phasic, competent and demonstrates normal augmentation. T/P Trunk is compressible. PTV is compressible. RT PerV is compressible. Procedure This is a venous duplex using B-mode, color flow and spectral Doppler. Exam performed portable in patient room. A preliminary report was called and/or faxed to Cj. VL/Venous Duplex US, Unilateral Interpretation Summary Deep veins of the right lower extremity are patent and compressible segmentally . There is no evidence of right lower extremity deep vein thrombosis. Valvular competence samina ears intact within the proximal deep venous system on the right . The right great saphenous vein a ppears patent and compressible segmentally. Ordering Physician: Abel Corona Performed By: Thais Busby RVT
== END ==
PROVIDERS: Referring Provider Internal Medicine; Visit Provider Internal Medicine
DX: M79.604 Pain in right leg (principal)
CPT/HCPCS: 93971

== ENCOUNTER → 2021-03-20 11:33 | Outpatient (CLI) | payer MEDICARE, SELFPAY ==
[2021-03-07 15:04] VITALS: BMI 19.2
--- NOTE | 2021-03-20 11:39 | MRI_ITS ---
ACR Level 3 findings have been noted. An addendum which confirms receipt of the report will follow. STUDY: MRI CERVICAL SPINE WITHOUT CONTRAST REASON FOR EXAM: Male, 70 years old. MYELOPATHY, RADIUCULAR PAIN, PREV SURGERY, NECK PAIN TECHNIQUE: Standardized fat and water weighted pulse sequences were obtained in the sagittal and axial planes. COMPARISON: None FINDINGS: Examination is severely degraded by motion artifact. Normal foramen magnum and brainstem-cervical cord junction. C3-4: There is severe central canal stenosis and spinal cord compression at this level. Evaluation is severely limited by motion artifact. There is anterior fusion and solid bony fusion. Additionally there is increased cord signal and decreased size C6/C7, consistent with myelomalacia. MRI/Spine Cervical (Routine) IMPRESSION: Severely limited examination. C3/C4: Cord compression. C6/C7 myelomalacia. Electronically Signed: Sumi Bustos MD at 13:41 EDT Tel , Service support ,
[2021-03-20 12:00] VITALS: BP 141/84; PULSE 78; RESP 12; O2SAT 98
[2021-03-20 12:10] VITALS: BP 154/75; PULSE 76; RESP 10; O2SAT 98
[2021-03-20 12:20] VITALS: BP 143/87; PULSE 76; RESP 10; O2SAT 97
== END ==
PROVIDERS: Referring Provider Internal Medicine; Visit Provider Internal Medicine
DX: G95.9 Disease of spinal cord, unspecified (principal); M54.2 Cervicalgia
CPT/HCPCS: 72141

== ENCOUNTER 2021-03-21 12:43 | Emergency (ER) | payer MEDICARE, SELFPAY ==
[2021-03-21] VITALS (7 sets, daily range): BP systolic 113–178; BP diastolic 68–82; PULSE 65–78; RESP 12–21; TEMP 36.6; O2SAT 95–99; BMI 21.7
--- NOTE | 2021-03-21 13:10 | EKG12_ITS ---
Test Reason : WEAKNESS Blood Pressure : / mmHG Vent. Rate : 071 BPM Atrial Rate : 071 BPM P-R Int : 134 ms QRS Dur : 084 ms QT Int : 378 ms P-R-T Axes : 053 009 043 degrees QTc Int : 410 ms Normal sinus rhythm Normal ECG When compared with ECG of 02-MAR-2021 06:04, No significant change was found Confirmed by RIYA GRAF, MARCELO ([id number]), primer expeditor and drier PATO LAMA ([id number]) on 04/04/2021 8:55:53 AM Referred By: MARIANELA Confirmed By:MARCELO RITTER MD
--- NOTE | 2021-03-21 13:12 | EDS_ITS ---
HPI <Dr. Aurelio Bone DO - Last Filed: 03/21/21 16:18> History of Present Illness Chief Complaint: Other, Pain/Inj Detail of Chief Complaint: Extremity weakness Informant: patient Onset/Context/Timing Onset: Yesterday Context: Gradual Onset Timing: Continuous Quality: Weakness Location: Upper and lower extremities bilaterally Current Severity: Severe Maximum Severity: Severe Associated Symptoms Associated Symptoms ED: Negative for fecal incontinence, numbness, urinary incontinence or urinary retention Narrative Narrative: Patient presents with weakness to his upper and lower extremities that became worse yesterday. Patient had an MRI of his cervical spine yesterday which showed severe central canal stenosis and spinal cord compression at the level of C3-C4. There is also some increased cord signal and decreased size at C6-C7 consistent with myelomalacia. Patient states he feels that he is getting weaker in his upper and lower extremities. Patient denies any new trauma or injury. Patient states she was given a steroid injection yesterday which did seem to help. PFSH <Dr. Aurelio Bone DO - Last Filed: 03/21/21 16:18> [facility] Medical History Cervical myelopathy COPD (chronic obstructive pulmonary disease) Encephalopathy Home Medications acetaminophen [Tylenol] 650 mg PO Q6H PRN PRN 03/21/21 [History Last Taken 03/19/21 23:40] food supplemt, lactose-reduced [Ensure] 120 ea PO TID@0600,1400,2200 03/21/21 [History Last Taken 03/21/21 06:00] gabapentin [Neurontin] 600 mg PO TIDCM 03/21/21 [History Last Taken 03/21/21 11:16] insulin lispro See Protocol SUBCUT TID 03/21/21 [History Last Taken 03/21/21 11:09] meropenem 1 g IV Q8H 03/21/21 [History Last Taken 03/21/21 09:39] metformin 500 mg PO BID 03/21/21 [History Last Taken 03/21/21 08:00] methocarbamol 750 mg PO Q8H 03/21/21 [History Last Taken 03/21/21 06:00] methylprednisolone See Taper PO DAILY 03/21/21 [History Last Taken 03/21/21 08:00 4 MG] oxycodone 20 mg PO Q4H PRN 03/21/21 [History Last Taken 03/21/21 11:25] polyethylene glycol 3350 [Miralax] 17 g PO DAILY 03/21/21 [History Last Taken Unknown] sennosides-docusate sodium [Senna-S] 2 tab PO BID 03/21/21 [History Last Taken 03/21/21 06:00] sodium chloride 0.9 % (flush) 10 - 40 ml IV PRN PRN 03/21/21 [History Last Taken 03/21/21 08:45 10 ML] tamsulosin 0.4 mg PO DAILY@1730 03/21/21 [History Last Taken 03/20/21 17:39] Allergy/AdvReac Type Severity Reaction Status Date / Time No Known Allergies Allergy Verified 03/21/21 13:07 Surgical History H/O neck surgery History of back surgery Social History Smoking Status: Former smoker ROS <Dr. Aurelio Bone DO - Last Filed: 03/21/21 16:18> ROS ED Constitutional Constitutional ED: Reports chills and weakness Eyes Eyes: Denies blurry vision or diplopia ENT ENT ED: Denies rhinorrhea or sore throat Cardiovascular Cardiovascular: Denies chest pain or palpitations Respiratory/Chest Respiratory/Chest: Denies cough or shortness of breath at rest Gastrointestinal Gastrointestinal: Reports nausea; Denies vomiting Genitourinary Genitourinary ED: Reports hematuria; Denies dysuria Musculoskeletal Musculoskeletal: Reports as per HPI, back pain and neck pain Integumentary Denies abscess or rash Neurologic Neurologic: Reports weakness; Denies numbness Allergic/Immunologic Allergic/Immunologic ED: Denies throat swelling, hives or urticaria EXAM <Dr. Aurelio Bone DO - Last Filed: 03/21/21 16:18> Physical Exam Const Vital Signs: 03/21/21 12:44 03/21/21 13:24 03/21/21 13:46 Temperature 97.8 F Temperature Source Temporal Pulse Rate 66 65 Respiratory Rate 18 14 Respiratory Effort Normal Non-Labored Respiratory Pattern Normal Blood Pressure 147/82 H 113/68 Blood Pressure Mean 103 83 Pulse Ox 95 97 Oxygen Delivery Method Room Air Nasal Cannula Oxygen Flow Rate (L/min) 2 03/21/21 14:23 03/21/21 15:00 03/21/21 16:00 Temperature Temperature Source Pulse Rate 66 70 78 Respiratory Rate 12 19 H 21 H Respiratory Effort Respiratory Pattern Blood Pressure 122/71 H 178/78 H Blood Pressure Mean 88 111 Pulse Ox 97 98 99 Oxygen Delivery Method Room Air Nasal Cannula Nasal Cannula Oxygen Flow Rate (L/min) 2 2 Positive well nourished, well developed, cachectic and no apparent distress General Appearance ED: active, cooperative, well developed and cachectic Nutritional Appearance: cachectic HEENT Reports moist mucous membranes Neck General: trachea midline and tenderness Resp normal respiratory effort and normal air movement Effort and Inspection: Negative for respiratory distress Auscultation: clear to auscultation bilaterally Cardio regular rate GI normal to inspection, nondistended, normoactive bowel sounds, soft to palpation, non-tender and non-distended Back/Spine Cervical Spine: paracervical muscle tenderness Neuro oriented x3, CN's II-XII intact bilaterally and no sensory deficits noted Sensorium / Orientation: awake and alert Gait (Neuro): unable to assess gait Motor Exam: strength abnormal other (Strength is 4+/5 bilaterally in the upper and lower extremities. Patient is slow to move all extremities but is able to lift them against gravity.) Deep Tendon Reflexes: Rt Triceps (C7): 1+, Lt Triceps (C7): 1+, Rt Biceps (C5, C6): 1+, Lt Biceps (C5, C6): 1+, Rt Brachioradialis (C6): 2+, Lt Brachioradialis (C6): 2+, Rt Patellar (L4): 2+, Lt Patellar (L4): 2+, Rt Ankle (S1): 1+ and Lt Ankle (S1): 1+ Deep Tendon Reflexes Back: Rt Patellar (L4): 2+, Lt Patellar (L4): 2+, Rt Ankle (S1): 1+ and Lt Ankle (S1): 1+ Skin no rashes or lesions noted <Dr. Osorio Guo, DO - Last Filed: 03/21/21 17:49> Physical Exam Const Vital Signs: 03/21/21 12:44 03/21/21 13:24 03/21/21 13:46 Temperature 97.8 F Temperature Source Temporal Pulse Rate 66 65 Respiratory Rate 18 14 Respiratory Effort Normal Non-Labored Respiratory Pattern Normal Blood Pressure 147/82 H 113/68 Blood Pressure Mean 103 83 Pulse Ox 95 97 Oxygen Delivery Method Room Air Nasal Cannula Oxygen Flow Rate (L/min) 2 03/21/21 14:23 03/21/21 15:00 03/21/21 16:00 Temperature Temperature Source Pulse Rate 66 70 78 Respiratory Rate 12 19 H 21 H Respiratory Effort Respiratory Pattern Blood Pressure 122/71 H 178/78 H Blood Pressure Mean 88 111 Pulse Ox 97 98 99 Oxygen Delivery Method Room Air Nasal Cannula Nasal Cannula Oxygen Flow Rate (L/min) 2 2 MDM <Dr. Aurelio Bone, DO - Last Filed: 03/21/21 16:18> MDM MDM Narrative Medical decision making narrative: Basic labs were obtained and were within normal limits. COVID-19 rapid antigen was obtained and was negative. Case was discussed with Dr. Benitez from orthopedic surgery. He recommended transferring the patient to see a neurosurgeon. Patient preferred to stay in the area. Case was discussed with the [facility] transfer line. They will attempt to find a bed for the patient and accept transfer. Care of the patient was turned over to the oncoming physician pending transfer. Lab Data Labs: Laboratory Results - last 24 hr 03/21/21 03/21/21 03/21/21 13:30 13:30 13:30 WBC 11.3 H RBC 4.56 L Hgb 13.1 Hct 41.8 MCV 91.7 MCH 28.7 MCHC 31.3 L RDW Std Deviation 47.7 H RDW Coeff of Bravo 14.1 Plt Count 260 MPV 10.8 Immature Gran % (Auto) 0.700 Neut % (Auto) 65.9 Lymph % (Auto) 22.7 [place] % (Auto) 7.5 Eos % (Auto) 2.8 Baso % (Auto) 0.4 Absolute Neuts (auto) 7.5 Absolute Lymphs (auto) 2.57 Nucleated RBC % 0 PT 11.9 INR 0.9 APTT 28.4 Sodium 134 L Potassium 4.4 Chloride 92 L Carbon Dioxide 39.0 H Anion Gap 3 L BUN 23 H Creatinine 0.59 L Estim Creat Clear Calc 61.95 Est GFR (MDRD) Af Amer 175 Est GFR (MDRD) Non-Af 145 BUN/Creatinine Ratio 38.9 H Glucose 112 H Calcium 8.8 Total Bilirubin 0.30 AST 18 ALT 44 Alkaline Phosphatase 83 Total Protein 7.4 Albumin 2.9 L Globulin 4.5 H Albumin/Globulin Ratio 0.6 L EKG Initial EKG: Attestation: I personally reviewed and interpreted this EKG as follows: Interpretation: Sinus Rhythm (71) and No Acute Injury Pattern Prior EKG tracings: not available for review <Dr. Osorio Guo, - Last Filed: 03/21/21 17:49> [facility] Lab Data Labs: Laboratory Results - last 24 hr 03/21/21 03/21/21 03/21/21 13:30 13:30 13:30 WBC 11.3 H RBC 4.56 L Hgb 13.1 Hct 41.8 MCV 91.7 MCH 28.7 MCHC 31.3 L RDW Std Deviation 47.7 H RDW Coeff of Bravo 14.1 Plt Count 260 MPV 10.8 Immature Gran % (Auto) 0.700 Neut % (Auto) 65.9 Lymph % (Auto) 22.7 [place] % (Auto) 7.5 Eos % (Auto) 2.8 Baso % (Auto) 0.4 Absolute Neuts (auto) 7.5 Absolute Lymphs (auto) 2.57 Nucleated RBC % 0 PT 11.9 INR 0.9 APTT 28.4 Sodium 134 L Potassium 4.4 Chloride 92 L Carbon Dioxide 39.0 H Anion Gap 3 L BUN 23 H Creatinine 0.59 L Estim Creat Clear Calc 61.95 Est GFR (MDRD) Af Amer 175 Est GFR (MDRD) Non-Af 145 BUN/Creatinine Ratio 38.9 H Glucose 112 H Calcium 8.8 Total Bilirubin 0.30 AST 18 ALT 44 Alkaline Phosphatase 83 Total Protein 7.4 Albumin 2.9 L Globulin 4.5 H Albumin/Globulin Ratio 0.6 L Discharge Plan Triage Chief Complaint: Other, Pain/Inj ED Provider: Osorio Guo Dx/Rx/DC Orders Prescriptions: No Action metformin 500 mg Tablet 500 mg PO BID RF: 0 insulin lispro 100 unit/mL Insulin Pen See Protocol unit SUBCUT TID RF: 0 sodium chloride 0.9 % (flush) Syringe 10 - 40 ml IV PRN PRN (Reason: FLUSH) RF: 0 methocarbamol 750 MG tablet 750 mg PO Q8H RF: 0 gabapentin [Neurontin] 600 mg Tablet 600 mg PO TIDCM RF: 0 methylprednisolone 4 mg Tablet See Taper mg PO DAILY RF: 0 polyethylene glycol 3350 [Miralax] 17 gram Powder In Packet 17 g PO DAILY RF: 0 sennosides-docusate sodium [Senna-S] 8.6-50 mg Tablet 2 tab PO BID RF: 0 tamsulosin 0.4 mg Capsule 0.4 mg PO DAILY@1730 RF: 0 meropenem 1 gram Recon Soln 1 g IV Q8H RF: 0 Ensure Liquid 120 ea PO TID@0600,1400,2200 RF: 0 oxycodone 20 mg Tablet 20 mg PO Q4H PRN (Reason: PAIN SCORE 6-10) RF: 0 acetaminophen [Tylenol] 325 MG tablet 650 mg PO Q6H PRN PRN (Reason: Pain 1-10 Or Fever) RF: 0 Primary Care Provider: Care Physician,No Primary
[2021-03-21 13:43] LABS: Absolute Lymphocyte Count 2.57 X10^3/uL (0.83-4.51); Absolute Neutrophil Count 7.5 X10^3/uL (2.0-7.7); Basophil# 0.04 X10^3/uL; Basophil% 0.4 % (0-1); Eosinophil# 0.32 X10^3/uL; Eosinophils% 2.8 % (0-5); Hematocrit 41.8 % (40-54); Hemoglobin 13.1 g/dL (13.0-16.5); Lymphocyte # 2.57 X10^3/ul (0.83-4.51); Lymphocyte % 22.7 % (19-41); Mean Corp Hgb Conc 31.3 g/dL (32-36); Mean Corpuscular Hgb 28.7 pg (27.0-32.0); Mean Corpuscular Volume 91.7 fL (80-94); Mean Platelet Vol. 10.8 fl (6.2-12.0); Monocyte# 0.85 X10^3/uL; Monocyte% 7.5 % (0-10); NRBC Flagged by Analyzer 0 % (0-5); Neutrophil # 7.48 X10^3/uL (2.7-7.7); Neutrophil % 65.9 % (47-70); Platelet Count 260 K/mm3 (150-450); RBC Distribution Width CV 14.1 % (11.6-14.6); RBC Distribution Width SD 47.7 fl (35.1-43.9); Red Blood Count 4.56 M/mm3 (4.6-6.2); White Blood Count 11.3 K/mm3 (4.4-11.0)
[2021-03-21] MEDS: Morphine 2 MG/ML Syringe IV (13:44)
[2021-03-21 13:50] LABS: International Normalized Ratio 0.9; Partial Thromboplast Time 28.4 Seconds (24.1-36.2); Prothrombin Time (Protime)PT. 11.9 SECONDS (11.7-14.9)
[2021-03-21 13:57] LABS: ALB/GLOB Ratio 0.6 RATIO (0.9-2.4); AST(SGOT) 18 U/L (15-37); Alanine Aminotransfer ALT/SGPT 44 U/L (16-61); Albumin, Serum 2.9 g/dL (3.2-5.0); Alkaline Phosphatase 83 U/L (45-117); Anion Gap 3 (5-15); BUN 23 mg/dL (7-18); BUN/Creat Ratio 38.9 RATIO (10-20); Calcium,Total 8.8 mg/dL (8.5-10.1); Chloride 92 mmol/L (98-107); Creatinine, Serum 0.59 mg/dL (0.70-1.30); EST Glomerular Filtration Rate 145 mL/min (>60); Est Glom Filt Rate - Afr Amer 175 mL/min (>60); Estimated Creatinine Clearance 61.95 ml/min; Globulin 4.5 g/dL (2.2-4.2); Glucose 112 mg/dL (74-106); Potassium 4.4 mmol/L (3.5-5.1); Protein, Total 7.4 g/dL (6.4-8.2); Sodium Level 134 mmol/L (136-145)
--- NOTE | 2021-03-21 14:57 | CHAPLAIN ---
Type of Pastoral Visit ___ Initial Visit ___ Follow-up Visit ___ On-call Visit ___ General Patient Visit ___ Spiritual Assessment ___ Family Conference ___ Bereavement _x__ Rapid Response ___ Code Blue ___ Other (describe below) Pastoral Care Referral From _x__ Patient ___ Family ___ Nurse ___ Physician ___ Chemical Processing Supervisor ___ Paid Search Specialist ___ Other (describe below) Sacrament/Intervention ___ Active listening ___ Anointing ___ Shinto ___ Bereavement ___ Communion ___ Imani exploration ___ ___ Life review _x__ Prayer ___ Reconciliation ___ Sacrament of Sick _x__ Supportive presence ___ Wedding ___ Other (describe below) Pastoral Comments patient previously seen in TCU and follow up into ED for this rapid response; pt requests prayer support; pt has very limited family support and has had recent health problems that have resulted in long admission
[2021-03-21] MEDS: Morphine 4 MG/ML Syringe IV (15:17)
--- NOTE | 2021-03-21 15:47 | NURSING ---
PER DR SHARMA PT WANTS TO WAIT FOR A BED WITH [facility]; PT IS AWARE THAT IS IT GOING TO BE HOURS BEFORE THERE WILL BE A BED
--- NOTE | 2021-03-21 19:08 | NUR.TO.PHY ---
Patient in pain and has not been medicated for almost 4 hours. Transporting squad will be another 1-2 hours. Pain med requested.
[2021-03-21] MEDS: HYDROmorphone 0.5 MG/0.5 ML SYRINGE IV (19:12)
--- NOTE | 2021-03-21 19:26 | NURSING ---
report calledwith SBARQ to Nathaly BOWMAN for ER to ER transport and she is aware ETA for ambulance here is 8-9 and is expecting him at 9-10 tonight. She had no further questions.
--- NOTE | 2021-03-21 19:52 | ED.RN ---
physicians ambulance had said they couldnt outsoure it when the construction secretary originally called. The ETA that they had gave was 8pm-9m. 1952 they called and said that [facility] [place] would be coming in 30 minutes.
== END 2021-03-21 20:54 | disposition short-term general hospital (02) ==
PROVIDERS: Emergency Medicine; Emergency Provider Emergency Medicine
DX: J44.9 Chronic obstructive pulmonary disease, unspecified (principal); Z79.52 Long term (current) use of systemic steroids; Z79.899 Other long term (current) drug therapy; Z87.891 Personal history of nicotine dependence; M48.02 Spinal stenosis, cervical region
CPT/HCPCS: 80053; 85025; 85610; 85730; 87426; 93005; 96374; 96375; 96376; 99285; A4216

== ENCOUNTER 2021-04-01 16:27 | Inpatient (IN) | payer MEDICARE, SELFPAY ==
[2021-03-21 12:44] VITALS: BMI 21.7
[2021-04-01 16:34] VITALS: BP 119/79; PULSE 95; RESP 24; TEMP 36.2; O2SAT 96
[2021-04-01 17:00] VITALS: PULSE 95; RESP 24; O2SAT 96
--- NOTE | 2021-04-01 17:52 | NURSING ---
THIS NURSE TRIED CALLING PT SON FRAN TYLER BUT PHONE STATED HIS MAIL BOX WAS FULL.
--- NOTE | 2021-04-01 17:53 | HP.PCM_ITS ---
HPI - General General Date of Admission: 04/01/21 HPI Narrative 03/21/2021 FRAN GUZMAN, is a 69 Male tcu resident transferred to [facility] emergency department for severe cervical spinal stenosis, myelopathy, myelomalacia, cord compression. Transferred to [facility]. 03/21/2021 admit to [facility]. progressive weakness over past 2 weeks. neck pain with bilateral radiculopathy. aspen collar. 03/24/3021 neurosurgery performed c2 dome osteotomy. c3-4 laminectomy. c2-5 instrumented fusion with screws, rods. posterolateral arthrodesis. pt/ot for care home facility. 04/01/2021 admit to tcu with debility, here for rehabilitation, strengthening, prior to discharge home with family. [facility], [facility] Medical History (Updated 04/01/21 @ 18:[address] Abel Corona MD) Cervical myelopathy COPD (chronic obstructive pulmonary disease) Encephalopathy Home Medications sennosides-docusate sodium [Senna-S] 2 tab PO DAILY 03/21/21 [History Last Taken 03/21/21 06:00] acetaminophen 650 mg PO Q6H 04/01/21 [History Last Taken Unknown] amoxicillin-pot clavulanate 1 tab PO Q12H 04/01/21 [History Last Taken Unknown] ascorbic acid (vitamin C) 250 mg PO BID 04/01/21 [History Last Taken Unknown] aspirin 81 mg PO DAILY 04/01/21 [History Last Taken Unknown] atorvastatin 40 mg PO QHS 04/01/21 [History Last Taken Unknown] cyclobenzaprine 10 mg PO TID PRN 04/01/21 [History Last Taken Unknown] docusate sodium 100 mg PO BID 04/01/21 [History Last Taken Unknown] heparin (porcine) 5,000 unit SUBCUT Q8H 04/01/21 [History Last Taken Unknown] melatonin 5 mg PO DAILY@1800 04/01/21 [History Last Taken Unknown] methylprednisolone [Methylprednisone] 4 mg PO DAILY 04/01/21 [History Last Taken Unknown] methylprednisolone [Methylprednisone] 8 mg PO DAILY 04/01/21 [History Last Taken Unknown] multivitamin with minerals [Multiple Vitamin-Minerals] 1 tab PO DAILY 04/01/21 [History Last Taken Unknown] oxycodone 5 mg PO Q6H PRN 04/01/21 [History Last Taken Unknown] zinc sulfate 220 mg PO DAILY 04/01/21 [History Last Taken Unknown] Allergy/AdvReac Type Severity Reaction Status Date / Time No Known Allergies Allergy Verified 03/21/21 13:07 Surgical History (Updated 04/01/21 @ 17:[address] Abel Corona MD) H/O neck surgery History of back surgery History of cervical spinal arthrodesis Social History (Updated 04/01/21 @ 17:[address] Abel Corona MD) household members: family and children Smoking Status: Former smoker alcohol intake: current details: Occasional ROS Constitutional Constitutional: Denies chills, fever(s) or weight gain ENT HEENT: Denies headache(s), nasal congestion or nasal discharge Cardiovascular Cardiovascular: Denies chest pain or palpitations Respiratory/Chest Respiratory/Chest: Denies cough, excessive phlegm production or shortness of breath with exertion Gastrointestinal Gastrointestinal: Denies abdominal pain, nausea or vomiting Genitourinary Genitourinary: Denies dysuria Musculoskeletal Musculoskeletal: Denies joint pain or joint swelling Integumentary Integumentary: Denies rash or wounds Neurologic Neurologic: Denies focal weakness, numbness or tingling Psychiatric Psychiatric: Reports auditory hallucinations; Denies anxiety, depression, homicidal ideation or suicidal ideation Physical Exam Const alert and oriented x3 General Appearance: cooperative HEENT normocephalic Eyes PERRL and EOMs intact bilaterally Neck supple, no JVD and no carotid bruits Resp normal respiratory effort, normal air movement and clear to auscultation bilaterally Cardio regular rate and regular rhythm GI normal to inspection, nondistended, normoactive bowel sounds, non-tender and non-distended Extremity normal capillary refill General Extremity: Negative for edema Skin no rashes or lesions noted General Skin Exam: no breakdown Psych affect normal Appearance: appropriate Lab / Micro Data Result Diagrams: 04/02/21 04:55 04/02/21 04:55 Assessment & Plan Assessment/Plan (1) Debility: (2) Cervical spinal stenosis: (3) Cervical myelopathy: (4) Cervical cord myelomalacia: (5) Cervical cord compression with myelopathy: (6) Nephrolithiasis: (7) Low back pain: (8) Muscle spasm: (9) Chronic obstructive pulmonary disease: PLAN: 69 year old male with below past medical history hospitalized for 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 * debility - pt/ot. * pain - tylenol 1000mg q6h prn pain 1-5, oxycodone 5mg q6h prn pain 6-10 * bowel - miralax 17gm daily, senna/colace 2 tablets bid, dulcolax 10mg daily prn * adult immunization - administer prevnar 13, pneumovax 23, fluzone, covid19 as appropriate. * dvt prophylaxis - lovenox 40mg sc daily. * infectious disease - augmentin 875mg q12h. * vitamin c deficiency - vitamin c 250mg bid * cv prophylaxis - aspirin 81mg daily * hyperlipidemia - atorvastatin 40mg qhs. * muscle spasm - flexeril 10mg tid prn. * insomnia - melatonin 5mg qpm. * cervical spinal stenosis s/p surgery - medrol taper. * nutrition - mvi daily. * zinc deficiency - zinc 220mg daily.
[2021-04-01] MEDS: Docusate Sodium 100 MG Capsule PO (18:00)
[2021-04-01] MEDS: Acetaminophen 325 MG Tablet 650 MG PO ×2 (18:00→23:19)
[2021-04-01] MEDS: MELATONIN 10 MG TABLET 5 MG PO (18:00)
[2021-04-01 18:57] VITALS: O2SAT 96
--- NOTE | 2021-04-01 19:40 | NURSING ---
WHEN AMBULANCE SERVICE DROPPED OFF PT THEY STATED THAT THE PT WAS ROLLING AROUND ON COT AND ALMOST FELL OFF A FEW TIMES AND CATH WAS PULLED,WAS FOR REASON OF BLEEDING WHEN HE GOT HERE. THEY ALSO STATED THAT PT WAS GRABBING EVERY THING AND GOT { IN THERE WORDS] SNOT ON EVERY THING FROM HIS NOSE AND SPITTING UP FLEAM. RN AWARE.
[2021-04-01] MEDS: oxyCODONE 5 MG Tablet PO (21:31)
[2021-04-01] MEDS: Atorvastatin Calcium 40 MG Tablet PO (21:35)
[2021-04-01] MEDS: Ascorbic Acid 500 MG Tablet 250 MG PO (21:36)
[2021-04-01] MEDS: Amox/Clavulanate 875 MG Tablet PO (21:37)
[2021-04-01] MEDS: cycloBENZAPRine HCl 10 MG Tablet PO (22:32)
[2021-04-01 22:34] VITALS: BMI 19.2
[2021-04-01] MEDS: Menthol/Lanolin/Calamine/Znox 113 GM Tube 1 APPLIC TOPICAL (22:35)
[2021-04-01 22:47] VITALS: BP 119/76; PULSE 95; RESP 24; TEMP 36.2; O2SAT 96
--- NOTE | 2021-04-01 22:55 | PCA ---
Pt declined to wash up stating he did not feel up to it, and would rather wash up in the morning. em
--- NOTE | 2021-04-02 00:15 | NURSING ---
Assessed patient per request of SEPARATOR INSERTER d/t concerns with shortness of breath. Report provided at change of shift that a large amount of sputum was removed via yankauer suction catheter. Occasional dry and moist coughing noted. Dry cough weak. Increased force w/ cough is moist. Unable to expectorate any sputum. Assessed mouth and no sputum at back of throat. O2 cannula obtained and applied at 2 lpm w/ humidification to promote moistening of secretions. Reports musculoskeletal pain to chest w/ cough. Lungs sounds diminished throughout to posterior gregg. HR regular. HOB elevated at least 30 degrees and pt turned to the lt side. This nurse assisted pt w/ incentive spirometer. Poor tolerance of spirometer. Vitals obtained and recorded. Fingers to both hands, b/l knees, and toes to both feet dusky and cool. RLE slightly cooler than LLE. Tactile stimulation intact to all extremities. Lt hand slightly contracted. RLE contracted. Hua catheter to CD, urine najma/tea colored. Large volume of urine noted in bag. Has been medicated w/ Oxycodone, Tylenol, and Flexeril per JAN. Respirations ease when pt does not try to speak. Encouraged to continue coughing and deep breathing exercises. Further education needed and staff to continue to monitor.
[2021-04-02 05:14] LABS: Absolute Lymphocyte Count 2.55 X10^3/uL (0.83-4.51); Basophil# 0.02 X10^3/uL; Basophil% 0.3 % (0-1); Eosinophil# 0.62 X10^3/uL; Eosinophils% 7.8 % (0-5); Hematocrit 39.9 % (40-54); Hemoglobin 13.1 g/dL (13.0-16.5); Lymphocyte # 2.55 X10^3/ul (0.83-4.51); Lymphocyte % 32.2 % (19-41); Mean Corp Hgb Conc 32.8 g/dL (32-36); Mean Corpuscular Hgb 29.1 pg (27.0-32.0); Mean Corpuscular Volume 88.7 fL (80-94); Mean Platelet Vol. 10.2 fl (6.2-12.0); Monocyte% 8.8 % (0-10); NRBC Flagged by Analyzer 0 % (0-5); Neutrophil # 4.01 X10^3/uL (2.7-7.7); Neutrophil % 50.5 % (47-70); Platelet Count 272 K/mm3 (150-450); RBC Distribution Width CV 13.3 % (11.6-14.6); RBC Distribution Width SD 43.3 fl (35.1-43.9); White Blood Count 7.9 K/mm3 (4.4-11.0)
[2021-04-02 05:31] LABS: Anion Gap 3 (5-15); BUN 17 mg/dL (7-18); BUN/Creat Ratio 34.7 RATIO (10-20); Calcium,Total 8.9 mg/dL (8.5-10.1); Chloride 97 mmol/L (98-107); Creatinine, Serum 0.49 mg/dL (0.70-1.30); EST Glomerular Filtration Rate 180 mL/min (>60); Est Glom Filt Rate - Afr Amer 218 mL/min (>60); Estimated Creatinine Clearance 59.79 ml/min; Glucose 128 mg/dL (74-106); Potassium 3.6 mmol/L (3.5-5.1); Sodium Level 136 mmol/L (136-145)
[2021-04-02] MEDS: Menthol/Lanolin/Calamine/Znox 113 GM Tube 1 APPLIC TOPICAL ×2 (06:37→19:59)
[2021-04-02] MEDS: Enoxaparin 40 MG/0.4 ML Syringe SC (06:38)
[2021-04-02] MEDS: Acetaminophen 325 MG Tablet 650 MG PO ×3 (06:38→19:58)
[2021-04-02] MEDS: Senna/Docusate Sodium 1 Tablet 2 TABLET PO ×2 (06:38→16:40)
[2021-04-02 06:39] VITALS: BP 140/81; PULSE 79; RESP 18; TEMP 35.9; O2SAT 100
[2021-04-02] MEDS: Polyethylene Glycol 3350 17 GM PACKET PO (06:39)
[2021-04-02] MEDS: Multivitamins,Ther W-Minerals Tablet 1 TABLET PO (08:59)
[2021-04-02] MEDS: MethylPREDNISolone 4 MG Tablet 8 MG PO (08:59)
[2021-04-02] MEDS: Aspirin E.C. 81 MG Tablet PO (08:59)
[2021-04-02] MEDS: Ascorbic Acid 500 MG Tablet 250 MG PO ×2 (09:00→16:39)
[2021-04-02] MEDS: oxyCODONE 5 MG Tablet PO ×2 (09:02→16:41)
--- NOTE | 2021-04-02 10:17 | NURSING ---
PER PT REQUEST,THIS NURSE TRIED TO GET A HOLD OF PT OTHER SON ESTRELLITA GUZMAN. AGAIN THIS SON ALSO PHONE STATED MAILBOX WAS FULL. COULD NOT LEAVE MESSAGE. PT KEEPS STATING THAT HE NEEDS TO TALK TO SONS. LEFT MESSAGE FOR ANNALISE, NAIL ASSEMBLY MACHINE OPERATOR TO SEE PT.
--- NOTE | 2021-04-02 10:25 | NURSING ---
PT COMPLAINED OF HIS THROAT HURTING. SEEN WHITE PATCHES BACK OF THROAT AND SIDE. RN AWARE,WILL LET KNOW.
[2021-04-02] MEDS: cycloBENZAPRine HCl 10 MG Tablet PO ×2 (10:53→17:54)
[2021-04-02 11:26] LABS: Bedside Glucose 228 mg/dL (70-110)
[2021-04-02 14:45] VITALS: BP 121/74; PULSE 85; RESP 20; TEMP 36.4; O2SAT 93
--- NOTE | 2021-04-02 14:49 | NURSING ---
respiratory up to give pt a breathing treatment,pt refused. rn aware
[2021-04-02 15:10] VITALS: O2SAT 93
--- NOTE | 2021-04-02 15:13 | NURSING ---
Addendum entered by Ca Van 04/02/21 18:14: Son did call back within 5 minutes of nurse ending conversation. Tried speaking to son, Fran and asking him what he needed and Fran began yelling about coming in to see his dad. Calmly explained to son that pt is in Quarantine and not allowed visitors at this time. He was starting to cuss more, transferred call to COLBY Gonzalez design supervisor. Original Note: PT ASKED THIS NURSE TO TRY AND CALL HIS OTHER SON ESTRELLITA FOR HIM CAUSE HE WANTED TO TALK TO HIM ABOUT HIS BANK CARD AND OTHER BROTHER FRAN TYLER.DUE TO THIS NURSE NOT BEING ABLE TO GET A HOLD OF SON FRAN. AT FIRST NO ANSWER AND SON/ESTRELLITA CALLED BACK A HOUR LATER.THIS NURSE EXPLAINED TO SON AND UPDATED HIM PER PT REQUEST. SON STATED HE HASN'T TALKED TO HIS DAD IN A YEAR AND HIS OTHER BROTHER IN 2 TO 3 MONTHS DUE TO HIM AND HIS BROTHER ARE TOTALLY DIFFERENT PEOPLE AND LIFE STYLES BUT WOULD TALK TO HIS DAD NOW TO SHE WHAT HE NEEDED. TRANSFERRED CALL TO PT ROOM AND HELD PHONE FOR PT DUE TO PT UNABLE TO DO SO. PT REQUESTED SON TO CALL BANK AND CANCEL HIS CARD DO TO HE WAS AFRAID THAT SON FRAN WOULD USE ALL HIS MONEY THAT HE HAD. ALL INFO FROM PT WAS GIVEN OVER PHONE TO ESTRELLITA/SON AND PER SON IT WAS TAKEN CARE OF. THIS NURSE ASKED SON IF STAFF AND ASSISTANT SALES MANAGER COULD CALL HIM IF REQUESTED BY PT FOR ANY THING. SON/ESTRELLITA STATED YES. MESSAGE LEFT FOR ASSISTANT SALES MANAGER. THIS NURSE WAS IN PT ROOM FOR TOTAL OF AN HOUR. PT IS ALERT AND ORIENTATED X3. ABOUT AN HOUR AFTER SON FRAN CALLS IN DEMANDING TO TALK TO THIS NURSE PER AID AND THAT THE SON WAS CURSING AND WANTING TO KNOW WHAT WAS GOING ON WITH HIS DAD. THIS NURSE LEFT HER LUNCH TO TALK TO SON AND ANSWER ALL HIS QUESTIONS. SON BEGAN RIGHT AWAY YELLING AND CURSING AT THIS NURSE AND WANTED TO KNOW WHY KNOW ONE HAS CALLED HIM. THIS NURSE TRIED TO EXPLAIN TO SON THAT I DID TRY TWICE BUT HIS PHONE STATED MAIL BOX WAS FULL. FRAN THEN STATED HE CALLED EVERY HOSPITAL TO TRY AND FIND HIS DAD WITH NO ONE BEING ABLE TO TELL HIM. THIS NURSE STATED SORRY THAT HAS HAPPENED AND WOULD BE GLAD TO UPDATE HIM NOW. THIS NURSE UPDATED SON AND SON STARTED CURSING AT THIS NURSE AND STATED THAT THIS HOSPITAL SHOULD HAVE NEVER LET HIS DAD GO TO ANOTHER AND HAVE FUCKING SURGERY AND WANTED TO KNOW WHAT WAS FUCKING BEING DONE FOR HIS DAD AND WHY THE FUCK THIS NURSE WAS NOT IN CHECKING ON HIS DAD EVERY FUCKING 10 MINS. THIS NURSE EXPLAINED TO SON THAT STAFF WAS CHECKING ON HIS DAD EVERY LITTLE BIT AND THAT THIS NURSE WAS IN HIS DADS ROOM ALSO FOR A FULL STRAIGHT HOUR HELPING HIM BESIDES CHECKING ON HIM THREW THE DAY. SON/FRAN THEN STATED WHY IN THE FUCK ARE YOU GIVING HIM DRUGS WHEN HE CANT BREATH. THIS NURSE STATED THAT PT CAN BREATH AND OXYGEN IS AT 97% AND IS ON 2L OF OXYGEN PER PT REQUEST FOR HIS COMFORT NEEDED AND PAIN MEDS ARE BEING GIVEN FOR THE PAIN HIS DAD IS HAVING FROM THE SURGERY. SON THEN ASKED IF HE CAN COME SEE HIS DAD. THIS NURSE STATED THAT HIS DAD WAS UNDER QUARANTINE FOR 15 DAYS AND THAT HE WOULD HAVE TO SCHEDULE A APPOINTMENT AND TALK TO THE PERSON IN CHARGE TO SEE IF HE COULD COME IN. SON/FRAN THEN STARTED CURSING AND CALLING THIS NURSE EVERY THING BUT A [facility] EVEN AFTER THIS NURSE TRIED TO EXPLAIN TO HIM WHY HIS DAD IS UNDER QUARANTINE AND THAT THE HOSPITAL AND TCU MUST FOLLOW THE STATES REQUIREMENTS.THE SON CONTINUED TO GEOFFREY AT THIS NURSE AND THIS NURSE ASKED THE SON TO PLEASE STOP CURSING AT HER AND TALK IN A CALM MATTER OR THIS CONVERSATION WOULD HAVE TO BE CONTINUED WHEN HE COULD. SON CONTINUED TO SCREAM AND CURSE AT THIS NURSE AND THAT WAS WHEN THIS NURSE ENDED THE CONVERSATION. RN AWARE AND SWITCHBOARD CLERK WAS CALLED BY RN.
[2021-04-02] MEDS: NYSTATIN 500,000 UNIT/5 ML UDC 500000 UNIT PO ×2 (16:39→19:59)
[2021-04-02] MEDS: guaiFENesin 600 MG Tablet PO (16:40)
[2021-04-02 16:51] LABS: Bedside Glucose 140 mg/dL (70-110)
[2021-04-02] MEDS: MELATONIN 10 MG TABLET 5 MG PO (17:55)
[2021-04-02] MEDS: Atorvastatin Calcium 40 MG Tablet PO (19:59)
[2021-04-02 21:55] LABS: Bedside Glucose 169 mg/dL (70-110)
[2021-04-02 22:00] VITALS: PULSE 83
[2021-04-03] MEDS: Acetaminophen 325 MG Tablet 650 MG PO ×4 (00:57→17:55)
[2021-04-03] MEDS: cycloBENZAPRine HCl 10 MG Tablet PO ×2 (01:02→13:06)
[2021-04-03] MEDS: oxyCODONE 5 MG Tablet PO ×2 (01:36→08:04)
[2021-04-03] MEDS: Bisacodyl 10 MG Suppository RC (01:43)
[2021-04-03 04:00] VITALS: BP 167/91; PULSE 92; RESP 12; TEMP 36.1; O2SAT 97
--- NOTE | 2021-04-03 04:36 | NURSING ---
During hs medpass pt had c/o painful gas and asked to be checked that he may have soiled his attends. This METAL MACHINE OPERATOR and RN checked attends and noticed dried blood from recent bleeding around tay. After cleaning igor area we rolled pt and no BM was noted but there is a extra large hard stool lodged in rectum/anus area and visible. pt states he is unable to push stool out and it is very painful. KY gel was applied to see if that would help things along. Around 1a pt was checked to see if there was any progress and there was a slight smear on attends but no movement, stool still visibly lodged. A suppository was able to be inserted around stool to help move along. 4a pt calling out in pain, now also in stomach area, no movement still, RN called in room with CAREER COUNSELOR and this METAL MACHINE OPERATOR to help try gentle massage and a small hard BM was able to be broken off, more stool still remaining impacted. PT repositioned with warm compress on anus to help sooth and soften tissue. PT is unable to tolerate sitting on bedside at this time and unable to push stool out in bed. Will continue to monitor.
[2021-04-03 06:31] LABS: Bedside Glucose 132 mg/dL (70-110)
[2021-04-03] MEDS: Senna/Docusate Sodium 1 Tablet 2 TABLET PO ×2 (06:57→17:55)
[2021-04-03] MEDS: NYSTATIN 500,000 UNIT/5 ML UDC 500000 UNIT PO (06:57)
[2021-04-03] MEDS: guaiFENesin 600 MG Tablet PO ×2 (06:57→17:55)
[2021-04-03] MEDS: Menthol/Lanolin/Calamine/Znox 113 GM Tube 1 APPLIC TOPICAL (06:58)
[2021-04-03] MEDS: Enoxaparin 40 MG/0.4 ML Syringe SC (06:58)
[2021-04-03] MEDS: Polyethylene Glycol 3350 17 GM PACKET PO (06:58)
[2021-04-03 07:24] VITALS: O2SAT 94
[2021-04-03] MEDS: Magnesium Citrate 300 ML PO (09:14)
--- NOTE | 2021-04-03 09:23 | NURSING ---
pt received soap suds enema this morning, results were effective pt had large hard bowel movement with liquid stool around it. Pt still feels full and constipated mag citrate given at this time.
[2021-04-03 09:46] VITALS: O2SAT 97
--- NOTE | 2021-04-03 09:50 | PHA.CONS_ITS ---
Progress Note - Pharmacy Subjective: TCU Admission Objective: Allergies No Known Allergies Allergy (Verified 03/21/21 13:07) Current Medications Generic Name Dose Route Start Last Admin Trade Name Patrick PRN Reason Stop Dose Admin Acetaminophen 650 mg 04/02/21 00:00 04/03/21 06:57 Acetaminophen 325 Mg Tablet PO 650 mg Q6H [facility] Administration Albuterol/Ipratropium 3 ml 04/02/21 14:00 Ipratropium/Albuterol Sulfate 3 Ml Ampul.Neb INHALATION Q6H.RT PRN SOB &/OR WHEEZING Ascorbic Acid 250 mg 04/01/21 17:00 04/03/21 08:06 Ascorbic Acid 500 Mg [facility] Aspirin 81 mg 04/02/21 08:00 04/03/21 08:06 Aspirin E.C. 81 Mg Tablet PO [facility] Atorvastatin Calcium 40 mg 04/01/21 22:00 04/02/21 19:59 Atorvastatin Calcium 40 Mg Tablet PO 40 mg QHS [facility] Administration Bisacodyl 10 mg 04/01/21 18:09 04/03/21 01:43 Bisacodyl 10 Mg Suppository RC 10 mg DAILY PRN Administration Constipation Calamine/Phenol 1 applic 04/01/21 22:00 04/03/21 06:58 Menthol/Lanolin/Calamine/Znox 113 Gm Tube TOPICAL 1 applic 0600,2200 [facility] Administration Protocol Cyclobenzaprine HCl 10 mg 04/01/21 16:55 04/03/21 01:02 Cyclobenzaprine Hcl 10 Mg Tablet PO 10 mg TID PRN Administration Muscle Spasm Enoxaparin Sodium 40 mg 04/02/21 06:00 04/03/21 06:58 Enoxaparin 40 Mg/0.4 Ml Syringe SC 40 mg DAILY@0600 [facility] Administration Guaifenesin 600 mg 04/02/21 18:00 04/03/21 06:57 Guaifenesin 600 Mg Tablet PO 600 mg BID [facility] Administration Guaifenesin 10 ml 04/02/21 14:02 Guaifenesin Dm 10 Ml Udc PO Q6H PRN PRN COUGH/CONGESTION Melatonin 5 mg 04/01/21 18:00 04/02/21 17:55 Melatonin 10 Mg Tablet PO 5 mg DAILY@1800 [facility] Administration Multivitamins/Minerals 1 tablet 04/02/21 08:00 04/03/21 08:06 Multivitamins,Ther W-Minerals Tablet PO Not Given DAILY@0800 [facility] Nystatin 500,000 unit 04/02/21 17:00 04/03/21 06:57 Nystatin 500,000 Unit/5 Ml Udc PO 04/12/21 17:01 500,000 unit 4X/DAY [facility] Administration Oxycodone HCl 5 mg 04/01/21 16:57 04/03/21 08:04 Oxycodone 5 Mg Tablet PO 5 mg Q6H PRN Administration pain (6-10) Polyethylene Glycol 17 gm 04/02/21 06:00 04/03/21 06:58 Polyethylene Glycol 3350 17 Gm Packet PO 17 gm DAILY [facility] Administration Senna/Docusate Sodium 2 tablet 04/02/21 06:00 04/03/21 06:57 Senna/Docusate Sodium 1 Tablet PO 2 tablet BID [facility] Administration Zinc Sulfate 220 mg 04/02/21 08:00 04/03/21 08:06 Zinc Sulfate (50mg Elemental) 220 Mg Capsule PO 04/08/21 08:01 Not Given DAILYCM [facility] Problem List (Last Reviewed 04/01/21 @ 17:[address] Abel Corona MD) Chronic obstructive pulmonary disease (Chronic) Muscle spasm (Acute) Low back pain (Acute) Nephrolithiasis (Acute) Cervical cord compression with myelopathy (Acute) Cervical cord myelomalacia (Acute) Cervical myelopathy (Acute) Cervical spinal stenosis (Acute) Debility (Acute) Vital Signs Temp Pulse Resp BP Pulse Ox 97 F L 92 12 167/91 H 94 04/03/21 04:00 04/03/21 04:00 04/03/21 04:00 04/03/21 04:00 04/03/21 07:24 Oxygen Flow Rate (L/min) 2 Oxygen Delivery Method Nasal Cannula Weight: 58.967 kg Body Mass Index (BMI) 19.2 Finger Stick Blood Glucose 128 Sodium 136 mmol/L (136-145) 04/02/21 04:55 Potassium 3.6 mmol/L (3.5-5.1) 04/02/21 04:55 Chloride 97 mmol/L (98-107) L 04/02/21 04:55 Carbon Dioxide 36.0 mmol/L (21.0-32.0) H 04/02/21 04:55 Anion Gap 3 (5-15) L 04/02/21 04:55 BUN 17 mg/dL (7-18) 04/02/21 04:55 Creatinine 0.49 mg/dL (0.70-1.30) L 04/02/21 04:55 Est GFR (MDRD) Af Amer 218 mL/min (>60) 04/02/21 04:55 Est GFR (MDRD) Non-Af 180 mL/min (>60) 04/02/21 04:55 BUN/Creatinine Ratio 34.7 RATIO (10-20) H 04/02/21 04:55 Glucose 128 mg/dL (74-106) H 04/02/21 04:55 Assessment/Plan: 1. Pain: acetaminophen 650mg PO Q6H and oxycodone 5mg PO Q6H PRN pain 6-10. Please continue to monitor for S/S of increased pain, PRN usage, constipation and respiratory depression. 2. DVT prophylaxis: enoxaparin 40mg SC daily. Please continue to monitor for S/S of bleeding, hemoglobin (last 13.1g/dL), platelets (last 272,000), and renal function. 3. CV prophylaxis: aspirin 81mg PO dailycm. Please continue to monitor for S/S of bleeding. *4. Hyperlipidemia: atorvastatin 40mg PO QHS. Patient does not have a lipid tomas el in the chart. Please consider ordering one now and then annually as clinically appropriate. Thanks. Please continue to monitor for muscle pain. 5. Muscle spasm: cyclobenzaprine 10mg PO TID PRN muscle spasm. Please continue to monitor for anticholinergic side effects and PRN usage. 6. Insomnia: melatonin 5mg PO @ 1800. Please continue to monitor for excessive drowsiness. 7. Nutrition/vitamin C and zinc deficiencies: multivitamin with minerals 1T PO daily, ascorbic acid 250mg PO BIDCM and zinc sulfate 220mg PO dailycm thru 04/08/21. Please continue to monitor. 8. Thrush (per nursing note, white patches on tongue): nystatin 500,000units 4x/day thru 04/12/21. Please continue to monitor for improvement of thrush. 9. Cough: guaifenesin 600mg PO BID and guaifenesin 10mL Q6H PRN cough/conges tion. Please continue to monitor for cough/congestion and PRN usage. 10. SOB/wheezing: ipratropium/albuterol 3mL inhalation Q6H.RT PRN SOB/wheezing. Please continue to monitor for PRN usage. Psychotropic Medications: None Unnecessary Medications: None Bowel Regimen: Miralax 17gm PO daily, senna/docusate 2T PO BID, and bisacodyl 1 0mg RC daily PRN constipation. Please continue to monitor for S/S of constipation and PRN usage. Date of Note:: 04/03/21
[2021-04-03 11:01] LABS: Bedside Glucose 138 mg/dL (70-110)
--- NOTE | 2021-04-03 13:10 | NURSING ---
Notified Dr. Corona of patient moaning and crying out in pain. Received order to increase Oxy to 10mg q4hr PRN and consult Dr. Dowell.
[2021-04-03] MEDS: oxyCODONE 5 MG Tablet 10 MG PO ×3 (13:22→22:26)
[2021-04-03 13:51] VITALS: BP 130/83; PULSE 86; RESP 18; TEMP 35.7; O2SAT 98
--- NOTE | 2021-04-03 14:38 | PT ---
Pt supine in bed at this time. Pt c/o 10/10 pain in neck and reports he feels terrible and is in bad shape. Pt reports he is unable to lift his arms and is worse since his surgery. Pt able to perform elbow flexion with max effort but B hands appear flaccid. Pt with very limited regulatory intern strength and very limited upper body ROM. Pt also stated he is having trouble swallowing and is refusing to eat meals today. Will refer to ST for swallowing. Reviewed pt's chart which was sent from [facility]. Pt had Sx on 03/25 and PT/OT evals were completed on 03/28. Per PT/OT evals pt was dep x 2-3 for supine<>seated and was dep to sit EOB due to poor trunk control and limited use of upper body. Per chart, pt did have Dunbar cervical collar that he was wearing. Collar was not sent over with pt and pt does not have any soft or hard cervical collar in his room. Soft cervical collar was gotten for pt. Placed soft collar on pt, but pt stated it was too uncomfortable and he refused to wear it in bed. Educated pt on importance of wearing collar when out of bed. Instructed staff to place soft collar on pt with transfers to BSC or when pt is sitting edge of bed. Left voicemail for surgeon at regarding pt's Dunbar collar and regarding pt's current functional limitations and c/o 10/10 pain. Nursing also aware of voicemail left for surgeon.
--- NOTE | 2021-04-03 14:40 | NURSING ---
Dr. Dowell updated on need for consult.
--- NOTE | 2021-04-03 15:52 | NURSING ---
[facility] called back stating someone called in to ask about use of cervical collar, they stated that pt does not need to have a cervical collar because pt had a fusion and it is not necessary. This nurse updated them on pt not being able to move shoulders, decreased fine motor skills and dexterity, pt had surgery on 03/25 and was not evaluated by therapy at [facility] until 03/28, therapy charted decrease in use of arms at that time. This nurse asked [facility] staff if this has been pt's baseline since surgery or just since 03/28 and if is not baseline and got progressively worse has he had another MRI since surgery. They stated they will talk with the doctor and let us know tonight or tomorrow what he says.
[2021-04-03 16:31] LABS: Bedside Glucose 118 mg/dL (70-110)
[2021-04-03] MEDS: MELATONIN 10 MG TABLET 5 MG PO (17:54)
[2021-04-03] MEDS: Ascorbic Acid 500 MG Tablet 250 MG PO (17:54)
--- NOTE | 2021-04-03 19:03 | NURSING ---
Dr. Dowell came [facility] for consult N.O. CT of Cervical and Lumbar spine without contrast, D/C flexeril prn, Baclofen 5mg BID, RN updated
[2021-04-04 00:30] LABS: Bedside Glucose 118 mg/dL (70-110)
[2021-04-04] MEDS: oxyCODONE 5 MG Tablet 10 MG PO ×5 (04:38→23:09)
[2021-04-04] MEDS: Baclofen 10 MG Tablet 5 MG PO ×2 (04:39→17:53)
--- NOTE | 2021-04-04 04:43 | NURSING ---
Patient refusing all AM medications at this time. Patient only requesting to take pain medication and Baclofen. Educated on importance of taking medications and patient stated, I don't care. I do not want them. Will attempt again later.
[2021-04-04 05:00] VITALS: BP 125/76; PULSE 86; RESP 18; TEMP 36.4; O2SAT 98
[2021-04-04 06:31] LABS: Bedside Glucose 146 mg/dL (70-110)
[2021-04-04 08:59] VITALS: O2SAT 98
[2021-04-04] MEDS: Multivitamins,Ther W-Minerals Tablet 1 TABLET PO (09:22)
[2021-04-04] MEDS: Aspirin E.C. 81 MG Tablet PO (09:22)
[2021-04-04] MEDS: Ascorbic Acid 500 MG Tablet 250 MG PO ×2 (09:23→17:54)
[2021-04-04 11:06] LABS: Bedside Glucose 191 mg/dL (70-110)
[2021-04-04] MEDS: NYSTATIN 500,000 UNIT/5 ML UDC 500000 UNIT PO ×3 (11:30→23:07)
[2021-04-04] MEDS: Acetaminophen 325 MG Tablet 650 MG PO (11:31)
[2021-04-04 14:42] VITALS: BP 137/78; PULSE 83; RESP 20; TEMP 36.6; O2SAT 96
--- NOTE | 2021-04-04 16:00 | CASEMGMT ---
Social Work requesting Palliative services. Referral made to [facility]. Spoke with pt about insurance NRD 04/06 and continued stay is not guaranteed. Son is unable to care for pt at home. Discussed alternative DC plan. Provided SNF list and explained Medicaid. Pt would like son to be involved in decision. SW agreed. Care plan meeting tomorrow. SW to continue to follow. Diane Garrett, BATTERY ASSEMBLER PLASTIC ELECTRIC BLANKET PACKER
--- NOTE | 2021-04-04 16:04 | PCA ---
Faxed clinical information to [facility] for the prior auth for CT SCAN. Case # [id number]. Phone # . Fax # .
[2021-04-04 16:35] LABS: Bedside Glucose 132 mg/dL (70-110)
[2021-04-04] MEDS: guaiFENesin 600 MG Tablet PO (17:55)
[2021-04-04] MEDS: MELATONIN 10 MG TABLET 5 MG PO (17:55)
[2021-04-04] MEDS: Senna/Docusate Sodium 1 Tablet 2 TABLET PO (17:56)
--- NOTE | 2021-04-04 18:07 | NURSING ---
pt coughing stated having trouble swallowing,hearing a lot of phlegm. suction pt out till pt was comfortable and not gaging any more. rn aware.
[2021-04-04 21:46] LABS: Bedside Glucose 136 mg/dL (70-110)
[2021-04-04] MEDS: Menthol/Lanolin/Calamine/Znox 113 GM Tube 1 APPLIC TOPICAL (23:08)
[2021-04-04] MEDS: Atorvastatin Calcium 40 MG Tablet PO (23:08)
[2021-04-04 23:22] VITALS: PULSE 87; RESP 16; O2SAT 98
--- NOTE | 2021-04-05 02:22 | NURSING ---
Received fax at this time for notice of approval for CT of Cervical Spine w/out contrast and CT lumbar spine w/out contrast.. Authorization Number: [id number].
[2021-04-05 03:24] VITALS: BP 149/92; PULSE 85; RESP 14; TEMP 36.7; O2SAT 97
[2021-04-05] MEDS: oxyCODONE 5 MG Tablet 10 MG PO ×4 (03:28→20:40)
[2021-04-05] MEDS: Enoxaparin 40 MG/0.4 ML Syringe SC (05:16)
[2021-04-05] MEDS: Senna/Docusate Sodium 1 Tablet 2 TABLET PO ×2 (05:16→17:40)
[2021-04-05] MEDS: Polyethylene Glycol 3350 17 GM PACKET PO (05:16)
[2021-04-05] MEDS: Menthol/Lanolin/Calamine/Znox 113 GM Tube 1 APPLIC TOPICAL ×2 (05:17→20:40)
[2021-04-05] MEDS: guaiFENesin 600 MG Tablet PO ×2 (05:17→17:41)
[2021-04-05] MEDS: NYSTATIN 500,000 UNIT/5 ML UDC 500000 UNIT PO (05:17)
[2021-04-05] MEDS: Baclofen 10 MG Tablet 5 MG PO ×2 (05:17→17:36)
[2021-04-05 06:46] LABS: Bedside Glucose 121 mg/dL (70-110)
--- NOTE | 2021-04-05 09:38 | NURSING ---
Upon entering room, pt seen coughing and unable to clear secretions. Nasal cannula was up up on forehead and pt stating at 89% on RA. 2L o2 reapplied and pt's SPO2 recovered to 91% but pt still appeared to be stressed in clearing secretions. Pt suctioned with Yankauer catheter and outcome effective. Pt thanked this nurse and RN was updated.
--- NOTE | 2021-04-05 09:44 | NURSING ---
Racing Driver Pilar requested order for El BID order entered.
[2021-04-05 10:00] VITALS: O2SAT 98
[2021-04-05 11:06] LABS: Bedside Glucose 118 mg/dL (70-110)
[2021-04-05 11:26] VITALS: O2SAT 99
[2021-04-05] MEDS: Acetaminophen 325 MG Tablet 650 MG PO ×3 (12:19→23:20)
--- NOTE | 2021-04-05 12:23 | CON.PCM.PA_ITS ---
Assessment & Plan Assessment/Plan (1) Physical debility: (2) Low back pain: QUALIFIERS: Chronicity: unspecified Back pain laterality: bilateral Sciatica presence: with sciatica Sciatica laterality: bilateral sciatica Qualified Code(s): M54.42 - Lumbago with sciatica, left side; M54.41 - Lumbago with sciatica, right side (3) Myelopathy: (4) Muscle spasm: (5) COPD (chronic obstructive pulmonary disease): QUALIFIERS: COPD type: unspecified COPD Qualified Code(s): J44.9 - Chronic obstructive pulmonary disease, unspecified PLAN: 69-year-old male with multiple comorbidities, recent frequent hospitalizations secondary to UTI and cervical cord compression with myelopathy and myelomalacia. Recent cervical surgery. Seen today for palliative care consultation secondary to chronic pain and overall debility. ?oxycodone increased 5/10 to 10 mg every 4 hours PRN and scheduled Tylenol 650 mg every 6 hours. Also baclofen 5 mg BID. Would like to see how much oxycodone he is utilizing in the next 2 days or so and make adjustments to his pain regimen at that time. Continue with bowel protocol with PRNbisacodyl, daily MiraLAX, and Senokot 2 tabs BID. ?On zinc and El for assistance with wound healing. Patient has malnutrition and significant debility, will likely require extended course of therapy. I suspect he will also require ECF, however has signed out AMA at [facility]. ?Patient unwilling to specify if he would be interested in palliative care at this time, states he is overwhelmed. We will have our liaison come out and talk with him in a couple of days to answer any further questions or concerns he may have. In the meantime, I will continue to follow while in TCU. ?As far as his COPD goes, does not appear to be in acute exacerbation but would follow closely. Thank you for the opportunity to participate in this patient's care, please do not hesitate to contact [facility] with any further questions or concerns. Palliative direct line is [phone]. We will have RN or liasion follow up to discuss palliative services further. The patient will need to establish with a primary care physician if we are to follow him as an outpatient, with the exception if he is discharged to a senior living. However, if he ends up going home, he will need to have an established PCP. I did discuss with psychosocial rehabilitation counselor on TCU. Greater than 50% of F2F visit dedicated to education and counseling of palliative care services, medications, comorbid conditions and potential assistance with management, and plan of care moving forward. Start time:1115 End time:1148 HPI Consult Data Date of Consult: 04/05/21 HPI Narrative HPI Narrative: FRAN GUZMAN, is a 69 M who presented initially to [facility] in December 2020 with difficulty walking and cervical myelopathy, as well as right leg paralysis. He then presented back to the hospital 03/02/2021 with altered mental status and unresponsiveness. Patient had signed himself out AMA from [facility] where he was undergoing inpatient rehab services, was then living with his son. He was admitted with probable acute encephalopathy secondary to UTI. X-rays were done of his back due to chronic low back pain, showed degenerative disc disease and multilevel's. He was treated with as needed gabapentin, Ultram, and methocarbamol. He was then transferred to the transitional care unit for further rehab 03/07/21. Patient then developed progressive weakness of bilateral upper and lower extremities, MRI cervical spine shows severe cervical spinal stenosis, myelopathy, myelomalacia, and cord compression. He was sent to the ED for further evaluation, which then transferred him to [facility]. Neurosurgery performed C2 dome osteotomy, C3-4 laminectomy, C2-5 instrumented fusion with screws and rods, posterior lateral arthrodesis. He then returned to the transitional care unit 04/01/2021 for further rehab. Patient currently on Medrol taper, Flexeril 10 mg 3 times a day as needed, Tylenol 1 g every 6 hours as needed for mild to moderate pain, and oxycodone 5 mg every 6 hours as needed for moderate to severe pain. He does have a bowel regimen in place. Patient reports he never really took anything for his chronic neck and back pain at home, if anything he took aspirin. He has been on multiple narcotics for his chronic pain, including Dixon and Percocet. States Percocet worked if he was having severe pain. He is not sure if he was on oxycodone in the past. Dixon was ineffective. Patient reports his pain is severe most days. He is never pain-free. Has significant numbness and tingling to bilateral lower extremities and sometimes upper extremities. He is unable to use his arms to feed himself. Patient states he is very overwhelmed with his current health situation. He is taking melatonin 5 mg at 6:00 for assistance with insomnia. Also has oral thrush and is on nystatin. Duo nebs are ordered every 6 hours as needed for shortness of breath or wheezing. [facility] Medical History Cervical myelopathy COPD (chronic obstructive pulmonary disease) Encephalopathy Home Medications sennosides-docusate sodium [Senna-S] 2 tab PO DAILY 03/21/21 [History Last Taken 03/21/21 06:00] acetaminophen 650 mg PO Q6H 04/01/21 [History Last Taken Unknown] amoxicillin-pot clavulanate 1 tab PO Q12H 04/01/21 [History Last Taken Unknown] ascorbic acid (vitamin C) 250 mg PO BID 04/01/21 [History Last Taken Unknown] aspirin 81 mg PO DAILY 04/01/21 [History Last Taken Unknown] atorvastatin 40 mg PO QHS 04/01/21 [History Last Taken Unknown] cyclobenzaprine 10 mg PO TID PRN 04/01/21 [History Last Taken Unknown] docusate sodium 100 mg PO BID 04/01/21 [History Last Taken Unknown] heparin (porcine) 5,000 unit SUBCUT Q8H 04/01/21 [History Last Taken Unknown] melatonin 5 mg PO DAILY@1800 04/01/21 [History Last Taken Unknown] methylprednisolone [Methylprednisone] 4 mg PO DAILY 04/01/21 [History Last Taken Unknown] methylprednisolone [Methylprednisone] 8 mg PO DAILY 04/01/21 [History Last Taken Unknown] multivitamin with minerals [Multiple Vitamin-Minerals] 1 tab PO DAILY 04/01/21 [History Last Taken Unknown] oxycodone 5 mg PO Q6H PRN 04/01/21 [History Last Taken Unknown] zinc sulfate 220 mg PO DAILY 04/01/21 [History Last Taken Unknown] Allergy/AdvReac Type Severity Reaction Status Date / Time No Known Allergies Allergy Verified 03/21/21 13:07 Surgical History H/O neck surgery History of back surgery History of cervical spinal arthrodesis Social History household members: family and children Smoking Status: Former smoker alcohol intake: current details: Occasional ROS Constitutional Constitutional: Reports as per HPI, fatigue, malaise, poor appetite and weakness Eyes Eyes: Denies change in vision ENT HEENT: Reports dry mouth; Denies sinus pain or sore throat Cardiovascular Cardiovascular: Reports dyspnea on exertion; Denies chest pain Respiratory/Chest Respiratory/Chest: Denies cough or shortness of breath at rest Gastrointestinal Gastrointestinal: Reports dyspepsia; Denies abdominal pain or nausea Genitourinary Genitourinary: Reports difficulty urinating and dribbling Musculoskeletal Musculoskeletal: Reports back pain, difficulty walking, extremity pain, muscle weakness, myalgias, neck pain, radiating pain into limb and stiffness; Denies tremors Integumentary Integumentary: Reports wounds Neurologic Neurologic: Reports numbness, radicular pain and other Details: significant UE and LE ongoing weakness ; Denies abnormal speech Psychiatric Psychiatric: Reports anxiety and hopelessness Endocrine Endocrinology: Reports none Hematologic/Lymphatic Hematologic/Lymphatic: Reports anemia and easy bruising Allergic/Immunologic Allergic/Immunologic: Reports none Physical Exam Const alert and oriented x3 Constitutional Narrative: cachectic, anxious General Appearance: cooperative; Negative for well kempt or lethargic Orientation / Consciousness: awake, oriented to person, oriented to place and oriented to time Nutritional Appearance: cachectic HEENT normocephalic and head/scalp atraumatic Neck supple General: trachea midline Resp normal respiratory effort Effort and Inspection: able to speak in complete sentences Auscultation: wheezes expiratory wheezes (faint, scattered) and diminished lung sounds Cardio regular rate, regular rhythm, S1 normal heart sound and S2 normal heart sound GI soft to palpation and non-tender Auscultation: normoactive bowel sounds Psych Attitude: withdrawn and evasive Mood & Affect: depressed and anxious Insight: fair Judgement: fair
[2021-04-05 14:39] VITALS: BP 156/85; PULSE 82; RESP 16; TEMP 36.4; O2SAT 98
--- NOTE | 2021-04-05 15:25 | CASEMGMT ---
Social Work IDT met with patient for care plan meeting. Son did not answer phone. Discussed pt's level of assist with therapy and nursing. Pt is being cotreated PT/OT, dependent for all ADLS. ST working with pt on swallowing and exercises. He is currently a total feed d/t to severe UE weakness. Pt has poor appetite but accepting of ensure. Pt remains in isolation 04/05, has tay, and on 2L of O2 which is new. Explained insurance NRD 04/05 and continued stay is not guaranteed. Pt agreeable to complete Medicaid application. SW to assist. Will continue to attempt to speak with son. Son returned SW phone call. Son states he is home with the flu. Explained for son to stay home and then staff can revisit allowing compassionate care visits. began to explain updates from care plan meeting however son getting very angry, swearing, frustrated about the condition his dad is in and why have the surgery if he isn't better. Son stated fuck this, I'm coming in to see my dad. I'm done with this conversation. And ended phone call. Alerted compressor battery pellets and nurse's station to not allow son to enter hospital d/t illness. SW to continue to follow. Diane Garrett, ROVING CHANGER BUY BOAT OPERATOR
[2021-04-05 16:35] LABS: Bedside Glucose 205 mg/dL (70-110)
[2021-04-05] MEDS: Ascorbic Acid 500 MG Tablet 250 MG PO (17:40)
[2021-04-05] MEDS: MELATONIN 10 MG TABLET 5 MG PO (17:41)
[2021-04-05] MEDS: Juven (unflavored) Packet 1 PACKET PO (17:42)
[2021-04-05] MEDS: Atorvastatin Calcium 40 MG Tablet PO (20:40)
[2021-04-06 00:06] LABS: Bedside Glucose 134 mg/dL (70-110)
[2021-04-06] MEDS: Senna/Docusate Sodium 1 Tablet 2 TABLET PO ×2 (04:15→17:29)
[2021-04-06] MEDS: oxyCODONE 5 MG Tablet 10 MG PO ×4 (04:15→20:12)
[2021-04-06] MEDS: Acetaminophen 325 MG Tablet 650 MG PO ×3 (04:16→17:27)
[2021-04-06] MEDS: guaiFENesin 600 MG Tablet PO ×2 (04:17→17:30)
[2021-04-06] MEDS: Baclofen 10 MG Tablet 5 MG PO ×2 (04:17→17:26)
[2021-04-06] MEDS: Menthol/Lanolin/Calamine/Znox 113 GM Tube 1 APPLIC TOPICAL ×2 (04:21→20:13)
[2021-04-06 04:22] VITALS: BP 151/85; PULSE 78; RESP 18; TEMP 36.4; O2SAT 95
[2021-04-06 06:41] LABS: Bedside Glucose 182 mg/dL (70-110)
[2021-04-06 08:10] VITALS: O2SAT 96
[2021-04-06] MEDS: Aspirin E.C. 81 MG Tablet PO (08:19)
[2021-04-06] MEDS: Multivitamins,Ther W-Minerals Tablet 1 TABLET PO (08:19)
[2021-04-06] MEDS: Ascorbic Acid 500 MG Tablet 250 MG PO ×2 (08:20→17:30)
[2021-04-06 10:51] LABS: Bedside Glucose 263 mg/dL (70-110)
--- NOTE | 2021-04-06 10:55 | PCA ---
Patient ate 6 bites of oatmeal for breakfast, drank 240 of coffee
[2021-04-06 11:45] VITALS: PULSE 73; RESP 24; O2SAT 98
[2021-04-06 14:16] VITALS: BP 111/75; PULSE 73; RESP 22; TEMP 35.7; O2SAT 100
[2021-04-06 16:10] LABS: Bedside Glucose 111 mg/dL (70-110)
[2021-04-06] MEDS: MELATONIN 10 MG TABLET 5 MG PO (17:30)
[2021-04-06] MEDS: Atorvastatin Calcium 40 MG Tablet PO (20:12)
[2021-04-06 21:41] LABS: Bedside Glucose 131 mg/dL (70-110)
[2021-04-07] MEDS: Acetaminophen 325 MG Tablet 650 MG PO ×5 (00:47→23:24)
[2021-04-07] MEDS: oxyCODONE 5 MG Tablet 10 MG PO ×3 (00:50→15:28)
[2021-04-07 04:41] VITALS: BP 169/86; PULSE 84; RESP 16; TEMP 36.5; O2SAT 98
[2021-04-07] MEDS: Menthol/Lanolin/Calamine/Znox 113 GM Tube 1 APPLIC TOPICAL ×2 (04:44→22:04)
[2021-04-07] MEDS: Baclofen 10 MG Tablet 5 MG PO ×2 (04:47→18:17)
[2021-04-07] MEDS: Senna/Docusate Sodium 1 Tablet 2 TABLET PO ×2 (04:48→18:18)
[2021-04-07] MEDS: guaiFENesin 600 MG Tablet PO ×2 (04:48→18:19)
[2021-04-07] MEDS: Enoxaparin 40 MG/0.4 ML Syringe SC (04:49)
[2021-04-07 06:26] LABS: Bedside Glucose 181 mg/dL (70-110)
[2021-04-07] MEDS: Aspirin E.C. 81 MG Tablet PO (08:36)
[2021-04-07] MEDS: Multivitamins,Ther W-Minerals Tablet 1 TABLET PO (08:36)
[2021-04-07] MEDS: Ascorbic Acid 500 MG Tablet 250 MG PO ×2 (08:36→18:16)
[2021-04-07] MEDS: guaiFENesin Dm 10 ML UDC PO (08:43)
[2021-04-07] MEDS: Losartan Potassium 100 MG Tablet PO (08:46)
[2021-04-07 11:10] LABS: Bedside Glucose 154 mg/dL (70-110)
[2021-04-07 11:16] VITALS: PULSE 70; RESP 22; O2SAT 72
[2021-04-07] MEDS: Polyethylene Glycol 3350 17 GM PACKET PO (12:05)
--- NOTE | 2021-04-07 13:10 | NURSING ---
Was asked to see patient for pressure injury to the right hip. This nurse had been following patient prior to patient being transferred to another hospital. Pt is currently up in the chair and is refusing for this nurse to assess hips and buttocks at this time. Pt states I just got comfortable in the chair and they just checked them. Will attempt to reassess as another time when patient is in bed. Pt denies further needs at this time.
--- NOTE | 2021-04-07 13:36 | MDS.RN ---
completed pain interview for tiburcio 04/08/21
[2021-04-07 15:07] VITALS: O2SAT 92
[2021-04-07 15:27] VITALS: BP 110/73; PULSE 79; RESP 18; TEMP 36.2; O2SAT 99
[2021-04-07] MEDS: LORazepam 0.5 MG Tablet PO (15:29)
[2021-04-07 16:40] LABS: Bedside Glucose 113 mg/dL (70-110)
[2021-04-07] MEDS: MELATONIN 10 MG TABLET 5 MG PO (18:18)
[2021-04-07] MEDS: BACITRACIN 15 GM Tube 1 APPLIC TOPICAL (18:19)
[2021-04-07 21:50] LABS: Bedside Glucose 146 mg/dL (70-110)
[2021-04-07] MEDS: Atorvastatin Calcium 40 MG Tablet PO (22:04)
--- NOTE | 2021-04-08 02:34 | PCA ---
Pt declining to wash up. em
[2021-04-08] MEDS: oxyCODONE 5 MG Tablet 10 MG PO ×5 (03:56→20:54)
[2021-04-08 04:00] VITALS: BP 151/99; PULSE 89; RESP 20; O2SAT 98
[2021-04-08] MEDS: Senna/Docusate Sodium 1 Tablet 2 TABLET PO ×2 (04:03→17:21)
[2021-04-08] MEDS: Enoxaparin 40 MG/0.4 ML Syringe SC (04:03)
[2021-04-08] MEDS: Acetaminophen 325 MG Tablet 650 MG PO ×3 (04:04→17:20)
[2021-04-08] MEDS: Baclofen 10 MG Tablet 5 MG PO ×2 (04:04→17:19)
[2021-04-08] MEDS: Losartan Potassium 100 MG Tablet PO (04:04)
[2021-04-08] MEDS: guaiFENesin 600 MG Tablet PO (04:04)
[2021-04-08] MEDS: Polyethylene Glycol 3350 17 GM PACKET PO (04:13)
[2021-04-08] MEDS: BACITRACIN 15 GM Tube 1 APPLIC TOPICAL (04:13)
[2021-04-08] MEDS: Menthol/Lanolin/Calamine/Znox 113 GM Tube 1 APPLIC TOPICAL ×2 (04:14→20:50)
[2021-04-08 06:30] LABS: Bedside Glucose 159 mg/dL (70-110)
[2021-04-08] MEDS: Aspirin E.C. 81 MG Tablet PO (08:10)
[2021-04-08] MEDS: Multivitamins,Ther W-Minerals Tablet 1 TABLET PO (08:10)
[2021-04-08] MEDS: Ascorbic Acid 500 MG Tablet 250 MG PO (08:11)
[2021-04-08 11:06] LABS: Bedside Glucose 208 mg/dL (70-110)
--- NOTE | 2021-04-08 13:12 | NURSING ---
This nurse was about to administer suppository d/t last bm 04/03. This nurse was preparing pt to receive suppository and pt had already been incontinent of large soft bowel movement. pt then refused suppository.
--- NOTE | 2021-04-08 13:20 | PCA ---
This CONCRETE PRECAST MOULDER and OFFICE RENTAL CLERK Selene provided igor/cath care after bowel movement. After we were done. I attempted to assist patient with lunch tray. patient said yes he would like help. Patient would not take one bite for me. Offered 3X. Told me to just leave the tray in the room and that he would eat later. Will try again later.
[2021-04-08 13:33] VITALS: O2SAT 98
--- NOTE | 2021-04-08 13:42 | NURSING ---
[place] removed today per order, incision site remains well approximated
[2021-04-08 14:17] VITALS: BP 91/58; PULSE 62; RESP 20; TEMP 36.4; O2SAT 93
[2021-04-08 16:35] LABS: Bedside Glucose 154 mg/dL (70-110)
[2021-04-08] MEDS: MELATONIN 10 MG TABLET 5 MG PO (17:21)
[2021-04-08] MEDS: Atorvastatin Calcium 40 MG Tablet PO (20:54)
[2021-04-08 21:31] LABS: Bedside Glucose 130 mg/dL (70-110)
[2021-04-09] MEDS: oxyCODONE 5 MG Tablet 10 MG PO ×5 (00:51→20:31)
[2021-04-09] MEDS: Acetaminophen 325 MG Tablet 650 MG PO (00:51)
[2021-04-09 04:47] VITALS: BP 114/60; PULSE 78; RESP 16; TEMP 36.6; O2SAT 94
[2021-04-09] MEDS: Baclofen 10 MG Tablet 5 MG PO ×2 (04:52→18:05)
[2021-04-09] MEDS: Losartan Potassium 100 MG Tablet PO (04:53)
[2021-04-09] MEDS: guaiFENesin 600 MG Tablet PO (04:53)
[2021-04-09] MEDS: BACITRACIN 15 GM Tube 1 APPLIC TOPICAL (04:54)
[2021-04-09] MEDS: Menthol/Lanolin/Calamine/Znox 113 GM Tube 1 APPLIC TOPICAL ×2 (04:54→20:34)
[2021-04-09] MEDS: Enoxaparin 40 MG/0.4 ML Syringe SC (04:59)
[2021-04-09 06:21] LABS: Bedside Glucose 126 mg/dL (70-110)
[2021-04-09 06:56] LABS: Absolute Lymphocyte Count 2.66 X10^3/uL (0.83-4.51); Absolute Neutrophil Count 4.7 X10^3/uL (2.0-7.7); Basophil# 0.04 X10^3/uL; Basophil% 0.5 % (0-1); Eosinophil# 0.32 X10^3/uL; Eosinophils% 3.7 % (0-5); Hematocrit 40.7 % (40-54); Hemoglobin 13.4 g/dL (13.0-16.5); Lymphocyte # 2.66 X10^3/ul (0.83-4.51); Lymphocyte % 31.1 % (19-41); Mean Corp Hgb Conc 32.9 g/dL (32-36); Mean Corpuscular Hgb 28.9 pg (27.0-32.0); Mean Corpuscular Volume 87.9 fL (80-94); Mean Platelet Vol. 10.5 fl (6.2-12.0); Monocyte# 0.86 X10^3/uL; NRBC Flagged by Analyzer 0 % (0-5); Neutrophil # 4.66 X10^3/uL (2.7-7.7); Neutrophil % 54.5 % (47-70); Platelet Count 267 K/mm3 (150-450); RBC Distribution Width CV 14.4 % (11.6-14.6); RBC Distribution Width SD 45.8 fl (35.1-43.9); Red Blood Count 4.63 M/mm3 (4.6-6.2); White Blood Count 8.6 K/mm3 (4.4-11.0)
[2021-04-09 07:15] LABS: Anion Gap 4 (5-15); BUN 19 mg/dL (7-18); BUN/Creat Ratio 33.5 RATIO (10-20); Calcium,Total 9.1 mg/dL (8.5-10.1); Chloride 94 mmol/L (98-107); Creatinine, Serum 0.57 mg/dL (0.70-1.30); EST Glomerular Filtration Rate 152 mL/min (>60); Est Glom Filt Rate - Afr Amer 184 mL/min (>60); Estimated Creatinine Clearance 59.79 ml/min; Glucose 115 mg/dL (74-106); Potassium 4.3 mmol/L (3.5-5.1); Sodium Level 134 mmol/L (136-145)
[2021-04-09 07:22] VITALS: O2SAT 98
[2021-04-09] MEDS: LORazepam 0.5 MG Tablet PO ×2 (09:14→20:32)
[2021-04-09 10:00] VITALS: O2SAT 98
[2021-04-09 10:36] LABS: Bedside Glucose 153 mg/dL (70-110)
[2021-04-09 13:53] VITALS: BP 115/69; PULSE 84; RESP 20; TEMP 36.6; O2SAT 94
--- NOTE | 2021-04-09 14:26 | NURSING ---
This nurse talked with son Benny today and gave update, later on this nurse offered to help pt call and talk to son, pt refused at this time stating not right now my neck hurts and I don't feel like talking on the phone, maybe another time.
--- NOTE | 2021-04-09 14:54 | PCA ---
Lauren and i preformed incont. care on pt and turned/repostioned him in bed, lauren offered pt to put his heel boots on, pt refused
[2021-04-09 16:25] LABS: Bedside Glucose 112 mg/dL (70-110)
[2021-04-09] MEDS: MELATONIN 10 MG TABLET 5 MG PO (18:06)
[2021-04-09] MEDS: Atorvastatin Calcium 40 MG Tablet PO (20:31)
--- NOTE | 2021-04-09 20:57 | PCA ---
this supervisor hot dip tinning went in to asked pt if he was ready to get washed up pt refused and said he didnt want to wash up till morning reported to nurse
[2021-04-09 21:51] LABS: Bedside Glucose 146 mg/dL (70-110)
--- NOTE | 2021-04-10 00:25 | PCA ---
Pt finally let us do cath care jordy
[2021-04-10] MEDS: oxyCODONE 5 MG Tablet 10 MG PO ×5 (01:29→21:30)
[2021-04-10 04:28] VITALS: BP 93/58; PULSE 86; RESP 16; TEMP 36.7; O2SAT 90
[2021-04-10] MEDS: Polyethylene Glycol 3350 17 GM PACKET PO (05:52)
[2021-04-10] MEDS: Senna/Docusate Sodium 1 Tablet 2 TABLET PO ×2 (05:52→17:01)
[2021-04-10] MEDS: Baclofen 10 MG Tablet PO ×3 (05:52→19:55)
[2021-04-10] MEDS: guaiFENesin 600 MG Tablet PO ×2 (05:52→17:00)
[2021-04-10] MEDS: Enoxaparin 40 MG/0.4 ML Syringe SC (05:53)
[2021-04-10] MEDS: Menthol/Lanolin/Calamine/Znox 113 GM Tube 1 APPLIC TOPICAL ×2 (05:54→19:56)
[2021-04-10] MEDS: BACITRACIN 15 GM Tube 1 APPLIC TOPICAL ×2 (05:58→17:07)
[2021-04-10 06:21] LABS: Bedside Glucose 116 mg/dL (70-110)
--- NOTE | 2021-04-10 09:00 | NURSING ---
wound photo: right hip
--- NOTE | 2021-04-10 09:01 | NURSING ---
skin photo: left hip
[2021-04-10] MEDS: Multivitamins,Ther W-Minerals Tablet 1 TABLET PO (09:27)
[2021-04-10] MEDS: Ascorbic Acid 500 MG Tablet 250 MG PO ×2 (09:27→16:58)
[2021-04-10] MEDS: Aspirin E.C. 81 MG Tablet PO (09:28)
--- NOTE | 2021-04-10 09:43 | NURSING ---
SERGIORN/WOUND NURSE IN TO SEE PT. SEE ORDERS.
[2021-04-10 14:50] VITALS: O2SAT 96
[2021-04-10] MEDS: LORazepam 0.5 MG Tablet PO ×2 (14:53→21:22)
--- NOTE | 2021-04-10 15:16 | CPS ---
Patient refuses to be weaned from O2
--- NOTE | 2021-04-10 15:35 | CASEMGMT ---
Social Work Completed MELA application with pt. Submitted to [facility]. Encouraged pt to review SNF list to choose for alt. plan. Will continue to follow. Diane Garrett, CADET DECK RIBBING MACHINE OPERATOR
[2021-04-10 15:46] VITALS: BP 88/57; PULSE 74; RESP 18; TEMP 36.4; O2SAT 93
--- NOTE | 2021-04-10 15:48 | PT ---
Pt supine in bed. Pt voicing frustration at his current situation and stated he does not want to be pushed doing therapy. Offered support to pt and encouraged pt to attempt sitting edge of bed first, then attempt transfers to recliner. Pt refusing. Pt stated he wants to rest. Repositioned pt in bed with assistance from OT due to pt stating he was uncomfortable. Pillows placed under pt's arms, under B legs and adjusted head of bed. Pt wanting to eat lunch at this time. Offered to assist pt to get into chair for lunch, but pt again refused. Pt demonstrated increased agitation with feeling weak and not being able to do for himself. Suggested pt participate with exercises to strengthen UE and LE. Pt again refused exercises. Pt then voicing frustration with food sliding off his tray. Pt was given Dycem for tray and food dishes placed on top of dycem to prevent them from sliding. Pt happy with this result but again refused to get out of bed.
--- NOTE | 2021-04-10 16:53 | CHAPLAIN ---
Type of Pastoral Visit ___ Initial Visit _x__ Follow-up Visit ___ On-call Visit ___ General Patient Visit ___ Spiritual Assessment ___ Family Conference ___ Bereavement ___ Rapid Response ___ Code Blue ___ Other (describe below) Pastoral Care Referral From _x__ Patient ___ Family ___ Nurse ___ Physician ___ Piecer ___ Ornamental Metal Worker Helper ___ Other (describe below) Sacrament/Intervention _x__ Active listening ___ Anointing ___ Congregational ___ Bereavement ___ Communion ___ Imani exploration ___ ___ Life review _x__ Prayer ___ Reconciliation ___ Sacrament of Sick _x__ Supportive presence ___ Wedding ___ Other (describe below) Pastoral Comments patient expresses his grumpy side; not sure if patient is understanding his situation and is telling the full story about himself; he does welcome visit and prayer
[2021-04-10] MEDS: MELATONIN 10 MG TABLET 5 MG PO (17:00)
--- NOTE | 2021-04-10 19:32 | NURSING ---
pt having trouble clearing thick sputum from throat. this nurse suctioned pt out till pt sounded and stated it was better. rn aware.
[2021-04-10] MEDS: Atorvastatin Calcium 40 MG Tablet PO (19:57)
--- NOTE | 2021-04-10 21:44 | NURSING ---
Pt w/ moist cough. This nurse enters room. Box of tissues on the floor. Gave pt a tissue. Able to expectorate a small amount of medium yellow, thick sputum. Breathing eased but continues to use accessory muscles and is symmetrical w/ inspiration and exhalation. In no acute distress. Nasal cannula under chin. Offered to replace cannula into nares and refuses informing this nurse he will be able to replace at his convenience. Requested Valium and will inform nurse. Thinks BLE need repositioned. Legs extended. Offered to readjust pillow between legs and under knees and declines. Offered to place a pillow under ankles to float heels and also declines at this time. May consider pillow under ankles later in the shift.
--- NOTE | 2021-04-11 01:45 | NURSING ---
Pt called out asking to eat. This nurse warmed up food from dinner and applied some nice seasonings to flavor up food.Pt was up right and seated in bed eating fairly well with assistance and taking sips of his apple juice till he started to bring up copious amounts of mucous. Pt decided he was not going to eat anymore because he was, scared he is going to choke to . He states that is mainly the reason he does not eat other than the bland food. He ate about 25% of his dinner. Pt relaxing now in bed.
[2021-04-11] MEDS: oxyCODONE 5 MG Tablet 10 MG PO ×4 (01:57→22:55)
[2021-04-11 05:00] VITALS: BP 138/80; PULSE 87; RESP 18; TEMP 36.5; O2SAT 90
[2021-04-11] MEDS: guaiFENesin 600 MG Tablet PO ×2 (06:36→17:50)
[2021-04-11] MEDS: Enoxaparin 40 MG/0.4 ML Syringe SC (06:36)
[2021-04-11] MEDS: Polyethylene Glycol 3350 17 GM PACKET PO (06:37)
[2021-04-11] MEDS: Baclofen 10 MG Tablet PO ×3 (06:37→22:54)
[2021-04-11] MEDS: Senna/Docusate Sodium 1 Tablet 2 TABLET PO ×2 (06:37→17:50)
[2021-04-11] MEDS: Losartan Potassium 100 MG Tablet PO (06:37)
[2021-04-11] MEDS: Menthol/Lanolin/Calamine/Znox 113 GM Tube 1 APPLIC TOPICAL ×2 (06:37→22:53)
[2021-04-11] MEDS: BACITRACIN 15 GM Tube 1 APPLIC TOPICAL ×2 (06:37→17:48)
[2021-04-11 07:51] VITALS: O2SAT 91
[2021-04-11] MEDS: Multivitamins,Ther W-Minerals Tablet 1 TABLET PO (07:55)
[2021-04-11] MEDS: Ascorbic Acid 500 MG Tablet 250 MG PO ×2 (07:55→17:51)
[2021-04-11] MEDS: Aspirin E.C. 81 MG Tablet PO (07:55)
[2021-04-11] MEDS: LORazepam 0.5 MG Tablet PO ×2 (08:01→17:54)
[2021-04-11 13:00] VITALS: PULSE 78; RESP 18; O2SAT 98
[2021-04-11 13:49] VITALS: BP 101/63; PULSE 78; RESP 18; TEMP 36.6; O2SAT 98
[2021-04-11] MEDS: MELATONIN 10 MG TABLET 5 MG PO (17:50)
[2021-04-11] MEDS: Atorvastatin Calcium 40 MG Tablet PO (22:54)
[2021-04-12 05:00] VITALS: BP 150/91; PULSE 89; RESP 18; TEMP 36.5; O2SAT 90
[2021-04-12] MEDS: guaiFENesin 600 MG Tablet PO ×2 (05:13→17:57)
[2021-04-12] MEDS: Senna/Docusate Sodium 1 Tablet 2 TABLET PO ×2 (05:13→17:59)
[2021-04-12] MEDS: BACITRACIN 15 GM Tube 1 APPLIC TOPICAL (05:13)
[2021-04-12] MEDS: Baclofen 10 MG Tablet PO ×3 (05:13→21:54)
[2021-04-12] MEDS: Losartan Potassium 100 MG Tablet PO (05:13)
[2021-04-12] MEDS: Enoxaparin 40 MG/0.4 ML Syringe SC (05:13)
[2021-04-12] MEDS: Menthol/Lanolin/Calamine/Znox 113 GM Tube 1 APPLIC TOPICAL ×2 (05:13→21:53)
[2021-04-12] MEDS: Polyethylene Glycol 3350 17 GM PACKET PO (05:13)
[2021-04-12] MEDS: oxyCODONE 5 MG Tablet 10 MG PO ×3 (05:32→22:02)
[2021-04-12] MEDS: LORazepam 0.5 MG Tablet PO (07:52)
[2021-04-12 07:57] VITALS: O2SAT 93
[2021-04-12] MEDS: Ascorbic Acid 500 MG Tablet 250 MG PO ×2 (08:52→17:57)
[2021-04-12] MEDS: Multivitamins,Ther W-Minerals Tablet 1 TABLET PO (08:52)
[2021-04-12] MEDS: Aspirin E.C. 81 MG Tablet PO (08:52)
--- NOTE | 2021-04-12 09:47 | CASEMGMT ---
Social Work Attempted to discuss SNF choice. Pt declined to participate in conversation. Therapy entering room for tx. Provided another SNF list and told pt to review list with choices and SW to follow up later this date. Son does not want to participate in conversation either. Diane Garrett, GAS CHARGER HOSPITAL FELLOW
--- NOTE | 2021-04-12 10:50 | PCA ---
Valentino israel and i went into room at 10:45am to ask pt if he would like to return back to bed from the chair or if he was comfortable sitting in the chair at the moment pt stated i am fine in the chair, but i need repositioned in this damn chair Evelyn and i repositioned pt to his agreeable liking. pt asked for a pen with an eraser so he can work his smartphone. he stated i am just asking for it to help with therapy is that to much to ask i stated to pt not at all i will go out and get the pencil for you pt agreed an i exited room, got pencil gave it to pt.
[2021-04-12] MEDS: Acetaminophen 325 MG Tablet 650 MG PO ×2 (11:46→17:59)
--- NOTE | 2021-04-12 13:35 | NURSING ---
This nurse went to check on patient to see if he wanted to lay back down. Pt stated No, I would like to stay up for a while longer. call light in reach, pt denied needing any further assistance.
[2021-04-12 13:48] VITALS: BP 103/57; PULSE 73; RESP 16; TEMP 36.2; O2SAT 96
--- NOTE | 2021-04-12 14:11 | CASEMGMT ---
Addendum entered by Diane Garrett 04/13/21 11:31: [facility] does not have beds availability and [facility] (sister facility) is unable to accept. [facility] reviewing clinicals. Original Note: Social Work Spoke with patient to get DC plan. Pt expressed he would like to go home. SW validated wish but explained IDT is recommending SNF as son is unable to provide the necessary care for pt. Encouraged for pt to provide SNFs for SW to refer to. Pt requested [facility] and [facility]. Referrals made. Received Medicaid Pending #[id number]. Will await insurance outcome from 04/12. Diane Garrett, CHACHO GEEW
[2021-04-12] MEDS: MELATONIN 10 MG TABLET 5 MG PO (17:58)
--- NOTE | 2021-04-12 17:58 | PCA ---
AT 4:30pm pt up in chair, I asked the patient if he was ready to get back in the bed. pt stated i want to stay up in the chair till i eat supper. I was in room to assist pt with supper pt said i dont want to eat right now, save it for later. I returned to the room 15 minutes later and pt did eat a few bites of chicken tenders. Asked pt if he was ready to get back to bed since he has been up for awhile, pt agreed. This TIPPING MACHINE OPERATOR and TIPPING MACHINE OPERATOR Afia assisted pt back to bed, patient was c/o his legs hurting and that he shouldnt of sat up that long. Reminded patient that we have asked him several times to transfer back to the bed. Pt denies any of the sort.
--- NOTE | 2021-04-12 18:14 | NURSING ---
Pt states ativan does not work to calm his nerves. Pt says he has taken valium in the past and it was effective, Dr. Corona updated N.O. d/c ativan and start valium.
[2021-04-12] MEDS: diazePAM 5 MG Tablet PO (18:40)
[2021-04-12] MEDS: Sodium Chloride 0.65% 1 SPRAY SPRAY.BTL 2 SPRAY NASAL (21:52)
[2021-04-12] MEDS: Atorvastatin Calcium 40 MG Tablet PO (21:55)
[2021-04-12 22:21] VITALS: RESP 20; O2SAT 96
[2021-04-13] MEDS: oxyCODONE 5 MG Tablet 10 MG PO ×3 (06:48→21:31)
[2021-04-13] MEDS: BACITRACIN 15 GM Tube 1 APPLIC TOPICAL ×2 (06:49→18:27)
[2021-04-13] MEDS: Baclofen 10 MG Tablet PO ×3 (06:50→21:31)
[2021-04-13] MEDS: guaiFENesin 600 MG Tablet PO (06:50)
[2021-04-13] MEDS: Enoxaparin 40 MG/0.4 ML Syringe SC (06:50)
[2021-04-13] MEDS: Menthol/Lanolin/Calamine/Znox 113 GM Tube 1 APPLIC TOPICAL ×2 (06:50→23:00)
[2021-04-13] MEDS: Losartan Potassium 100 MG Tablet PO (06:50)
[2021-04-13 06:58] VITALS: BP 147/80; PULSE 72; RESP 20; TEMP 37.3; O2SAT 94
[2021-04-13 07:05] VITALS: O2SAT 92
--- NOTE | 2021-04-13 08:05 | MDS.RN ---
Information for the mds was obtained from review of the clinical record,interview of resident, staff, and direct observation of resident's care.
[2021-04-13] MEDS: Multivitamins,Ther W-Minerals Tablet 1 TABLET PO (09:24)
[2021-04-13] MEDS: Aspirin E.C. 81 MG Tablet PO (09:25)
[2021-04-13] MEDS: Ascorbic Acid 500 MG Tablet 250 MG PO (09:25)
--- NOTE | 2021-04-13 09:50 | NURSING ---
PT HAS STAGE 1 PRESSURE SORE TO RIGHT HEEL. MEPILEX APPLIED. RN AWARE.
[2021-04-13 10:00] VITALS: PULSE 80; RESP 20; O2SAT 93
[2021-04-13] MEDS: diazePAM 5 MG Tablet PO ×2 (11:08→18:33)
[2021-04-13 13:55] VITALS: BP 110/64; PULSE 80; RESP 16; TEMP 36.6; O2SAT 97
--- NOTE | 2021-04-13 14:30 | NURSING ---
THIS NURSE AND SOLVENT PROCESS EXTRACTOR OPERATOR CHANGED PT ATTENDS,CHANGED PT BED LINEN REPOSITION PT TO LEFT SIDE. HEELS UP. PT VERY DEMANDING AND COMPLAINING OF NOT WANTING TO BE HERE AT THIS HOSPITAL AND IT COST TO MUCH. ASKED PT IF HE WOULD LIKE TO TALK TO VIDEO GAMES STORYWRITER,PT STATED NO I ALREADY DID. RN AWARE.
--- NOTE | 2021-04-13 15:05 | CASEMGMT ---
Social Work [facility] has accepted pt. Spoke with pt and he is stating he wants to go home first to handle his affairs. Explained it is preferred to transfer directly to SNF. Pt refused and wants to go home. Explained SW will order DME and HHC for pt to DC home, if he changes his mind or wants to go to [facility], SW can assist. [place] [facility] [place], [place]2, w/c, BSC. [facility]/SN/[facility]/SW. Will schedule cot transport for DC home. Offered to contact son to update on DC plans - pt does not want SW calling son, he stated he will call son. SW to continue to follow. Plan; DC 04/16 home with services or [facility]. DANIEL Garrett, CHACHO CASTANEDA
--- NOTE | 2021-04-13 16:02 | CASEMGMT ---
Social Work Return call from [facility] and they are unable to accept pt as his care needs are greater than they can provide. TONYA Kevin
[2021-04-13] MEDS: MELATONIN 10 MG TABLET 5 MG PO (18:33)
--- NOTE | 2021-04-13 19:12 | DS.PCM_ITS ---
Providers Date of Admission: 04/01/21 Primary Care Physician: No Primary Care Phys Consultations 04/03/21 13:11 Consult: Pain Management Routine Consulting Provider: Ceci Dowell Reason for Consult: Pain from recent C3-C4 lami and C3-C5 fusion EMERGENT Consult: No MD Notified: Yes Date Notified:: 04/03/21 Time Notified: 13:12 Method of Notification: Verbal 04/06/21 10:38 Consult: Onc/Wound/traffic supervisor Routine Comment: Reason for Consult:: hip pressure injury Reason For Visit: C3-C4 LAMINECTOMY, C3-C5 FUSION, C2 OSTEOTOMY Diagnosis Discharge Diagnosis (1) Physical debility: Status: Acute Code(s): R53.81 - Other malaise (2) Low back pain: Status: Acute Code(s): M54.5 - Low back pain Qualifiers: Chronicity: unspecified Back pain laterality: bilateral Sciatica presence: with sciatica Sciatica laterality: bilateral sciatica Qualified Code(s): M54.42 - Lumbago with sciatica, left side; M54.41 - Lumbago with sciatica, right side (3) Myelopathy: Status: Acute Code(s): G95.9 - Disease of spinal cord, unspecified (4) Muscle spasm: Status: Acute Code(s): M62.838 - Other muscle spasm (5) COPD (chronic obstructive pulmonary disease): Status: Suspected Code(s): J44.9 - Chronic obstructive pulmonary disease, unspecified Qualifiers: COPD type: unspecified COPD Qualified Code(s): J44.9 - Chronic obstructive pulmonary disease, unspecified Medications at Discharge Home Medications sennosides-docusate sodium [Senna-S] 2 tab PO DAILY 03/21/21 ascorbic acid (vitamin C) 250 mg PO BID 04/01/21 aspirin 81 mg PO DAILY 04/01/21 melatonin 5 mg PO DAILY@1800 04/01/21 multivitamin with minerals [Multiple Vitamin-Minerals] 1 tab PO DAILY 04/01/21 acetaminophen [Tylenol] 650 mg PO Q6H #0 tab 04/13/21 atorvastatin 40 mg PO QHS 30 Days #30 tab 04/13/21 bacitracin zinc 1 applic TOPICAL BID 30 Days #45 g 04/13/21 baclofen 10 mg PO TID 30 Days #90 tab 04/13/21 dextromethorphan-guaifenesin 10 ml PO Q6H PRN PRN #0 ml 04/13/21 diazepam 5 mg PO 4X/DAY PRN PRN 30 Days #120 tab 04/13/21 guaifenesin [Mucus Relief ER] 600 mg PO BID #0 tab 04/13/21 losartan 100 mg PO DAILY 30 Days #30 tab 04/13/21 menthol-zinc oxide [Calmoseptine] 1 applic TOPICAL 0600,2200 #0 g 04/13/21 oxycodone 10 mg PO Q6H 7 Days #56 tab 04/13/21 polyethylene glycol 3350 17 g PO DAILY #0 ea 04/13/21 sodium chloride [Deep Sea Nasal] 2 spray NASAL TID PRN PRN #0 ml 04/13/21 Hospital Course Operations None Procedures None Summary of Care Provided Minutes Spent on Discharge: 35 Hospital Course: ?69 year old male with below past medical history hospitalized for 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 Discharge home with family 04/16/2021, Home Health Care PT/OT/ST/SN/CORTES/SW, [facility] Bed, Oxygen, Wheelchair, Bedside Commode. Physical Exam Const alert and oriented x3 General Appearance: cooperative HEENT normocephalic Eyes PERRL and EOMs intact bilaterally Neck supple, no JVD and no carotid bruits Resp normal respiratory effort, normal air movement and clear to auscultation bilaterally Cardio regular rate and regular rhythm GI normal to inspection, nondistended, normoactive bowel sounds, non-tender and non-distended Extremity normal capillary refill General Extremity: Negative for edema Skin no rashes or lesions noted General Skin Exam: no breakdown Neuro Neuro Narrative: Generalized weakness. Psych affect normal Appearance: appropriate ABG / Lab / Microbiology Data Result Diagrams: 04/09/21 06:42 04/09/21 06:42 D/C Instructions Discharge Diet: No restrictions Discharge Activity: Return to Normal Activity, May Shower and Use Walker Weight Bearing Status: Weight bearing as tolerated Call your doctor if you observe: Fever of 101 or Higher, Inability to urinate, Inability to have a bowel movement, Shortness of breath, Fainting spells, Chest pain, Calf discomfort and Uncontrolled pain Additional Instructions: Discharge home with family 04/16/2021, Home Health Care PT/OT/ST/SN/CORTES/SW, [facility] Bed, Oxygen, Wheelchair, Bedside Commode. Please Follow Up With: Dr. Corbett When: 1 week. Meaningful Use Info Meaningful Use Diagnoses (Choose all that apply): None applicable Discharge Plan Admission Admit Date/Time: 04/01/21 16:27 Primary Reason for Your Visit: Debility Attending Provider: Abel Corona Chi Primary Care Provider: Care Physician,No Primary Consulting Providers: Ceci Dowell Instructions Additional Instructions / Restrictions: Discharge home with family 04/16/2021, Home Health Care PT/OT/ST/SN/CORTES/SW, [facility] Bed, Oxygen, Wheelchair, Bedside Commode. Discharge Orders/Prescriptions Prescriptions: New acetaminophen [Tylenol] 325 mg Tablet 650 mg PO Q6H Qty: 0 RF: 0 polyethylene glycol 3350 17 gram Powder In Packet 17 g PO DAILY Qty: 0 RF: 0 dextromethorphan-guaifenesin 10-100 mg/5 mL Syrup 10 ml PO Q6H PRN PRN (Reason: COUGH/CONGESTION) Qty: 0 RF: 0 bacitracin zinc 500 unit/gram Ointment 1 applic topical BID 30 Days Qty: 45 RF: 0 baclofen 10 mg Tablet 10 mg PO TID 30 Days Qty: 90 RF: 0 losartan 100 mg Tablet 100 mg PO DAILY 30 Days Qty: 30 RF: 0 diazepam 5 mg Tablet 5 mg PO 4X/DAY PRN PRN (Reason: Anxiety) 30 Days Qty: 120 RF: 0 oxycodone 5 mg Tablet 10 mg PO Q6H 7 Days Qty: 56 RF: 0 sodium chloride [Deep Sea Nasal] 0.65 % Aerosol,[place] 2 spray NASAL TID PRN PRN (Reason: NASAL DRYNESS) Qty: 0 RF: 0 Calmoseptine 0.44-20.6 % Ointment 1 applic topical 0600,2200 Qty: 0 RF: 0 guaifenesin [Mucus Relief ER] 600 mg Tablet Extended Release 12hr 600 mg PO BID Qty: 0 RF: 0 Continued sennosides-docusate sodium [Senna-S] 8.6-50 mg Tablet 2 tab PO DAILY RF: 0 multivitamin with minerals [Multiple Vitamin-Minerals] Tablet 1 tab PO DAILY RF: 0 melatonin 5 mg Tablet 5 mg PO DAILY@1800 RF: 0 aspirin 81 mg Tablet,Delayed Release (Dr/Ec) 81 mg PO DAILY RF: 0 ascorbic acid (vitamin C) 250 mg Tablet 250 mg PO BID RF: 0 atorvastatin 40 mg Tablet 40 mg PO QHS 30 Days Qty: 30 RF: 0 Discontinued cyclobenzaprine 10 mg Tablet 10 mg PO TID PRN (Reason: Muscle Spasm) RF: 0 methylprednisolone [Methylprednisone] 4 mg Tablet 4 mg PO DAILY RF: 0 methylprednisolone [Methylprednisone] 4 mg Tablet 8 mg PO DAILY RF: 0 docusate sodium 100 mg Capsule 100 mg PO BID RF: 0 zinc sulfate 220 mg Capsule 220 mg PO DAILY RF: 0 oxycodone 5 mg Tablet 5 mg PO Q6H PRN (Reason: pain (6-10)) RF: 0 heparin (porcine) 5,000 unit/mL Syringe 5,000 unit SUBCUT Q8H RF: 0 amoxicillin-pot clavulanate 875-125 mg Tablet 1 tab PO Q12H RF: 0 acetaminophen 650 mg Tablet 650 mg PO Q6H RF: 0 Referrals / Follow Up: Ulices Corbett MD [STAFF PHYSICIAN] - In 1 Week Care Physician,No Primary [Primary Care Provider] - In 1 Week Disposition Disposition (needs filled in before D/C Order can be placed): Home Health Service
[2021-04-14] MEDS: diazePAM 5 MG Tablet PO ×2 (00:59→08:37)
[2021-04-14] MEDS: oxyCODONE 5 MG Tablet 10 MG PO ×4 (02:32→20:38)
[2021-04-14 04:44] VITALS: BP 149/77; PULSE 73; RESP 18; TEMP 36.1; O2SAT 92
[2021-04-14] MEDS: BACITRACIN 15 GM Tube 1 APPLIC TOPICAL (04:55)
[2021-04-14] MEDS: Losartan Potassium 100 MG Tablet PO (04:56)
[2021-04-14] MEDS: Menthol/Lanolin/Calamine/Znox 113 GM Tube 1 APPLIC TOPICAL ×2 (04:56→20:39)
[2021-04-14] MEDS: Baclofen 10 MG Tablet PO ×3 (04:57→20:38)
[2021-04-14] MEDS: Enoxaparin 40 MG/0.4 ML Syringe SC (04:57)
[2021-04-14] MEDS: Aspirin E.C. 81 MG Tablet PO (08:34)
[2021-04-14] MEDS: Ascorbic Acid 500 MG Tablet 250 MG PO ×2 (08:34→17:38)
[2021-04-14] MEDS: Multivitamins,Ther W-Minerals Tablet 1 TABLET PO (08:34)
--- NOTE | 2021-04-14 08:55 | NURSING ---
Resident educated on COVID-19 Vaccine. He does not want the vaccine.
[2021-04-14 11:05] VITALS: O2SAT 87; O2SAT 98
[2021-04-14] MEDS: Acetaminophen 325 MG Tablet 650 MG PO ×2 (13:04→17:40)
--- NOTE | 2021-04-14 13:23 | NURSING ---
Pt c/o left eye burning and feels like something is in it. Upon assessment left eye noted to be red and upper eye lid swollen. Eye irrigated with NSS per pt request and offered warm compress. Pt states it feels ok right now he thinks the irrigation helps and does not want a warm compress or any further intervention at this time.
--- NOTE | 2021-04-14 13:24 | CASEMGMT ---
BIMS and PHQ9 interview completed on this date for MDS assessment. TONYA Kevin
[2021-04-14 13:58] VITALS: BP 162/87; PULSE 72; RESP 18; TEMP 35.9; O2SAT 97
--- NOTE | 2021-04-14 14:20 | CASEMGMT ---
Addendum entered by Diane Garrett 04/14/21 15:17: [facility] denied pt. Also noted pt to not have PCP established. Spoke with pt and explained [facility] is not accepting due to too much care at home and no PCP is able to sign thus no one at home is able to assist with facilitating to SNF once home. Pt agreeable to tx to [facility] after much discussion of care needs. Pt requested SW contact son's. Lionel does not have voicemail set up and left detailed message with Benny. Rerouted transport destination, cancelled [facility]. Cancelled [facility] referral. Updated IDT. Spoke with Roxanna at [facility] - LOC needed. PASRR completed. Submitted LOC. Faxed Roxanna MELA application. Plan: DC to [facility] 04/16 Original Note: Social Work [facility] is able to accept pt and is attempting to submit for precert for MMO, if denied able to accept under Medicaid pending. Notified pt and pt still wants to go home. Requested to schedule transport. Scheduled cot transport through [facility] at 12 pm. SW referred to multiple [facility] agencies and all unable to accept. Still making referrals. [facility] and [facility] reviewing referral currently. [facility], [facility], [facility], [place], [place], [facility], [facility] all unable to accept. Referred to [facility] - left message with Juan Jose- as this is unsafe DC and not IDT recommendations. Son unable to properly care for pt r/t his own medical conditions. [facility] contacted SW that son is not allowing DME to be delivered until Saturday and requested SW to speak with son. Left message with son at 10 am and have not heard back. Updated [facility]. They will deliver Saturday. Diane Garrett, CHACHO CASTANEDA
--- NOTE | 2021-04-14 15:09 | PCM.TXEXTCAR ---
Diet 04/01/21 17:04 Diet: Regular - General Food consistency:: Soft & Bite Sized Liquid Consistency:: Regular/Thin Is pt able to select menu?: Yes Diet Comments: 8 oz EE w/ meals/ magic cup or Ensure pudding w/ meals. [employer] Routine Orders/Code Status Suppository Type: Dulcolax 10mg Suppository Frequency: Daily PRN Wound(s) POST NECK: Wound Type: Surgical Incision LEFT POST SHOULDER: Wound Type: Puncture PENIS: Wound Type: Pressure Injury Dressing Change: bacitracin cream BUTTOCKS: Wound Type: Pressure Injury Dressing Change: TAQUERIA RIGHT POST BACK: Wound Type: scabs SUHAIL ARMS/LEGS: Wound Type: scabs SUHAIL ARMS/HANDS: Wound Type: scab LEFT HEEL: Wound Type: Pressure Injury RIGHT HIP: Wound Type: Pressure Injury Dressing Change: mepilex 04/13/21 RIGHT LOWER BUTTUCK: Wound Type: Pressure Injury Dressing Change: TAQUERIA Left hip: Wound Type: Pressure Injury Dressing Change: mepilex 5 RIGHT HEEL: Wound Type: Pressure Injury Dressing Change: MEPILEX 04/13/21 Therapies Weight Bearing: Weight bearing as tolerated Extremity Affected:: Bilateral Lower Physical Therapy: Eval and Treat Occupational Therapy: Eval and Treat Speech Therapy: Eval and Treat Problem/Diagnosis (1) Physical debility: Status: Acute Comment: due to radicular pain and myelopathy (2) Low back pain: Status: Acute (3) Myelopathy: Status: Acute Comment: all extremities (4) Muscle spasm: Status: Acute (5) COPD (chronic obstructive pulmonary disease): Status: Suspected Allergies/Procedures Done in Hospital Allergies No Known Allergies Allergy (Verified 03/21/21 13:07) Procedures: None Type of Care/Length of Stay Estimated LOS: Convalescent Care Less Than 30 days Type of Care Needed: Skilled Rehab Potential: Fair Prognosis: Fair Additional Orders/Day of Discharge Day of Discharge: 04/16/21 Dietary and Speech Recommendations Dietitian Recommendations/Changes: Will continue to provide ensure enlive w/ meals (boost plus not on formulary) and magic cup or ensure pudding w/ meals. Will d/c order El bid to help w/ wound healing d/t res refusals. Will provide Ensure Enlive 4 oz 4x/day w/ medpass per res request. Speech Linguistic Eval Summary: Pt alert and oriented to self, , current month/year, location, and reason for admission. Pt's voice is soft and breathy although pt also in a great amount of pain and requiring O2 at this time. Pt states it takes him a great amount of effort to speak. Pt demonstrating no errors in word finding or comprehension difficulty at this time. Pt denies any changes in memory. Pt requesting eval be kept brief due to level of pain and increased effort to communicate. Follow Up Care Please follow up with your Primary Care Physician in: 1 week. Please Follow Up With: Dr. Corbett When: [phone] Please Follow Up With: Dr Reyez Neurosurgeon When: [phone] Please Follow Up With: Dr. Dowell When: The pain management [place] Discharge Plan Admission Admit Date/Time: 04/01/21 16:27 Primary Reason for Your Visit: Debility Attending Provider: Abel Corona Chi Primary Care Provider: Care Physician,No Primary Consulting Providers: Ceci Dowell Instructions Additional Instructions / Restrictions: Discharge home with family 04/16/2021, Home Health Care PT/OT/ST/SN/CORTES/SW, [facility] Bed, Oxygen, Wheelchair, Bedside Commode. Discharge Orders/Prescriptions Prescriptions: New acetaminophen [Tylenol] 325 mg Tablet 650 mg PO Q6H Qty: 0 RF: 0 polyethylene glycol 3350 17 gram Powder In Packet 17 g PO DAILY Qty: 0 RF: 0 dextromethorphan-guaifenesin 10-100 mg/5 mL Syrup 10 ml PO Q6H PRN PRN (Reason: COUGH/CONGESTION) Qty: 0 RF: 0 bacitracin zinc 500 unit/gram Ointment 1 applic topical BID 30 Days Qty: 45 RF: 0 baclofen 10 mg Tablet 10 mg PO TID 30 Days Qty: 90 RF: 0 losartan 100 mg Tablet 100 mg PO DAILY 30 Days Qty: 30 RF: 0 diazepam 5 mg Tablet 5 mg PO 4X/DAY PRN PRN (Reason: Anxiety) 30 Days Qty: 120 RF: 0 oxycodone 5 mg Tablet 10 mg PO Q6H 7 Days Qty: 56 RF: 0 sodium chloride [Deep Sea Nasal] 0.65 % Aerosol,[place] 2 spray NASAL TID PRN PRN (Reason: NASAL DRYNESS) Qty: 0 RF: 0 Calmoseptine 0.44-20.6 % Ointment 1 applic topical 0600,2200 Qty: 0 RF: 0 guaifenesin [Mucus Relief ER] 600 mg Tablet Extended Release 12hr 600 mg PO BID Qty: 0 RF: 0 Ensure High Protein Liquid 120 ml PO .qid 30 Days Qty: 29229 RF: 0 diazepam 5 mg tablet 5 mg PO Q6H Qty: 30 RF: 0 oxycodone 10 mg tablet 10 mg PO Q6H PRN (Reason: pain) 7 Days Qty: 28 RF: 0 Continued sennosides-docusate sodium [Senna-S] 8.6-50 mg Tablet 2 tab PO DAILY RF: 0 multivitamin with minerals [Multiple Vitamin-Minerals] Tablet 1 tab PO DAILY RF: 0 melatonin 5 mg Tablet 5 mg PO DAILY@1800 RF: 0 aspirin 81 mg Tablet,Delayed Release (Dr/Ec) 81 mg PO DAILY RF: 0 ascorbic acid (vitamin C) 250 mg Tablet 250 mg PO BID RF: 0 atorvastatin 40 mg Tablet 40 mg PO QHS 30 Days Qty: 30 RF: 0 Discontinued cyclobenzaprine 10 mg Tablet 10 mg PO TID PRN (Reason: Muscle Spasm) RF: 0 methylprednisolone [Methylprednisone] 4 mg Tablet 4 mg PO DAILY RF: 0 methylprednisolone [Methylprednisone] 4 mg Tablet 8 mg PO DAILY RF: 0 docusate sodium 100 mg Capsule 100 mg PO BID RF: 0 zinc sulfate 220 mg Capsule 220 mg PO DAILY RF: 0 oxycodone 5 mg Tablet 5 mg PO Q6H PRN (Reason: pain (6-10)) RF: 0 heparin (porcine) 5,000 unit/mL Syringe 5,000 unit SUBCUT Q8H RF: 0 amoxicillin-pot clavulanate 875-125 mg Tablet 1 tab PO Q12H RF: 0 acetaminophen 650 mg Tablet 650 mg PO Q6H RF: 0 Referrals / Follow Up: Ulices Corbett MD [STAFF PHYSICIAN] - In 1 Week Care Physician,No Primary [Primary Care Provider] - In 1 Week Disposition Disposition (needs filled in before D/C Order can be placed): Home Health Service
[2021-04-14] MEDS: MELATONIN 10 MG TABLET 5 MG PO (17:39)
[2021-04-14] MEDS: guaiFENesin 600 MG Tablet PO (17:39)
[2021-04-14] MEDS: Senna/Docusate Sodium 1 Tablet 2 TABLET PO (17:40)
[2021-04-14 20:13] VITALS: PULSE 77; RESP 16; O2SAT 94
[2021-04-14] MEDS: Atorvastatin Calcium 40 MG Tablet PO (20:38)
[2021-04-15] MEDS: oxyCODONE 5 MG Tablet 10 MG PO ×4 (02:21→19:48)
[2021-04-15 04:10] VITALS: BP 152/83; PULSE 74; RESP 16; TEMP 36.5; O2SAT 94
[2021-04-15] MEDS: guaiFENesin 600 MG Tablet PO ×2 (06:31→16:53)
[2021-04-15] MEDS: Senna/Docusate Sodium 1 Tablet 2 TABLET PO ×2 (06:31→16:53)
[2021-04-15] MEDS: Acetaminophen 325 MG Tablet 650 MG PO (06:31)
[2021-04-15] MEDS: Baclofen 10 MG Tablet PO ×3 (06:31→19:49)
[2021-04-15] MEDS: Losartan Potassium 100 MG Tablet PO (06:32)
[2021-04-15] MEDS: BACITRACIN 15 GM Tube 1 APPLIC TOPICAL ×2 (06:33→16:55)
[2021-04-15] MEDS: Menthol/Lanolin/Calamine/Znox 113 GM Tube 1 APPLIC TOPICAL ×2 (06:33→19:49)
[2021-04-15] MEDS: Enoxaparin 40 MG/0.4 ML Syringe SC (06:33)
--- NOTE | 2021-04-15 07:17 | NURSING ---
Previous tay was clogged with sediment, Tay was removed. 16 F placed using sterile technique. Selfridge tinged urine seen in tubing. Patient tolerated well.
[2021-04-15] MEDS: Multivitamins,Ther W-Minerals Tablet 1 TABLET PO (07:38)
[2021-04-15] MEDS: Aspirin E.C. 81 MG Tablet PO (07:38)
[2021-04-15] MEDS: Ascorbic Acid 500 MG Tablet 250 MG PO ×2 (07:38→16:52)
[2021-04-15 07:40] VITALS: RESP 20; O2SAT 96
[2021-04-15] MEDS: diazePAM 5 MG Tablet PO (07:40)
[2021-04-15 15:08] VITALS: BP 98/55; PULSE 80; RESP 16; TEMP 37; O2SAT 95
[2021-04-15] MEDS: MELATONIN 10 MG TABLET 5 MG PO (16:52)
[2021-04-15] MEDS: Atorvastatin Calcium 40 MG Tablet PO (19:49)
[2021-04-16] MEDS: oxyCODONE 5 MG Tablet 10 MG PO ×2 (01:56→07:38)
[2021-04-16] MEDS: diazePAM 5 MG Tablet PO (02:28)
[2021-04-16] MEDS: BACITRACIN 15 GM Tube 1 APPLIC TOPICAL (04:05)
[2021-04-16] MEDS: Menthol/Lanolin/Calamine/Znox 113 GM Tube 1 APPLIC TOPICAL (04:05)
[2021-04-16] MEDS: Enoxaparin 40 MG/0.4 ML Syringe SC (04:05)
[2021-04-16] MEDS: guaiFENesin 600 MG Tablet PO (04:06)
[2021-04-16 04:22] VITALS: BP 97/52; PULSE 74; RESP 16; TEMP 36.5; O2SAT 94
[2021-04-16 06:50] VITALS: O2SAT 94
[2021-04-16 06:50] LABS: Absolute Lymphocyte Count 2.63 X10^3/uL (0.83-4.51); Absolute Neutrophil Count 5.3 X10^3/uL (2.0-7.7); Basophil# 0.04 X10^3/uL; Basophil% 0.4 % (0-1); Eosinophil# 0.33 X10^3/uL; Eosinophils% 3.7 % (0-5); Hematocrit 41.6 % (40-54); Hemoglobin 13.2 g/dL (13.0-16.5); Lymphocyte # 2.63 X10^3/ul (0.83-4.51); Lymphocyte % 29.2 % (19-41); Mean Corp Hgb Conc 31.7 g/dL (32-36); Mean Corpuscular Hgb 28.7 pg (27.0-32.0); Mean Corpuscular Volume 90.4 fL (80-94); Mean Platelet Vol. 10.9 fl (6.2-12.0); Monocyte# 0.67 X10^3/uL; Monocyte% 7.4 % (0-10); NRBC Flagged by Analyzer 0 % (0-5); Neutrophil # 5.31 X10^3/uL (2.7-7.7); Neutrophil % 58.9 % (47-70); Platelet Count 234 K/mm3 (150-450); RBC Distribution Width CV 14.9 % (11.6-14.6); RBC Distribution Width SD 49.1 fl (35.1-43.9)
[2021-04-16] MEDS: Baclofen 10 MG Tablet PO (06:56)
[2021-04-16 07:13] LABS: Anion Gap 4 (5-15); BUN 12 mg/dL (7-18); BUN/Creat Ratio 19.4 RATIO (10-20); Calcium,Total 8.9 mg/dL (8.5-10.1); Chloride 95 mmol/L (98-107); Creatinine, Serum 0.62 mg/dL (0.70-1.30); EST Glomerular Filtration Rate 138 mL/min (>60); Est Glom Filt Rate - Afr Amer 167 mL/min (>60); Estimated Creatinine Clearance 59.79 ml/min; Glucose 132 mg/dL (74-106); Potassium 4.6 mmol/L (3.5-5.1); Sodium Level 136 mmol/L (136-145)
[2021-04-16] MEDS: Multivitamins,Ther W-Minerals Tablet 1 TABLET PO (07:39)
[2021-04-16] MEDS: Ascorbic Acid 500 MG Tablet 250 MG PO (07:39)
[2021-04-16] MEDS: Aspirin E.C. 81 MG Tablet PO (07:40)
[2021-04-16 10:47] VITALS: BP 140/59; PULSE 72; RESP 16; TEMP 36.8; O2SAT 96
[2021-04-16 10:51] VITALS: PULSE 72; RESP 18; O2SAT 96
--- NOTE | 2021-04-16 11:57 | NURSING ---
report called to [facility].
--- NOTE | 2021-04-16 13:29 | NURSING ---
physicians ambulance here to transport pt to [facility] via cot.
== END 2021-04-16 13:32 | disposition skilled nursing facility (03) | DRG 560 ==
PROVIDERS: Admitting Provider Family Medicine Geriatric Medicine; Visit Provider Family Medicine Geriatric Medicine
DX: Z47.89 Encounter for other orthopedic aftercare (principal); G95.20 Unspecified cord compression; Z98.1 Arthrodesis status; M48.02 Spinal stenosis, cervical region; E78.5 Hyperlipidemia, unspecified; J44.9 Chronic obstructive pulmonary disease, unspecified; Z79.899 Other long term (current) drug therapy; Z79.82 Long term (current) use of aspirin; Z87.891 Personal history of nicotine dependence
CPT/HCPCS: 36415; 80048; 82962; 85025; 87426; 87635; 92523; 92526; 92610; 97110; 97162; 97166; 97530; 97535; 97802; U0002

== ENCOUNTER → 2021-04-05 09:29 | Outpatient (CLI) | payer MEDICARE, SELFPAY ==
[2021-04-01 22:34] VITALS: BMI 19.2
--- NOTE | 2021-04-05 09:32 | CT_ITS ---
STUDY: CT LUMBAR SPINE WITHOUT CONTRAST REASON FOR EXAM: Male, 69 years old. Back pain RADIATION DOSAGE (If Supplied By Facility): CTDIvol = ( 15.30 ) mGy, DLP = ( 1188.93 ) mGycm TECHNIQUE: The patient was scanned in a multi detector CT scanner. High resolution transaxial imaging was performed. Images were obtained through the lumbar spine. Sagittal and coronal images were reconstructed. Individualized dose optimization techniques were used for this CT. COMPARISON: CT of the abdomen and pelvis dated 01/13/20 FINDINGS: There is no evidence of fracture or dislocation in the lumbar spine. The vertebral body heights are well-maintained. There is stable moderate multilevel degenerative changes with facet hypertrophy, disc space narrowing and small osteophytes which is most pronounced at L3/L4. There is stable grade 1 anterolisthesis of L4 with respect to L5. The visualized paraspinal soft tissues are within normal limits. CT/Spine Lumbar without Contrast IMPRESSION: No fracture or dislocation in the lumbar spine. Stable multilevel degenerative changes which are most pronounced at L3/L4. Stable grade 1 anterolisthesis of L4 with respect to L5. Electronically Signed: Varun Franco MD at 14:35 EDT Tel , Service support ,
--- NOTE | 2021-04-05 09:32 | CT_ITS ---
STUDY: CT CERVICAL SPINE WITHOUT CONTRAST REASON FOR EXAM: Male, 69 years old. Radiculopathy, cervical region RADIATION DOSAGE (If Supplied By Facility): CTDIvol = ( 15.30 ) mGy, DLP = ( 1188.93 ) mGycm TECHNIQUE: High resolution transaxial imaging was performed without contrast material. Sagittal and coronal images were reconstructed. Individualized dose optimization techniques were used for this CT. COMPARISON: None FINDINGS: Limited examination due to the postsurgical state. Normal craniovertebral junction. Normal anterior atlantoaxial articulation. Normal odontoid process. Normal cervical lordosis. The patient is status post multilevel posterior laminectomy. Surgical clips are seen overlying the surgical site. Multiple tiny rounded hypodensities are seen within the soft tissues overlying the posterior aspect of the cervical spine. These may represent antibiotic beads. Clinical correlation is recommended. C2-3: Moderate degree of disc space narrowing with anterior spondylosis. The patient is status post posterior fusion at the C2-C3 level. C3-4: Marked degree of disc space narrowing. Spondylosis. Posterior fusion at the C3-C4 level. C4-5: Anterior fusion with bone grafting anteriorly at the C4-C5 level. Posterior laminectomy and fixation. C5-6: Status post anterior fusion and bone grafting with loss of the disc space. C6-7: Anterior fusion. Bone grafting. CT/Spine Cervical without Contras IMPRESSION: Multilevel anterior and posterior fusion. Findings suggestive of a antibiotic beads placed in the soft tissues overlying the posterior cervical spine. Electronically Signed: Jakob Simmons MD at 12:03 EDT , Service support ,
== END ==
PROVIDERS: Referring Provider Family Medicine Geriatric Medicine; Visit Provider Family Medicine Geriatric Medicine
DX: M54.12 Radiculopathy, cervical region (principal); M54.16 Radiculopathy, lumbar region
CPT/HCPCS: 72125; 72131

== ENCOUNTER 2021-04-19 04:33 | Inpatient (IN) | payer MEDICARE, SELFPAY ==
[2021-04-19] VITALS (57 sets, daily range): BP systolic 66–208; BP diastolic 29–98; PULSE 67–110; RESP 12–35; TEMP 36.4–39.9; O2SAT 85–100; BMI 18.0; BMI 17.1
--- NOTE | 2021-04-19 04:41 | RAD_ITS ---
STUDY: X-RAY CHEST REASON FOR EXAM: Male, 69 years old. Shortness of breath. TECHNIQUE: AP portable chest. COMPARISON: March 02, 2021. FINDINGS: Left lower lobe airspace opacity unchanged. Blunting of the right costophrenic angle compatible with a small pleural effusion. No pneumothorax. Normal size heart. Normal mediastinum and murphy. Normal visualized pulmonary arteries. Normal visualized aortic arch and descending thoracic aorta. Degenerative changes of the thoracic spine. Normal visualized ribs, clavicles, and shoulders. Lower cervical fusion. There is no demonstrated abnormality of the visualized soft tissue structures of the upper abdomen. RAD/Chest 1 View (Portable) IMPRESSION: Small right pleural effusion. Left lower lobe subsegmental atelectasis, pneumonia and/or effusion. Electronically Signed: Mark Stephens MD at 5:29 EDT , Service support ,
--- NOTE | 2021-04-19 04:41 | EKG12_ITS ---
Test Reason : SOB Blood Pressure : / mmHG Vent. Rate : 098 BPM Atrial Rate : 098 BPM P-R Int : 132 ms QRS Dur : 088 ms QT Int : 320 ms P-R-T Axes : 081 069 075 degrees QTc Int : 408 ms Normal sinus rhythm Borderline ECG Confirmed by RIYA GRAF, MARCELO ([id number]), legal editor PATO LAMA ([id number]) on 04/20/2021 11:15:31 AM Referred By: MAKENNA Confirmed By:MARCELO RITTER MD
[2021-04-19 04:50] LABS: Absolute Lymphocyte Count 2.45 X10^3/uL (0.83-4.51); Absolute Neutrophil Count 13.9 X10^3/uL (2.0-7.7); Basophil# 0.04 X10^3/uL; Basophil% 0.2 % (0-1); Eosinophils% 0.6 % (0-5); Hematocrit 39.1 % (40-54); Hemoglobin 12.3 g/dL (13.0-16.5); Lymphocyte # 2.45 X10^3/ul (0.83-4.51); Lymphocyte % 13.6 % (19-41); Mean Corp Hgb Conc 31.5 g/dL (32-36); Mean Corpuscular Hgb 28.7 pg (27.0-32.0); Mean Corpuscular Volume 91.4 fL (80-94); Mean Platelet Vol. 11.5 fl (6.2-12.0); Monocyte# 1.52 X10^3/uL; Monocyte% 8.4 % (0-10); NRBC Flagged by Analyzer 0 % (0-5); Neutrophil # 13.89 X10^3/uL (2.7-7.7); Neutrophil % 76.8 % (47-70); POSITIVE DIFFERENTIAL YES; Platelet Count 219 K/mm3 (150-450); RBC Distribution Width CV 15.5 % (11.6-14.6); RBC Distribution Width SD 51.4 fl (35.1-43.9); Red Blood Count 4.28 M/mm3 (4.6-6.2); White Blood Count 18.1 K/mm3 (4.4-11.0)
[2021-04-19 04:57] LABS: Differential Indicated SCAN CRITERIA MET
[2021-04-19 04:59] LABS: International Normalized Ratio 1.1; Prothrombin Time (Protime)PT. 13.4 SECONDS (11.7-14.9)
[2021-04-19] MEDS: 0.9% Normal Saline 1,000 ML 999 ML IV ×2 (04:59→05:48)
[2021-04-19 05:00] LABS: Partial Thromboplast Time 34.5 Seconds (24.1-36.2)
[2021-04-19 05:02] LABS: Color, Urine Yellow (Yellow); Glucose, Dipstick Normal (Normal); Ketone-Dipstick Negative (Negative); Leukocyte Esterase-Dipstick 500 /ul (Negative); Mucous, Urine 0 SEEN /hpf (<or=2+); Nitrite-Dipstick Negative (Negative); Occult Blood-Urine 50 /ul (Negative); Protein-Dipstick 30 mg/dl (Negative); Squamous Epithelial Cells - UA 0 SEEN /hpf (0-5); Urine Bilirubin Dipstick Negative (Negative); Urine Clarity Cloudy (Clear); Urine Urobilinogen Normal (Normal)
[2021-04-19 05:07] LABS: Differential Comment SCANNED
--- NOTE | 2021-04-19 05:12 | EX.ED.DYSGE1 ---
HPI History of Present Illness Chief Complaint: Shortness of Breath Informant: patient and EMS Narrative Narrative: 69-year-old male presenting with shortness of breath. Per EMS his pulse ox was in the 60s on 2 L. EMS was able to get pulse oximetry into the 80s on nonrebreather mask. He was recently discharged from TCU after rehab following cervical spine fusion and laminectomy in February. He is unable to provide additional history. Prior similar symptoms: Yes Recent Illness/Hospitalization: Yes PFSH [facility] Medical History Anxiety Cervical myelopathy COPD (chronic obstructive pulmonary disease) Encephalopathy Home Medications sennosides-docusate sodium [Senna-S] 2 tab PO DAILY 03/21/21 [History Last Taken 03/21/21 06:00] ascorbic acid (vitamin C) 250 mg PO BID 04/01/21 [History Last Taken Unknown] aspirin 81 mg PO DAILY 04/01/21 [History Last Taken Unknown] melatonin 5 mg PO DAILY@1800 04/01/21 [History Last Taken Unknown] multivitamin with minerals [Multiple Vitamin-Minerals] 1 tab PO DAILY 04/01/21 [History Last Taken Unknown] atorvastatin 40 mg PO QHS 30 Days #30 tab 04/13/21 [Rx Last Taken Unknown] baclofen 10 mg PO TID 30 Days #90 tab 04/13/21 [Rx Last Taken Unknown] dextromethorphan-guaifenesin 10 ml PO Q6H PRN PRN #0 ml 04/13/21 [Rx Last Taken Unknown] diazepam 5 mg PO 4X/DAY PRN PRN 30 Days #120 tab 04/13/21 [Rx Last Taken Unknown] guaifenesin [Mucus Relief ER] 600 mg PO BID #0 tab 04/13/21 [Rx Last Taken Unknown] losartan 100 mg PO DAILY 30 Days #30 tab 04/13/21 [Rx Last Taken Unknown] menthol-zinc oxide [Calmoseptine] 1 applic TOPICAL 0600,2200 #0 g 04/13/21 [Rx Last Taken Unknown] polyethylene glycol 3350 17 g PO DAILY #0 ea 04/13/21 [Rx Last Taken Unknown] sodium chloride [Deep Sea Nasal] 2 spray NASAL TID PRN PRN #0 ml 04/13/21 [Rx Last Taken Unknown] B complex-minerals [Stress B Plus Zinc] 1 tab PO DAILY 04/19/21 [History Last Taken Unknown] acetaminophen [Tylenol] 650 mg PO Q4H PRN 04/19/21 [History Last Taken Unknown] albuterol sulfate 2.5 mg INHALATION Q4H PRN 04/19/21 [History Last Taken Unknown] multivitamin,tx-minerals [Theragran-M] 1 tab PO DAILY 04/19/21 [History Last Taken Unknown] oxycodone 10 mg PO Q6H PRN PRN 04/19/21 [History Last Taken Unknown] Allergy/AdvReac Type Severity Reaction Status Date / Time No Known Allergies Allergy Verified 04/19/21 04:41 Surgical History H/O neck surgery History of back surgery History of cervical spinal arthrodesis Social History household members: family and children Smoking Status: Former smoker alcohol intake: current details: Occasional ROS ROS ED Review of Systems ROS Unobtainable: due to mental status Constitutional Constitutional ED: Denies fever(s) Cardiovascular Cardiovascular: Denies chest pain Respiratory/Chest Respiratory/Chest: Reports dyspnea EXAM Physical Exam Const Vital Signs: 04/19/21 04:34 04/19/21 04:40 04/19/21 04:42 Temperature 97.6 F L Temperature Source Temporal Pulse Rate 99 98 Respiratory Rate 21 H 24 H Respiratory Effort Short of Breath Accessory Muscle Use Respiratory Pattern Tachypnea Tachypnea Blood Pressure 83/71 L Blood Pressure Mean 75 Pulse Ox 85 94 91 Oxygen Delivery Method Bi-pap Bi-pap Fraction of Inspired Oxygen (FIO2) 80 80 04/19/21 04:51 04/19/21 05:40 04/19/21 06:34 Temperature 98.7 F 98.1 F 98 F Temperature Source Axillary Axillary Axillary Pulse Rate 97 97 99 Respiratory Rate 23 H 20 H 20 H Respiratory Effort Respiratory Pattern Blood Pressure 114/78 134/94 H 134/74 H Blood Pressure Mean 90 107 94 Pulse Ox 95 98 95 Oxygen Delivery Method Bi-pap Bi-pap Bi-pap Fraction of Inspired Oxygen (FIO2) 80 80 04/19/21 07:10 Temperature Temperature Source Pulse Rate 95 Respiratory Rate 21 H Respiratory Effort Respiratory Pattern Blood Pressure Blood Pressure Mean Pulse Ox 99 Oxygen Delivery Method Fraction of Inspired Oxygen (FIO2) 80 Positive well nourished and well developed General Appearance ED: well developed HEENT Reports normocephalic and head/scalp atraumatic Eyes PERRL and EOMs intact bilaterally Neck supple Neck Narrative: incision clean, dry and intact General: Negative for tenderness Chest Wall inspection of chest normal Resp Effort and Inspection: retractions Auscultation: diminished lung sounds Cardio regular rate and regular rhythm GI non-tender and non-distended Palpation: soft; Negative for guarding or rebound tenderness present no CVA tenderness Back/Spine Cervical Spine: Negative for cervical spine tenderness Thoracic Spine / Upper Back: Negative for thoracic spinal tenderness Extremity normal to inspection Neuro oriented x3 Sensorium / Orientation: alert Psych mental status grossly normal Skin no rashes or lesions noted MDM MDM MDM Narrative Medical decision making narrative: Patient was started on BiPAP. He was given IV fluids with improvement of his blood pressure. Blood and urine cultures were sent. Covid negative. He was given Vancomycin and Zosyn IV. Discussed with hospitalist for admission. Lab Data Attestation: I reviewed the patient's lab results. Labs: Laboratory Results - last 24 hr 04/19/21 04/19/21 04/19/21 04:40 04:40 04:40 WBC 18.1 H RBC 4.28 L Hgb 12.3 L Hct 39.1 L MCV 91.4 MCH 28.7 MCHC 31.5 L RDW Std Deviation 51.4 H RDW Coeff of Bravo 15.5 H Plt Count 219 MPV 11.5 Immature Gran % (Auto) 0.400 Neut % (Auto) 76.8 H Lymph % (Auto) 13.6 L [place] % (Auto) 8.4 Eos % (Auto) 0.6 Baso % (Auto) 0.2 Absolute Neuts (auto) 13.9 H Absolute Lymphs (auto) 2.45 Nucleated RBC % 0 Differential Comment SCANNED Diff Path Review March foll PT 13.4 INR 1.1 APTT 34.5 Sodium 136 Potassium 4.9 Chloride 95 L Carbon Dioxide 36.0 H Anion Gap 5 BUN 32 H Creatinine 1.07 Estim Creat Clear Calc 54.11 Est GFR (MDRD) Af Amer 89 Est GFR (MDRD) Non-Af 73 BUN/Creatinine Ratio 29.9 H Glucose 148 H Lactic Acid Calcium 8.9 Total Bilirubin 0.70 AST 24 ALT 26 Alkaline Phosphatase 114 Troponin I 0.315 H Total Protein 7.1 Albumin 2.7 L Globulin 4.4 H Albumin/Globulin Ratio 0.6 L Urine Color Urine Clarity Urine pH Ur Specific [place] Urine Protein Urine Glucose (UA) Urine Ketones Urine Occult Blood Urine Nitrite Urine Bilirubin Urine Urobilinogen Ur Leukocyte Esterase Urine RBC Urine WBC Ur Squamous Epith Cells Urine Bacteria Urine Mucus 04/19/21 04/19/21 04:40 04:50 WBC RBC Hgb Hct MCV MCH MCHC RDW Std Deviation RDW Coeff of Bravo Plt Count MPV Immature Gran % (Auto) Neut % (Auto) Lymph % (Auto) [place] % (Auto) Eos % (Auto) Baso % (Auto) Absolute Neuts (auto) Absolute Lymphs (auto) Nucleated RBC % Differential Comment Diff Path Review PT INR APTT Sodium Potassium Chloride Carbon Dioxide Anion Gap BUN Creatinine Estim Creat Clear Calc Est GFR (MDRD) Af Amer Est GFR (MDRD) Non-Af BUN/Creatinine Ratio Glucose Lactic Acid 1.4 Calcium Total Bilirubin AST ALT Alkaline Phosphatase Troponin I Total Protein Albumin Globulin Albumin/Globulin Ratio Urine Color Yellow Urine Clarity Cloudy Urine pH 5.0 Ur Specific [place] 1.020 Urine Protein 30 H Urine Glucose (UA) Normal Urine Ketones Negative Urine Occult Blood 50 H Urine Nitrite Negative Urine Bilirubin Negative Urine Urobilinogen Normal Ur Leukocyte Esterase 500 H Urine RBC 0-5 SEEN Urine WBC >100 SEEN Ur Squamous Epith Cells 0 SEEN Urine Bacteria 3+ Urine Mucus 0 SEEN Radiography Chest X-Ray - ED: 1 View, Read by ED Physician and Read by Radiologist Diagnostic Testing: Radiology Impression Chest X-Ray 04/19/21 04:41 IMPRESSION: Small right pleural effusion. Left lower lobe subsegmental atelectasis, pneumonia and/or effusion. Electronically Signed: Mark Stephens MD at 5:29 EDT , Service support , EKG Initial EKG: Attestation: I personally reviewed and interpreted this EKG as follows: Interpretation: Sinus Rhythm and No Acute Injury Pattern Prior EKG tracings: available for review Prior: Unchanged Discharge Plan Triage Chief Complaint: Shortness of Breath ED Provider: Ana Paula Trna Dx/Rx/DC Orders Clinical Impression: COPD (chronic obstructive pulmonary disease), Acute UTI, Sepsis Prescriptions: No Action sennosides-docusate sodium [Senna-S] 8.6-50 mg Tablet 2 tab PO DAILY RF: 0 multivitamin with minerals [Multiple Vitamin-Minerals] Tablet 1 tab PO DAILY RF: 0 melatonin 5 mg Tablet 5 mg PO DAILY@1800 RF: 0 aspirin 81 mg Tablet,Delayed Release (Dr/Ec) 81 mg PO DAILY RF: 0 ascorbic acid (vitamin C) 250 mg Tablet 250 mg PO BID RF: 0 polyethylene glycol 3350 17 gram Powder In Packet 17 g PO DAILY Qty: 0 RF: 0 dextromethorphan-guaifenesin 10-100 mg/5 mL Syrup 10 ml PO Q6H PRN PRN (Reason: COUGH/CONGESTION) Qty: 0 RF: 0 baclofen 10 mg Tablet 10 mg PO TID 30 Days Qty: 90 RF: 0 losartan 100 mg Tablet 100 mg PO DAILY 30 Days Qty: 30 RF: 0 diazepam 5 mg Tablet 5 mg PO 4X/DAY PRN PRN (Reason: Anxiety) 30 Days Qty: 120 RF: 0 sodium chloride [Deep Sea Nasal] 0.65 % Aerosol,[place] 2 spray NASAL TID PRN PRN (Reason: NASAL DRYNESS) Qty: 0 RF: 0 Calmoseptine 0.44-20.6 % Ointment 1 applic topical 0600,2200 Qty: 0 RF: 0 guaifenesin [Mucus Relief ER] 600 mg Tablet Extended Release 12hr 600 mg PO BID Qty: 0 RF: 0 atorvastatin 40 mg Tablet 40 mg PO QHS 30 Days Qty: 30 RF: 0 albuterol sulfate 2.5 mg /3 mL (0.083 %) Solution For Nebulization 2.5 mg INHALATION Q4H PRN (Reason: Shortness Of Breath) RF: 0 Stress B Plus Zinc Tablet 1 tab PO DAILY RF: 0 Theragran-M Tablet 1 tab PO DAILY RF: 0 acetaminophen [Tylenol] 325 mg tablet 650 mg PO Q4H PRN (Reason: Fever Or Pain) RF: 0 oxycodone 5 mg tablet 10 mg PO Q6H PRN PRN (Reason: Pain) RF: 0 Primary Care Provider: Chin Heller Referrals: Chin Heller MD [Primary Care Provider] - Disposition Disposition: Acute Care Hospital [facility]
[2021-04-19 05:14] LABS: Lactic Acid 1.4 mmol/L (0.4-1.9)
[2021-04-19 05:15] LABS: ALB/GLOB Ratio 0.6 RATIO (0.9-2.4); AST(SGOT) 24 U/L (15-37); Alanine Aminotransfer ALT/SGPT 26 U/L (16-61); Albumin, Serum 2.7 g/dL (3.2-5.0); Alkaline Phosphatase 114 U/L (45-117); Anion Gap 5 (5-15); BUN 32 mg/dL (7-18); BUN/Creat Ratio 29.9 RATIO (10-20); Calcium,Total 8.9 mg/dL (8.5-10.1); Chloride 95 mmol/L (98-107); Creatinine, Serum 1.07 mg/dL (0.70-1.30); EST Glomerular Filtration Rate 73 mL/min (>60); Est Glom Filt Rate - Afr Amer 89 mL/min (>60); Estimated Creatinine Clearance 54.11 ml/min; Globulin 4.4 g/dL (2.2-4.2); Glucose 148 mg/dL (74-106); Potassium 4.9 mmol/L (3.5-5.1); Protein, Total 7.1 g/dL (6.4-8.2); Sodium Level 136 mmol/L (136-145)
[2021-04-19 05:15] LABS: White Blood Cells >100 SEEN /hpf (0-5)
[2021-04-19 05:16] LABS: Bacteria 3+ /hpf (None Seen); Red Blood Cells-Urine 0-5 SEEN /hpf (0-5)
--- NOTE | 2021-04-19 07:10 | CPS ---
BiPAP Mask changed from Medium to Large to help with leak. FiO2 weaned to 60%.
--- NOTE | 2021-04-19 07:20 | CPS ---
Patient's Sats slowly dropped down to 85% on 60% FiO2, increased back to 80%, then to 90%.
[2021-04-19 07:45] LABS: Allen Test Positive; Base Excess 5 mmol/L (-2 to +2); Bicarbonate 32.7 mmol/L (22-26); Blood Gas Specimen Type ART; Comment 16-8; FI02 90; O2 Delivery Device BiPAP; PO2 59 mmHG (75-100); SITE R Radial; SO2 83 % (95-99); Total Carbon Dioxide 35 mmol/L; pCO2 79.5 mmHg (35-45); pH 7.22 (7.35-7.45)
--- NOTE | 2021-04-19 07:48 | HP.PCM.HOS_ITS ---
HPI - General General Date of Admission: 04/19/21 HPI Narrative FRAN GUZMAN, is a 69 M who presented to the emergency department [facility] on 04/19/2021 from a half-way facility with a chief complaint of shortness of breath. He was recently admitted to TCU after having a cervical fusion for severe cervical spinal stenosis and myelopathy with cord compression and was discharged from there on 04/13/2021 through a skilled facility. He has had multiple admissions in the last month or so for various issues. Per the EMS his pulse ox on arrival with 2 L nasal cannula was in the 60s. He was placed on a nonrebreather and the squad was able to get his oxygen saturation into the 80s with a nonrebreather. In the emergency department he was placed on noninvasive ventilation and 90% and his oxygen saturations did improve to 95 to 99%. An attempt to reduce FiO2 was made with a reduction to 60% and his oxygen saturations dropped into the mid 80s. His blood pressures were initially in the 80s systolic but he is responded to 2 L normal saline bolus in the ED and his blood pressure is now 112/75. He is tachypneic with respiratory rates anywhere from 18-25. He is afebrile. His CBC showed a white count of 18.1, hemoglobin of 12.3 and normal platelets. He had a left shift with neutrophilia. His coagulation studies were within normal limits. His CMP is not elevated bicarb which is at baseline for him, a normal anion gap, and elevated BUN and creatinine compared to baseline, normal lactic acid at 1.4, normal total bilirubin and LFTs however his troponin was elevated at 0.315. His EKG in the emergency department showed no acute ST-T wave changes and was in normal sinus rhythm. His urine looked concentrated with a specific gravity of 1.020, he had 50 of occult blood and was positive for leuk esterase with greater than 100 WBCs per high power field and 3+ bacteria. A chest x-ray was performed and shows a small right pleural effusion, left lower lobe segmental atelectasis versus pneumonia/consolidation and hyperinflation. He was treated with ceftriaxone in the emergency department and placed on noninvasive ventilation. An ABG was obtained approximately 3 hours after an IV was initiated and shows a pH of 7.22 a PCO2 of 79.5 and a PO2 59 of with a sat of 90%. We do not have an initial ABG from admission so it is unclear whether this is improved or not. Adjustments have been made to the noninvasive ventilation and we will recheck a blood gas. He will be admitted to the intensive care unit. [facility] Medical History Anxiety Cervical myelopathy COPD (chronic obstructive pulmonary disease) Encephalopathy Home Medications sennosides-docusate sodium [Senna-S] 2 tab PO DAILY 03/21/21 [History Last Taken 03/21/21 06:00] ascorbic acid (vitamin C) 250 mg PO BID 04/01/21 [History Last Taken Unknown] aspirin 81 mg PO DAILY 04/01/21 [History Last Taken Unknown] melatonin 5 mg PO DAILY@1800 04/01/21 [History Last Taken Unknown] multivitamin with minerals [Multiple Vitamin-Minerals] 1 tab PO DAILY 04/01/21 [History Last Taken Unknown] atorvastatin 40 mg PO QHS 30 Days #30 tab 04/13/21 [Rx Last Taken Unknown] baclofen 10 mg PO TID 30 Days #90 tab 04/13/21 [Rx Last Taken Unknown] dextromethorphan-guaifenesin 10 ml PO Q6H PRN PRN #0 ml 04/13/21 [Rx Last Taken Unknown] diazepam 5 mg PO 4X/DAY PRN PRN 30 Days #120 tab 04/13/21 [Rx Last Taken Unknown] guaifenesin [Mucus Relief ER] 600 mg PO BID #0 tab 04/13/21 [Rx Last Taken Unknown] losartan 100 mg PO DAILY 30 Days #30 tab 04/13/21 [Rx Last Taken Unknown] menthol-zinc oxide [Calmoseptine] 1 applic TOPICAL 0600,2200 #0 g 04/13/21 [Rx Last Taken Unknown] polyethylene glycol 3350 17 g PO DAILY #0 ea 04/13/21 [Rx Last Taken Unknown] sodium chloride [Deep Sea Nasal] 2 spray NASAL TID PRN PRN #0 ml 04/13/21 [Rx Last Taken Unknown] B complex-minerals [Stress B Plus Zinc] 1 tab PO DAILY 04/19/21 [History Last Taken Unknown] acetaminophen [Tylenol] 650 mg PO Q4H PRN 04/19/21 [History Last Taken Unknown] albuterol sulfate 2.5 mg INHALATION Q4H PRN 04/19/21 [History Last Taken Unknown] multivitamin,tx-minerals [Theragran-M] 1 tab PO DAILY 04/19/21 [History Last Taken Unknown] oxycodone 10 mg PO Q6H PRN PRN 04/19/21 [History Last Taken Unknown] Allergy/AdvReac Type Severity Reaction Status Date / Time No Known Allergies Allergy Verified 04/19/21 04:41 Surgical History H/O neck surgery History of back surgery History of cervical spinal arthrodesis Social History household members: family and children Smoking Status: Former smoker alcohol intake: current details: Occasional ROS Review of Systems ROS Unobtainable: due to encephalopathy and due to mental status; Denies due to endotracheal tube, due to mental condition or other Vital Signs Vital Signs Vital Signs: 04/19/21 04:34 04/19/21 04:40 04/19/21 04:42 Temperature 97.6 F L Temperature Source Temporal Pulse Rate 99 98 Respiratory Rate 21 H 24 H Respiratory Effort Short of Breath Accessory Muscle Use Respiratory Pattern Tachypnea Tachypnea Blood Pressure 83/71 L Blood Pressure Mean 75 Pulse Ox 85 94 91 Oxygen Delivery Method Bi-pap Bi-pap Oxygen Flow Rate (L/min) Fraction of Inspired Oxygen (FIO2) 80 80 04/19/21 04:51 04/19/21 05:40 04/19/21 06:34 Temperature 98.7 F 98.1 F 98 F Temperature Source Axillary Axillary Axillary Pulse Rate 97 97 99 Respiratory Rate 23 H 20 H 20 H Respiratory Effort Respiratory Pattern Blood Pressure 114/78 134/94 H 134/74 H Blood Pressure Mean 90 107 94 Pulse Ox 95 98 95 Oxygen Delivery Method Bi-pap Bi-pap Bi-pap Oxygen Flow Rate (L/min) Fraction of Inspired Oxygen (FIO2) 80 80 04/19/21 07:10 04/19/21 07:20 04/19/21 07:25 Temperature 98.2 F Temperature Source Axillary Pulse Rate 95 95 94 Respiratory Rate 21 H 18 22 H Respiratory Effort Respiratory Pattern Blood Pressure 116/78 Blood Pressure Mean 90 Pulse Ox 99 92 99 Oxygen Delivery Method Bi-pap Oxygen Flow Rate (L/min) Fraction of Inspired Oxygen (FIO2) 80 90 80 04/19/21 07:28 04/19/21 07:31 04/19/21 07:36 Temperature 98.3 F Temperature Source Axillary Pulse Rate 94 98 92 Respiratory Rate 22 H 25 H 19 H Respiratory Effort Respiratory Pattern Blood Pressure 116/78 112/75 Blood Pressure Mean 90 87 Pulse Ox 85 93 92 Oxygen Delivery Method Bi-pap Bi-pap Bi-pap Oxygen Flow Rate (L/min) 60 90 Fraction of Inspired Oxygen (FIO2) 90 Weight Weight: 57.1 kg Body Mass Index (BMI) 18.0 Physical Exam Const Constitutional Narrative: Patient is sitting up in bed with noninvasive ventilator in place, opens his eyes to name but closes them quickly afterwards limited interaction HEENT normocephalic and head/scalp atraumatic HEENT Narrative: Temporal wasting, no thrush, edentulous, Mallampati 1-2 Mouth: moist mucous membranes abnormal parched Eyes PERRL and conjunctivae normal Neck no lymphadenopathy, supple, no JVD and no carotid bruits Neck Narrative: Posterior cervical fusion incision noted and is well-healing without signs of infection Resp no retractions and no use of accessory muscles Resp Narrative: Diffusely diminished Auscultation: rhonchi left lower; Negative for crackles, rales or wheezes Cardio regular rate, regular rhythm, S1 normal heart sound, S2 normal heart sound, no murmurs, no rub, no gallops, no clicks and no JVD GI normal to inspection, nondistended, normoactive bowel sounds, soft to palpation, non-tender and non-distended; Negative for hepatosplenomegaly Auscultation: Negative for hyperactive bowel sounds or hypoactive bowel sounds Palpation: Negative for tender, guarding or hernia Extremity Negative for normal to inspection or no clubbing, cyanosis or edema Extremity Narrative: Pedal pulses were 1+, radial pulses are 2+ Skin no rashes or lesions noted, skin turgor normal and no jaundice Skin Narrative: Bilateral lower extremity mottling, scattered abrasions on lower extremity, no signs of infection Neuro Neuro Narrative: Patient is somnolent, reflexes are 2+ throughout, difficult neuro exam secondary to decreased interaction Psych Psych Narrative: Unable to adequately assess secondary to mental status Lab / Micro Data Result Diagrams: 04/19/21 04:40 04/19/21 04:40 Labs: Laboratory Results - last 24 hr 04/19/21 04/19/21 04/19/21 04:40 04:40 04:40 WBC 18.1 H RBC 4.28 L Hgb 12.3 L Hct 39.1 L MCV 91.4 MCH 28.7 MCHC 31.5 L RDW Std Deviation 51.4 H RDW Coeff of Bravo 15.5 H Plt Count 219 MPV 11.5 Immature Gran % (Auto) 0.400 Neut % (Auto) 76.8 H Lymph % (Auto) 13.6 L [place] % (Auto) 8.4 Eos % (Auto) 0.6 Baso % (Auto) 0.2 Absolute Neuts (auto) 13.9 H Absolute Lymphs (auto) 2.45 Nucleated RBC % 0 Differential Comment SCANNED Diff Path Review May foll PT 13.4 INR 1.1 APTT 34.5 Sodium 136 Potassium 4.9 Chloride 95 L Carbon Dioxide 36.0 H Anion Gap 5 BUN 32 H Creatinine 1.07 Estim Creat Clear Calc 54.11 Est GFR (MDRD) Af Amer 89 Est GFR (MDRD) Non-Af 73 BUN/Creatinine Ratio 29.9 H Glucose 148 H Lactic Acid Calcium 8.9 Total Bilirubin 0.70 AST 24 ALT 26 Alkaline Phosphatase 114 Troponin I 0.315 H Total Protein 7.1 Albumin 2.7 L Globulin 4.4 H Albumin/Globulin Ratio 0.6 L Urine Color Urine Clarity Urine pH Ur Specific [place] Urine Protein Urine Glucose (UA) Urine Ketones Urine Occult Blood Urine Nitrite Urine Bilirubin Urine Urobilinogen Ur Leukocyte Esterase Urine RBC Urine WBC Ur Squamous Epith Cells Urine Bacteria Urine Mucus 04/19/21 04/19/21 04:40 04:50 WBC RBC Hgb Hct MCV MCH MCHC RDW Std Deviation RDW Coeff of [place]ravo Plt Count MPV Immature Gran % (Auto) Neut % (Auto) Lymph % (Auto) [place] % (Auto) Eos % (Auto) Baso % (Auto) Absolute Neuts (auto) Absolute Lymphs (auto) Nucleated RBC % Differential Comment Diff Path Review PT INR APTT Sodium Potassium Chloride Carbon Dioxide Anion Gap BUN Creatinine Estim Creat Clear Calc Est GFR (MDRD) Af Amer Est GFR (MDRD) Non-Af BUN/Creatinine Ratio Glucose Lactic Acid 1.4 Calcium Total Bilirubin AST ALT Alkaline Phosphatase Troponin I Total Protein Albumin Globulin Albumin/Globulin Ratio Urine Color Yellow Urine Clarity Cloudy Urine pH 5.0 Ur Specific [place] 1.020 Urine Protein 30 H Urine Glucose (UA) Normal Urine Ketones Negative Urine Occult Blood 50 H Urine Nitrite Negative Urine Bilirubin Negative Urine Urobilinogen Normal Ur Leukocyte Esterase 500 H Urine RBC 0-5 SEEN Urine WBC >100 SEEN Ur Squamous Epith Cells 0 SEEN Urine Bacteria 3+ Urine Mucus 0 SEEN Micro: Microbiology 04/19/21 04:50 SARS-CoV-2 Antigen (Rapid) - Final Mucosa - Nasopharyngeal ABG Data ABG results: ABG 04/19/21 07:40 Specimen Type ART Sample Site R Radial pH 7.22 L Bicarbonate Actual 32.7 H Total CO2 35 Base Excess 5 H O2 Saturation 83 L O2 % 90 ABG pCO2 79.5 H* ABG pO2 59 L Varun Test Positive O2 Delivery Device BiPAP Crit Call To/Read Back Yes Clinical Comments 16-8 Radiology Impression Chest X-Ray 04/19/21 04:41 IMPRESSION: Small right pleural effusion. Left lower lobe subsegmental atelectasis, pneumonia and/or effusion. Electronically Signed: Mark Stephens MD at 5:29 EDT , Service support , Assessment & Plan Assessment/Plan (1) Sepsis: (2) Acute UTI: (3) Acute on chronic respiratory failure with hypoxia and hypercapnia: (4) SHANTANU (acute kidney injury): (5) Metabolic encephalopathy: (6) Elevated troponin: PLAN: Severe sepsis secondary to suspected UTI -Blood urine and sputum cultures pending -Check urine Legionella and strep pneumo antigens -MRSA PCR -IV fluid boluses given with response of blood pressure -Vanco and Zosyn empirically for now Acute hypoxic and hypercapnic respiratory failure on chronic hypoxic and hypercapnic respiratory failure-multifactorial -On 2 L nasal cannula at baseline -Continue noninvasive ventilation -Adjustments made -Repeat ABG in 2 hours -Patient may require intubation -If requires intubation will need glide scope secondary to recent cervical spine surgery -As needed and scheduled aerosols -Continue Mucinex -Chest x-ray shows possible left lower lobe infiltrate -Continue vancomycin and Zosyn -D-dimer is pending--> if positive will perform CTA once patient is stable enough to lie flat -Pulmonary/critical care medicine consulted Mild SHANTANU -Baseline serum creatinine appears to be 0.5-0.65 -Serum creatinine on admission was 1.07 with a BUN of 32 -Fluid boluses per sepsis protocol -We will continue with IV hydration at 75 cc/h after boluses given -Avoid nephrotoxins -Repeat BMP in a.m. Hypotension -Systolic pressures were in the 80s on presentation -Was fluid responsive after 2 L in the ED -BP is now stable -Lactate was negative Metabolic encephalopathy -Likely related to hypercapnia and acute infection -Reassess after metabolic issues are corrected -Avoid sedating medications as able Elevated troponin -Unclear if this is demand ischemia versus actual cardiac event -Cycle enzymes -Check echo Leukocytosis -See above Mild acute anemia -Suspect related to acute infection -Continue to monitor -No signs of blood loss Cervical myelopathy/stenosis status post fusion -PT and OT -If requires intubation glide scope utilization -Hold oxycodone and baclofen at this time given hypercapnia and sedation COPD -Continue aerosols Severe malnutrition -We will utilize liberalize diet and supplements when patient able to take p.o. -N.p.o. at this time except for medications as able Severe debility -Continue therapy services -We will consider repeat palliative care consult once patient is more alert and oriented Tobacco abuse -Patient has shown no desire to quit in recent admissions -Recommend cessation DVT prophylaxis -Therapeutic Lovenox CODE STATUS -Full code Critical care time greater than 35 minutes not including procedures Procedures Hospitalists Procedures: 70851 Critial Care 1st Hr
--- NOTE | 2021-04-19 08:31 | ECHOCS_ITS ---
Version 2 Reason For Study: Dyspnea/SOB Procedure This was a 2D Doppler, Color Flow transthoracic echocardiogram. The study was technically difficult. Pt scanned sitting up w/BIPAP due to SOB. Contrast injection was performed. Exam performed portable in ICU/CCU. Left Ventricle Normal LV size. Left ventricular systolic function is normal. The estimated ejection fraction is 65 %. Stage 1 diastolic dysfunction. No regional wall motion abnormalities noted. Right Ventricle Normal RV size. Normal systolic function. Atria Normal left atrium. Normal right atrium. Mitral Valve Normal mitral valve. Tricuspid Valve Normal tricuspid valve. Mild (1+) tricuspid valve insufficiency. Pulmonary artery systolic pressure is 38 mmHg. Aortic Valve Trisinus/trileaflet aortic valve. Moderate focal aortic valve calcification. Pulmonic Valve Normal pulmonic valve. Great Vessels Normal aortic root. The pulmonary artery is normal size. Normal inferior vena cava. Pericardium/Pleural No pericardial effusion. Medication Diluted definity 4ml given slow IV push to enhance endocardial definition. MMode/2D Measurements & Calculations LVIDd: 3.8 cm IVSd: 1.2 cm LA dimension: 2.7 cm LVIDs: 2.5 cm LVPWd: 0.91 cm RVDd: 3.5 cm FS: 33.4 % LAV(MOD-sp2): 22.9 ml RA A4 area: 13.1 cm2 Time Measurements MV dec time: 0.36 sec Doppler Measurements & Calculations MV E max jeremie: 54.7 cm/sec Lat Peak E' Jeremie: 11.1 cm/sec Med Peak E' Jeremie: 6.7 cm/sec MV A max jeremie: 83.0 cm/sec E/E' lat: 4.9 E/E' med: 8.2 MV E/A: 0.66 MV V2 max: 88.4 cm/sec MV P1/2t max jeremie: 63.1 cm/sec Ao V2 max: 108.6 cm/sec MV max P.1 mmHg MV P1/2t: 117.0 msec Ao max P.7 mmHg MV V2 mean: 48.0 cm/sec MV dec slope: 158.0 cm/sec2 Ao V2 mean: 66.6 cm/sec MV mean P.1 mmHg Ao mean P.1 mmHg MV V2 VTI: 19.3 cm MVA(P1/2t): 1.9 cm2 Ao V2 VTI: 19.4 cm LV V1 max: 88.0 cm/sec PA V2 max: 100.2 cm/sec TR max jeremie: 294.7 cm/sec LV V1 max P.1 mmHg TR max P.7 mmHg LV V1 mean P.4 mmHg LV V1 mean: 53.2 cm/sec LV V1 VTI: 15.1 cm ECHO/Echo Complete W/ Contrast Interpretation Summary Normal LV size. Left ventricular systolic function is normal. The estimated ejection fraction is 65 %. Stage 1 diastolic dysfunction. Pulmonary artery systolic pressure is 38 mmHg. Contrast injection was performed. Ordering Physician: Harriet Pink Referring Physician: Chin Heller Performed By: Raul Bradley RCS
[2021-04-19 08:36] LABS: D-Dimer Quantitative (DVT/PE) 1.51 FEU/ug/m (0.27-0.49)
--- NOTE | 2021-04-19 08:36 | CPS ---
Critical blood gas values noted, Dr. Tran aware.
--- NOTE | 2021-04-19 08:50 | PHA.PHARE_ITS ---
Consult Pharmacy has been consulted to manage selected antiobiotic: Vancomycin Type of Consult: New start Suspected Infection: Sepsis Prior Doses of Antibiotics Received/Current Regimen: received 1500mg in E.R. starting at 06:34 today Labs: Sodium 136 mmol/L (136-145) 04/19/21 04:40 Potassium 4.9 mmol/L (3.5-5.1) 04/19/21 04:40 Chloride 95 mmol/L (98-107) L 04/19/21 04:40 Carbon Dioxide 36.0 mmol/L (21.0-32.0) H 04/19/21 04:40 Anion Gap 5 (5-15) 04/19/21 04:40 BUN 32 mg/dL (7-18) H 04/19/21 04:40 Creatinine 1.07 mg/dL (0.70-1.30) 04/19/21 04:40 Est GFR (MDRD) Af Amer 89 mL/min (>60) 04/19/21 04:40 Est GFR (MDRD) Non-Af 73 mL/min (>60) 04/19/21 04:40 BUN/Creatinine Ratio 29.9 RATIO (10-20) H 04/19/21 04:40 Glucose 148 mg/dL (74-106) H 04/19/21 04:40 Microbiology: Microbiology 04/19/21 04:50 Urine Catheter - Hua Legionella Antigen - Final 04/19/21 04:50 Urine Catheter - Hua Streptococcus pneumoniae Antigen (M - Final 04/19/21 04:50 Mucosa - Nasopharyngeal SARS-CoV-2 Antigen (Rapid) - Final Weight used for dosin.1 kg Estimated Creatinine Clearance: 54ml/min Goal Trough: 15-20 mcg/mL Pharmacy Plan for Drug Dosing: Loading dose of 1500mg was given in E.R. so will continue after that with 500mg q12h per [facility] dosing protocol. Will check a trough before the 4th total dose tomorrow. Pharmacy Service will continue to monitor and adjust dosing as required. Follow-Up Labs: Trough Vancomycin Labs to be done on [date and time ordered]: 04/20/21 17:30
[2021-04-19] MEDS: 0.9% Normal Saline 1,000 ML 75 ML IV ×2 (09:19→22:28)
[2021-04-19] MEDS: Enoxaparin 40 MG/0.4 ML Syringe SC (09:20)
--- NOTE | 2021-04-19 09:30 | CON.PCM.CC_ITS ---
Assessment & Plan Assessment/Plan (1) Acute on chronic respiratory failure with hypoxia and hypercapnia: (2) COPD (chronic obstructive pulmonary disease): QUALIFIERS: COPD type: COPD with acute exacerbation Qualified Code(s): J44.1 - Chronic obstructive pulmonary disease with (acute) exacerbation (3) Physical debility: (4) Urinary tract infection, acute: (5) Infectious encephalopathy: (6) Debility: (7) Sepsis: QUALIFIERS: Sepsis type: sepsis due to unspecified organism Sep sis acute organ dysfunction status: with acute organ dysfunction Acute res piratory failure type: with hypercapnia Severe sepsis shock status: without septic shock PLAN: RECOMMENDATIONS: 1. Increase target tidal volume to 500 cc 2. Agree with broad-spectrum antibiotics 3. Change Hua 4. Possible intubation pending response to therapy 5. Hold on aggressive fluid resuscitation. Tube feeds if intubated. IMPRESSIONS: 1. Severe sepsis secondary to UTI with mild SHANTANU and indwelling Hua UA is suggestive of an acute UTI with elevation in baseline creatinine from 0.65-1.07. Patient may have an element of prerenal etiology. Patient was responsive to fluids earlier. Patient has been hospitalized for an extended period of time, so broad-spectrum antibiotics would be indicated. Patient should have cultures of sputum added if able. Patient initially fluid responsive, but cannot exclude the need for pressors moving forward, especially if UTI is gram-negative. Some concern that presenting hypotension was more related to severe acidosis from respiratory failure. 2. Acute on chronic combined respiratory failure Clinical suspicion for multifactorial etiology. Patient does have baseline COPD of unclear significance. Patient also has increased metabolic demand secondary to problem #1. We will continue with BiPAP therapy for now. Cannot exclude the need for intubation. Patient does have a possible left lower lobe infiltrate, so cultures would be indicated, especially if intubated. Continue to titrate BiPAP as necessary with ABGs. 3. Metabolic encephalopathy Multiple etiologies including sepsis and hypercarbia. Avoidance of benzod iazepines and narcotics would be helpful. We will continue to monitor closely. Patient with recent extensive conversation about CODE STATUS with social work. Agree with full CODE STATUS. 4. Recent cervical fusion/malnutrition/debility/reported tobacco abuse/elevated troponin Complicates care, management, recovery and prognosis. Will initiate tube feeds if patient is intubated. Patient does have some elevated troponin, but this is likely secondary to supply demand mismatch given hypoxia on presentation. Echocardiogram and troponin cycle has been ordered. TIME: 35 minutes critical care time spent addressing patient's severe sepsis, respiratory failure, metabolic encephalopathy, review of all data and collaboration with care team (8:45 AM to 10 AM) HPI Consult Data Date of Consult: 04/19/21 HPI Narrative HPI Narrative: FRAN GUZMAN is a 69-year-old male, with past medical history listed below, who presented to [facility] from a halfway secondary to desaturation. Patient was recently hospitalized at [facility] and discharged from the TCU after rehab following a cervical spine fusion and laminectomy in February. Patient was not able to provide any additional history, but reportedly was staying at a halfway following discharge from TCU. In the ER, patient was afebrile, but tachypneic despite BiPAP therapy. Patient did not have an ABG immediately after initiation of BiPAP therapy. Patient was also hypotensive at 83/71 initially. Patient was given IV fluids with improvement of his blood pressure. Laboratory data was notable for a leukocytosis of 18.1, bicarbonate of 36, troponin of 0.3 and an urinalysis suggestive of UTI. Chest x-ray showed a small right pleural effusion and EKG showed normal sinus rhythm. Patient was reportedly treated with vancomycin and Zosyn. On arrival to the intensive care unit, patient was very somnolent on BiPAP therapy. Patient was not able to provide any additional information, but would open his eyes to voice. Patient was found to have an indwelling Hua catheter from the TCU dated April 15. Patient did have extensive mottling of the lower extremities and was dusky on initial presentation. Patient was switched to AVAPS with some improvement. Discussed with social work as patient was just in the TCU. Patient reportedly was completely coherent at that time and stated that he would want all aggressive measures. The patient had refused to sign a DURABLE POWER OF SADDLE STITCHER and stated that he would be open to intubation, tracheostomy and PEG tube if needed. [facility] Medical History Anxiety Cervical myelopathy COPD (chronic obstructive pulmonary disease) Encephalopathy Home Medications sennosides-docusate sodium [Senna-S] 2 tab PO DAILY 03/21/21 [History Last Taken 03/21/21 06:00] ascorbic acid (vitamin C) 250 mg PO BID 04/01/21 [History Last Taken Unknown] aspirin 81 mg PO DAILY 04/01/21 [History Last Taken Unknown] melatonin 5 mg PO DAILY@1800 04/01/21 [History Last Taken Unknown] multivitamin with minerals [Multiple Vitamin-Minerals] 1 tab PO DAILY 04/01/21 [History Last Taken Unknown] atorvastatin 40 mg PO QHS 30 Days #30 tab 04/13/21 [Rx Last Taken Unknown] baclofen 10 mg PO TID 30 Days #90 tab 04/13/21 [Rx Last Taken Unknown] dextromethorphan-guaifenesin 10 ml PO Q6H PRN PRN #0 ml 04/13/21 [Rx Last Taken Unknown] diazepam 5 mg PO 4X/DAY PRN PRN 30 Days #120 tab 04/13/21 [Rx Last Taken Unknown] guaifenesin [Mucus Relief ER] 600 mg PO BID #0 tab 04/13/21 [Rx Last Taken Unkno wn] losartan 100 mg PO DAILY 30 Days #30 tab 04/13/21 [Rx Last Taken Unknown] menthol-zinc oxide [Calmoseptine] 1 applic TOPICAL 0600,2200 #0 g 04/13/21 [Rx Last Taken Unknown] polyethylene glycol 3350 17 g PO DAILY #0 ea 04/13/21 [Rx Last Taken Unknown] sodium chloride [Deep Sea Nasal] 2 spray NASAL TID PRN PRN #0 ml 04/13/21 [Rx Last Taken Unknown] B complex-minerals [Stress B Plus Zinc] 1 tab PO DAILY 04/19/21 [History Last Taken Unknown] acetaminophen [Tylenol] 650 mg PO Q4H PRN 04/19/21 [History Last Taken Unknown] albuterol sulfate 2.5 mg INHALATION Q4H PRN 04/19/21 [History Last Taken U nknown] multivitamin,tx-minerals [Theragran-M] 1 tab PO DAILY 04/19/21 [History Last Taken Unknown] oxycodone 10 mg PO Q6H PRN PRN 04/19/21 [History Last Taken Unknown] Allergy/AdvReac Type Severity Reaction Status Date / Time No Known Allergies Allergy Verified 04/19/21 04:41 Surgical History H/O neck surgery History of back surgery History of cervical spinal arthrodesis Social History household members: family and children Smoking Status: Former smoker alcohol intake: current details: Occasional ROS Review of Systems ROS Unobtainable: due to encephalopathy Physical Exam Const General Appearance: disheveled, frail, appears older than stated age and on BiPAP; Negative for in distress Orientation / Consciousness: disoriented and lethargic Nutritional Appearance: underweight HEENT normocephalic and head/scalp atraumatic; Negative for moist oral mucous m embranes HEENT Narrative: Surgical site for cervical fusion appears to be healing well Eyes PERRL, EOMs intact bilaterally and conjunctivae normal Neck full ROM Lymph Lymphatic: no lymphadenopathy noted Resp Effort and Inspection: tachypneic and respiratory distress; Negative for stridor or tracheal deviation Auscultation: wheezes and diminished lung sounds; Negative for rales or rhonchi Cardio S1 normal heart sound, S2 normal heart sound, no murmurs, no rub, no gallops and no JVD Rate: tachycardic Heart Sounds: Negative for gallop, murmur or rub GI normal to inspection, nondistended, normoactive bowel sounds Narrative: Erythema at meatus noted Extremity no clubbing, cyanosis or edema Skin Skin Narrative: Multiple superficial ulcerations. General Skin Exam: mottling Neuro oriented x3 and CN's II-XII intact bilaterally Psych cooperative and affect normal Lab / Micro Data Result Diagrams: 04/19/21 04:40 04/19/21 04:40 Labs: Laboratory Results - last 24 hr 04/19/21 04/19/21 04/19/21 04:40 04:40 04:40 WBC 18.1 H RBC 4.28 L Hgb 12.3 L Hct 39.1 L MCV 91.4 MCH 28.7 MCHC 31.5 L RDW Std Deviation 51.4 H RDW Coeff of Bravo 15.5 H Plt Count 219 MPV 11.5 Immature Gran % (Auto) 0.400 Neut % (Auto) 76.8 H Lymph % (Auto) 13.6 L [place] % (Auto) 8.4 Eos % (Auto) 0.6 Baso % (Auto) 0.2 Absolute Neuts (auto) 13.9 H Absolute Lymphs (auto) 2.45 Nucleated RBC % 0 Differential Comment SCANNED Diff Path Review May foll PT 13.4 INR 1.1 APTT 34.5 D-Dimer Quant (PE/DVT) Sodium 136 Potassium 4.9 Chloride 95 L Carbon Dioxide 36.0 H Anion Gap 5 BUN 32 H Creatinine 1.07 Estim Creat Clear Calc 54.11 Est GFR (MDRD) Af Amer 89 Est GFR (MDRD) Non-Af 73 BUN/Creatinine Ratio 29.9 H Glucose 148 H Lactic Acid Calcium 8.9 Total Bilirubin 0.70 AST 24 ALT 26 Alkaline Phosphatase 114 Troponin I 0.315 H Total Protein 7.1 Albumin 2.7 L Globulin 4.4 H Albumin/Globulin Ratio 0.6 L Urine Color Urine Clarity Urine pH Ur Specific Morrison Urine Protein Urine Glucose (UA) Urine Ketones Urine Occult Blood Urine Nitrite Urine Bilirubin Urine Urobilinogen Ur Leukocyte Esterase Urine RBC Urine WBC Ur Squamous Epith Cells Urine Bacteria Urine Mucus 04/19/21 04/19/21 04/19/21 04:40 04:40 04:50 WBC RBC Hgb Hct MCV MCH MCHC RDW Std Deviation RDW Coeff of Bravo Plt Count MPV Immature Gran % (Auto) Neut % (Auto) Lymph % (Auto) [place] % (Auto) Eos % (Auto) Baso % (Auto) Absolute Neuts (auto) Absolute Lymphs (auto) Nucleated RBC % Differential Comment Diff Path Review PT INR APTT D-Dimer Quant (PE/DVT) 1.51 H* Sodium Potassium Chloride Carbon Dioxide Anion Gap BUN Creatinine Estim Creat Clear Calc Est GFR (MDRD) Af Amer Est GFR (MDRD) Non-Af BUN/Creatinine Ratio Glucose Lactic Acid 1.4 Calcium Total Bilirubin AST ALT Alkaline Phosphatase Troponin I Total Protein Albumin Globulin Albumin/Globulin Ratio Urine Color Yellow Urine Clarity Cloudy Urine pH 5.0 Ur Specific Morrison 1.020 Urine Protein 30 H Urine Glucose (UA) Normal Urine Ketones Negative Urine Occult Blood 50 H Urine Nitrite Negative Urine Bilirubin Negative Urine Urobilinogen Normal Ur Leukocyte Esterase 500 H Urine RBC 0-5 SEEN Urine WBC >100 SEEN Ur Squamous Epith Cells 0 SEEN Urine Bacteria 3+ Urine Mucus 0 SEEN 04/19/21 08:50 WBC RBC Hgb Hct MCV MCH MCHC RDW Std Deviation RDW Coeff of Bravo Plt Count MPV Immature Gran % (Auto) Neut % (Auto) Lymph % (Auto) [place] % (Auto) Eos % (Auto) Baso % (Auto) Absolute Neuts (auto) Absolute Lymphs (auto) Nucleated RBC % Differential Comment Diff Path Review PT INR APTT D-Dimer Quant (PE/DVT) Sodium Potassium Chloride Carbon Dioxide Anion Gap BUN Creatinine Estim Creat Clear Calc Est GFR (MDRD) Af Amer Est GFR (MDRD) Non-Af BUN/Creatinine Ratio Glucose Lactic Acid Calcium Total Bilirubin AST ALT Alkaline Phosphatase Troponin I 0.204 H Total Protein Albumin Globulin Albumin/Globulin Ratio Urine Color Urine Clarity Urine pH Ur Specific Morrison Urine Protein Urine Glucose (UA) Urine Ketones Urine Occult Blood Urine Nitrite Urine Bilirubin Urine Urobilinogen Ur Leukocyte Esterase Urine RBC Urine WBC Ur Squamous Epith Cells Urine Bacteria Urine Mucus Micro: Microbiology 04/19/21 04:50 Legionella Antigen - Final Urine Catheter - Hua Streptococcus pneumoniae Antigen (M - Final 04/19/21 04:50 SARS-CoV-2 Antigen (Rapid) - Final Mucosa - Nasopharyngeal ABG Data ABG results: ABG 04/19/21 07:40 Specimen Type ART Sample Site R Radial pH 7.22 L Bicarbonate Actual 32.7 H Total CO2 35 Base Excess 5 H O2 Saturation 83 L O2 % 90 ABG pCO2 79.5 H* ABG pO2 59 L Varun Test Positive O2 Delivery Device BiPAP Crit Call To/Read Back Yes Clinical Comments 16-8 Radiology Impression Chest X-Ray 04/19/21 04:41 IMPRESSION: Small right pleural effusion. Left lower lobe subsegmental atelectasis, pneumonia and/or effusion. Electronically Signed: Mark Stephens MD at 5:29 EDT , Service support , Charges/Coding Procedures Hospitalists Procedures: [id number] Critial Care 1st Hr
[2021-04-19 09:31] LABS: Allen Test Positive; Base Excess 5 mmol/L (-2 to +2); Bicarbonate 32.2 mmol/L (22-26); Blood Gas Specimen Type ART; FI02 90; O2 Delivery Device BiPAP; PEEP 10; PO2 63 mmHG (75-100); RR 14; SITE R Radial; SO2 87 % (95-99); Total Carbon Dioxide 35 mmol/L; Vt 450; pCO2 73.3 mmHg (35-45); pH 7.25 (7.35-7.45)
--- NOTE | 2021-04-19 09:42 | NURSING ---
This RN attempted to call patients son, Benny Gusman Jr, to inform him of the patients admission, give update, and discuss/confirm code status. There was no answer after several attempts and was unable to leave voicemail as the mailbox was full.
--- NOTE | 2021-04-19 09:45 | CPS ---
Critical ABG values noted, Dr. Elise aware.
--- NOTE | 2021-04-19 09:47 | NT.THERAPY_ITS ---
Medical Nutrition Therapy - History Nutrition Services has been consulted to:: Manage nutrient details of diet order Current diet/nutrition support order:: NPO - Anthropometric Measurements Height:: 5 ft 10.08 in Weight:: 54.204 kg - Relevant Labs Relevant Labs:: WBC 18.1 K/mm3 (4.4-11.0) H 04/19/21 04:40 RBC 4.28 M/mm3 (4.6-6.2) L 04/19/21 04:40 Hgb 12.3 g/dL (13.0-16.5) L 04/19/21 04:40 Hct 39.1 % (40-54) L 04/19/21 04:40 MCHC 31.5 g/dL (32-36) L 04/19/21 04:40 RDW Std Deviation 51.4 fl (35.1-43.9) H 04/19/21 04:40 RDW Coeff of Bravo 15.5 % (11.6-14.6) H 04/19/21 04:40 Neut % (Auto) 76.8 % (47-70) H 04/19/21 04:40 Lymph % (Auto) 13.6 % (19-41) L 04/19/21 04:40 Absolute Neuts (auto) 13.9 X10^3/uL (2.0-7.7) H 04/19/21 04:40 D-Dimer Quant (PE/DVT) 1.51 FEU/ug/m (0.27-0.49) H* 04/19/21 04:40 Chloride 95 mmol/L (98-107) L 04/19/21 04:40 Carbon Dioxide 36.0 mmol/L (21.0-32.0) H 04/19/21 04:40 BUN 32 mg/dL (7-18) H 04/19/21 04:40 BUN/Creatinine Ratio 29.9 RATIO (10-20) H 04/19/21 04:40 Glucose 148 mg/dL (74-106) H 04/19/21 04:40 Troponin I 0.204 ng/mL (<0.045) H 04/19/21 08:50 Albumin 2.7 g/dL (3.2-5.0) L 04/19/21 04:40 Globulin 4.4 g/dL (2.2-4.2) H 04/19/21 04:40 Albumin/Globulin Ratio 0.6 RATIO (0.9-2.4) L 04/19/21 04:40 - Assessment Food and Nutrient Intake: D/C'd from [facility] TCU to SNF on 04/16/21. Currently on bipap. Per TCU documentation, pt w/ poor PO intake at meals d/t weakness. Required total assistance w/ feeding. OTOLARYNGOLOGY PHYSICIAN was following d/t difficulty chewing. Wt on 03/14/21 was 130.4# and CBW 119.5#-10.9#/8.3% wt loss x <1 month is significant for malnutrition. - Nutrition Diagnosis: Clinical Problem Acute Disease or Injury Related Malnutrition Clinical Problem - Etiology: severe, acute malnutrition r/t inadequate energy intake w/ functional decline s/p surgery Clinical Problem - Signs/Symptoms: as evidenced by estimated PO intake meeting <50% of nutritional needs x 2 weeks, unintentional wt loss of 10.9#/8.3% <1 month - Protein Calorie Malnutrition Evidence of Malnutrition Exists: Yes Severe Protein Calorie Malnutrition:: Acute Illness/Injury - Nutrition Intervention Nutrition Prescription: Pt at high risk for refeeding syndrome d/t BMI, unintentional wt loss. Recommend 10-15 calories/kg/day for first 1-3 days of refeeding (540-810 calories, 27-40 g protein) - Food / Nutrient Delivery Interventions Nutrition support ordered as / adjusted to:: regular diet, ensure enlive w/ medpass when PO diet appropriate; OTOLARYNGOLOGY PHYSICIAN evaluation prior to advancement of PO diet. If pt continues to decline from a respiratory standpoint and requires mechanical intubation, will provide further recommendations for enteral nutrition support. Coordination of Nutrition Care: OTOLARYNGOLOGY PHYSICIAN consult prior to initiation of PO diet. - MNT Monitoring Active Nutrition Patient: Yes Nutrition Status: Requires Follow Up 3-5 Days
--- NOTE | 2021-04-19 09:58 | CASEMGMT ---
Addendum entered by Urmila Patel 04/19/21 12:15: In reviewing chart, this SW met with pt on 03/08/21 in TCU. BIMS cognitive assessment completed with score of 15/15 indicating no impairment. MOLST form also completed on that date. Pt choosing full code with intubation and trial of feeding tube. Physician updated. TONYA Kevin Original Note: Social Work SW attended ICU rounds. Pt is currently on Bipap and per nursing not responding appropriately at this time. SW is familiar with this pt and son Benny from prior admissions. Pt was discharged from TCU on Monday 04/16 to [facility]. Prior to hospitalization in February, pt was living with his son Benny in a 2 story home with first floor set up. SW has addressed Health Care POA with pt in the past and pt refused to complete documents. SW had explained that Benny would be next of kin and pt was understanding of this and agreeable. Updated clinicals faxed to [facility]. TONYA Kevin
[2021-04-19] MEDS: Acetaminophen 650 MG Suppository RC (11:00)
[2021-04-19] MEDS: Ipratropium/Albuterol Sulfate 3 ML AMPUL.NEB INHALATION ×3 (11:24→19:10)
[2021-04-19] MEDS: Etomidate 20 MG/10 ML Vial IV (11:54)
--- NOTE | 2021-04-19 12:00 | NURSING ---
Dr Pink notified, patient is more difficult to awake, mottling has spread from BLE to now include BUE and torso. BP trending down. Decision made by Dr Pink to intubate patient. Patient intubated by Dr Pink with Dr Elise present, Sun RT and this RN also present and assisting Dr Pink.
--- NOTE | 2021-04-19 12:00 | RAD_ITS ---
STUDY: X-RAY CHEST REASON FOR EXAM: Male, 69 years old. ETT and OGT placement TECHNIQUE: Single AP portable view of the chest. COMPARISON: 04/19/2021 FINDINGS: Interval placement of endotracheal tube with the tip approximately 2 cm above the edison. Interval placement of nasogastric tube with the tip below the diaphragm. Poor inspiration with some bibasilar atelectasis. There is no demonstrated pleural abnormality. Normal size heart. Normal mediastinum and murphy. Normal visualized pulmonary arteries. Normal visualized aortic arch and descending thoracic aorta. Normal visualized thoracic spine. Normal visualized ribs, clavicles, and shoulders. There is no demonstrated abnormality of the visualized soft tissue structures of the upper abdomen. RAD/Chest 1 View (Portable) IMPRESSION: 1. Interval placement of endotracheal tube with the tip approximately 2 cm above the edison. 2. Interval placement of nasogastric tube with the tip below the diaphragm. 3. Poor inspiration with some bibasilar atelectasis per Electronically Signed: John Madsen MD at 12:30 EDT Tel , Service support ,
--- NOTE | 2021-04-19 12:17 | PN.HOSP_ITS ---
Hospitalist Note Intubation note Diagnosis: Acute hypoxic and hypercapnic respiratory failure Timeout: Performed 1156 Medications: Etomidate 20 mg Procedure: After the patient was sedated and adequately oxygenated, a glide scope was utilized to visualize the vocal cords. This was a class 1 view. A 7.5 ET tube was placed between the vocal cords. The stylette was removed. The ET tube passed with ease. The patient bagged easily after intubation. There is end- tidal CO2 change, conducts station and the ET tube, and bilateral breath sounds. A chest x-ray was performed to verify placement and ET tube positioning was adequate.
--- NOTE | 2021-04-19 12:26 | CASEMGMT ---
On prior admission pt refused to complete advance directives. TONYA Kevin
[2021-04-19 13:32] LABS: Pathologist Review Reviewed
[2021-04-19 13:56] LABS: Allen Test Positive; Base Excess 3 mmol/L (-2 to +2); Bicarbonate 30.1 mmol/L (22-26); Blood Gas Specimen Type ART; FI02 100; Mode AC; O2 Delivery Device ET Tube; PEEP 5; PO2 98 mmHG (75-100); RR 16; SITE R Radial; SO2 96 % (95-99); Total Carbon Dioxide 32 mmol/L; Vt 400; pCO2 65.2 mmHg (35-45); pH 7.27 (7.35-7.45)
--- NOTE | 2021-04-19 14:00 | NURSING ---
Patients core temperature continuing to increase, has not responded to Tylenol Suppository. Cooling blanket placed underneath patient, will continue to monitor for effectiveness
--- NOTE | 2021-04-19 14:34 | CHAPLAIN ---
Type of Pastoral Visit ___ Initial Visit ___ Follow-up Visit ___ On-call Visit ___ General Patient Visit ___ Spiritual Assessment ___ Family Conference ___ Bereavement ___ Rapid Response ___ Code Blue _x__ Other (describe below) Pastoral Care Referral From ___ Patient ___ Family ___ Nurse ___ Physician ___ Systems Software Specialist ___ Vocational Psychologist _x__ Other (describe below) Sacrament/Intervention ___ Active listening ___ Anointing ___ Yarsani ___ Bereavement ___ Communion ___ Imani exploration ___ ___ Life review ___ Prayer ___ Reconciliation ___ Sacrament of Sick _x__ Supportive presence ___ Wedding _x__ Other (describe below) Pastoral Comments patient has been seen numerous times in previous and recent admissions; request for spiritual support came but from unknown source as pt is now intubated and unable to communicate; presence and prayer given at bedside
[2021-04-19 15:12] LABS: M R Staph aureus DNA By PCR POSITIVE (Negative); Probe Check PASS
--- NOTE | 2021-04-19 15:42 | RAD_ITS ---
STUDY: X-RAY CHEST REASON FOR EXAM: Male, 69 years old. Line placement -- New BLANCO Picc TECHNIQUE: Single AP portable view of the chest. COMPARISON: 04/19/2021 at 1157 FINDINGS: Interval placement of left upper extremity PICC with the tip of the catheter overlying the superior vena cava. Endotracheal tube and nasogastric tube both which are unchanged. No change in the alveolar opacity in both lung bases consistent with bibasilar atelectasis or pneumonia. There is no demonstrated pleural abnormality. Normal size heart. Normal mediastinum and murphy. Normal visualized pulmonary arteries. Normal visualized aortic arch and descending thoracic aorta. Normal visualized thoracic spine. Normal visualized ribs, clavicles, and shoulders. There is no demonstrated abnormality of the visualized soft tissue structures of the upper abdomen. RAD/CXR for Line Placement IMPRESSION: 1. Interval placement of left upper extremity PICC with tip the catheter overlying the spur vena cava. 2. Endotracheal tube and nasogastric tube both which are unchanged. 3. No change in bibasilar atelectasis or pneumonia. Electronically Signed: John Madsen MD at 17:04 EDT Tel , Service support ,
--- NOTE | 2021-04-19 18:07 | NURSING ---
Chest xray resulted for PICC line placement, TELEVISION INSTALLER Nadia Goyal notified, results read to her over the phone and she said line is OK to use.
[2021-04-19] MEDS: Acetaminophen 650 MG/20 ML UDC GT (18:22)
[2021-04-19] MEDS: Vancomycin IV 500 MG/100 ML BAG 100 MG IV (18:22)
[2021-04-19] MEDS: Ascorbic Acid 500 MG Tablet 250 MG GT (18:23)
[2021-04-19] MEDS: Menthol/Lanolin/Calamine/Znox 113 GM Tube 1 APPLIC TOPICAL (22:29)
[2021-04-19] MEDS: 0.9% Saline Lock 10 ML Syringe IV ×2 (22:36→23:42)
[2021-04-19] MEDS: guaiFENesin 600 MG Tablet PO (22:42)
[2021-04-19] MEDS: Chlorhexidine 15 ML PO (22:42)
[2021-04-19] MEDS: Famotidine 200 MG/20 ML MDV 20 MG in 0.9% Normal Saline (Pres. free 8 ML 300 MG IV (22:43)
[2021-04-19] MEDS: Propofol 10MG/Ml 1,000 MG/100 ML Bottle 3.3 MG CONT INF (23:45)
[2021-04-20] VITALS (73 sets, daily range): BP systolic 67–190; BP diastolic 41–97; PULSE 65–96; RESP 11–79; TEMP 36.8–38.3; O2SAT 75–100
--- NOTE | 2021-04-20 00:03 | NURSING ---
Cooling blanket temperature increased from 39.2F to 74.1F d/t core temp F/C reading as recorded, in order to prevent skin damage/breakdown.
--- NOTE | 2021-04-20 00:36 | NURSING ---
Addendum entered by Argelia Rodríguez 04/20/21 02:02: 1900- ice packs to b/l groin and axillary noted. Original Note: Cooling blanket set at 39.2.
--- NOTE | 2021-04-20 00:37 | NURSING ---
Cooling blanket set at 39.2.
--- NOTE | 2021-04-20 00:37 | NURSING ---
Cooling blanket set at 39.2.
--- NOTE | 2021-04-20 00:38 | NURSING ---
Cooling blanket set at 39.2.
[2021-04-20] MEDS: Acetaminophen 650 MG/20 ML UDC GT (00:48)
--- NOTE | 2021-04-20 02:03 | NURSING ---
0200- temperature continues to rise after Tylenol given and cooling blanket on so ice packs to b/l groin applied.
[2021-04-20] MEDS: CHLORHEXIDINE GLUC 2% CLOTH 1 EACH TOWELETTE TOPICAL (03:00)
[2021-04-20] MEDS: 0.9% Saline Lock 10 ML Syringe IV ×2 (03:36→06:05)
[2021-04-20 03:51] LABS: Absolute Lymphocyte Count 2.02 X10^3/uL (0.83-4.51); Absolute Neutrophil Count 21.5 X10^3/uL (2.0-7.7); Basophil# 0.09 X10^3/uL; Basophil% 0.4 % (0-1); Eosinophil# 0.02 X10^3/uL; Eosinophils% 0.1 % (0-5); Hematocrit 33.3 % (40-54); Hemoglobin 10.8 g/dL (13.0-16.5); Lymphocyte # 2.02 X10^3/ul (0.83-4.51); Lymphocyte % 7.9 % (19-41); Mean Corp Hgb Conc 32.4 g/dL (32-36); Mean Corpuscular Hgb 29.3 pg (27.0-32.0); Mean Corpuscular Volume 90.5 fL (80-94); Mean Platelet Vol. 11.1 fl (6.2-12.0); Monocyte# 1.86 X10^3/uL; Monocyte% 7.3 % (0-10); NRBC Flagged by Analyzer 0 % (0-5); Neutrophil # 21.48 X10^3/uL (2.7-7.7); Neutrophil % 83.8 % (47-70); POSITIVE DIFFERENTIAL YES; POSITIVE MORPHOLOGY YES; Platelet Count 230 K/mm3 (150-450); RBC Distribution Width CV 15.7 % (11.6-14.6); RBC Distribution Width SD 51.4 fl (35.1-43.9); Red Blood Count 3.68 M/mm3 (4.6-6.2); White Blood Count 25.6 K/mm3 (4.4-11.0)
[2021-04-20 03:58] LABS: Differential Indicated SCAN CRITERIA MET
[2021-04-20 04:04] LABS: Anion Gap 7 (5-15); BUN 18 mg/dL (7-18); BUN/Creat Ratio 32.1 RATIO (10-20); CPK Total, Creatine Kinase 66 U/L (39-308); Calcium,Total 7.7 mg/dL (8.5-10.1); Chloride 107 mmol/L (98-107); Creatinine, Serum 0.56 mg/dL (0.70-1.30); EST Glomerular Filtration Rate 155 mL/min (>60); Est Glom Filt Rate - Afr Amer 187 mL/min (>60); Estimated Creatinine Clearance 58.59 ml/min; Glucose 198 mg/dL (74-106); Magnesium 1.5 mg/dL (1.6-2.6); Phosphorus 1.8 mg/dL (2.5-4.9); Potassium 3.9 mmol/L (3.5-5.1); Sodium Level 141 mmol/L (136-145); Triglycerides 125 mg/dL
[2021-04-20] MEDS: Menthol/Lanolin/Calamine/Znox 113 GM Tube 1 APPLIC TOPICAL ×2 (05:08→20:23)
[2021-04-20] MEDS: Vancomycin IV 500 MG/100 ML BAG 100 MG IV ×2 (05:11→18:33)
[2021-04-20] MEDS: Magnesium Sulfate 4gm/100mL 4 GM/100 ML IV.SOLN. IV (06:00)
[2021-04-20] MEDS: TITRATION PARAMETER CHANGE 1 EACH IV ×2 (06:33)
--- NOTE | 2021-04-20 06:55 | PCM.PN.INT ---
Assessment & Plan Assessment/Plan (1) Acute on chronic respiratory failure with hypoxia and hypercapnia: (2) COPD (chronic obstructive pulmonary disease): QUALIFIERS: COPD type: COPD with acute exacerbation Qualified Code(s): J44.1 - Chronic obstructive pulmonary disease with (acute) exacerbation (3) Physical debility: (4) Urinary tract infection, acute: (5) Infectious encephalopathy: (6) Debility: (7) Sepsis: QUALIFIERS: Sepsis type: sepsis due to unspecified organism Sepsis acute organ dysfunction status: with acute organ dysfunction Acute respiratory failure type: with hypercapnia Severe sepsis shock status: without septic shock PLAN: RECOMMENDATIONS: 1. Obtain ABG to evaluate for overventilation 2. Agree with broad-spectrum antibiotics 3. Wean pressors as tolerated. Okay to decrease titration interval 4. Spontaneous breathing and awakening trials per protocol when appropriate 5. Okay to initiate tube feeds 6. Consider infectious disease consult IMPRESSIONS: 1. Severe sepsis secondary to UTI with mild SHANTANU and indwelling Hua versus polymicrobial right lower lobe infiltrate UA is suggestive of an acute UTI with elevation in baseline creatinine from 0.65-1.07. Patient may have an element of prerenal etiology. Patient was responsive to fluids earlier. Patient has been hospitalized for an extended period of time, so broad-spectrum antibiotics would be indicated. Patient with polymicrobial sputum culture noted. On broad-spectrum antibiotics. Could consider infectious disease consult. 2. Acute on chronic combined respiratory failure Clinical suspicion for multifactorial etiology. Patient does have baseline COPD of unclear significance. Patient also has increased metabolic demand secondary to problem #1. Oxygenation is likely improved secondary to recruitment. Spontaneous breathing and awakening trials per protocol 3. Metabolic encephalopathy Multiple etiologies including sepsis and hypercarbia. Avoidance of benzodiazepines and narcotics would be helpful. We will continue to monitor closely. Patient with recent extensive conversation about CODE STATUS with social work. Agree with full CODE STATUS. 4. Recent cervical fusion/malnutrition/debility/reported tobacco abuse/elevated troponin Complicates care, management, recovery and prognosis. Will initiate tube feeds if patient is intubated. Patient does have some elevated troponin, but this is likely secondary to supply demand mismatch given hypoxia on presentation. Echocardiogram was relatively unremarkable TIME: 40 minutes critical care time spent addressing patient's severe sepsis, respiratory failure, metabolic encephalopathy, review of all data and collaboration with care team (5:30 AM to 7 AM) Subjective Subjective Patient with decompensation during the day yesterday. Intubated by hospitalist. Patient has remained on pressors and reportedly is extremely labile. Oxygenation has improved. Patient has been breathing with the vent throughout the evening. Objective Data Objective Data Vital Signs: Vital Signs Temp Pulse Resp BP Pulse Ox 37.3 C 74 16 98/52 L 96 04/20/21 05:00 04/20/21 06:45 04/20/21 05:00 04/20/21 06:45 04/20/21 05:00 Oxygen Flow Rate (L/min) 90 Oxygen Delivery Method Mechanical Ventilator Weight: 57.788 kg Body Mass Index (BMI) 17.1 Intake & Output: Intake and Output for Last 24 Hours 04/18/21 04/19/21 04/20/21 23:59 23:59 23:59 Intake Total 3854.59 / 3917.62 1066.30 / 1066.30 Output Total 2725 / 2725 250 / 250 Balance 1129.59 / 1192.62 816.30 / 816.30 Lab / Micro Data Result Diagrams: 04/20/21 03:35 04/20/21 03:35 Labs: Laboratory Results - last 24 hr 04/19/21 04/19/21 04/19/21 04:40 04:40 08:50 WBC RBC Hgb Hct MCV MCH MCHC RDW Std Deviation RDW Coeff of Bravo Plt Count MPV Immature Gran % (Auto) Neut % (Auto) Lymph % (Auto) [place] % (Auto) Eos % (Auto) Baso % (Auto) Absolute Neuts (auto) Absolute Lymphs (auto) Nucleated RBC % Diff Path Review Reviewed D-Dimer Quant (PE/DVT) 1.51 H* Sodium Potassium Chloride Carbon Dioxide Anion Gap BUN Creatinine Estim Creat Clear Calc Est GFR (MDRD) Af Amer Est GFR (MDRD) Non-Af BUN/Creatinine Ratio Glucose Calcium Phosphorus Magnesium Total Creatine Kinase Troponin I Triglycerides MRSA (PCR) POSITIVE H 04/19/21 04/19/21 04/19/21 08:50 11:00 14:05 WBC RBC Hgb Hct MCV MCH MCHC RDW Std Deviation RDW Coeff of Bravo Plt Count MPV Immature Gran % (Auto) Neut % (Auto) Lymph % (Auto) [place] % (Auto) Eos % (Auto) Baso % (Auto) Absolute Neuts (auto) Absolute Lymphs (auto) Nucleated RBC % Diff Path Review D-Dimer Quant (PE/DVT) Sodium Potassium Chloride Carbon Dioxide Anion Gap BUN Creatinine Estim Creat Clear Calc Est GFR (MDRD) Af Amer Est GFR (MDRD) Non-Af BUN/Creatinine Ratio Glucose Calcium Phosphorus Magnesium Total Creatine Kinase Troponin I 0.204 H 0.202 H 0.244 H Triglycerides MRSA (PCR) 04/20/21 04/20/21 03:35 03:35 WBC 25.6 H RBC 3.68 L Hgb 10.8 L Hct 33.3 L MCV 90.5 MCH 29.3 MCHC 32.4 RDW Std Deviation 51.4 H RDW Coeff of Bravo 15.7 H Plt Count 230 MPV 11.1 Immature Gran % (Auto) 0.500 Neut % (Auto) 83.8 H Lymph % (Auto) 7.9 L [place] % (Auto) 7.3 Eos % (Auto) 0.1 Baso % (Auto) 0.4 Absolute Neuts (auto) 21.5 H Absolute Lymphs (auto) 2.02 Nucleated RBC % 0 Diff Path Review May foll D-Dimer Quant (PE/DVT) Sodium 141 Potassium 3.9 Chloride 107 Carbon Dioxide 27.0 Anion Gap 7 BUN 18 Creatinine 0.56 L Estim Creat Clear Calc 58.59 Est GFR (MDRD) Af Amer 187 Est GFR (MDRD) Non-Af 155 BUN/Creatinine Ratio 32.1 H Glucose 198 H Calcium 7.7 L Phosphorus 1.8 L Magnesium 1.5 L Total Creatine Kinase 66 Troponin I Triglycerides 125 MRSA (PCR) Micro: Microbiology 04/19/21 12:00 Sputum, Induced/Lukens Gram Stain - Final 04/19/21 04:50 Urine Catheter - Hua Legionella Antigen - Final 04/19/21 04:50 Urine Catheter - Hua Streptococcus pneumoniae Antigen (M - Final 04/19/21 04:50 Mucosa - Nasopharyngeal SARS-CoV-2 Antigen (Rapid) - Final ABG Data ABG results: ABG 04/19/21 04/19/21 04/19/21 07:40 09:23 13:49 Specimen Type ART ART ART Sample Site R Radial R Radial R Radial pH 7.22 L 7.25 L 7.27 L Bicarbonate Actual 32.7 H 32.2 H 30.1 H Total CO2 35 35 32 Base Excess 5 H 5 H 3 H O2 Saturation 83 L 87 L 96 O2 % 90 90 100 ABG pCO2 79.5 H* 73.3 H* 65.2 H ABG pO2 59 L 63 L 98 Varun Test Positive Positive Positive Respiration Rate 14 16 O2 Delivery Device BiPAP BiPAP ET Tube Vent Mode AC Tidal Volume 450 400 POC PEEP 10 5 Crit Call To/Read Back Yes Yes Clinical Comments 16-8 Radiography Diagnostic Testing: Radiology Impression Echocardiogram 04/19/21 08:31 Interpretation Summary Normal LV size. Left ventricular systolic function is normal. The estimated ejection fraction is 65 %. Stage 1 diastolic dysfunction. Pulmonary artery systolic pressure is 38 mmHg. Contrast injection was performed. Ordering Physician: Harriet Pink Referring Physician: Chin Heller Performed By: Raul Bradley RCS Chest X-Ray 04/19/21 12:00 IMPRESSION: 1. Interval placement of endotracheal tube with the tip approximately 2 cm above the edison. 2. Interval placement of nasogastric tube with the tip below the diaphragm. 3. Poor inspiration with some bibasilar atelectasis per Electronically Signed: John Madsen MD at 12:30 EDT Tel , Service support , Chest X-Ray 04/19/21 15:42 IMPRESSION: 1. Interval placement of left upper extremity PICC with tip the catheter overlying the spur vena cava. 2. Endotracheal tube and nasogastric tube both which are unchanged. 3. No change in bibasilar atelectasis or pneumonia. Electronically Signed: John Madsen MD at 17:04 EDT Tel , Service support , Physical Exam Const General Appearance: disheveled, frail, appears older than stated age and patient mechanically ventilated; Negative for in distress Orientation / Consciousness: disoriented and lethargic Nutritional Appearance: underweight HEENT normocephalic and head/scalp atraumatic; Negative for moist oral mucous membranes Eyes PERRL, EOMs intact bilaterally and conjunctivae normal Neck full ROM Lymph Lymphatic: no lymphadenopathy noted Resp Effort and Inspection: Negative for stridor or tracheal deviation Auscultation: rhonchi, wheezes and diminished lung sounds; Negative for rales Cardio S1 normal heart sound, S2 normal heart sound, no murmurs, no rub, no gallops and no JVD Rate: tachycardic Heart Sounds: Negative for gallop, murmur or rub GI normal to inspection, nondistended, normoactive bowel sounds Narrative: Erythema at meatus noted Extremity no clubbing, cyanosis or edema Skin Skin Narrative: Multiple superficial ulcerations. Lower extremity mottling is improved, but still has cyanosis of the toes General Skin Exam: mottling Neuro oriented x3 and CN's II-XII intact bilaterally Psych cooperative and affect normal Charges/Coding Procedures Hospitalists Procedures: 15814 Critial Care 1st Hr
[2021-04-20 07:26] LABS: Base Excess 4 mmol/L (-2 to +2); Bicarbonate 28.3 mmol/L (22-26); Blood Gas Specimen Type ART; FI02 30; Mode AC; O2 Delivery Device Adult Vent; PEEP 5; PO2 64 mmHG (75-100); RR 16; SITE R Brach; SO2 92 % (95-99); Total Carbon Dioxide 30 mmol/L; Vt 400; pCO2 45.6 mmHg (35-45)
[2021-04-20] MEDS: Ipratropium/Albuterol Sulfate 3 ML AMPUL.NEB INHALATION ×4 (07:35→19:28)
--- NOTE | 2021-04-20 09:36 | PN.HOSP_ITS ---
Subjective Subjective Required intubation yesterday early afternoon after which he dropped his pressure as his respiratory drive was removed. He had been on as much as 25 mics of Levophed but this morning is down to 5 mics. He was markedly febrile overnight with a T-max 103.9. Cooling blanket was initiated and this is being weaned at this time as well as temperatures have improved this morning into the 99+ range. He does awaken some and moves extremities. He is now on 10 of propofol and 150 of fentanyl. Objective Data Objective Data Vital Signs: Vital Signs Temp Pulse Resp BP Pulse Ox 99.4 F H 93 16 145/65 H 91 04/20/21 08:00 04/20/21 09:18 04/20/21 09:18 04/20/21 08:15 04/20/21 09:18 Oxygen Flow Rate (L/min) 90 Oxygen Delivery Method Mechanical Ventilator Weight: 57.788 kg Body Mass Index (BMI) 17.1 Intake & Output: Intake and Output for Last 24 Hours 04/18/21 04/19/21 04/20/21 23:59 23:59 23:59 Intake Total 3854.59 / 3917.62 1117.40 / 1117.40 Output Total 2725 / 2725 550 / 550 Balance 1129.59 / 1192.62 567.40 / 567.40 Lab / Micro Data Result Diagrams: 04/20/21 03:35 04/20/21 03:35 Labs: Laboratory Results - last 24 hr 04/19/21 04/19/21 04/19/21 04:40 08:50 11:00 WBC RBC Hgb Hct MCV MCH MCHC RDW Std Deviation RDW Coeff of Bravo Plt Count MPV Immature Gran % (Auto) Neut % (Auto) Lymph % (Auto) [place] % (Auto) Eos % (Auto) Baso % (Auto) Absolute Neuts (auto) Absolute Lymphs (auto) Nucleated RBC % Diff Path Review Reviewed Sodium Potassium Chloride Carbon Dioxide Anion Gap BUN Creatinine Estim Creat Clear Calc Est GFR (MDRD) Af Amer Est GFR (MDRD) Non-Af BUN/Creatinine Ratio Glucose Calcium Phosphorus Magnesium Total Creatine Kinase Troponin I 0.202 H Triglycerides MRSA (PCR) POSITIVE H 04/19/21 04/20/21 04/20/21 14:05 03:35 03:35 WBC 25.6 H RBC 3.68 L Hgb 10.8 L Hct 33.3 L MCV 90.5 MCH 29.3 MCHC 32.4 RDW Std Deviation 51.4 H RDW Coeff of Bravo 15.7 H Plt Count 230 MPV 11.1 Immature Gran % (Auto) 0.500 Neut % (Auto) 83.8 H Lymph % (Auto) 7.9 L [place] % (Auto) 7.3 Eos % (Auto) 0.1 Baso % (Auto) 0.4 Absolute Neuts (auto) 21.5 H Absolute Lymphs (auto) 2.02 Nucleated RBC % 0 Diff Path Review May foll Sodium 141 Potassium 3.9 Chloride 107 Carbon Dioxide 27.0 Anion Gap 7 BUN 18 Creatinine 0.56 L Estim Creat Clear Calc 58.59 Est GFR (MDRD) Af Amer 187 Est GFR (MDRD) Non-Af 155 BUN/Creatinine Ratio 32.1 H Glucose 198 H Calcium 7.7 L Phosphorus 1.8 L Magnesium 1.5 L Total Creatine Kinase 66 Troponin I 0.244 H Triglycerides 125 MRSA (PCR) Micro: Microbiology 04/19/21 12:00 Sputum, Induced/Lukens Gram Stain - Final 04/19/21 04:50 Urine Catheter - Hua Legionella Antigen - Final 04/19/21 04:50 Urine Catheter - Hua Streptococcus pneumoniae Antigen (M - Final 04/19/21 04:50 Mucosa - Nasopharyngeal SARS-CoV-2 Antigen (Rapid) - Final ABG Data ABG results: ABG 04/19/21 04/20/21 13:49 07:19 Specimen Type ART ART Sample Site R Radial R Brach pH 7.27 L 7.40 Bicarbonate Actual 30.1 H 28.3 H Total CO2 32 30 Base Excess 3 H 4 H O2 Saturation 96 92 L O2 % 100 30 ABG pCO2 65.2 H 45.6 H ABG pO2 98 64 L Varun Test Positive Respiration Rate 16 16 O2 Delivery Device ET Tube Adult Vent Vent Mode AC AC Tidal Volume 400 400 POC PEEP 5 5 Radiography Diagnostic Testing: Radiology Impression Echocardiogram 04/19/21 08:31 Interpretation Summary Normal LV size. Left ventricular systolic function is normal. The estimated ejection fraction is 65 %. Stage 1 diastolic dysfunction. Pulmonary artery systolic pressure is 38 mmHg. Contrast injection was performed. Ordering Physician: Harriet Pink Referring Physician: Chin Heller Performed By: Raul Bradley RCS Chest X-Ray 04/19/21 12:00 IMPRESSION: 1. Interval placement of endotracheal tube with the tip approximately 2 cm above the edison. 2. Interval placement of nasogastric tube with the tip below the diaphragm. 3. Poor inspiration with some bibasilar atelectasis per Electronically Signed: John Madsen MD at 12:30 EDT Tel , Service support , Chest X-Ray 04/19/21 15:42 IMPRESSION: 1. Interval placement of left upper extremity PICC with tip the catheter overlying the spur vena cava. 2. Endotracheal tube and nasogastric tube both which are unchanged. 3. No change in bibasilar atelectasis or pneumonia. Electronically Signed: John Madsen MD at 17:04 EDT Tel , Service support , Physical Exam Const Constitutional Narrative: Thin upper middle-aged white male who appears much older than stated age, lying in bed, intubated and sedated Exam Limitations: other limitations Nutritional Appearance: cachectic HEENT head/scalp atraumatic HEENT Narrative: ET tube in place, trachea midline Head and Scalp: normocephalic Eyes PERRL and conjunctivae normal Neck no lymphadenopathy and supple Resp no retractions and no use of accessory muscles Resp Narrative: Scattered rhonchi, diffusely diminished no wheeze or rales Auscultation: rhonchi left lower; Negative for crackles, rales or wheezes Cardio regular rate, regular rhythm, S1 normal heart sound, S2 normal heart sound, no murmurs, no rub, no gallops, no clicks and no JVD GI normal to inspection, nondistended, normoactive bowel sounds, soft to palpation, non-tender and non-distended Auscultation: Negative for hyperactive bowel sounds or hypoactive bowel sounds Palpation: Negative for tender, guarding or hernia Extremity Negative for normal to inspection or no clubbing, cyanosis or edema Extremity Narrative: Thin extremities with decreased muscle mass, patient with some mottling most noted at bilateral distal lower extremities and toes with purplish hue but no sign of necrosis pedal pulses are 1+ and radial pulses are 2+, decreased cap refill bilateral lower extremities Skin skin turgor normal, no jaundice and no petechiae Skin Narrative: Ecchymosis bilateral knees, mottling as noted above Neuro Neuro Narrative: Intubated and sedated, on ventilator, reflexes are 2+ throug hout bilateral lower and upper extremities, spontaneously moves bilateral extremities symmetrically, does not follow commands but is sedated Psych Psych Narrative: Unable to assess Assessment & Plan Assessment/Plan (1) Septic shock: (2) Acute UTI: (3) Acute on chronic respiratory failure with hypoxia and hypercapnia: (4) SHANTANU (acute kidney injury): (5) Metabolic encephalopathy: (6) Elevated troponin: (7) Pneumonia: PLAN: Septic shock secondary to pneumonia and suspected UTI -Blood urine and sputum cultures pending -Legionella and strep pneumo urine antigens are negative -COVID-19 negative -Sputum culture pending -Blood and urine cultures pending -MRSA PCR is positive -Patient was initially fluid responsive but after intubation and decreased respiratory drive patient required the initiation of Levophed -Levophed has been weaned from 25 mics down to 5 mics today -We will continue to wean as able -Continue Vanco and Zosyn empirically for now -We will consider ID consult once cultures are resulted Acute hypoxic and hypercapnic respiratory failure on chronic hypoxic and hypercapnic respiratory failure-multifactorial -On 2 L nasal cannula at baseline -Patient was intubated -A.m. ABG reviewed and pH is now normalized with improved hypercapnia and better oxygenation -Post intubation x-ray shows infiltrate -Sputum culture pending -As needed and scheduled aerosols -Initiate spontaneous breathing trial -Continue vancomycin and Zosyn -Pulmonary/critical care medicine following and input is appreciated Mild SHANTANU -Resolved -Once off pressors and stable will consider discontinuing IV hydration and starting free water via OG Hypotension -Improved -Weaning Levophed -Continue IV fluids and will consider stopping once off pressors and stable Metabolic encephalopathy -Likely related to hypercapnia and acute infection -Reassess after metabolic issues are corrected Elevated troponin secondary to demand ischemia -Likely related to hypoxemia and sepsis -Echo was performed and showed an EF of 65% with stage I diastolic dysfunction and mildly elevated pulmonary artery pressure at 38 mmHg but no wall motion abnormality Leukocytosis -See above COPD -Patient had been smoking prior to admission with no desire to quit -See above -Pulmonary is following -Suspect patient will need inhalers prior to discharge Mild acute anemia -Hemoglobin from 12.6-10.8 in the last 24 hours -Suspect hemodilution with a quantity of fluids we have been giving him -We will trend -No signs of acute bleeding Cervical myelopathy/stenosis status post fusion -PT and OT -If requires intubation glide scope utilization -Hold oxycodone and baclofen at this time given hypercapnia and sedation COPD -Continue aerosols Severe malnutrition -Tube feeds have been initiated -Supplements Severe debility -Continue therapy services -We will consider repeat palliative care consult once patient is more alert and oriented Tobacco abuse -Patient has shown no desire to quit in recent admissions -Recommend cessation DVT prophylaxis -Therapeutic Lovenox CODE STATUS -Full code Visit Charges Inpatient E&M: 76958 Subs Hosp L2
[2021-04-20] MEDS: Polyethylene Glycol 3350 17 GM PACKET GT (09:37)
[2021-04-20] MEDS: Enoxaparin 40 MG/0.4 ML Syringe SC (09:37)
[2021-04-20] MEDS: guaiFENesin 600 MG Tablet PO ×2 (09:37→20:23)
[2021-04-20] MEDS: Aspirin 81 MG TAB.CHEW GT (09:37)
[2021-04-20] MEDS: Ascorbic Acid 500 MG Tablet 250 MG GT ×2 (09:37→17:29)
[2021-04-20] MEDS: Multivitamins,Ther W-Minerals Tablet 1 TABLET GT (09:38)
--- NOTE | 2021-04-20 09:38 | EX.NTREPO ---
Medical Nutrition Therapy - History Nutrition Services has been consulted to:: Manage nutrient details of diet order, Manage enteral nutrition Current diet/nutrition support order:: NPO - Anthropometric Measurements Height:: 5 ft 10.08 in Weight:: 57.788 kg - Relevant Labs Relevant Labs:: WBC 25.6 K/mm3 (4.4-11.0) H 04/20/21 03:35 RBC 3.68 M/mm3 (4.6-6.2) L 04/20/21 03:35 Hgb 10.8 g/dL (13.0-16.5) L 04/20/21 03:35 Hct 33.3 % (40-54) L 04/20/21 03:35 MCHC 31.5 g/dL (32-36) L 04/19/21 04:40 RDW Std Deviation 51.4 fl (35.1-43.9) H 04/20/21 03:35 RDW Coeff of Bravo 15.7 % (11.6-14.6) H 04/20/21 03:35 Neut % (Auto) 83.8 % (47-70) H 04/20/21 03:35 Lymph % (Auto) 7.9 % (19-41) L 04/20/21 03:35 Absolute Neuts (auto) 21.5 X10^3/uL (2.0-7.7) H 04/20/21 03:35 D-Dimer Quant (PE/DVT) 1.51 FEU/ug/m (0.27-0.49) H* 04/19/21 04:40 Chloride 95 mmol/L (98-107) L 04/19/21 04:40 Carbon Dioxide 36.0 mmol/L (21.0-32.0) H 04/19/21 04:40 BUN 32 mg/dL (7-18) H 04/19/21 04:40 Creatinine 0.56 mg/dL (0.70-1.30) L 04/20/21 03:35 BUN/Creatinine Ratio 32.1 RATIO (10-20) H 04/20/21 03:35 Glucose 198 mg/dL (74-106) H 04/20/21 03:35 Calcium 7.7 mg/dL (8.5-10.1) L 04/20/21 03:35 Phosphorus 1.8 mg/dL (2.5-4.9) L 04/20/21 03:35 Magnesium 1.5 mg/dL (1.6-2.6) L 04/20/21 03:35 Troponin I 0.244 ng/mL (<0.045) H 04/19/21 14:05 Albumin 2.7 g/dL (3.2-5.0) L 04/19/21 04:40 Globulin 4.4 g/dL (2.2-4.2) H 04/19/21 04:40 Albumin/Globulin Ratio 0.6 RATIO (0.9-2.4) L 04/19/21 04:40 - Assessment Food and Nutrient Intake: Currently intubated. Per opal Kay to start enteral nutrition support via OGT. Wt increase of ~3.5 kg since last review. - Nutrition Diagnosis: Clinical Problem Acute Disease or Injury Related Malnutrition Clinical Problem - Etiology: severe, acute malnutrition r/t inadequate energy intake w/ functional decline s/p surgery Clinical Problem - Signs/Symptoms: as evidenced by estimated PO intake meeting <50% of nutritional needs x 2 weeks, unintentional wt loss of 10.9#/8.3% <1 month - Protein Calorie Malnutrition Evidence of Malnutrition Exists: Yes Severe Protein Calorie Malnutrition:: Acute Illness/Injury - Nutrition Intervention Nutrition Prescription: Pt at high risk for refeeding syndrome d/t BMI, unintentional wt loss. Recommend 10-15 calories/kg/day for first 1-3 days of refeeding (540-810 calories, 27-40 g protein) - Food / Nutrient Delivery Interventions Summary of nutrition intervention:: Order/adjust enteral nutrition Nutrition support ordered as / adjusted to:: Vital AF 1.2 via OGT at 20mL/hour w/ 30mL H2O flush every 4 hours to provide 576 calories, 36 g protein, and 569mL fluid/day. Continue trophic rate d/t concerns for refeeding- will monitor electrolytes and advance rate as day 3 of feeding approaches and/or electrolytes normalize. RENEWABLE ENERGY TECHNICIAN evaluation prior to advancement of PO diet if extubated. - MNT Monitoring Active Nutrition Patient: Yes Nutrition Status: Requires Follow Up in 1-2 Days
[2021-04-20] MEDS: Chlorhexidine 15 ML PO ×2 (09:39→20:23)
--- NOTE | 2021-04-20 09:56 | CASEMGMT ---
Social Work SW attended ICU rounds. Pt is intubated at this time. After rounds, SW placed call to pt son Benny Gusman JR. No answer, VM left. TONYA Kevin
--- NOTE | 2021-04-20 10:02 | CT_ITS ---
STUDY: CT SOFT TISSUE NECK WITH CONTRAST REASON FOR EXAM: Male, 69 years old. septic shock, recent cervical surgery RADIATION DOSAGE (If Supplied By Facility): CTDIvol = ( 10.43 ) mGy, DLP = ( 578.50 ) mGycm TECHNIQUE: The patient was scanned in a multi-detector CT scanner. High resolution transaxial imaging was performed following intravenous administration of IV 75mL Isovue-370. Sagittal and coronal images were reconstructed. Individualized dose optimization techniques were used for this CT. COMPARISON: 04/05/2021 FINDINGS: Endotracheal tube and feeding tube. Normal bilateral parotid glands. Normal bilateral housing management representative spaces. Normal bilateral parapharyngeal spaces. Normal bilateral carotid spaces. Normal bilateral sublingual and submandibular glands and spaces. Normal visualized nasopharynx. Normal retropharyngeal space. Normal perivertebral space. Normal visualized bilateral faucial tonsils. The visualized tongue, tongue base and oropharynx are normal. The visualized cervical lymph nodes (levels I-) are within normal size limits, and maintain normal morphology. There is no demonstrated solid or cystic mass lesion. There is no abnormal contrast enhancement. Normal epiglottis, bilateral vallecula and hypopharynx. The pre-epiglottic and paraglottic adipose spaces are normal. Normal visualized bilateral piriform sinuses, aryepiglottic folds, vocal cords, and arytenoid-cricoid articulations. Normal subglottic trachea. Normal bilateral lobes of the thyroid gland. Normal visualized pulmonary apices. Normal visualized paranasal sinuses. Status post anterior cervical discectomy and fusion from C4 through C7 which is unchanged. Status post posterior decompression at C3/C4 with transpedicular fixation from C2-3 C4. The right pedicle screw at C2 is not within the pedicle and is within the lateral aspect of the spinal canal. Again seen are multiple small round radiopacities within the soft tissues posterior to the mid and lower cervical spine likely consistent with antibiotic beads. However, superior to the majority of the antibiotic beads at the level of C2 there are fluid collections posterior lateral to the lamina of C2 bilaterally and surrounding the superior aspect of the spinal isaiah worrisome for abscess or CSF leak. On the right, the fluid collection measures 1.5 x 3.0 cm and on the left, the fluid collection measures 1.2 x 2.5 cm all measured on image 75. CT/Soft Tissue Neck WITH Contrast IMPRESSION: 1. Endotracheal tube and feeding tube. 2. Status post posterior decompression and transpedicular fixation at C3/C4 with interval development of fluid collection posterior lateral to the both lamina of C2 possibly consistent with seromas or abscesses or from CSF leak. Antibiotic beads are seen in the posterior soft tissues more inferiorly. N.B. : The above information has been verbally conveyed by John Madsen MD to Dr. Arik MD, on 04/20/2021 13:04:05 (ET). Electronically Signed: John Madsen MD at 13:07 EDT Tel , Service support ,
--- NOTE | 2021-04-20 10:02 | CT_ITS ---
STUDY: CT CHEST WITH CONTRAST REASON FOR EXAM: Male, 69 years old. septic shock, pneumonia RADIATION DOSAGE (If Supplied By Facility): CTDIvol = ( 10.43 ) mGy, DLP = ( 578.50 ) mGycm TECHNIQUE: Transaxial imaging was performed following intravenous administration of IV 75mL Isovue-370. Individualized dose optimization techniques were used for this CT. COMPARISON: None. FINDINGS: Endotracheal tube with the tip at the edison. Feeding tube with the tip in the stomach. Mild emphysematous changes. 2.5 cm thick-walled cavitary nodule in the right upper lobe on image 35 worrisome for bronchogenic carcinoma. Correlation with PET CT scan is recommended. Dense bibasilar atelectasis. No obvious mucous plugging. There is no demonstrated pleural abnormality. Normal heart and pericardium. Normal mediastinum. Normal hilar regions. Normal enhanced pulmonary arteries. Normal aorta arch and descending thoracic aorta. Normal osseous structures. There is no demonstrated abnormality of the visualized upper abdomen. CT/Chest WITH Contrast IMPRESSION: 1. Endotracheal tube with the tip at the edison. 2. Nasogastric tube with the tip in the stomach. 3. Dense bibasilar atelectasis. No obvious mucous plugging. 4. Emphysema with a 2.5 cm thick-walled cavitary nodule the right upper lobe worrisome for bronchial carcinoma in correlation with the PET CT scan is recommended. Electronically Signed: John Madsen MD at 13:18 EDT Tel , Service support ,
--- NOTE | 2021-04-20 10:06 | CON.PCM.ID_ITS ---
Assessment & Plan Assessment/Plan (1) Septic shock: PLAN: septic shock - UA with heavy pyuria, recent ucxs with esbl ecoli and enterococcus. On vent, treating for pneumonia. Sputum gram stain with large amounts of multiple organisms seen including possible actinomyces. With suspected polymicrobial pneumonia, recent major cervical surgery, and propensity for actinomyces to cause abscess and fistula formation, will check CT neck and chest with contrast. Will broaden vanc/zosyn to vanc/dany to have some esbl and actino coverage. Will follow, thank you, d/w nursing and Dr. Elise. (2) Pneumonia: (3) SHANTANU (acute kidney injury): (4) COPD (chronic obstructive pulmonary disease): QUALIFIERS: COPD type: COPD with acute exacerbation Qualified Code(s): J44.1 - Chronic obstructive pulmonary disease with (acute) exacerbation HPI Consult Data Date of Consult: 04/20/21 HPI Narrative HPI Narrative: FRAN GUZMAN, is a 69 M who presented 04/19 to ED from SNF with dyspnea and hypoxia to the 60s. Multiple recent admits after initially presenting with severe cervical spinal stenosis, myelopathy, myelomalacia, cord compression. He was transferred to [facility] 03/21/2021, and on 03/24/3021 neurosurgery performed c2 dome osteotomy,C3-4 laminectomy, c2-5 instrumented fusion with screws, rods, and posterolateral arthrodesis. Since then has been treated for enterococcus and then esbl uti. Now here with septic shock, pneumonia, and suspected uti, on vent and pressors. Empirically on vanc/zosyn. Thick foul sputum reported during intubation. Pt unable to provide ROS. [facility] Medical History Anxiety Cervical myelopathy COPD (chronic obstructive pulmonary disease) Encephalopathy Home Medications sennosides-docusate sodium [Senna-S] 2 tab PO DAILY 03/21/21 [History Last Taken 03/21/21 06:00] ascorbic acid (vitamin C) 250 mg PO BID 04/01/21 [History Last Taken Unknown] aspirin 81 mg PO DAILY 04/01/21 [History Last Taken Unknown] melatonin 5 mg PO DAILY@1800 04/01/21 [History Last Taken Unknown] multivitamin with minerals [Multiple Vitamin-Minerals] 1 tab PO DAILY 04/01/21 [History Last Taken Unknown] atorvastatin 40 mg PO QHS 30 Days #30 tab 04/13/21 [Rx Last Taken Unknown] baclofen 10 mg PO TID 30 Days #90 tab 04/13/21 [Rx Last Taken Unknown] dextromethorphan-guaifenesin 10 ml PO Q6H PRN PRN #0 ml 04/13/21 [Rx Last Taken Unknown] diazepam 5 mg PO 4X/DAY PRN PRN 30 Days #120 tab 04/13/21 [Rx Last Taken Unknown] guaifenesin [Mucus Relief ER] 600 mg PO BID #0 tab 04/13/21 [Rx Last Taken Unknown] losartan 100 mg PO DAILY 30 Days #30 tab 04/13/21 [Rx Last Taken Unknown] menthol-zinc oxide [Calmoseptine] 1 applic TOPICAL 0600,2200 #0 g 04/13/21 [Rx Last Taken Unknown] polyethylene glycol 3350 17 g PO DAILY #0 ea 04/13/21 [Rx Last Taken Unknown] sodium chloride [Deep Sea Nasal] 2 spray NASAL TID PRN PRN #0 ml 04/13/21 [Rx Last Taken Unknown] B complex-minerals [Stress B Plus Zinc] 1 tab PO DAILY 04/19/21 [History Last Taken Unknown] acetaminophen [Tylenol] 650 mg PO Q4H PRN 04/19/21 [History Last Taken Unknown] albuterol sulfate 2.5 mg INHALATION Q4H PRN 04/19/21 [History Last Taken Unknown] multivitamin,tx-minerals [Theragran-M] 1 tab PO DAILY 04/19/21 [History Last Taken Unknown] oxycodone 10 mg PO Q6H PRN PRN 04/19/21 [History Last Taken Unknown] Allergy/AdvReac Type Severity Reaction Status Date / Time No Known Allergies Allergy Verified 04/19/21 04:41 Surgical History H/O neck surgery History of back surgery History of cervical spinal arthrodesis Social History household members: family and children Smoking Status: Former smoker alcohol intake: current details: Occasional Physical Exam Const Constitutional Narrative: ill appearing, intubated, sedated HEENT normocephalic and head/scalp atraumatic Eyes PERRL Neck supple and No nodes Resp Resp Narrative: mild Auscultation: rhonchi Cardio regular rate and regular rhythm GI normal to inspection, nondistended, normoactive bowel sounds Extremity General Extremity: cyanosis Skin no rashes or lesions noted Neuro Neuro Narrative: sedated, unable to follow commands Lab / Micro Data Result Diagrams: 04/20/21 03:35 04/20/21 03:35 Labs: Laboratory Results - last 24 hr 04/19/21 04/19/21 04/19/21 04:40 08:50 11:00 WBC RBC Hgb Hct MCV MCH MCHC RDW Std Deviation RDW Coeff of Bravo Plt Count MPV Immature Gran % (Auto) Neut % (Auto) Lymph % (Auto) [place] % (Auto) Eos % (Auto) Baso % (Auto) Absolute Neuts (auto) Absolute Lymphs (auto) Nucleated RBC % Diff Path Review Reviewed Sodium Potassium Chloride Carbon Dioxide Anion Gap BUN Creatinine Estim Creat Clear Calc Est GFR (MDRD) Af Amer Est GFR (MDRD) Non-Af BUN/Creatinine Ratio Glucose Calcium Phosphorus Magnesium Total Creatine Kinase Troponin I 0.202 H Triglycerides MRSA (PCR) POSITIVE H 04/19/21 04/20/21 04/20/21 14:05 03:35 03:35 WBC 25.6 H RBC 3.68 L Hgb 10.8 L Hct 33.3 L MCV 90.5 MCH 29.3 MCHC 32.4 RDW Std Deviation 51.4 H RDW Coeff of Bravo 15.7 H Plt Count 230 MPV 11.1 Immature Gran % (Auto) 0.500 Neut % (Auto) 83.8 H Lymph % (Auto) 7.9 L [place] % (Auto) 7.3 Eos % (Auto) 0.1 Baso % (Auto) 0.4 Absolute Neuts (auto) 21.5 H Absolute Lymphs (auto) 2.02 Nucleated RBC % 0 Diff Path Review May foll Sodium 141 Potassium 3.9 Chloride 107 Carbon Dioxide 27.0 Anion Gap 7 BUN 18 Creatinine 0.56 L Estim Creat Clear Calc 58.59 Est GFR (MDRD) Af Amer 187 Est GFR (MDRD) Non-Af 155 BUN/Creatinine Ratio 32.1 H Glucose 198 H Calcium 7.7 L Phosphorus 1.8 L Magnesium 1.5 L Total Creatine Kinase 66 Troponin I 0.244 H Triglycerides 125 MRSA (PCR) Micro: Microbiology 04/19/21 12:00 Gram Stain - Final Sputum, Induced/Lukens 04/19/21 04:50 Legionella Antigen - Final Urine Catheter - Hua Streptococcus pneumoniae Antigen (M - Final ABG Data ABG results: ABG 04/19/21 04/20/21 13:49 07:19 Specimen Type ART ART Sample Site R Radial R Brach pH 7.27 L 7.40 Bicarbonate Actual 30.1 H 28.3 H Total CO2 32 30 Base Excess 3 H 4 H O2 Saturation 96 92 L O2 % 100 30 ABG pCO2 65.2 H 45.6 H ABG pO2 98 64 L Varun Test Positive Respiration Rate 16 16 O2 Delivery Device ET Tube Adult Vent Vent Mode AC AC Tidal Volume 400 400 POC PEEP 5 5 Radiology Impression Echocardiogram 04/19/21 08:31 Interpretation Summary Normal LV size. Left ventricular systolic function is normal. The estimated ejection fraction is 65 %. Stage 1 diastolic dysfunction. Pulmonary artery systolic pressure is 38 mmHg. Contrast injection was performed. ____ Ordering Physician: Harriet Pink Referring Physician: Chin Heller Performed By: Raul Bradley RCS Chest X-Ray 04/19/21 12:00 IMPRESSION: 1. Interval placement of endotracheal tube with the tip approximately 2 cm above the edison. 2. Interval placement of nasogastric tube with the tip below the diaphragm. 3. Poor inspiration with some bibasilar atelectasis per Electronically Signed: John Madsen MD at 12:30 EDT Tel , Service support , Chest X-Ray 04/19/21 15:42 IMPRESSION: 1. Interval placement of left upper extremity PICC with tip the catheter overlying the spur vena cava. 2. Endotracheal tube and nasogastric tube both which are unchanged. 3. No change in bibasilar atelectasis or pneumonia. Electronically Signed: John Madsen MD at 17:04 EDT Tel , Service support ,
[2021-04-20] MEDS: Famotidine 200 MG/20 ML MDV 20 MG in 0.9% Normal Saline (Pres. free 8 ML 300 MG IV ×2 (10:08→20:23)
--- NOTE | 2021-04-20 10:41 | CASEMGMT ---
COLBY WHITNEY Readmission note: Pt has had multiple admissions since 01/15: 01/14/21 thru 01/17/21: Admitted to [facility] w/acute cystitis. Pt lived @ home w/son, Benny. Discharged to [facility] 01/17/21. Pt left AMA from [facility] and returned home w/son, Benny. 03/02/21 thru 03/07/21: Admitted to [facility] w/UTI and infectious encephalopathy. Pt discharged to TCU. Pt in TCU until 03/21 and then went to ED d/t weakness. MRI of cervical spine: severe central canal stenosis and spinal cord compression @ C3-C4. Pt sent to tertiary hospital and had laminectomy done. 04/01/21 thru 04/16/21: Pt on TCU following laminectomy 04/16/21: Pt d/c'd from TCU to [facility] d/t insurance issued a last covered day. Current admission: Pt admitted from [facility] to [facility] 04/19/21 w/severe sepsis. Pt is currently intubated. Windy CASEYN COLBY WHITNEY
[2021-04-20] MEDS: Vital AF 1.2 Cal Liquid 1,000 ML 20 ML GT (12:09)
--- NOTE | 2021-04-20 13:13 | CPS ---
CT revealed it was down to far when retaped at approximately 27 kell
--- NOTE | 2021-04-20 13:25 | CASEMGMT ---
COLBY WHITNEY NOTE: Pt qualifies for a Palliative referral per the [facility] palliative screening tool at this time. Dr Pink aware but is not agreeable to Palliative referral at this time. Windy SLOAN RN CM
[2021-04-20 13:49] LABS: Pathologist Review Reviewed
[2021-04-20] MEDS: Propofol 10MG/Ml 1,000 MG/100 ML Bottle 3.5 MG CONT INF (15:06)
[2021-04-20] MEDS: 0.9% Normal Saline 1,000 ML 75 ML IV (15:07)
--- NOTE | 2021-04-20 15:23 | CHAPLAIN ---
Type of Pastoral Visit ___ Initial Visit ___ Follow-up Visit ___ On-call Visit _x__ General Patient Visit ___ Spiritual Assessment ___ Family Conference ___ Bereavement ___ Rapid Response ___ Code Blue ___ Other (describe below) Pastoral Care Referral From ___ Patient ___ Family ___ Nurse ___ Physician ___ Earth Boring Machine Operator ___ Machinist Apprentice ___ Other (describe below) Sacrament/Intervention ___ Active listening ___ Anointing ___ Church ___ Bereavement ___ Communion ___ Imani exploration ___ ___ Life review ___ Prayer ___ Reconciliation ___ Sacrament of Sick ___ Supportive presence ___ Wedding ___ Other (describe below) Pastoral Comments patient is still intubated and unable to talk
[2021-04-20 18:26] LABS: Vancomycin, Trough Level 6.1 ug/mL (5.0-15.0)
--- NOTE | 2021-04-20 20:19 | PCM.RX.CS ---
Consult Pharmacy has been consulted to manage selected antiobiotic: Vancomycin Type of Consult: Follow-up Suspected Infection: Sepsis Prior Doses of Antibiotics Received/Current Regimen: Has been on 500mg iv q12h. Labs: Sodium 141 mmol/L (136-145) 04/20/21 03:35 Potassium 3.9 mmol/L (3.5-5.1) 04/20/21 03:35 Chloride 107 mmol/L (98-107) 04/20/21 03:35 Carbon Dioxide 27.0 mmol/L (21.0-32.0) 04/20/21 03:35 Anion Gap 7 (5-15) 04/20/21 03:35 BUN 18 mg/dL (7-18) 04/20/21 03:35 Creatinine 0.56 mg/dL (0.70-1.30) L 04/20/21 03:35 Est GFR (MDRD) Af Amer 187 mL/min (>60) 04/20/21 03:35 Est GFR (MDRD) Non-Af 155 mL/min (>60) 04/20/21 03:35 BUN/Creatinine Ratio 32.1 RATIO (10-20) H 04/20/21 03:35 Glucose 198 mg/dL (74-106) H 04/20/21 03:35 Vancomycin Trough 6.1 ug/mL (5.0-15.0) 04/20/21 17:40 Microbiology: Microbiology 04/19/21 12:00 Sputum, Induced/Lukens Gram Stain - Final 04/19/21 12:00 Sputum, Induced/Lukens Respiratory Culture - Preliminary Staphylococcus aureus 04/19/21 04:50 Urine Catheter - Catheter Urine Culture - Preliminary Gram negative isaiah 04/19/21 04:50 Urine Catheter - Hua Legionella Antigen - Final 04/19/21 04:50 Urine Catheter - Hua Streptococcus pneumoniae Antigen (M - Final 04/19/21 04:50 Mucosa - Nasopharyngeal SARS-CoV-2 Antigen (Rapid) - Final Weight used for dosin.8 kg Estimated Creatinine Clearance: 59 ml/min Goal Trough: 15-20 mcg/mL Pharmacy Plan for Drug Dosing: Today's trough was 6.1 (goal 15-20 mcg/ml). Have ordered a 1x dose of 750mg for this PM (received 500mg earlier). Will increase dose to 1250mg iv q12h per pharmacokinetic protocol. Another trough level ordered for 5.29.21 before 4th dose of new regimen. Pharmacy Service will continue to monitor and adjust dosing as required. Follow-Up Labs: Trough Vancomycin - 5.29.21 @0530 before 0600 dose
[2021-04-20] MEDS: Atorvastatin Calcium 40 MG Tablet GT (20:23)
[2021-04-21] VITALS (67 sets, daily range): BP systolic 68–187; BP diastolic 35–87; PULSE 55–116; RESP 12–24; TEMP 36.7–38.8; O2SAT 80–99
[2021-04-21] MEDS: Acetaminophen 650 MG/20 ML UDC GT (03:30)
[2021-04-21] MEDS: 0.9% Normal Saline 1,000 ML 75 ML IV (05:05)
[2021-04-21 05:33] LABS: Absolute Lymphocyte Count 1.12 X10^3/uL (0.83-4.51); Absolute Neutrophil Count 11.2 X10^3/uL (2.0-7.7); Basophil# 0.02 X10^3/uL; Basophil% 0.1 % (0-1); Eosinophil# 0.16 X10^3/uL; Eosinophils% 1.2 % (0-5); Hematocrit 26.6 % (40-54); Hemoglobin 8.6 g/dL (13.0-16.5); Lymphocyte # 1.12 X10^3/ul (0.83-4.51); Lymphocyte % 8.2 % (19-41); Mean Corp Hgb Conc 32.3 g/dL (32-36); Mean Corpuscular Hgb 29.5 pg (27.0-32.0); Mean Corpuscular Volume 91.1 fL (80-94); Monocyte# 1.07 X10^3/uL; Monocyte% 7.9 % (0-10); NRBC Flagged by Analyzer 0 % (0-5); Neutrophil # 11.16 X10^3/uL (2.7-7.7); Neutrophil % 82.1 % (47-70); Platelet Count 162 K/mm3 (150-450); RBC Distribution Width CV 15.8 % (11.6-14.6); RBC Distribution Width SD 51.9 fl (35.1-43.9); Red Blood Count 2.92 M/mm3 (4.6-6.2); White Blood Count 13.6 K/mm3 (4.4-11.0)
[2021-04-21] MEDS: Propofol 10MG/Ml 1,000 MG/100 ML Bottle 10.4 MG CONT INF (05:34)
[2021-04-21] MEDS: TITRATION PARAMETER CHANGE 1 EACH IV (05:44)
[2021-04-21 05:49] LABS: ALB/GLOB Ratio 0.5 RATIO (0.9-2.4); AST(SGOT) 48 U/L (15-37); Alanine Aminotransfer ALT/SGPT 34 U/L (16-61); Albumin, Serum 1.7 g/dL (3.2-5.0); Alkaline Phosphatase 110 U/L (45-117); Anion Gap 6 (5-15); BUN 11 mg/dL (7-18); BUN/Creat Ratio 23.9 RATIO (10-20); Calcium,Total 7.7 mg/dL (8.5-10.1); Chloride 105 mmol/L (98-107); Creatinine, Serum 0.46 mg/dL (0.70-1.30); EST Glomerular Filtration Rate 193 mL/min (>60); Est Glom Filt Rate - Afr Amer 234 mL/min (>60); Estimated Creatinine Clearance 60.02 ml/min; Globulin 3.6 g/dL (2.2-4.2); Glucose 169 mg/dL (74-106); Magnesium 1.7 mg/dL (1.6-2.6); Phosphorus 1.6 mg/dL (2.5-4.9); Potassium 3.4 mmol/L (3.5-5.1); Protein, Total 5.3 g/dL (6.4-8.2); Sodium Level 140 mmol/L (136-145)
--- NOTE | 2021-04-21 06:42 | PN.CC_ITS ---
Assessment & Plan Assessment/Plan (1) Acute on chronic respiratory failure with hypoxia and hypercapnia: (2) COPD (chronic obstructive pulmonary disease): QUALIFIERS: COPD type: COPD with acute exacerbation Qualified Code(s): J44.1 - Chronic obstructive pulmonary disease with (acute) exacerbation (3) Physical debility: (4) Urinary tract infection, acute: (5) Infectious encephalopathy: (6) Debility: (7) Sepsis: QUALIFIERS: Sepsis type: sepsis due to unspecified organism Sep sis acute organ dysfunction status: with acute organ dysfunction Acute res piratory failure type: with hypercapnia Severe sepsis shock status: without septic shock PLAN: RECOMMENDATIONS: 1. Continue propofol and fentanyl 2. Agree with broad-spectrum antibiotics 3. Wean pressors as tolerated. 4. Spontaneous breathing and awakening trials per protocol when appropriate 5. Aggressive pulmonary toileting 6. Schedule bowel regimen IMPRESSIONS: 1. Septic shock secondary to UTI with mild SHANTANU and indwelling Hua versus polymicrobial right lower lobe infiltrate UA is suggestive of an acute UTI with elevation in baseline creatinine from 0.65-1.07. Patient may have an element of prerenal etiology. Patient was responsive to fluids earlier. Patient has been hospitalized for an extended period of time, so broad-spectrum antibiotics would be indicated. Patient with polymicrobial sputum culture noted. On broad-spectrum antibiotics. Infectious disease input appreciated. 2. Acute on chronic combined respiratory failure Clinical suspicion for multifactorial etiology. Patient does have baseline COPD of unclear significance. Patient also has increased metabolic demand secondary to problem #1. Oxygenation is likely improved secondary to recruitment. Spontaneous breathing and awakening trials per protocol. May need to transition to Precedex to facilitate spontaneous breathing trial once more medically stable 3. Metabolic encephalopathy Multiple etiologies including sepsis and hypercarbia. Avoidance of benzodiazepines and narcotics would be helpful. We will continue to monitor closely. Patient with recent extensive conversation about CODE STATUS with social work. Agree with full CODE STATUS. 4. Recent cervical fusion/malnutrition/debility/reported tobacco abuse/elevated troponin Complicates care, management, recovery and prognosis. Will initiate tube feeds if patient is intubated. Patient does have some elevated troponin, but this is likely secondary to supply demand mismatch given hypoxia on presentation. Echocardiogram was relatively unremarkable TIME: 35 minutes critical care time spent addressing patient's severe sepsis, respiratory failure, metabolic encephalopathy, review of all data and collaboration with care team (5:30 AM to 6:30 AM) Subjective Subjective The patient did well overnight. Patient did have some hypotension associated with increase in propofol. No bowel movement of his been reported. Patient was not able to tolerate a spontaneous awakening trial this morning. Patient remains on Levophed and nursing/RT continue to report significant endotracheal secretions. Objective Data Objective Data Vital Signs: Vital Signs Temp Pulse Resp BP Pulse Ox 38.7 C H 109 H 20 H 125/63 H 93 04/21/21 05:00 04/21/21 05:00 04/21/21 05:00 04/21/21 05:45 04/21/21 05:00 Oxygen Flow Rate (L/min) 90 Oxygen Delivery Method Mechanical Ventilator Weight: 59.2 kg Body Mass Index (BMI) 17.1 Intake & Output: Intake and Output for Last 24 Hours 04/19/21 04/20/21 04/21/21 23:59 23:59 23:59 Intake Total 3854.59 / 3917.62 3289.71 / 3351.61 1171.34 / 1171.34 Output Total 2725 / 2725 1550 / 1550 Balance 1129.59 / 1192.62 1739.71 / 1801.61 1171.34 / 1171.34 Lab / Micro Data Result Diagrams: 04/21/21 05:20 04/21/21 05:20 Labs: Laboratory Results - last 24 hr 04/20/21 04/20/21 04/21/21 03:35 17:40 05:20 WBC RBC Hgb Hct MCV MCH MCHC RDW Std Deviation RDW Coeff of Bravo Plt Count MPV Immature Gran % (Auto) Neut % (Auto) Lymph % (Auto) [place] % (Auto) Eos % (Auto) Baso % (Auto) Absolute Neuts (auto) Absolute Lymphs (auto) Nucleated RBC % Diff Path Review Reviewed Sodium 140 Potassium 3.4 L Chloride 105 Carbon Dioxide 29.0 Anion Gap 6 BUN 11 Creatinine 0.46 L Estim Creat Clear Calc 60.02 Est GFR (MDRD) Af Amer 234 Est GFR (MDRD) Non-Af 193 BUN/Creatinine Ratio 23.9 H Glucose 169 H Calcium 7.7 L Phosphorus 1.6 L Magnesium 1.7 Total Bilirubin 0.50 AST 48 H ALT 34 Alkaline Phosphatase 110 Total Protein 5.3 L Albumin 1.7 L Globulin 3.6 Albumin/Globulin Ratio 0.5 L Vancomycin Trough 6.1 04/21/21 05:20 WBC 13.6 H RBC 2.92 L Hgb 8.6 L Hct 26.6 L MCV 91.1 MCH 29.5 MCHC 32.3 RDW Std Deviation 51.9 H RDW Coeff of Bravo 15.8 H Plt Count 162 MPV 11.0 Immature Gran % (Auto) 0.500 Neut % (Auto) 82.1 H Lymph % (Auto) 8.2 L [place] % (Auto) 7.9 Eos % (Auto) 1.2 Baso % (Auto) 0.1 Absolute Neuts (auto) 11.2 H Absolute Lymphs (auto) 1.12 Nucleated RBC % 0 Diff Path Review Sodium Potassium Chloride Carbon Dioxide Anion Gap BUN Creatinine Estim Creat Clear Calc Est GFR (MDRD) Af Amer Est GFR (MDRD) Non-Af BUN/Creatinine Ratio Glucose Calcium Phosphorus Magnesium Total Bilirubin AST ALT Alkaline Phosphatase Total Protein Albumin Globulin Albumin/Globulin Ratio Vancomycin Trough Micro: Microbiology 04/19/21 12:00 Sputum, Induced/Lukens Gram Stain - Final 04/19/21 12:00 Sputum, Induced/Lukens Respiratory Culture - Preliminary Staphylococcus aureus 04/19/21 04:50 Urine Catheter - Catheter Urine Culture - Preliminary Gram negative isaiah 04/19/21 04:50 Urine Catheter - Hua Legionella Antigen - Final 04/19/21 04:50 Urine Catheter - Hua Streptococcus pneumoniae Antigen (M - Final 04/19/21 04:50 Mucosa - Nasopharyngeal SARS-CoV-2 Antigen (Rapid) - Final ABG Data ABG results: ABG 04/20/21 07:19 Specimen Type ART Sample Site R Brach pH 7.40 Bicarbonate Actual 28.3 H Total CO2 30 Base Excess 4 H O2 Saturation 92 L O2 % 30 ABG pCO2 45.6 H ABG pO2 64 L Respiration Rate 16 O2 Delivery Device Adult Vent Vent Mode AC Tidal Volume 400 POC PEEP 5 Radiography Diagnostic Testing: Radiology Impression Chest CT 04/20/21 10:02 IMPRESSION: 1. Endotracheal tube with the tip at the edison. 2. Nasogastric tube with the tip in the stomach. 3. Dense bibasilar atelectasis. No obvious mucous plugging. 4. Emphysema with a 2.5 cm thick-walled cavitary nodule the right upper lobe worrisome for bronchial carcinoma in correlation with the PET CT scan is recommended. Electronically Signed: John Madsen MD at 13:18 EDT Tel , Service support , Soft Tissue Neck CT 04/20/21 10:02 IMPRESSION: 1. Endotracheal tube and feeding tube. 2. Status post posterior decompression and transpedicular fixation at C3/C4 with interval development of fluid collection posterior lateral to the both lamina of C2 possibly consistent with seromas or abscesses or from CSF leak. Antibiotic beads are seen in the posterior soft tissues more inferiorly. N.B. : The above information has been verbally conveyed by John Madsen MD to Dr. Arik MD, on 04/20/2021 13:04:05 (ET). Electronically Signed: John Madsen MD at 13:07 EDT Tel , Service support , ADDENDUM: 04/20/21 1314 IMPRESSION: 1. Endotracheal tube and feeding tube. 2. Status post posterior decompression and transpedicular fixation at C3/C4 with interval development of fluid collection posterior lateral to the both lamina of C2 possibly consistent with seromas or abscesses or from CSF leak. Antibiotic beads are seen in the posterior soft tissues more inferiorly. N.B. : The above information has been verbally conveyed by John Madsen MD to Dr. Arik MD, on 04/20/2021 13:04:05 (ET). Electronically Signed: John Madsen MD at 13:07 EDT Tel , Service support , Physical Exam Const Constitutional Narrative: Opens eyes to voice, but not following commands General Appearance: disheveled, frail, appears older than stated age and patient mechanically ventilated; Negative for in distress Orientation / Consciousness: disoriented and lethargic Nutritional Appearance: underweight HEENT normocephalic and head/scalp atraumatic; Negative for moist oral mucous membranes Eyes PERRL, EOMs intact bilaterally and conjunctivae normal Neck full ROM Lymph Lymphatic: no lymphadenopathy noted Resp Effort and Inspection: Negative for stridor or tracheal deviation Auscultation: rhonchi, wheezes and diminished lung sounds; Negative for rales Cardio S1 normal heart sound, S2 normal heart sound, no murmurs, no rub, no gallops and no JVD Rate: tachycardic Heart Sounds: Negative for gallop, murmur or rub GI normal to inspection, nondistended, normoactive bowel sounds Narrative: Erythema at meatus noted Extremity no clubbing, cyanosis or edema Skin Skin Narrative: Multiple superficial ulcerations. Lower extremity mottling is improved, but still has cyanosis of the toes General Skin Exam: mottling Neuro oriented x3 and CN's II-XII intact bilaterally Psych cooperative and affect normal Charges/Coding Procedures Hospitalists Procedures: 22402 Critial Care 1st Hr
[2021-04-21] MEDS: Ipratropium/Albuterol Sulfate 3 ML AMPUL.NEB INHALATION ×5 (07:09→22:12)
[2021-04-21] MEDS: Menthol/Lanolin/Calamine/Znox 113 GM Tube 1 APPLIC TOPICAL ×2 (08:23→21:25)
--- NOTE | 2021-04-21 10:45 | CASEMGMT ---
Social Work SW attended ICU rounds. Pt is intubated and sedated at this time. Staff notes attempts to call son x3 yesterday were unanswered. SW called son yesterday and left VM with no return call. SW called diogenes Zapata Jr. at this time x2. Phone rings twice and then gives busy signal. Pt son unable to be contacted. No other phone number or person of contact provided. LISHA spoke with Thais, admission Coordinator at [facility]. Pt update given. Thais states that nursing notes from [facility] indicate that on 04/19/21 at 0410 pt diogenes Zapata Jr. Was notified of transfer to [facility] and updated on condition of Mr. Gusman. Clinical updates faxed to [facility]. TONYA Kevin
[2021-04-21] MEDS: Polyethylene Glycol 3350 17 GM PACKET GT (10:48)
[2021-04-21] MEDS: Aspirin 81 MG TAB.CHEW GT (10:48)
[2021-04-21] MEDS: Senna/Docusate Sodium 1 Tablet 2 TABLET GT ×2 (10:48→21:23)
[2021-04-21] MEDS: Famotidine 200 MG/20 ML MDV 20 MG in 0.9% Normal Saline (Pres. free 8 ML 300 MG IV ×2 (10:48→21:21)
[2021-04-21] MEDS: Enoxaparin 40 MG/0.4 ML Syringe SC (10:48)
[2021-04-21] MEDS: CHLORHEXIDINE GLUC 2% CLOTH 1 EACH TOWELETTE TOPICAL (10:49)
[2021-04-21] MEDS: Multivitamins,Ther W-Minerals Tablet 1 TABLET GT (10:49)
[2021-04-21] MEDS: Chlorhexidine 15 ML PO ×2 (10:49→21:24)
[2021-04-21] MEDS: Ascorbic Acid 500 MG Tablet 250 MG GT ×2 (10:49→17:47)
--- NOTE | 2021-04-21 11:00 | PN.HOSP_ITS ---
Subjective Subjective Patient remains intubated and sedated. He had been weaning from his Levophed but with sedation wean and spontaneous breathing trial this morning the patient became very agitated and propofol had to be increased which in turn dropped his blood pressure. His Levophed had to be increased from 5 mcg to 8 mcg. No other issues overnight. Fevers are improving but still present. Objective Data Objective Data Vital Signs: Vital Signs Temp Pulse Resp BP Pulse Ox 99.5 F H 68 12 147/77 H 95 04/21/21 10:00 04/21/21 10:00 04/21/21 10:00 04/21/21 10:00 04/21/21 10:00 Oxygen Flow Rate (L/min) 90 Oxygen Delivery Method Mechanical Ventilator Weight: 59.2 kg Body Mass Index (BMI) 17.1 Intake & Output: Intake and Output for Last 24 Hours 04/19/21 04/20/21 04/21/21 23:59 23:59 23:59 Intake Total 3854.59 / 3917.62 3289.71 / 3351.61 2403.33 / 2403.33 Output Total 2725 / 2725 1550 / 1550 575 / 575 Balance 1129.59 / 1192.62 1739.71 / 1801.61 1828.33 / 1828.33 Lab / Micro Data Result Diagrams: 04/21/21 05:20 04/21/21 05:20 Labs: Laboratory Results - last 24 hr 04/20/21 04/20/21 04/21/21 03:35 17:40 05:20 WBC RBC Hgb Hct MCV MCH MCHC RDW Std Deviation RDW Coeff of Bravo Plt Count MPV Immature Gran % (Auto) Neut % (Auto) Lymph % (Auto) Sandoval % (Auto) Eos % (Auto) Baso % (Auto) Absolute Neuts (auto) Absolute Lymphs (auto) Nucleated RBC % Diff Path Review Reviewed Sodium 140 Potassium 3.4 L Chloride 105 Carbon Dioxide 29.0 Anion Gap 6 BUN 11 Creatinine 0.46 L Estim Creat Clear Calc 60.02 Est GFR (MDRD) Af Amer 234 Est GFR (MDRD) Non-Af 193 BUN/Creatinine Ratio 23.9 H Glucose 169 H Calcium 7.7 L Phosphorus 1.6 L Magnesium 1.7 Total Bilirubin 0.50 AST 48 H ALT 34 Alkaline Phosphatase 110 Total Protein 5.3 L Albumin 1.7 L Globulin 3.6 Albumin/Globulin Ratio 0.5 L Vancomycin Trough 6.1 04/21/21 05:20 WBC 13.6 H RBC 2.92 L Hgb 8.6 L Hct 26.6 L MCV 91.1 MCH 29.5 MCHC 32.3 RDW Std Deviation 51.9 H RDW Coeff of Bravo 15.8 H Plt Count 162 MPV 11.0 Immature Gran % (Auto) 0.500 Neut % (Auto) 82.1 H Lymph % (Auto) 8.2 L Sandoval % (Auto) 7.9 Eos % (Auto) 1.2 Baso % (Auto) 0.1 Absolute Neuts (auto) 11.2 H Absolute Lymphs (auto) 1.12 Nucleated RBC % 0 Diff Path Review Sodium Potassium Chloride Carbon Dioxide Anion Gap BUN Creatinine Estim Creat Clear Calc Est GFR (MDRD) Af Amer Est GFR (MDRD) Non-Af BUN/Creatinine Ratio Glucose Calcium Phosphorus Magnesium Total Bilirubin AST ALT Alkaline Phosphatase Total Protein Albumin Globulin Albumin/Globulin Ratio Vancomycin Trough Micro: Microbiology 04/19/21 04:50 Blood Culture (Wb) - Left Hand Blood Culture - Preliminary No growth in 48 hours. 04/19/21 04:40 Blood Culture (Wb) - Anticubital Left Blood Culture - Preliminary No growth in 48 hours. 04/19/21 12:00 Sputum, Induced/Lukens Gram Stain - Final 04/19/21 12:00 Sputum, Induced/Lukens Respiratory Culture - Preliminary Meth. resistant Staph. aureus 04/19/21 04:50 Urine Catheter - Catheter Urine Culture - Preliminary Escherichia coli 04/19/21 04:50 Urine Catheter - Hua Legionella Antigen - Final 04/19/21 04:50 Urine Catheter - Hua Streptococcus pneumoniae Antigen (M - Final 04/19/21 04:50 Mucosa - Nasopharyngeal SARS-CoV-2 Antigen (Rapid) - Final Radiography Diagnostic Testing: Radiology Impression Chest CT 04/20/21 10:02 IMPRESSION: 1. Endotracheal tube with the tip at the edison. 2. Nasogastric tube with the tip in the stomach. 3. Dense bibasilar atelectasis. No obvious mucous plugging. 4. Emphysema with a 2.5 cm thick-walled cavitary nodule the right upper lobe worrisome for bronchial carcinoma in correlation with the PET CT scan is recommended. Electronically Signed: John Madsen MD at 13:18 EDT Tel , Service support , Soft Tissue Neck CT 04/20/21 10:02 IMPRESSION: 1. Endotracheal tube and feeding tube. 2. Status post posterior decompression and transpedicular fixation at C3/C4 with interval development of fluid collection posterior lateral to the both lamina of C2 possibly consistent with seromas or abscesses or from CSF leak. Antibiotic beads are seen in the posterior soft tissues more inferiorly. N.B. : The above information has been verbally conveyed by John Madsen MD to Dr. Arik MD, on 04/20/2021 13:04:05 (ET). Electronically Signed: John aMdsen MD at 13:07 EDT Tel , Service support , ADDENDUM: 04/20/21 1314 IMPRESSION: 1. Endotracheal tube and feeding tube. 2. Status post posterior decompression and transpedicular fixation at C3/C4 with interval development of fluid collection posterior lateral to the both lamina of C2 possibly consistent with seromas or abscesses or from CSF leak. Antibiotic beads are seen in the posterior soft tissues more inferiorly. N.B. : The above information has been verbally conveyed by John Madsen MD to Dr. Arik MD, on 04/20/2021 13:04:05 (ET). Electronically Signed: John Madsen MD at 13:07 EDT Tel , Service support , Physical Exam Const Constitutional Narrative: Thin upper middle-aged white male who appears much older than stated age, lying in bed, intubated and sedated, does open eyes to name and follows some commands intermittently although falls back asleep fairly easily Exam Limitations: other limitations Nutritional Appearance: cachectic HEENT normocephalic and head/scalp atraumatic HEENT Narrative: ET tube in place, posterior cervical incision is clean, dry and intact Head and Scalp: normocephalic Eyes PERRL and conjunctivae normal Neck no lymphadenopathy, supple, no JVD and no carotid bruits Neck Narrative: Trachea is midline Resp no retractions and no use of accessory muscles Resp Narrative: Remains with scattered rhonchi, diffusely diminished no wheeze or rales Auscultation: rhonchi left lower; Negative for crackles, rales or wheezes Cardio regular rate, regular rhythm, S1 normal heart sound, S2 normal heart sound, no murmurs, no rub, no gallops, no clicks and no JVD GI normal to inspection, nondistended, normoactive bowel sounds, soft to palpation, non-tender and non-distended; Negative for hepatosplenomegaly Auscultation: Negative for hyperactive bowel sounds or hypoactive bowel sounds Palpation: Negative for tender, guarding or hernia Extremity Negative for normal to inspection or no clubbing, cyanosis or edema Extremity Narrative: Considerably less mottling in the last 24 hours, although still mild mottling distal bilateral lower extremities, patient does follow commands intermittently and was able to move both hands for me spontaneously pedal pulses are 1+ radial pulses are 2+ Skin no rashes or lesions noted, skin turgor normal, no jaundice and no petechiae Skin Narrative: Ecchymosis bilateral knees, mottling as noted above Neuro Neuro Narrative: Intubated and sedated although does open eyes some to name and intermittently follows commands, reflexes are 3+ throughout, patient does spontaneously move all extremities Psych Psych Narrative: Unable to assess Assessment & Plan Assessment/Plan (1) Septic shock: (2) Acute UTI: (3) Acute on chronic respiratory failure with hypoxia and hypercapnia: (4) SHANTANU (acute kidney injury): (5) Metabolic encephalopathy: (6) Elevated troponin: (7) Pneumonia: PLAN: Septic shock secondary to MRSA pneumonia and multidrug-resistant E. coli UTI -Blood cultures were negative with no growth at 48 hours -Urine culture is positive for multidrug-resistant E. coli Sputum culture is positive for MRSA and CT chest shows possible abscess versus lung mass right upper lobe -Legionella and strep pneumo urine antigens are negative -COVID-19 negative -Patient was initially fluid responsive but after intubation and decreased respiratory drive required pressors -Levophed had been as high as 25 but has been tapered and is now anywhere from 5-8 -Wean further as able -Continue vancomycin and meropenem -Infectious diseases following-appreciate input Acute hypoxic and hypercapnic respiratory failure on chronic hypoxic and hypercapnic respiratory failure-multifactorial -On 2 L nasal cannula at baseline -Patient was intubated on 04/19/2021 -Sputum culture is positive for MRSA -CT chest done on 04/20/2021 shows emphysema with a 2.5 thick-walled cavitary nodule in the right upper lobe -Concern for abscess versus carcinoma -Patient will need follow-up CT in 4 weeks after treatment to further clarify and to drive care -Continue as needed and scheduled aerosols -Initiate spontaneous breathing trial -Antibiotics as above -Pulmonary/critical care medicine following and input is appreciated Mild SHANTANU -Resolved -DC IV fluids Hypotension -Improved -Weaning Levophed Metabolic encephalopathy -Likely related to hypercapnia and acute infection -Reassess after metabolic issues are corrected Elevated troponin secondary to demand ischemia -Likely related to hypoxemia and sepsis -Echo was performed and showed an EF of 65% with stage I diastolic dysfunction and mildly elevated pulmonary artery pressure at 38 mmHg but no wall motion abnormality Leukocytosis -See above -Improving white count is down from 20,000-13,600 today COPD -Patient had been smoking prior to admission with no desire to quit -See above -Pulmonary is following -Suspect patient will need inhalers prior to discharge Mild acute anemia -Hemoglobin from 12.6-8.6 in the last 24 hours -Suspect hemodilution with a quantity of fluids we have been giving him -Continue to trend -Transfuse for hemoglobin less than 7 -Continues to have no signs of acute bleeding -If hemoglobin further decreases with discontinuation of IV fluids consider checking Hemoccult -Start IV Protonix 40 mg daily Cervical myelopathy/stenosis status post fusion -CT of the cervical spine done 04/20/2021 with sepsis -This identified a fluid collection posterior and lateral to the lamina of C2 with a differential per the radiologist of seroma, CSF leak or abscess, antib iotic beads are seen in the posterior soft tissues inferiorly these fluid collections measure 1.5 x 3 cm on the right and 1.2 x 2.5 cm on the left, there is also a pedicle screw that is not within the pedicle and is in the lateral aspect of the spinal canal on the right side--> upon review of previous imaging it appears that this was there on 04/05/2021 -Patient appears to be neurologically intact -A hard c-collar has been placed on the patient -I have discussed his case with the transfer line at and they will be reaching out to a physician to accept for admission there for further neurosur gical evaluation--> we will continue IV antibiotics here and continue c-collar -There is a current waiting list and we will await a bed after acceptance COPD -Continue aerosols Severe malnutrition -Tube feeds have been initiated -Supplements Severe debility -Continue therapy services -We will consider repeat palliative care consult once patient is more alert and oriented Tobacco abuse -Patient has shown no desire to quit in recent admissions -Recommend cessation DVT prophylaxis -Therapeutic Lovenox CODE STATUS -Full code Visit Charges Inpatient E&M: 82170 Subs Hosp L3
[2021-04-21] MEDS: guaiFENesin 10 ML UDC (200MG/10ML) NG ×2 (13:14→17:46)
--- NOTE | 2021-04-21 13:31 | PCM.PN.ID ---
Physical Exam Narrative On vent, pressors, fever overnight Const Constitutional Narrative: intubated, sedated Resp Effort and Inspection: mechanically ventilated Auscultation: rhonchi Cardio regular rate and regular rhythm GI normal to inspection, nondistended, normoactive bowel sounds Skin no rashes or lesions noted ID ID: Route of nutrition/ use of supplements: [] Nutritional Intake: [] IV Site: [] Hua Catheter: [] Assessment & Plan Assessment/Plan (1) Septic shock: PLAN: septic shock - UA with heavy pyuria, recent ucxs with esbl ecoli and enterococcus. On vent, treating for pneumonia. Sputum gram stain with large amounts of multiple organisms seen including possible actinomyces. With suspected polymicrobial pneumonia, recent major cervical surgery, and propensity for actinomyces to cause abscess and fistula formation, ordered CT neck and chest with contrast. Question of 2 fluid collections seen, spine surgery consulted for eval. 04/20 broadened vanc/zosyn to vanc/dany to have some esbl and actino coverage. Will follow (2) Pneumonia: (3) SHANTANU (acute kidney injury): (4) COPD (chronic obstructive pulmonary disease): QUALIFIERS: COPD type: COPD with acute exacerbation Qualified Code(s): J44.1 - Chronic obstructive pulmonary disease with (acute) exacerbation
[2021-04-21] MEDS: Propofol 10MG/Ml 1,000 MG/100 ML Bottle 10.7 MG CONT INF (13:41)
[2021-04-21] MEDS: Atorvastatin Calcium 40 MG Tablet GT (21:23)
[2021-04-21] MEDS: Propofol 10MG/Ml 1,000 MG/100 ML Bottle 8.9 MG CONT INF (21:57)
[2021-04-22] VITALS (45 sets, daily range): BP systolic 63–179; BP diastolic 33–84; PULSE 67–99; RESP 12–23; TEMP 37.6–38.7; O2SAT 85–98
[2021-04-22] MEDS: Ipratropium/Albuterol Sulfate 3 ML AMPUL.NEB INHALATION ×5 (03:32→18:51)
[2021-04-22] MEDS: guaiFENesin 10 ML UDC (200MG/10ML) NG ×4 (05:05→17:38)
[2021-04-22] MEDS: Menthol/Lanolin/Calamine/Znox 113 GM Tube 1 APPLIC TOPICAL (05:05)
[2021-04-22 05:22] LABS: Magnesium 1.4 mg/dL (1.6-2.6); Phosphorus 2.2 mg/dL (2.5-4.9)
[2021-04-22] MEDS: Acetaminophen 650 MG/20 ML UDC GT ×2 (06:17→12:21)
--- NOTE | 2021-04-22 06:21 | PCM.PN.INT ---
Assessment & Plan Assessment/Plan (1) Septic shock: PLAN: RECOMMENDATIONS: 1. Continue antimicrobials per ID recommendations. 2. Continue vasopressor support to maintain a mean arterial pressure at or above 65 mmHg. 3. Wean FiO2 to maintain oxygen saturations at or above 90%. 4. Continue propofol and fentanyl for sedation. 5. Continue tube feeds as tolerated. 6. Continue appropriate ICU prophylaxis. IMPRESSIONS: 1. Septic shock secondary to E. coli cystitis and MRSA pneumonia Plan to continue current supportive measures with antimicrobials per ID recommendations along with vasopressor support in an attempt to maintain a mean arterial pressure at or above 65 mmHg. In addition to the patient's urinary and pulmonary sources of infection, there is also concern for perispinal infectious etiology given fluid collections seen on CT scan and recent cervical surgery. The patient is awaiting transfer to for further evaluation. 2. Acute on chronic combined respiratory failure Clinical suspicion for multifactorial etiology. The patient does have baseline COPD of unclear significance. As noted above, the patient will be continued on antimicrobials. Plan to continue the patient on assist control mode of mechanical ventilation and wean FiO2 to maintain oxygen saturations at or above 90%. 3. Metabolic encephalopathy Multiple etiologies including sepsis and hypercarbia. Avoidance of benzodiazepines and narcotics would be helpful. We will continue to monitor closely. Patient with recent extensive conversation about CODE STATUS with social work. Agree with full CODE STATUS. 4. Hypophosphatemia/hypomagnesemia Electrolyte repletion as ordered. Recheck levels in the morning. 5. Recent cervical fusion/malnutrition/debility/reported tobacco abuse/elevated troponin Complicates care, management, recovery and prognosis. TIME: 38 minutes of critical care time, independent of procedures, was spent addressing the patient's septic shock, E. coli cystitis, MRSA pneumonia, acute on chronic combined respiratory failure, metabolic encephalopathy, review of all data and collaboration with the care team. ([id number]) Subjective Subjective The patient was seen and examined at the bedside this morning. Events from the last 24 hours have been reviewed. The patient remains febrile, but is otherwise hemodynamically stable and maintaining appropriate oxygen saturations on assist control mode of mechanical ventilation with an FiO2 requirement of 40%. Per nursing report, the patient continues to have a significant amount of secretions. The patient is currently documented to be overall net +5.1 L for the hospital admission. The patient is still awaiting transfer to . The patient remains on Levophed at 4 mcg/min to maintain his hemodynamic status. Objective Data Objective Data The patient's most recent lab work, culture data and imaging studies have all been personally reviewed. Surface echocardiogram dated April 19 revealed stage I diastolic dysfunction with an ejection fraction of 65%. Pulmonary artery systolic pressure was estimated to be [address] chest completed on April 20 revealed bibasilar atelectasis along with emphysema and a 2.5 cm cavitary nodule in the right upper lobe. CT neck from April 20 revealed a fluid collection posterior lateral to both lamina of C2 possibility related to seromas or abscesses. Urine culture dated April 19 was positive for E. coli. Sputum culture from April 19 appears to be demonstrating evidence of actinomyces, along with MRSA. Vital Signs: Vital Signs Temp Pulse Resp BP Pulse Ox 101.2 F H 83 14 108/56 L 94 04/22/21 06:00 04/22/21 06:00 04/22/21 06:00 04/22/21 06:00 04/22/21 06:00 Oxygen Flow Rate (L/min) 90 Oxygen Delivery Method Mechanical Ventilator Weight: 130 lb 8.218 oz Body Mass Index (BMI) 17.1 Intake & Output: Intake and Output for Last 24 Hours 04/20/21 04/21/21 04/22/21 23:59 23:59 23:59 Intake Total 3289.71 / 3351.61 3840.34 / 3984.24 511.66 / 511.66 Output Total 1550 / 1550 1525 / 1640 565 / 565 Balance 1739.71 / 1801.61 2315.34 / 2344.24 -53.34 / -53.34 Lab / Micro Data Attestation: I reviewed the patient's lab results. Result Diagrams: 04/22/21 04:58 04/21/21 05:20 Labs: Laboratory Results - last 24 hr 04/22/21 04:50 Phosphorus 2.2 L Magnesium 1.4 L Micro: Microbiology 04/19/21 04:50 Blood Culture (Wb) - Left Hand Blood Culture - Preliminary No growth in 48 hours. 04/19/21 04:40 Blood Culture (Wb) - Anticubital Left Blood Culture - Preliminary No growth in 48 hours. 04/19/21 12:00 Sputum, Induced/Lukens Gram Stain - Final 04/19/21 12:00 Sputum, Induced/Lukens Respiratory Culture - Preliminary Meth. resistant Staph. aureus 04/19/21 04:50 Urine Catheter - Catheter Urine Culture - Preliminary Escherichia coli 04/19/21 04:50 Urine Catheter - Hua Legionella Antigen - Final 04/19/21 04:50 Urine Catheter - Hua Streptococcus pneumoniae Antigen (M - Final 04/19/21 04:50 Mucosa - Nasopharyngeal SARS-CoV-2 Antigen (Rapid) - Final Physical Exam Const no apparent distress General Appearance: intubated and patient mechanically ventilated HEENT normocephalic and head/scalp atraumatic Mouth: endotracheal tube in place and OG tube in place Eyes PERRL Neck Neck Narrative: C-collar remains in place. General: trachea midline Resp Auscultation: diminished lung sounds; Negative for rales, rhonchi or wheezes Cardio regular rate and regular rhythm GI normal to inspection, nondistended, normoactive bowel sounds Extremity no clubbing, cyanosis or edema Skin no rashes or lesions noted Neuro no focal motor deficits Charges/Coding Procedures Hospitalists Procedures: 72250 Critial Care 1st Hr
[2021-04-22] MEDS: Vital AF 1.2 Cal Liquid 1,000 ML 20 ML GT (06:24)
[2021-04-22 06:54] LABS: Vancomycin, Trough Level 17.5 ug/mL (5.0-15.0)
[2021-04-22 07:07] LABS: Absolute Lymphocyte Count 1.44 X10^3/uL (0.83-4.51); Absolute Neutrophil Count 7.6 X10^3/uL (2.0-7.7); Basophil# 0.02 X10^3/uL; Basophil% 0.2 % (0-1); Eosinophil# 0.33 X10^3/uL; Eosinophils% 3.3 % (0-5); Hematocrit 27.3 % (40-54); Hemoglobin 8.7 g/dL (13.0-16.5); Lymphocyte # 1.44 X10^3/ul (0.83-4.51); Lymphocyte % 14.2 % (19-41); Mean Corp Hgb Conc 31.9 g/dL (32-36); Mean Corpuscular Hgb 29.1 pg (27.0-32.0); Mean Corpuscular Volume 91.3 fL (80-94); Mean Platelet Vol. 11.8 fl (6.2-12.0); Monocyte# 0.71 X10^3/uL; NRBC Flagged by Analyzer 0 % (0-5); Neutrophil # 7.57 X10^3/uL (2.7-7.7); Neutrophil % 74.7 % (47-70); Platelet Count 167 K/mm3 (150-450); RBC Distribution Width CV 15.7 % (11.6-14.6); Red Blood Count 2.99 M/mm3 (4.6-6.2); White Blood Count 10.1 K/mm3 (4.4-11.0)
[2021-04-22] MEDS: Multivitamins,Ther W-Minerals Tablet 1 TABLET GT (09:22)
[2021-04-22] MEDS: Ascorbic Acid 500 MG Tablet 250 MG GT ×2 (09:22→17:38)
[2021-04-22] MEDS: Senna/Docusate Sodium 1 Tablet 2 TABLET GT (09:22)
[2021-04-22] MEDS: Famotidine 200 MG/20 ML MDV 20 MG in 0.9% Normal Saline (Pres. free 8 ML 300 MG IV (09:23)
[2021-04-22] MEDS: Enoxaparin 40 MG/0.4 ML Syringe SC (09:23)
[2021-04-22] MEDS: Polyethylene Glycol 3350 17 GM PACKET GT (09:23)
[2021-04-22] MEDS: Chlorhexidine 15 ML PO (09:23)
[2021-04-22] MEDS: CHLORHEXIDINE GLUC 2% CLOTH 1 EACH TOWELETTE TOPICAL (09:23)
[2021-04-22] MEDS: Aspirin 81 MG TAB.CHEW GT (09:23)
[2021-04-22] MEDS: Magnesium Sulfate 4gm/100mL 4 GM/100 ML IV.SOLN. IV (09:24)
[2021-04-22] MEDS: Propofol 10MG/Ml 1,000 MG/100 ML Bottle 10.7 MG CONT INF (12:21)
--- NOTE | 2021-04-22 14:13 | DS.PCM_ITS ---
Providers Date of Admission: 04/19/21 Primary Care Physician: Dr. Chin Heller MD Consultations 04/19/21 07:54 Consult: Blanket Weaver / Pulmonary Medicine Routine Consulting Provider: [facility] Reason for Consult: sepsis/Acute respiratory failure EMERGENT Consult: No Notified: Yes Date Notified:: 04/19/21 Time Notified: 08:05 Method of Notification: Verbal 04/20/21 13:08 Consult: Orthopedics Routine Consulting Provider: Nagi Benitez Reason for Consult: please advise on CT neck done 04/20/2021--> ? need surgical eval at EMERGENT Consult: No Notified: Yes Date Notified:: 04/20/21 Time Notified: 13:09 Method of Notification: Verbal 04/20/21 14:33 Consult: Infectious Disease Routine Consulting Provider: Milan Camacho Reason for Consult: Sepsis EMERGENT Consult: No Notified: Yes Date Notified:: 04/20/21 Time Notified: 09:00 Method of Notification: Verbal Reason For Visit: SEVERE SEPSIS Diagnosis Discharge Diagnosis (1) Septic shock: Status: Acute Code(s): A41.9 - Sepsis, unspecified organism; R65.21 - Severe sepsis with septic shock Medications at Discharge Home Medications atorvastatin 40 mg PO QHS 30 Days #30 tab 04/13/21 Hospital Course Procedures 2-D Echocardiogram, Intubation and PICC line placement Summary of Care Provided Minutes Spent on Discharge: 46 Hospital Course: FRAN GUZMAN, is a 69 M who presented to the emergency department [facility] on 04/19/2021 from a assisted facility with a chief complaint of shortness of breath.? He was recently admitted to TCU after having a cervical fusion for severe cervical spinal stenos is and myelopathy with cord compression and was discharged from there on 04/13/2021 through a skilled facility.? He has had multiple admissions in the last month or so for various issues.? Per the EMS his pulse ox on arrival with 2 L nasal cannula was in the 60s.? He was placed on a nonrebreather and the squad was able to get his oxygen saturation into the 80s with a nonrebreather.? In the emergency department he was placed on noninvasive ventilation and 90% and his oxygen saturations did improve to 95 to 99%.? An attempt to reduce FiO2 was made with a reduction to 60% and his oxygen saturations dropped into the mid 80s.? His blood pressures were initially in the 80s systolic but he is responded to 2 L normal saline bolus in the ED with improved blood pressure to 112/75.? He waas tachypneic with respiratory rates anywhere from 18-25.? He was afebrile.? His CBC showed a white count of 18.1, hemoglobin of 12.3 and normal platelets.? He had a left shift with neutrophilia.? His coagulation studies were within normal limits.? His CMP was notable for an elevated bicarb which is at baseline for him, a normal anion gap, and elevated BUN and creatinine compared to baseline, normal lactic acid at 1.4, normal total bilirubin and LFTs however his troponin was elevated at 0.315.? His EKG in the emergency department showed no acute ST-T wave changes and was in normal sinus rhythm.? His urine looked concentrated with a specific gravity of 1.020, he had 50 of occult blood and was positive for leuk esterase with greater than 100 WBCs per high power field and 3+ bacteria.? A chest x-ray was performed and shows a small right pleural effusion, left lower lobe segmental atelectasis versus pneumonia/consolidation and hyperinflation.? He was treated with ceftriaxone in the emergency department and placed on noninvasive ventilation.? He was admitted to the ICU with severe sepsis. An ABG was obtained approximately 3 hours after an IV was initiated and shows a pH of 7.22 a PCO2 of 79.5 and a PO2 59 of with a sat of 90%. Adjustments were made to his noninvasive ventilation at that time and a repeat blood gas was obtained 2 hours later and showed no significant improvement in the patient's mental status declined therefore he was intubated with a glide scope. A PICC line was placed for improved IV access and after intubation with decreased respiratory drive the patient's blood pressure dropped and Levophed was initiated. He has been on weaning amounts of Levophed since the day of admission. A CT of his cervical spine was performed after intubation and showed that his right C2 pedicular screw was actually transversing through the spinal canal and that there were 2 fluid collections in the paraspinal areas that were concerning for possible abscess versus CFS leak versus postoperative seroma. Infectious disease was involved and his antibiotics were switched to meropenem and vancomycin. His blood cultures were negative, however his urine culture was positive for ESBL E. coli of 2 different species and his sputum culture was positive for MRSA. A CT of his chest was performed and showed mild emphysematous changes with a 2.5 cm thick-walled cavitary nodule in the right upper lobe and bibasilar atelectasis. An echocardiogram was also performed on 04/19/2021 and showed an EF of 65%, stage I diastolic dysfunction and pulmonary artery systolic pressures of 38 mmHg. He had no wall motion abnormality on the study. With the findings on his C-spine CT he was placed in a cervical collar and transferred to [facility] for further evaluation from neurosurgery. The accepting physician is Dr. Alejandro Osborne. He was transferred to main campus in critical but stable condition. Discharge diagnoses Septic shock Multidrug-resistant E. coli UTI MRSA pneumonia Acute hypoxic and hypercapnic respiratory failure Chronic hypoxic respiratory failure Right upper lobe mass Missed placed right pedicular screw C2 Possible cervical spine infection SHANTANU-resolved Hypotension Metabolic encephalopathy Troponin elevation secondary to demand ischemia Leukocytosis COPD Mild acute anemia Cervical myelopathy/stenosis status post cervical fusion Severe malnutrition Severe debility Ongoing tobacco abuse Physical Exam Const Constitutional Narrative: Thin upper middle-aged white male who appears much older than stated age, lying in bed, intubated and sedated, does open eyes to name periodically, c-collar present, moves extremities spontaneously Exam Limitations: other limitations Nutritional Appearance: cachectic HEENT normocephalic and head/scalp atraumatic HEENT Narrative: C-collar in place Eyes PERRL and conjunctivae normal Neck no lymphadenopathy, supple, no JVD and no carotid bruits Neck Narrative: Trachea is midline Resp no retractions and no use of accessory muscles Resp Narrative: Remains with scattered rhonchi, diffusely diminished no wheeze o r rales Auscultation: rhonchi left lower; Negative for crackles, rales or wheezes Cardio regular rate, regular rhythm, S1 normal heart sound, S2 normal heart sound, no murmurs, no rub, no gallops, no clicks and no JVD GI normal to inspection, nondistended, normoactive bowel sounds, soft to palpation, non-tender and non-distended; Negative for hepatosplenomegaly Auscultation: Negative for hyperactive bowel sounds or hypoactive bowel sounds Palpation: Negative for tender, guarding or hernia Extremity Negative for normal to inspection or no clubbing, cyanosis or edema Extremity Narrative: Patient no longer has any mottling although still mild mottling, pedal pulses are 1+ radial pulses are 2+ Skin no rashes or lesions noted, skin turgor normal, no jaundice and no petechiae Skin Narrative: Ecchymosis bilateral knees, mottling as noted above Neuro Neuro Narrative: Intubated and sedated although does open eyes some to name and intermittently follows commands, reflexes are 3+ throughout, patient does spontaneously move all extremities Psych Psych Narrative: Unable to assess ABG / Lab / Microbiology Data Result Diagrams: 04/22/21 04:58 04/21/21 05:20 Laboratory: Laboratory Results - last 24 hr 04/22/21 04/22/21 04/22/21 04:50 04:50 04:58 WBC 10.1 RBC 2.99 L Hgb 8.7 L Hct 27.3 L MCV 91.3 MCH 29.1 MCHC 31.9 L RDW Std Deviation 52.0 H RDW Coeff of Bravo 15.7 H Plt Count 167 MPV 11.8 Immature Gran % (Auto) 0.600 Neut % (Auto) 74.7 H Lymph % (Auto) 14.2 L Vance % (Auto) 7.0 Eos % (Auto) 3.3 Baso % (Auto) 0.2 Absolute Neuts (auto) 7.6 Absolute Lymphs (auto) 1.44 Nucleated RBC % 0 Phosphorus 2.2 L Magnesium 1.4 L Vancomycin Trough 17.5 H Microbiology: Microbiology 04/19/21 12:00 Gram Stain - Final Sputum, Induced/Lukens Respiratory Culture - Preliminary Meth. resistant Staph. aureus 04/19/21 04:50 Urine Culture - Final Urine Catheter - Catheter Escherichia coli Microbiology 04/19/21 12:00 Sputum, Induced/Lukens Gram Stain - Final 04/19/21 12:00 Sputum, Induced/Lukens Respiratory Culture - Preliminary Meth. resistant Staph. aureus 04/19/21 04:50 Urine Catheter - Catheter Urine Culture - Final Escherichia coli 04/19/21 04:50 Blood Culture (Wb) - Left Hand Blood Culture - Preliminary No growth in 48 hours. 04/19/21 04:40 Blood Culture (Wb) - Anticubital Left Blood Culture - Preliminary No growth in 48 hours. 04/19/21 04:50 Urine Catheter - Hua Legionella Antigen - Final 04/19/21 04:50 Urine Catheter - Hua Streptococcus pneumoniae Antigen (M - Final 04/19/21 04:50 Mucosa - Nasopharyngeal SARS-CoV-2 Antigen (Rapid) - Final D/C Instructions Discharge Diet: No restrictions Meaningful Use Info Meaningful Use Diagnoses (Choose all that apply): None applicable Discharge Plan Admission Admit Date/Time: 04/19/21 07:27 Primary Reason for Your Visit: Septic Shock Attending Provider: Harriet Pink Primary Care Provider: Chin Heller Consulting Providers: Riley Elise ; Lionel Espinoza ; Zenaida Amezcua NP ; Nagi Patton ; Milan Camacho Discharge Orders/Prescriptions Prescriptions: Discontinued sennosides-docusate sodium [Senna-S] 8.6-50 mg Tablet 2 tab PO DAILY RF: 0 multivitamin with minerals [Multiple Vitamin-Minerals] Tablet 1 tab PO DAILY RF: 0 melatonin 5 mg Tablet 5 mg PO DAILY@1800 RF: 0 aspirin 81 mg Tablet,Delayed Release (Dr/Ec) 81 mg PO DAILY RF: 0 ascorbic acid (vitamin C) 250 mg Tablet 250 mg PO BID RF: 0 polyethylene glycol 3350 17 gram Powder In Packet 17 g PO DAILY Qty: 0 RF: 0 dextromethorphan-guaifenesin 10-100 mg/5 mL Syrup 10 ml PO Q6H PRN PRN (Reason: COUGH/CONGESTION) Qty: 0 RF: 0 baclofen 10 mg Tablet 10 mg PO TID 30 Days Qty: 90 RF: 0 losartan 100 mg Tablet 100 mg PO DAILY 30 Days Qty: 30 RF: 0 diazepam 5 mg Tablet 5 mg PO 4X/DAY PRN PRN (Reason: Anxiety) 30 Days Qty: 120 RF: 0 sodium chloride [Deep Sea Nasal] 0.65 % Aerosol,[place] 2 spray NASAL TID PRN PRN (Reason: NASAL DRYNESS) Qty: 0 RF: 0 Calmoseptine 0.44-20.6 % Ointment 1 applic topical 0600,2200 Qty: 0 RF: 0 guaifenesin [Mucus Relief ER] 600 mg Tablet Extended Release 12hr 600 mg PO BID Qty: 0 RF: 0 albuterol sulfate 2.5 mg /3 mL (0.083 %) Solution For Nebulization 2.5 mg INHALATION Q4H PRN (Reason: Shortness Of Breath) RF: 0 Stress B Plus Zinc Tablet 1 tab PO DAILY RF: 0 Theragran-M Tablet 1 tab PO DAILY RF: 0 acetaminophen [Tylenol] 325 mg tablet 650 mg PO Q4H PRN (Reason: Fever Or Pain) RF: 0 oxycodone 5 mg tablet 10 mg PO Q6H PRN PRN (Reason: Pain) RF: 0 No Action atorvastatin 40 mg Tablet 40 mg PO QHS 30 Days Qty: 30 RF: 0 Referrals / Follow Up: Chin Heller MD [Primary Care Provider] - Disposition Disposition (needs filled in before D/C Order can be placed): Acute Care Hospital Visit Charges Inpatient E&M: 15683 Disch Hosp
--- NOTE | 2021-04-22 17:55 | NURSING ---
Called and talked to pt's son Benny Gusman . listed on profile and was finally able to reach him. Pt's son threatening to shae the hospital, when told that we were trying to contact the pt's son for several days he states I'm tired of hearing the same fucking thing!, my dad is in there dying and you all think it's a fucking game! d/t the fact that pt has not been answering the phone, pt's son was unaware that the pt was on a ventilator, surgical problems and infection problems. Pt son continues to be belligerent, threatening to shae the hospital and call a speech pathologist assistant, and not responsive to anything this RN has to say. I gave the ETA of the pt leaving the hospital and why. Attempting to contact RN preload supervisor for further guidance for pt's son.
--- NOTE | 2021-04-22 18:22 | NURSING ---
Spoke w/ Dr. Pink and updated her about issues w/ pt's son. Dr. Pink and Dr. Espinoza deeming transfer medically and legally necessary d/t the fact that the pt is unable to receive the care that he needs at this facility. RN supervisory training specialist updated. HRO given notification of events as well.
--- NOTE | 2021-04-22 18:53 | NURSING ---
Gave report to Thais BOWMAN at .
--- NOTE | 2021-05-02 09:59 | CASEMGMT ---
Social Work Note LISHA received call from Thais at [facility] requesting update. LISHA reviewed chart, pt was transferred out to . LISHA placed a call to Thais at [facility] and updated her. Thais Alicea MSW, MANUFACTURING ASSOCIATE
--- NOTE | 2021-06-02 10:34 | CASEMGMT ---
Social Work Note SW received a call from Aaliyah at [facility] stating pt is now at their facility from and is asking if H had pt's wallet as pt is stating he doens't have his wallet. LISHA reviewed chart, when pt was transferred to pt's watch was the only valuable transported with pt. Aaliyah at [facility] updated. Thais Alicea DIAMOND GRINDER, LOBBYIST
== END 2021-04-22 20:00 | disposition short-term general hospital (02) | DRG 698 ==
LOC: ED 07:22 → ICU 07:32
PROVIDERS: Internal Medicine Infectious Disease; Admitting Provider Internal Medicine; Emergency Provider Emergency Medicine; PCP Family Medicine; Visit Provider Internal Medicine
DX: T83.511A Infection and inflammatory reaction due to indwelling urethral catheter, initial encounter (principal); A41.9 Sepsis, unspecified organism; R65.21 Severe sepsis with septic shock; J15.212 Pneumonia due to Methicillin resistant Staphylococcus aureus; J96.21 Acute and chronic respiratory failure with hypoxia; J96.22 Acute and chronic respiratory failure with hypercapnia; G93.41 Metabolic encephalopathy; E43 Unspecified severe protein-calorie malnutrition; G95.9 Disease of spinal cord, unspecified; N17.9 Acute kidney failure, unspecified; I24.8 Other forms of acute ischemic heart disease; J44.1 Chronic obstructive pulmonary disease with (acute) exacerbation; G93.49 Other encephalopathy; Z68.1 Body mass index [BMI] 19.9 or less, adult; J98.11 Atelectasis; J44.0 Chronic obstructive pulmonary disease with (acute) lower respiratory infection; D64.9 Anemia, unspecified; M48.02 Spinal stenosis, cervical region; Z98.1 Arthrodesis status; Z72.0 Tobacco use
CPT/HCPCS: 31500; 31720; 36569; 36600; 70491; 71045; 71260; 80048; 80053; 80202; 81001; 82550; 82803; 83605; 83735; 84100; 84478; 84484; 85025; 85379; 85610; 85730; 87040; 87070; 87077; 87086; 87088; 87186; 87205; 87426; 87449; 87641; 93005; 93306; 94002; 94003; 94640; 97802; 97803; 99251; 99285; J2185; J7030; J7040; J7050; Q9957; Q9967; A4216; C8929; G0463; J3010; J3490